=== PATIENT | male | born 1955 | race Caucasian/White ===

== ENCOUNTER → 2020-07-08 15:53 | Outpatient (BNVA) | payer MEDICARE, SELFPAY | PROVIDERS: Family Provider Nurse Practitioner Family; Visit Provider Nurse Practitioner Family | DX: M54.2 Cervicalgia (principal); M54.6 Pain in thoracic spine | CPT/HCPCS: 72040; 72072 ==

== ENCOUNTER → 2020-07-09 11:42 | Outpatient (BNVA) | payer MEDICARE, SELFPAY | PROVIDERS: Family Provider Nurse Practitioner Family; Visit Provider Nurse Practitioner Family | DX: M19.90 Unspecified osteoarthritis, unspecified site (principal); R53.83 Other fatigue; N40.0 Benign prostatic hyperplasia without lower urinary tract symptoms; G25.81 Restless legs syndrome; E55.9 Vitamin D deficiency, unspecified; Z79.899 Other long term (current) drug therapy; M50.30 Other cervical disc degeneration, unspecified cervical region; Z13.6 Encounter for screening for cardiovascular disorders; M51.34 Other intervertebral disc degeneration, thoracic region; Z23 Encounter for immunization | CPT/HCPCS: 80053; 80061; 82306; 83036; 83735; 84100; 84443; 85025; G0103 ==

== ENCOUNTER → 2020-07-10 11:47 | Outpatient (BNVA) | payer MEDICARE, SELFPAY | PROVIDERS: Family Provider Nurse Practitioner Family; Visit Provider Nurse Practitioner Family | DX: N40.0 Benign prostatic hyperplasia without lower urinary tract symptoms (principal) | CPT/HCPCS: 81003 ==

== ENCOUNTER 2020-07-15 10:01 | Outpatient (CLI) | payer MEDICARE, SELFPAY ==
--- NOTE | 2020-07-15 11:00 | MR_ITS ---
WS: [id number] MRI CERVICAL SPINE NONCONTRAST TECHNIQUE: Sagittal T1, T2 and STIR imaging. Axial T2, gradient, and fiesta imaging. CLINICAL INFORMATION: M50.30 Other cervical disc degeneration, unspecified cerv... COMPARISON: None. FINDINGS: Straightening of the normal cervical lordosis. Prior interbody bony fusion C3-4 and C5-6. Anterior hy pertrophic changes worse at C6-7. No high-grade central canal stenosis. Cord signal is normal. C2-C3: Osteophytic ridging. Mild bilateral bony foraminal narrowing. Mild facet arthropathy. C3-C4: Prior interbody bony fusion. Mild bilateral bony foraminal narrowing. Mild to moderate facet a rthropathy. Spinal canal is patent. C4-C5: Disc osteophyte complex with endplate ridging. Moderate central canal stenosis. Narrowing of t he right subarticular recess. Severe right and mild left bony foraminal narrowing. Advanced right fac et arthropathy. C5-C6: Interbody bony fusion. Mild right and no significant left foraminal narrowing. Spinal canal is patent. Moderate facet arthropathy. C6-C7: Disc osteophyte complex with endplate ridging. Moderate central canal stenosis. Severe left an d moderate right bony foraminal narrowing. C7-T1: Slight anterolisthesis C7 on T1. Moderate central canal stenosis. Severe bilateral bony forami nal narrowing with osteophytic ridging. Moderate facet arthropathy. Visualized brain stem structures: Normal. Prevertebral soft tissues: Normal. MR/MR cervical spin wo con* [id number] IMPRESSION: 1. Straightening of the normal cervical lordosis with prior interbody bony fus ion C3-C4 and C5-C6. 2. Moderate central canal stenosis C4-C5 and C6-C7 with slight contact of the cervical cord worse at C6-7. 3. Multilevel moderate to severe bony foraminal narrowing worse at right C4-5, left C6-7, and bilateral C7-T1. 4. Slight anterolisthesis C7 on T1.
--- NOTE | 2020-07-15 11:45 | MR_ITS ---
WS: [id number] MRI THORACIC SPINE WITHOUT CONTRAST TECHNIQUE: Sagittal T1, T2 and STIR imaging. Axial T2 imaging. Noncontrast imaging obtained. CLINICAL INFORMATION: M51.34 Other intervertebral disc degeneration, FINDINGS: Mild thoracic curve. Mild thoracic kyphosis. No acute compression fractures. No high-grade central ca nal stenosis. Hemangioma T11 vertebral body. Cord signal is normal. Moderate facet arthropathy lower thoracic spine. Mild central canal stenosis T2-3, T9-10, and T10-T11. Partially visualized left tomy l cyst measuring 6 cm. T1-T2: Mild left greater than right bony foraminal narrowing. Mild facet arthropathy. T2-T3: Mild disc osteophyte complex with endplate ridging. Mild central canal stenosis. Moderate face t arthropathy. Mild to moderate bilateral bony foraminal narrowing. T3-T4: Small central disc protrusion with slight contact of the thoracic cord. Moderate right and no significant left foraminal narrowing. Moderate facet arthropathy. T4-T5: Tiny right pericentral protrusion. Mild right foraminal narrowing. Mild facet arthropathy. T5-T6: Tiny central disc protrusion. Mild left greater than right foraminal narrowing. Mild facet art hropathy. T6-T7: Mild disc osteophytic ridging. Mild left foraminal narrowing. Mild facet arthropathy. T7-T8: Normal T8-T9: No significant spinal canal or foraminal narrowing. Mild facet arthropathy. T9-T10: Disc osteophyte complex with mild central canal stenosis. Moderate bilateral bony foraminal n arrowing. Moderate facet arthropathy. T10-T11: Disc osteophyte complex with endplate ridging. Moderate facet arthropathy. Moderate right an d mild left foraminal narrowing. T11-T12: Spinal canal and foramen are patent. Moderate facet arthropathy. T12-L1: Mild right and no significant left foraminal narrowing. Moderate facet arthropathy. MR/MR thoracic spin wo con* [id number] IMPRESSION: 1. Mild thoracic curve. Mild thoracic kyphosis. No high-grade central canal na rrowing. 2. Mild central canal stenosis T2-3, T9-T10 and T10-11. 3. Moderate facet arthropathy lower thoracic spine worse at T10-11. 4. Moderate bilateral T9-T10 and right T10-11 bony foraminal narrowing.
== END 2020-07-15 10:02 | disposition home or self-care (01) ==
LOC: RADSHAW 10:05
PROVIDERS: PCP Nurse Practitioner Family; Visit Provider Nurse Practitioner Family
DX: M50.30 Other cervical disc degeneration, unspecified cervical region (principal); M51.34 Other intervertebral disc degeneration, thoracic region; M40.204 Unspecified kyphosis, thoracic region; M48.04 Spinal stenosis, thoracic region; M47.814 Spondylosis without myelopathy or radiculopathy, thoracic region; M48.02 Spinal stenosis, cervical region; M40.50 Lordosis, unspecified, site unspecified
CPT/HCPCS: 72141; 72146

== ENCOUNTER → 2020-07-24 12:22 | Outpatient (BNVA) | payer MEDICARE, SELFPAY | PROVIDERS: PCP Nurse Practitioner Family; Visit Provider Licensed Practical Nurse | DX: M50.020 Cervical disc disorder with myelopathy, mid-cervical region, unspecified level (principal); M43.22 Fusion of spine, cervical region; M51.34 Other intervertebral disc degeneration, thoracic region; Z98.1 Arthrodesis status; M54.5 Low back pain; M47.894 Other spondylosis, thoracic region; M48.02 Spinal stenosis, cervical region; G99.2 Myelopathy in diseases classified elsewhere | CPT/HCPCS: 99204 ==

== ENCOUNTER 2020-08-06 08:24 | Outpatient (CLI) | payer MEDICARE, SELFPAY ==
--- NOTE | 2020-08-06 09:00 | IR_ITS ---
WS: [id number] Lumbar myelogram, 08/06/2020 Clinical Data: thoracic, LUMBAR back pain, NECK PAIN Comparison: None. Fluoroscopy time: 1.7 minutes. Findings: With the usual technique, a 22 gauge spinal needle was inserted into the lumbar subarachnoid space at L2-L3. The contrast material was hand injected. Approximately 20 mL of 300 mg/mL Omnipaque entered the lumba r subarachnoid space. There are no intramedullary or intradural defects. There was bilateral extradur al narrowing at the L4-L5 level. The transverse processes and SI joints show no significant abnormali ties. No compression fractures are seen. Intradural stimulator wires are present at the L4 level. Flexion, extension and neutral lateral views demonstrated no limitation of motion or subluxation. De generative change with anterior spurring was present at all the lumbar vertebral bodies. There is pos terior spurring at L2-L3 with an extradural defect. Degenerative disc narrowing at all levels from T1 2-L1 through L4-L5 was seen. FINDINGS: The contrast material fills the subarachnoid space of the thoracic spine. No intramedullary , intradural or extradural defects are seen. There is no obstruction to the flow of contrast from the lumbar subarachnoid space into the cervical subarachnoid space. There is osteoarthritic change of th e thoracic vertebral bodies with multiple disc space narrowing. FINDINGS: The contrast material flowed normally into the cervical subarachnoid space. There is an int erbody fusion at C3-C4. There is an anterior bony fusion at C5-C6. There is large anterior osteoarth ritic spurring at C6-C7. There is disc obliteration at C3-4, narrowing at C4-C5, C5-C6 and C6-C7. No compression fractures are seen. No prevertebral swelling is present. No intramedullary, intradural or extradural defects are seen. Neutral, flexion and extension views were obtained. On the neutral views there was an anterior sublux ation of 0.3 cm of C2 on C3 and 0.2 cm of C4 on C5. On flexion there is a slight increase of the C2-C 3 subluxation to 0.35 cm and an increase at the C4-C5 subluxation is 0.45 cm. On extension the sublux ations were reduced at C2-C3 and unchanged at C4-C5. There is limitation of motion of the cervical sp ine on flexion and extension. IR/IR myelogram spine total [id number] Impression: 1. Extradural defects bilaterally at L4-L5 and anteriorly at L2-L3. 2. Negative for intramedullary or intradural defects. 3. Osteoarthritis and multiple levels of degenerative disc disease. Thoracic myelogram: COMPARISON STUDY: Thoracic spine, 07/08/2020. IMPRESSION: 1. Negative thoracic myelogram. 2. Osteoarthritis and degenerative disc narrowing at multiple levels of the tho racic spine. Cervical myelogram: COMPARISON STUDY: MR cervical spine, 07/15/2020, cervical spine, 07/08/2020. IMPRESSION: 1. Osteoarthritic change from C3 through C6 with interbody fusion at C3-C4 and anterior fusion at C5-C6. 2. Negative for intramedullary, intradural or extradural defects. 3. Subluxation of C2-C3 which is slightly increased on flexion. 4. Minimal subluxation at C4-C5 which increases slightly on flexion. 5. Multilevel disc narrowing. 6. Limitation of motion on flexion and extension.
[2020-08-06] MEDS: iohexol 300 mg/mL 50 mL Btl INTRATHECA (10:06)
--- NOTE | 2020-08-06 11:00 | CT_ITS ---
WS: [id number] CT of the lumbar spine post myelogram, additional two-dimensional coronal and sagittal imaging was ob tained. 08/06/2020 . Clinical Data: Low back pain Comparison: CT lumbar spine, 08/08/2016. DLP: 1879.[address] scans at [facility] use at least one of these dose optimization techniques: automat ed exposure control; mA and/or kV adjustment per patient size (includes targeted exams where dose is matched to clinical indication); or iterative reconstruction. Findings: Degenerative arthritic change of the lumbar vertebral bodies from L1 through L5 is noted wi th severe anterior spurring. There is disc space narrowing from T12-L1 through L4-L5. There is a 0.4 cm retrolisthesis of L2 on L3. The L3-L4 disc space is obliterated. No compression fractures seen. Fa cet joint arthritis is noted at multiple levels from L3-L4 to L5-S1. There are residual wires from an intradural stimulator device at the L3-L4 level posteriorly. The transverse processes and SI joints are not remarkable. T12-L1: There is a broad-based disc bulge causing mild central canal stenosis along with facet joint arthritis causing mild foraminal narrowing. L1-L2: There is a broad-based disc bulge causing mild central canal stenosis and mild facet joint art hritis causing mild canal stenosis. L2-L3: There is posterior disc bulging and osteophyte formation causing mild canal stenosis along wit h foraminal narrowing from facet joint arthritis. L3-L4: There is facet joint arthritis causing foraminal stenosis but no disc bulge L4-L5: There is a broad-based disc bulge causing canal stenosis along with facet joint arthritis caus ing foraminal stenosis. L5-S1: There is posterior osteophyte formation and posterior arthritis of the facet joints causing ca nal and foraminal stenosis. CT/CT lumbar spine w con [id number] Impression: 1. Multilevel degenerative disc narrowing and osteoarthritis. 2. Multilevel central canal narrowing and bilateral foraminal narrowing. 3. Retrolisthesis of L2 on L3 of 0.4 cm.
--- NOTE | 2020-08-06 11:00 | CT_ITS ---
WS: [id number] CT scan of the thoracic spine post myelogram. Additional two-dimensional coronal and sagittal reconst ruction was performed. 08/06/2020 Clinical Data: Thoracic back pain Comparison: MRI thoracic spine, 07/15/2020. DLP: 879.[address] scans at [facility] use at least one of these dose optimization techniques: automat ed exposure control; mA and/or kV adjustment per patient size (includes targeted exams where dose is matched to clinical indication); or iterative reconstruction. Findings: No compression fractures are seen. Contrast material fills the thoracic subarachnoid space. There is anterior osteoarthritic spurring at multiple levels. There is disc space narrowing at almost all thor acic levels. No intramedullary or intradural defects could be seen. The thoracic spinal cord was norm al in size. T1-T2: Bilateral facet joint arthritis and mild superior osteophyte formation causes minimal canal an d spinal stenosis. T2-T3: Minimal posterior osteophyte formation causes mild canal stenosis. T3-T4: Mild posterior osteophyte formation is present. T4-T5: Mild posterior osteophyte formation. T5-T6: Minimal left osteophyte formation. T6-T7: Mild posterior osteophyte formation. T7-T8: Minimal posterior osteophyte. Coronal and T8-T9 negative T9-T10: Minimal posterior osteophyte formation with facet joint arthritis. T10-T11: Minimal posterior disc with severe said joint arthritis. T11-T12, mild posterior disc and osteophyte formation with moderate facet joint arthritis. CT/CT thoracic spine w con [id number] Impression: 1. Multilevel posterior disc and facet joint arthritis. 2. Anterior osteoarthritis with disc space narrowing at multiple levels. 3. Negative for intramedullary or intradural defects.
--- NOTE | 2020-08-06 11:00 | CT_ITS ---
WS: [id number] CT cervical spine post myelogram. Additional two-dimensional coronal and sagittal reconstruction was performed. 08/06/2020 Clinical Data: Neck pain Comparison: MR cervical spine, 07/15/2020, cervical spine, 07/08/2020. DLP: 1297.[address] scans at [facility] use at least one of these dose optimization techniques: automat ed exposure control; mA and/or kV adjustment per patient size (includes targeted exams where dose is matched to clinical indication); or iterative reconstruction. Findings: No compression fractures are seen. The myelographic contrast surrounds the spinal cord. No intramedul edilma or intradural defects are seen. There is an anterior extradural defect at C4-C5 with a small bon y fragment at this level. There is fusion of the C3-C4 and C5-C6 interspaces. There is a large anteri or osteophyte at C6-C7. There are posterior osteophytes at C4-C5, C5-C6 and C6-C7. There is an anteri or subluxation of C7-T1 of 0.3 cm. There is no prevertebral soft tissue swelling. C2-C3: There is posterior osteophyte formation with bilateral facet joint arthritis more in the left and right. C3-C4: No disc bulge, canal stenosis or foraminal stenosis is seen. C4-C5: There is posterior osteophyte formation with bilateral facet joint arthritis causing canal and foraminal stenosis bilaterally. C5-C6: There is minimal posterior osteophyte formation and facet joint arthritis. C6-C7: There is posterior osteophyte formation with bilateral facet joint arthritis causing canal and foraminal stenosis. C7-T1: There is posterior osteophyte formation with facet joint arthritis. CT/CT cervical spine w con [id number] Impression: 1. Negative for intramedullary or intradural defects. 2. Degenerative disc narrowing at multiple levels from C3-C4 to C6-C7. 3. Posterior osteophytes causing extradural defect at C4-C5. 4. Multilevel posterior osteophyte formation and facet joint arthritis. 5. 0.3 cm subluxation of C7 on T1.
== END 2020-08-06 08:25 | disposition home or self-care (01) ==
LOC: RADWPI 08:26
PROVIDERS: PCP Nurse Practitioner Family; Visit Provider Licensed Practical Nurse
DX: M54.2 Cervicalgia (principal); M54.5 Low back pain; M54.6 Pain in thoracic spine; M47.894 Other spondylosis, thoracic region
CPT/HCPCS: 62305; 72040; 72120; 72126; 72129; 72132; Q9967

== ENCOUNTER → 2020-08-13 10:23 | Outpatient (BNVA) | payer MEDICARE, SELFPAY | PROVIDERS: PCP Nurse Practitioner Family; Referring Provider Licensed Practical Nurse; Visit Provider Orthopaedic Surgery | DX: M48.02 Spinal stenosis, cervical region (principal); G99.2 Myelopathy in diseases classified elsewhere; Z98.1 Arthrodesis status | CPT/HCPCS: 72050; 72114 ==

== ENCOUNTER → 2020-08-14 09:50 | Outpatient (BNVA) | payer MEDICARE, SELFPAY | PROVIDERS: PCP Nurse Practitioner Family; Visit Provider Licensed Practical Nurse | DX: M48.02 Spinal stenosis, cervical region (principal); M43.22 Fusion of spine, cervical region; M50.020 Cervical disc disorder with myelopathy, mid-cervical region, unspecified level; M51.34 Other intervertebral disc degeneration, thoracic region; M47.894 Other spondylosis, thoracic region; Z98.1 Arthrodesis status | CPT/HCPCS: 99213 ==

== ENCOUNTER → 2020-12-02 10:38 | Outpatient (BNVA) | payer OTHER, SELFPAY | PROVIDERS: PCP Nurse Practitioner Family; Visit Provider Urology | DX: N40.1 Benign prostatic hyperplasia with lower urinary tract symptoms (principal) | CPT/HCPCS: 81003 ==

== ENCOUNTER → 2021-01-14 10:52 | Outpatient (BNVA) | payer OTHER, SELFPAY | PROVIDERS: PCP Nurse Practitioner Family; Visit Provider Urology | DX: N40.1 Benign prostatic hyperplasia with lower urinary tract symptoms (principal) | CPT/HCPCS: 81003 ==

== ENCOUNTER 2021-04-23 16:17 | Outpatient (CLI) | payer MEDICARE, SELFPAY ==
--- NOTE | 2021-04-23 16:50 | ECG_ITS ---
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 Measurements Intervals [place] Rate: 108 P: NM: QRS: -43 QRSD: 93 T: 61 QT: 326 QTc: 437 Interpretive Statements Atrial fibrillation / flutter WITH RAPID VENTRICULAR RESPONSE MARKED LEFT AXIS DEVIATION [QRS AXIS < -30] INCOMPLETE RIGHT BUNDLE BRANCH BLOCK [90+ ms QRS DURATION, TERMINAL R IN V1/V2, 40+ ms S IN I/aVL/V4/V5/V6] Compared to ECG 07/31/2016 10:20:02 Incomplete right bundle-branch block now present Sinus bradycardia no longer present Electronically Signed On 04-24-2021 14:39:48 CDT by Tamica Booth M.D. [id number]
== END 2021-04-23 16:18 | disposition home or self-care (01) ==
LOC: RT 16:24
PROVIDERS: PCP Nurse Practitioner Family; Visit Provider Nurse Practitioner Family
DX: R00.0 Tachycardia, unspecified (principal); I45.10 Unspecified right bundle-branch block
CPT/HCPCS: 93005

== ENCOUNTER 2021-04-24 13:07 | Observation (INO) | payer MEDICARE, SELFPAY ==
--- NOTE | 2021-04-24 13:21 | ECG_ITS ---
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 Measurements Intervals [place] Rate: 113 P: [place]: QRS: -45 QRSD: 106 T: 59 QT: 332 QTc: 457 Interpretive Statements ATRIAL FLUTTER/TACHYCARDIA WITH RAPID VENTRICULAR RESPONSE PATTERN CONSISTENT WITH PULMONARY DISEASE INCOMPLETE RIGHT BUNDLE BRANCH BLOCK [90+ ms QRS DURATION, TERMINAL R IN V1/V2, 40+ ms S IN I/aVL/V4/V5/V6] LEFT ANTERIOR FASCICULAR BLOCK [QRS AXIS <= -45, QR IN I, RS IN II] NONSPECIFIC T-WAVE ABNORMALITY WARNING: DATA QUALITY MAY AFFECT INTERPRETATION Compared to ECG 04/23/2021 16:41:21 Left anterior fascicular block now present T-wave abnormality now present Atrial fibrillation no longer present Left-axis deviation no longer present Electronically Signed On 04-24-2021 14:43:18 CDT by Tamica Booth M.D. [id number]
--- NOTE | 2021-04-24 13:21 | XR_ITS ---
WS: [id number] XR chest 1V portable [id number] REASON FOR EXAM: arrhythmia FINDINGS: Moderate tortuosity the thoracic aorta without aneurysmal dilatation. The heart size is normal. There is calcified granulomatous disease in both hemithoraces. No acute pulmonary parenchymal or pleu ral abnormality is identified. Eventration of the right hemidiaphragm. Mild to moderate degenerative change in the mid and lower thoracic spine and right shoulder joint. XR/XR chest 1V portable [id number] IMPRESSION: No acute abnormality.
[2021-04-24 13:24] VITALS: BP 150/74; PULSE 69; RESP 16; TEMP 36.9; O2SAT 93; BMI 35.2
[2021-04-24 14:27] LABS: Basophils % 0.3 %; Eosinophils # 0.1 10^3/uL (0.0-0.8); Eosinophils % 1.7 %; Hematocrit 44.7 % (42.0-52.0); Hemoglobin 14.8 g/dL (11.7-16.6); Lymphocytes # 1.1 10^3/uL (0.8-4.8); Lymphocytes % 17.5 %; Mean Corpuscular HGB Conc 33.1 g/dL (30.0-36.0); Mean Corpuscular Hemoglobin 29.9 pg (28.0-34.0); Mean Corpuscular Volume 90.3 fL (80-94); Mean Platelet Volume 11.6 fL (7.4-10.4); Monocytes # 0.5 10^3/uL (0.2-0.9); Monocytes % 6.9 %; Neutrophils # 4.76 10^3/uL (1.8-7.7); Neutrophils % 73.1 %; Nucleated Red Blood Cells % 0 %; Platelet Count 173 10^3/cmm (130-400); Red Blood Count 4.95 10^6/uL (4.1-5.3); Red Cell Distribution Width 13.3 % (12.1-15.1); White Blood Count 6.5 10^3/uL (4.0-10.0)
[2021-04-24 14:39] LABS: D Dimer 0.32 ug/mIFEU (0-0.59)
[2021-04-24 14:47] LABS: Troponin(5th) Baseline 22 ng/L (0-15)
[2021-04-24 14:57] LABS: Alanine Aminotransferase 32 U/L (0-41); Albumin Level 4.3 g/dL (3.5-5.2); Alkaline Phosphatase 71 IU/L (40-130); Anion Gap 12.7 (5-19); Aspartate Amino Transferase 21 U/L (0-40); Blood Urea Nitrogen 16 mg/dL (8-23); Calcium 8.2 mg/dL (8.5-10.5); Carbon Dioxide 30 mmol/L (22-29); Chloride 104 mmol/L (98-107); Creatinine Clr Calc Pharmacy 118.7943; Globulin 1.9 g/dL (1.3-4.6); Glomerular Filtration Rate 96.4 mL/min (90-130); Glucose 97 mg/dL (65-115); NT Pro B Type Natriuretic Pept 246 pg/mL (0-125); Osmolality Calculated 297 mOsm/kg (285-295); Potassium 3.7 mmol/L (3.5-5.1); Sodium 143 mmol/L (136-145); Total Bilirubin 0.3 mg/dL (0.15-1.2); Total Protein 6.2 g/dL (6.6-8.7)
[2021-04-24 15:00] LABS: SARS Covid-2 Antigen Negative (Negative)
[2021-04-24] MEDS: sodium chloride 0.9% 1,000 ML 999 ML IV (15:33)
[2021-04-24 16:39] LABS: Troponin 5 2HR 22.46 ng/L (0-15); Troponin 5 2HR Delta 0.46 ABS# (0-10)
[2021-04-24] MEDS: metoprolol tartrate 1 mg/1 mL SDV 5 mL 5 MG IV (17:11)
[2021-04-24 17:16] VITALS: BP 134/99; PULSE 101; RESP 16; O2SAT 94
[2021-04-24 17:18] LABS: Add Urine Microscopic? NO; Charge for UA Resulting for Rev
--- NOTE | 2021-04-24 17:23 | P.HP_ITS ---
Providers/Chief Complaint Primary Care Provider: PAYAL Adamson Chief Complaint: ATRIAL FLUTTER, TACHY,BOWEL PROBLEMS History of Present Illness Felipe Bello is a 65 year old male with history as below presented to ER after been referred to ER by PCP for irregular heart beat on physical exam. He went to his PCP for tooth ache. He also c/o SOB, cough, fatigue since last wednesday which was preceeded by runny nose and sore throat. He s also c/o diarrhea since today morning. Denies any sick contacts, fever, headache, myalgia, CP, dizziness. 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 Denies any recent medication changes. Drinks well water. Was vaccinated for COVID 19 with both doses and last in Oct 2020. In ER he was found to have aflutter with HR in 110bpm. Review of Systems General: Reports: 10 or more systems reviewed and unremarkable except in HPI and below Const: Denies: fever(s), chills, body aches, change in appetite, change in weight, malaise, night sweats, diaphoresis, change in sleep pattern, daytime sleepiness or snoring Eyes: Denies: change in vision, blurry vision, photophobia, eye discomfort or eye discharge ENMT: Denies: throat pain, enlarged tonsils, hoarseness, mouth pain, oral sores, dry mouth, tinnitus, nasal congestion or post nasal drip Card: Denies: chest pain, palpitations, irregular heart rhythm, edema, swelling of feet/ankles, lightheadedness, syncope, pre-syncope, dyspnea on exertion, orthopnea, leg pain with exertion or acrocyanosis Resp: Denies: dyspnea, productive cough, non-productive cough, wheezing, stridor, pain on inspiration, change in phlegm color, hemoptysis or chest congestion GI: Denies: abdominal pain, nausea, vomiting, hematemesis, coffee ground emesis, dysphagia, heartburn, diarrhea, constipation, bloating, GI cramping, change in bowel habits, pain on defecation, hematochezia or melena : Denies: flank pain, difficulty urinating, dysuria, urinary frequency, urinary urgency, urinary hesitancy, urinary dribbling, difficulty starting urination, change in urine stream, nocturia or hematuria Musc: Denies: neck pain, back pain, extremity pain, joint pain, joint swelling, joint redness, joint stiffness or limited range of motion Neuro: Denies: headache(s), numbness in extremities, weakness in extremities, sensory changes, lack of coordination, difficulty walking, frequent falls, dizz iness, vertigo, confusion, Slurred speech present, difficulty communicating thoughts or seizure-like activity Psych: Denies: anxiety, depression, mood swings, panic attacks, hopelessness or irritability Endo: Denies: polyuria, polydipsia, tired all the time, cold intolerance, excessive sweating, flushing or heat intolerance Jb/Lymph: Denies: easy bruising or easy bleeding All/Imm: Denies: tongue swelling, facial swelling or acute wheezing Medications/Allergies Home Medications Medication Instructions Recorded Confirmed Last Taken Type cirwbyr-kkfrnoyafmffv-rjhuczro 250 1 tab PO Q6H PRN 07/09/20 04/24/21 04/24/21 History mg-250 mg-65 mg tablet ascorbic acid (vitamin C) 500 mg 500 mg PO DAILY cap 12/02/20 04/24/21 04/22/21 History capsule cholecalciferol (vitamin D3) 125 125 mcg PO DAILY 12/02/20 04/24/21 04/22/21 History mcg (5,000 unit) capsule diphenhydramine HCl 25 mg capsule 12.5 mg PO BID PRN cap 12/02/20 04/24/21 04/20/21 History niacin 100 mg tablet 100 mg PO DAILY 12/02/20 04/24/21 04/22/21 History omega-3 fatty acids 1,000 mg 1,000 mg PO DAILY 12/02/20 04/24/21 04/22/21 History capsule tamsulosin 0.4 mg capsule 0.8 mg PO DAILY #60 cap 12/02/20 04/24/21 04/24/21 Rx zinc 50 mg tablet 50 mg PO DAILY 12/02/20 04/24/21 04/22/21 History calcium carbonate 600 mg calcium 600 mg PO DAILY 01/14/21 04/24/21 04/22/21 History (1,500 mg) tablet potassium chloride 10 mEq 10 meq PO DAILY 01/14/21 04/24/21 04/22/21 History capsule,extended release amoxicillin 875 mg tablet 875 mg PO BID 10 Days #20 tab 04/24/21 04/24/21 Unknown Rx Allergies Allergy/AdvReac Type Severity Reaction Status Date / Time cefazolin [From Kefzol] Allergy itching, Verified 04/23/21 13:27 redness morphine Allergy itching Verified 04/23/21 13:27 PFSH Acute PFSH: Medical History (Updated 04/24/21 @ 22:29 by Teodoro Argueta MD) 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 Leads intact. 1989 [place], [place] L3-L4, L4-L5 posterior fusion/fixation. L3 right-sided hemilaminectomy. History of umbilical hernia repair S/P appendectomy S/P hip replacement 08/04/2016 right hip S/P knee surgery Status post laminectomy with spinal fusion Family History Father , at age 83 CAD (coronary artery disease) Mother , at age 76 CAD (coronary artery disease) Social History Smoking and tobacco status: never smoked Alcohol intake: never Household members: none Marital status: Current occupational status: retired and disabled History of recent travel: No Vitals/I&O/Wt Last Vital Signs Temp 98.4 F 04/24/21 13:24 Pulse 101 H 04/24/21 17:16 Resp 16 04/24/21 17:16 BP 134/99 04/24/21 17:16 Pulse Ox 94 04/24/21 17:16 04/24/21 04/24/21 04/24/21 06:59 14:59 22:59 Intake Total 1000 / 1000 Balance 1000 / 1000 Weight last 48 hrs Weight 117.934 kg Physical Exam Narrative: EXAM NARRATIVE: General: No acute distress, AO x3 HEENT: PERRLA, pupils bilaterally equal and reactive Chest: Normal vesicular breath sounds, no added sounds, equal good air entry bilaterally CVS: S1-S2 irregularly irregular, no murmurs, no tachycardia, no gallops, no rubs Abdomen: Soft, nontender, no organomegaly, bowel sounds present Neuro: No focal deficits, no facial deformity, AO x3, power 5/5 in all limbs Data : 04/25/21 02:47 04/25/21 02:47 A&P Assessment and plan (1) Atrial flutter: Status: Acute (2) Diarrhea: Status: Acute (3) Generalized weakness: Status: Acute (4) COVID-19 vaccine series completed: Status: Acute Additional A&P Information Aflutter: Rate controlled. TSH, electrolytes normal. Check ECHO. Start on Metoprolol 50 mg PO BID. MAYRA-Vasc score- 1. Patient is aggreable for AC for stroke prevention. Start on Eliquis 5 mg PO BID. Diarrhea/Generalised fatigue: IVF @ 75 cc/hr Check stool studies. If Cdiff negative will give loperamide. Hold off on Abx for now. Check COVID 19- PCR. Isolation precautions. Continue other chronic meds. FC Eliquis will help with DVT Px Protonix for PUD Attestations Medical Necessity Statement*: Less than 2 MN for Aflutter, diarrhea, Covid 19 rule out Time Spent in Patient Care: Greater than 35 minutes (>than 50% of time spent in counselling and/or direct pt care on unit) . Coding Level of Care Code Acute Mail Censor for Chg Fwd Diagnoses Atrial flutter I48.92 Diarrhea R19.7 Generalized weakness R53.1 COVID-19 vaccine series completed Z92.29
[2021-04-24 17:27] LABS: Bilirubin Urine Neg (Negative); Blood Urine Neg (Negative); Glucose Urine UA Norm (Normal); Ketones Urine Negative (Negative); Leukocyte Esterase Urine Negative (Negative); Nitrate Urine Negative (Negative); Protein Urine Neg (Negative); Sulfosalicylic Acid Urine Negative (Negative); Urine Appearance Clear (CLEAR); Urine Color Yellow (Yellow); Urobilinogen Urine Norm (Negative); pH Urine 8.5 (5-7)
--- NOTE | 2021-04-24 17:41 | ED_ITS ---
HPI - Arrhythmia/Palpitations General: Chief Complaint: Recheck/Abnormal Lab/Rx Stated Complaint: abnormal EKG, dental pain Time Seen by Provider: 04/24/21 13:21 History of Present Illness: HPI narrative: The patient is a 65-year-old male recently being treated for a sinus infection with amoxicillin who comes to the ER complaining of palpitations. He was sent by nurse practitioner for evaluation of an irregular EKG done as an outpatient. She saw him yesterday as well and sent him to the ER and somehow he did not check into the ER but got an EKG somewhere else and was sent home. EKG on arrival today shows a flutter and he complains he does feel occasional palpitations. 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 He also complains of increasing diarrhea over the past day and has had 4 episodes of liquidy diarrhea today. complaint: skipped beats Associated symptoms: Deny anxiety, nausea or vomiting Review of Systems 2 General: Reports: 10 or more systems reviewed and unremarkable except in HPI and below Const: Denies: fatigue Eyes: Denies: change in vision, blurry vision or eye redness ENMT: Denies: throat pain, swelling of lips/tongue, ear or mastoid pain or nasal congestion Card: Reports: palpitations; Denies: chest pain, irregular heart rhythm, edema, dyspnea on exertion or orthopnea Resp: Denies: dyspnea, productive cough or non-productive cough GI: Reports: diarrhea; Denies: abdominal pain, nausea, vomiting or GI cramping : Denies: flank pain, urinary frequency or urinary urgency Musc: Denies: neck pain, back pain, extremity pain, joint pain, joint redness, limited range of motion or muscle weakness Skin/Breast: Denies: rash, pruritus, erythema, skin pain or skin tenderness Neuro: Denies: headache(s), numbness in extremities, weakness in extremities, sensory changes, difficulty walking, dizziness, confusion or Slurred speech present Psych: Denies: anxiety or depression Endo: Denies: polyuria All/Imm: Denies: urticaria, throat swelling or tongue swelling PFS ED PFSH: Medical History (Updated 04/24/21 @ 18:05 by Raymond Landry MD) 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 Leads intact. 1989 [place], [place] L3-L4, L4-L5 posterior fusion/fixation. L3 right-sided hemilaminectomy. History of umbilical hernia repair S/P appendectomy S/P hip replacement 08/04/2016 right hip S/P knee surgery Status post laminectomy with spinal fusion Family History Father , at age 83 CAD (coronary artery disease) Mother , at age 76 CAD (coronary artery disease) Social History Smoking and tobacco status: never smoked Alcohol intake: never Household members: none Marital status: Current occupational status: retired and disabled History of recent travel: No Physical Exam Const: COMMON NORMALS: no acute distress, average body habitus, patient oriented x3, no limitations, healthy appearing, alert and well nourished GENERAL APPEARANCE: cooperative, comfortable, well kempt and well developed ORIENTATION/CONSCIOUSNESS: Yes awake, Yes oriented to person, Yes oriented to place and Yes oriented to time HENMT: COMMON NORMALS: normocephalic, external ears normal and Normal external nose present HEAD & SCALP: normal to inspection and normocephalic NOSE: Normal external nose present EXTERNAL EAR: Yes external ears normal MOUTH: Normal oral and palatal mucosa present THROAT: posterior oropharynx normal Eye: COMMON NORMALS: Equal, round and reactive pupils present and EOMs intact bilaterally GENERAL EYE: appearance normal, both eyes and all related structures PUPIL: Yes Equal, round and reactive pupils present Neck/C-Spine: COMMON NORMALS: full ROM, no lymphadenopathy, no meningeal signs and no JVD GENERAL: Yes normal visual inspection Lymph: LYMPHATIC: no lymphadenopathy noted Chest: COMMONS NORMALS: normal inspection of the chest and normal palpation of entire chest wall Resp: COMMON NORMALS: normal respiratory effort, No retractions, No use of accessory muscles, clear to auscultation bilaterally and percussion normal EFFORT & INSPECTION: Yes able to speak in complete sentences AUSCULTATION: clear to auscultation bilaterally PERCUSSION: percussion normal Cardio: COMMON NORMALS: no JVD, S1 normal heart sound present, S2 normal heart sound present and Peripheral pulses 2+ throughout RATE: tachycardic RHYTHM: abnormal rhythm (Atrial flutter rate 110) HEART SOUNDS: S1 normal heart sound present and S2 normal heart sound present PERIPHERAL PULSES: Flory pheral pulses 2+ throughout GI: COMMON NORMALS: Normal to inspection, nondistended, normoactive bowel sounds present, Soft to palpation, non-tender and no masses INSPECTION: Yes normal to inspection PALPATION: Yes Soft to palpation : COMMON NORMALS: Yes no CVA tenderness BLADDER/KIDNEY EXAM: Yes no CVA tenderness Back/Pelvis: COMMON NORMALS: no CVA tenderness, thoracic and lumbar spine normal to inspection, no thoracic nor lumbar tenderness and thoraco-lumbar ROM normal Extremity: COMMON NORMALS: normal to inspection, full ROM, capillary refill normal, no joint enlargement and no pedal edema GENERAL: Yes normal exam except as noted Neuro: COMMON NORMALS: patient oriented x3, CN's II-XII intact bilaterally, moves all extremities, no focal motor deficits, no sensory deficits noted and gait normal SENSORIUM/ORIENTATION: Yes alert, Yes oriented to person, Yes oriented to place and Yes oriented to time MENINGEAL SIGNS: Yes no meningeal signs Psych: COMMON NORMALS: mental status grossly normal, Normal thought process present, cooperative, normal affect and speech normal APPEARANCE: Yes well kempt ATTITUDE: Yes calm SPEECH: Yes normal speech THOUGHT PROCESS: Normal thought process present Skin: COMMON NORMALS: no rashes or lesions noted GENERAL SKIN EXAM: no rashes or lesions noted Course Vital Signs: Vital signs: Vital Signs Temperature 98.4 F 04/24/21 13:24 Pulse Rate 101 H 04/24/21 17:16 Respiratory Rate 16 04/24/21 17:16 Blood Pressure 134/99 04/24/21 17:16 Pulse Oximetry 94 04/24/21 17:16 MDM - Arrhythmia/Palpitations MDM Narrative: Medical decision making narrative: The patient came to the ER for evaluation of palpitations after he was found 2 days in a row to be in atrial flutter. He was again here with rate 1 10-1 15. He was given IV fluids and metoprolol bolus with minimal improvement to rate 100-105 still in atrial flutter. Discussed with Dr. Dutta who recommends observation. Lab Data: Labs: Lab Results 04/24/21 04/24/21 04/24/21 Range/Units 14:00 14:00 14:00 WBC 6.5 (4.0-10.0) 10^3/ uL RBC 4.95 (4.1-5.3) 10^6/u L Hgb 14.8 (11.7-16.6) g/dL Hct 44.7 (42.0-52.0) % MCV 90.3 (80-94) fL MCH 29.9 (28.0-34.0) pg MCHC 33.1 (30.0-36.0) g/dL RDW 13.3 (12.1-15.1) % Plt Count 173 (130-400) 10^3/c mm MPV 11.6 H (7.4-10.4) fL Neut % (Auto) 73.1 % Lymph % (Auto) 17.5 % [place] % (Auto) 6.9 % Eos % (Auto) 1.7 % Baso % (Auto) 0.3 % Neut # (Auto) 4.76 (1.8-7.7) 10^3/u L Lymph # (Auto) 1.1 (0.8-4.8) 10^3/u L [place] # (Auto) 0.5 (0.2-0.9) 10^3/u L Eos # (Auto) 0.1 (0.0-0.8) 10^3/u L Baso # (Auto) 0.0 (0.0-0.1) 10^3/u L Nucleated RBC % (a uto) 0 % Nucleated RBCs # 0.0 /100WBC D-Dimer 0.32 (0-0.59) ug/mIFE U Sodium 143 (136-145) mmol/L Potassium 3.7 (3.5-5.1) mmol/L Chloride 104 (98-107) mmol/L Carbon Dioxide 30 H (22-29) mmol/L Anion Gap 12.7 (5-19) BUN 16 (8-23) mg/dL Creatinine 0.8 (0.7-1.2) mg/dL GFR Calculation 96.4 (90-130) mL/min Glucose 97 (65-115) mg/dL Calculated Osmolal ity 297 H (285-295) mOsm/k g Calcium 8.2 L (8.5-10.5) mg/dL Total Bilirubin 0.3 (0.15-1.2) mg/dL AST 21 (0-40) U/L ALT 32 (0-41) U/L Alkaline Phosphata se 71 (40-130) IU/L Troponin T Baselin e (0-15) ng/L Troponin T 120 Min wrangell (0-15) ng/L Delta Troponin T (0-10) ABS# NT-Pro-B Natriuret Pep 246 H (0-125) pg/mL Total Protein 6.2 L (6.6-8.7) g/dL Albumin 4.3 (3.5-5.2) g/dL Globulin 1.9 (1.3-4.6) g/dL TSH (0.27-4.20) uIU/ mL Urine Color (Yellow) Urine Appearance (CLEAR) Urine pH (5-7) Ur Specific Gravit y (1.005-1.030) Urine Protein (Negative) Urine Glucose (UA) (Normal) Urine Ketones (Negative) Urine Blood (Negative) Urine Nitrate (Negative) Urine Bilirubin (Negative) Prot Sulfosalicyli c Acd (Negative) Urine Urobilinogen (Negative) mg/dL Ur Leukocyte Shalini ase (Negative) SARS-CoV-2 Ag (Rap id) (Negative) 04/24/21 04/24/21 04/24/21 Range/Units 14:00 14:00 14:20 WBC (4.0-10.0) 10^3/ uL RBC (4.1-5.3) 10^6/u L Hgb (11.7-16.6) g/dL Hct (42.0-52.0) % MCV (80-94) fL MCH (28.0-34.0) pg MCHC (30.0-36.0) g/dL RDW (12.1-15.1) % Plt Count (130-400) 10^3/c mm MPV (7.4-10.4) fL Neut % (Auto) % Lymph % (Auto) % [place] % (Auto) % Eos % (Auto) % Baso % (Auto) % Neut # (Auto) (1.8-7.7) 10^3/u L Lymph # (Auto) (0.8-4.8) 10^3/u L [place] # (Auto) (0.2-0.9) 10^3/u L Eos # (Auto) (0.0-0.8) 10^3/u L Baso # (Auto) (0.0-0.1) 10^3/u L Nucleated RBC % (a uto) % Nucleated RBCs # /100WBC D-Dimer (0-0.59) ug/mIFE U Sodium (136-145) mmol/L Potassium (3.5-5.1) mmol/L Chloride (98-107) mmol/L Carbon Dioxide (22-29) mmol/L Anion Gap (5-19) BUN (8-23) mg/dL Creatinine (0.7-1.2) mg/dL GFR Calculation (90-130) mL/min Glucose (65-115) mg/dL Calculated Osmolal ity (285-295) mOsm/k g Calcium (8.5-10.5) mg/dL Total Bilirubin (0.15-1.2) mg/dL AST (0-40) U/L ALT (0-41) U/L Alkaline Phosphata se (40-130) IU/L Troponin T Baselin e 22 H (0-15) ng/L Troponin T 120 Min wrangell (0-15) ng/L Delta Troponin T (0-10) ABS# NT-Pro-B Natriuret Pep (0-125) pg/mL Total Protein (6.6-8.7) g/dL Albumin (3.5-5.2) g/dL Globulin (1.3-4.6) g/dL TSH 1.00 (0.27-4.20) uIU/ mL Urine Color (Yellow) Urine Appearance (CLEAR) Urine pH (5-7) Ur Specific Gravit y (1.005-1.030) Urine Protein (Negative) Urine Glucose (UA) (Normal) Urine Ketones (Negative) Urine Blood (Negative) Urine Nitrate (Negative) Urine Bilirubin (Negative) Prot Sulfosalicyli c Acd (Negative) Urine Urobilinogen (Negative) mg/dL Ur Leukocyte Shalini ase (Negative) SARS-CoV-2 Ag (Rap id) Negative (Negative) 04/24/21 04/24/21 Range/Units 16:13 16:50 WBC (4.0-10.0) 10^3/ uL RBC (4.1-5.3) 10^6/u L Hgb (11.7-16.6) g/dL Hct (42.0-52.0) % MCV (80-94) fL MCH (28.0-34.0) pg MCHC (30.0-36.0) g/dL RDW (12.1-15.1) % Plt Count (130-400) 10^3/c mm MPV (7.4-10.4) fL Neut % (Auto) % Lymph % (Auto) % [place] % (Auto) % Eos % (Auto) % Baso % (Auto) % Neut # (Auto) (1.8-7.7) 10^3/u L Lymph # (Auto) (0.8-4.8) 10^3/u L [place] # (Auto) (0.2-0.9) 10^3/u L Eos # (Auto) (0.0-0.8) 10^3/u L Baso # (Auto) (0.0-0.1) 10^3/u L Nucleated RBC % (a uto) % Nucleated RBCs # /100WBC D-Dimer (0-0.59) ug/mIFE U Sodium (136-145) mmol/L Potassium (3.5-5.1) mmol/L Chloride (98-107) mmol/L Carbon Dioxide (22-29) mmol/L Anion Gap (5-19) BUN (8-23) mg/dL Creatinine (0.7-1.2) mg/dL GFR Calculation (90-130) mL/min Glucose (65-115) mg/dL Calculated Osmolal ity (285-295) mOsm/k g Calcium (8.5-10.5) mg/dL Total Bilirubin (0.15-1.2) mg/dL AST (0-40) U/L ALT (0-41) U/L Alkaline Phosphata se (40-130) IU/L Troponin T Baselin e (0-15) ng/L Troponin T 120 Min wrangell 22.46 H (0-15) ng/L Delta Troponin T 0.46 (0-10) ABS# NT-Pro-B Natriuret Pep (0-125) pg/mL Total Protein (6.6-8.7) g/dL Albumin (3.5-5.2) g/dL Globulin (1.3-4.6) g/dL TSH (0.27-4.20) uIU/ mL Urine Color Yellow (Yellow) Urine Appearance Clear (CLEAR) Urine pH 8.5 H (5-7) Ur Specific Gravit y 1.010 (1.005-1.030) Urine Protein Neg (Negative) Urine Glucose (UA) Norm (Normal) Urine Ketones Negative (Negative) Urine Blood Neg (Negative) Urine Nitrate Negative (Negative) Urine Bilirubin Neg (Negative) Prot Sulfosalicyli c Acd Negative (Negative) Urine Urobilinogen Norm (Negative) mg/dL Ur Leukocyte Shalini ase Negative (Negative) SARS-CoV-2 Ag (Rap id) (Negative) Discharge Plan Discharge Patient Disposition: Placed in Observation Clinical Impression: Atrial flutter, Diarrhea, Pain, dental Coding Level of Care Code ED Director Of Financial Aid for Sammie Delatorre
[2021-04-24] MEDS: famotidine 20 mg/2 mL INJ IVP (17:52)
[2021-04-24 18:14] LABS: INR 1.08 (0.8-1.2)
[2021-04-24 18:28] LABS: Iron 45 ug/dL (59-158)
[2021-04-24 18:58] LABS: Total Iron Binding Capacity 280 mcg/dl; Unsaturated Iron Binding 235 ug/dL (112-347)
--- NOTE | 2021-04-24 19:21 | ECG_ITS ---
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1955 Requested By: Raymond Landry Order Number: [id number] Reading MD: AMARIS MATTHEWS Measurements Intervals [place] Rate: 82 P: OK: QRS: -32 QRSD: 110 T: 7 QT: 391 QTc: 458 Interpretive Statements ATRIAL FLUTTER/TACHYCARDIA MARKED LEFT AXIS DEVIATION [QRS AXIS < -30] SEPTAL MYOCARDIAL INFARCTION [40+ ms Q WAVE IN V1/V2], OF INDETERMINATE AGE WARNING: DATA QUALITY MAY AFFECT INTERPRETATION Compared to ECG 04/24/2021 14:37:25 Left-axis deviation now present Myocardial infarct finding now present Incomplete right bundle-branch block no longer present Left anterior fascicular block no longer present T-wave abnormality no longer present Electronically Signed On 04-26-2021 20:32:59 CDT by AMARIS MATTHEWS [email or web address]
[2021-04-24 20:39] LABS: Troponin 5 6HR 25.77 ng/L (0-15); Troponin 5 6HR Delta 3.77 ng/L (0-12)
[2021-04-24 21:16] VITALS: BP 145/95; PULSE 101; RESP 18; TEMP 36.9; O2SAT 96
[2021-04-24 22:00] VITALS: PULSE 100
[2021-04-24 22:03] LABS: Magnesium 1.7 mg/dL (1.7-2.3)
[2021-04-24] MEDS: sodium chloride 0.45% 1,000 ML 75 ML IV (22:09)
[2021-04-24] MEDS: metoprolol tartrate 50 mg Tablet PO (22:09)
[2021-04-25] VITALS (7 sets, daily range): BP systolic 117–145; BP diastolic 79–97; PULSE 72–104; RESP 14–18; TEMP 36.6–37.4; O2SAT 91–98; BMI 35.2
[2021-04-25 03:31] LABS: Basophils % 0.3 %; Eosinophils # 0.1 10^3/uL (0.0-0.8); Eosinophils % 1.3 %; Hematocrit 40.1 % (42.0-52.0); Hemoglobin 13.1 g/dL (11.7-16.6); Lymphocytes # 1.5 10^3/uL (0.8-4.8); Lymphocytes % 13.6 %; Mean Corpuscular HGB Conc 32.7 g/dL (30.0-36.0); Mean Platelet Volume 11.9 fL (7.4-10.4); Monocytes # 0.7 10^3/uL (0.2-0.9); Monocytes % 6.5 %; Neutrophils # 8.59 10^3/uL (1.8-7.7); Neutrophils % 77.9 %; Nucleated Red Blood Cells % 0 %; Platelet Count 154 10^3/cmm (130-400); Red Blood Count 4.36 10^6/uL (4.1-5.3); Red Cell Distribution Width 13.4 % (12.1-15.1)
[2021-04-25 03:54] LABS: Magnesium 1.7 mg/dL (1.7-2.3)
[2021-04-25 03:59] LABS: Alanine Aminotransferase 31 U/L (0-41); Albumin Level 3.7 g/dL (3.5-5.2); Alkaline Phosphatase 63 IU/L (40-130); Anion Gap 11.5 (5-19); Aspartate Amino Transferase 20 U/L (0-40); Blood Urea Nitrogen 14 mg/dL (8-23); Calcium 7.8 mg/dL (8.5-10.5); Carbon Dioxide 27 mmol/L (22-29); Chloride 104 mmol/L (98-107); Creatinine Clr Calc Pharmacy 118.7943; Globulin 1.9 g/dL (1.3-4.6); Glomerular Filtration Rate 112.5 mL/min (90-130); Glucose 83 mg/dL (65-115); Osmolality Calculated 288 mOsm/kg (285-295); Potassium 3.5 mmol/L (3.5-5.1); Sodium 139 mmol/L (136-145); Total Bilirubin 0.6 mg/dL (0.15-1.2); Total Protein 5.6 g/dL (6.6-8.7)
--- NOTE | 2021-04-25 05:00 | USCV_ITS ---
Felipe Bello Age: 65 Gender: M : 1955 Exam Date: 04/25/2021 06:13 Ordering Phys: Teodoro Argueta MD Technologist: Mindy Hoover Exam Location: [facility] [place]_ Indication: A FLUTTER BP: 142 / 82 HR: 91 Rhythm: Atrial flutter Technical Quality: Adequate MEASUREMENTS (Male / Female) Normal Values 2D ECHO LV Diastolic Diameter PLAX 4.6 cm 4.2 - 5.9 / 3.9 - 5.3 cm LV Systolic Diameter PLAX 2.9 cm IVS Diastolic Thickness 1.5 cm 0.6 - 1.0 / 0.6 - 0.9 cm IVS Systolic Thickness 1.9 cm LVPW Diastolic Thickness 1.4 cm 0.6 - 1.0 / 0.6 - 0.9 cm LVPW Systolic Thickness 2.1 cm LVOT Diameter 2.0 cm LV Ejection Fraction 2D Teich 66.9 % LV Ejection Fraction MOD 2C 63.1 % LV Ejection Fraction 2C AL 62.0 % LA Diameter 3.5 cm LA Width 3.6 cm LA Height 5.9 cm RA Width 4.3 cm RA Height 5.3 cm Aorta at Sinotubular Diameter 3.6 cm DOPPLER AV Peak Velocity 116.0 cm/s LVOT Peak Velocity 91.0 cm/s AV Area Cont Eq vti 2.6 cm squared AV Area Cont Eq pk 2.4 cm squared MV Peak Velocity 116.0 cm/s MV Area PHT 5.8 cm squared MV E' Velocity 52.0 cm/s Mitral E to MV E' Ratio 5.5 Mitral E to LV E' Lateral Ratio 5.1 Mitral E to LV E' Septal Ratio 6.0 TR Peak Velocity 268.8 cm/s TR Peak Gradient 28.9 mmHg TR Mean Velocity 204.7 cm/s TR Mean Gradient 18.1 mmHg TR Velocity Time Integral 73.4 cm TV Peak E Velocity 90.0 cm/s Right Atrial Pressure 3.0 mmHg Pulmonary Artery Systolic Pressu 31.9 mmHg PV Peak Velocity 100.0 cm/s RV Acceleration Time 0.1 s RV Ejection Time 0.3 s RV AcT/ET 0.3 FINDINGS Left Ventricle Normal left ventricular cavity size. Normal left ventricular systolic function. No regional wall motion abnormalities. Left ventricular ejection fraction is estimated at 60 %. Due to underlying atrial flutter diastolic function cannot be assessed appropriately. Right Ventricle The right ventricle is normal in size and function. Right Atrium The right atrium is normal in size. Left Atrium The left atrium is normal in size. Mitral Valve Moderately thickened mitral valve. No mitral valve stenosis. Moderate mitral valve regurgitation. Aortic Valve Moderate aortic valve calcification. No aortic valve stenosis. Trace aortic valve regurgitation. Tricuspid Valve Mild to moderate tricuspid valve regurgitation. There appeared to be thickening of the tricuspid valve cannot rule out vegetation could be an artifact. Clinical correlation advised. Pulmonic Valve Trace pulmonary valve regurgitation. Pericardium Normal pericardium without effusion. Aorta Normal ascending aorta dimension. CONCLUSIONS 1-Normal left ventricular cavity size. Normal left ventricular systolic function. No regional wall motion abnormalities. Left ventricular ejection fraction is estimated at 60 %. Due to underlying atrial flutter diastolic function cannot be assessed appropriately. 2-Mild to moderate tricuspid valve regurgitation. There appeared to be thickening of the tricuspid valve cannot rule out vegetation could be an artifact. Clinical correlation advised. 3-Moderate aortic valve calcification. No aortic valve stenosis. Trace aortic valve regurgitation. 4-There is no pericardial effusion. 5-There are no prior echocardiogram studies to compare. Romy Perla MD (Electronically Signed) Final Date: 26 April 2021 16:46 S
[2021-04-25] MEDS: famotidine 20 mg/2 mL INJ IVP (05:18)
[2021-04-25] MEDS: tamsulosin 0.4 mg Capsule 0.8 MG PO (08:41)
[2021-04-25] MEDS: omega-3 fatty acids 1,000 mg Capsule 1000 MG PO (08:41)
[2021-04-25] MEDS: metoprolol tartrate 50 mg Tablet PO (08:41)
[2021-04-25] MEDS: zinc gluconate 50 mg Tablet PO (08:41)
[2021-04-25] MEDS: ascorbic acid 500 mg Tablet PO (08:41)
--- NOTE | 2021-04-25 10:15 | PM.DCS ---
Discharge Providers Date of Admission: 04/24/21 17:17 Date of Discharge: April 25, 2021 Attending Provider at Admission: Teodoro Argueta MD Attending Provider at Discharge: Teodoro Argueta MD Primary Care Provider: PAYAL Adamson Diagnoses at Discharge Discharge Diagnosis (1) Atrial flutter: Status: Acute (2) Diarrhea: Status: Acute (3) Generalized weakness: Status: Acute (4) COVID-19 vaccine series completed: Status: Acute Reason for Visit Reason for Visit: ATRIAL FLUTTER, TACHY,BOWEL PROBLEMS Hospital Course Hospital Course Felipe Bello is a 65 year old male with history as below presented to ER after been referred to ER by PCP for irregular heart beat on physical exam. He went to his PCP for tooth ache. He also c/o SOB, cough, fatigue since last wednesday which was preceeded by runny nose and sore throat. He s also c/o diarrhea since today morning. Denies any sick contacts, fever, headache, myalgia, CP, dizziness. 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 Denies any recent medication changes. Drinks well water. Was vaccinated for COVID 19 with both doses and last in Oct 2020. Patient admitted to hospital for for being under observation for atrial flutter. He was started on beta-yanna and anticoagulation with Eliquis. He underwent echocardiogram. His hospitalization remained unremarkable. He did not have any further diarrhea while being in hospitalization. He required IV hydration from being dehydrated on admission which she tolerated well without having difficulty in breathing and remained on room air during the whole hospitalization. Given his symptoms COVID-19 PCR was sent out and still pending. Patient has been advised to maintain isolation till the time results are back and once the results are back positive or negative patient will be informed about the same. He is been advised to follow-up with his primary care provider within next 1 week for echocardiogram results. Patient is also advised to follow-up with cardiology and pulmonology as an outpatient. Physical Exam Narrative: EXAM NARRATIVE: General: No acute distress, AO x3 HEENT: PERRLA, pupils bilaterally equal and reactive Chest: Normal vesicular breath sounds, no added sounds, equal good air entry bilaterally CVS: S1-S2 irregularly irregular, no murmurs, no tachycardia, no gallops, no rubs Abdomen: Soft, nontender, no organomegaly, bowel sounds present Neuro: No focal deficits, no facial deformity, AO x3, power 5/5 in all limbs Discharge Data Data Completed and Pending: Completed Studies During Hospitalization Category Date Time Status XR chest 1V ana ble [id number] Stat Exams 04/24/21 13:21 Completed Pending at discharge Category Date Time Status Blood Culture Sta t Lab 04/24/21 18:46 Results Clostridioides Di fficile PCR Routin e Lab 04/24/21 17:26 Ordered Coronavirus Test [facility] Routi ne Lab 04/24/21 19:41 Received Enteric Bacterial Panel by PCR Rout ine Lab 04/24/21 17:26 Ordered Enteric Parasite Panel by PCR Routi ne Lab 04/24/21 17:26 Ordered Immunochemical Fe preet OCB Routine Lab 04/24/21 17:26 Ordered Lactoferrin Routi ne Lab 04/24/21 17:26 Ordered CV. echo complete * [id number] Routine Ultrasound 04/25/21 05:00 Taken Labs from last 24 hours 04/25/21 04/25/21 04/25/21 04:30 02:47 02:47 WBC 11.0 H RBC 4.36 Hgb 13.1 Hct 40.1 L MCV 92.0 MCH 30.0 MCHC 32.7 RDW 13.4 Plt Count 154 MPV 11.9 H Neut % (Auto) 77.9 Lymph % (Auto) 13.6 [place] % (Auto) 6.5 Eos % (Auto) 1.3 Baso % (Auto) 0.3 Neut # (Auto) 8.59 H Lymph # (Auto) 1.5 [place] # (Auto) 0.7 Eos # (Auto) 0.1 Baso # (Auto) 0.0 Nucleated RBC % (a uto) 0 Nucleated RBCs # 0.0 PT INR D-Dimer Sodium 139 Potassium 3.5 Chloride 104 Carbon Dioxide 27 Anion Gap 11.5 BUN 14 Creatinine 0.7 GFR Calculation 112.5 Glucose 83 Calculated Osmolal ity 288 Calcium 7.8 L Magnesium Iron TIBC % Saturation Unsat Iron Binding Total Bilirubin 0.6 AST 20 ALT 31 Alkaline Phosphata se 63 Troponin T Baselin e Troponin T 120 Min three affiliated Delta Troponin T Troponin T Hi Sens 6Hr Troponin T Hi Sens 6Hr Delta NT-Pro-B Natriuret Pep Total Protein 5.6 L Albumin 3.7 Globulin 1.9 Procalcitonin TSH Urine Color Urine Appearance Urine pH Ur Specific Gravit y Urine Protein Urine Glucose (UA) Urine Ketones Urine Blood Urine Nitrate Urine Bilirubin Prot Sulfosalicyli c Acd Urine Urobilinogen Ur Leukocyte Shalini ase Nasal/Oral COVID-1 9 PCR Pending SARS-CoV-2 Ag (Rap id) 04/25/21 04/24/21 04/24/21 02:47 20:10 17:55 WBC RBC Hgb Hct MCV MCH MCHC RDW Plt Count MPV Neut % (Auto) Lymph % (Auto) [place] % (Auto) Eos % (Auto) Baso % (Auto) Neut # (Auto) Lymph # (Auto) [place] # (Auto) Eos # (Auto) Baso # (Auto) Nucleated RBC % (a uto) Nucleated RBCs # PT INR D-Dimer Sodium Potassium Chloride Carbon Dioxide Anion Gap BUN Creatinine GFR Calculation Glucose Calculated Osmolal ity Calcium Magnesium 1.7 Iron 45 L TIBC 280 % Saturation 16.0 L Unsat Iron Binding 235 Total Bilirubin AST ALT Alkaline Phosphata se Troponin T Baselin e Troponin T 120 Min three affiliated Delta Troponin T Troponin T Hi Sens 6Hr 25.77 H Troponin T Hi Sens 6Hr Delta 3.77 NT-Pro-B Natriuret Pep Total Protein Albumin Globulin Procalcitonin 0.20 TSH Urine Color Urine Appearance Urine pH Ur Specific Gravit y Urine Protein Urine Glucose (UA) Urine Ketones Urine Blood Urine Nitrate Urine Bilirubin Prot Sulfosalicyli c Acd Urine Urobilinogen Ur Leukocyte Shalini ase Nasal/Oral COVID-1 9 PCR SARS-CoV-2 Ag (Rap id) 04/24/21 04/24/21 04/24/21 17:55 16:50 16:13 WBC RBC Hgb Hct MCV MCH MCHC RDW Plt Count MPV Neut % (Auto) Lymph % (Auto) [place] % (Auto) Eos % (Auto) Baso % (Auto) Neut # (Auto) Lymph # (Auto) [place] # (Auto) Eos # (Auto) Baso # (Auto) Nucleated RBC % (a uto) Nucleated RBCs # PT 14.30 INR 1.08 D-Dimer Sodium Potassium Chloride Carbon Dioxide Anion Gap BUN Creatinine GFR Calculation Glucose Calculated Osmolal ity Calcium Magnesium Iron TIBC % Saturation Unsat Iron Binding Total Bilirubin AST ALT Alkaline Phosphata se Troponin T Baselin e Troponin T 120 Min three affiliated 22.46 H Delta Troponin T 0.46 Troponin T Hi Sens 6Hr Troponin T Hi Sens 6Hr Delta NT-Pro-B Natriuret Pep Total Protein Albumin Globulin Procalcitonin TSH Urine Color Yellow Urine Appearance Clear Urine pH 8.5 H Ur Specific Gravit y 1.010 Urine Protein Neg Urine Glucose (UA) Norm Urine Ketones Negative Urine Blood Neg Urine Nitrate Negative Urine Bilirubin Neg Prot Sulfosalicyli c Acd Negative Urine Urobilinogen Norm Ur Leukocyte Shalini ase Negative Nasal/Oral COVID-1 9 PCR SARS-CoV-2 Ag (Rap id) 04/24/21 04/24/21 04/24/21 14:20 14:00 14:00 WBC RBC Hgb Hct MCV MCH MCHC RDW Plt Count MPV Neut % (Auto) Lymph % (Auto) [place] % (Auto) Eos % (Auto) Baso % (Auto) Neut # (Auto) Lymph # (Auto) [place] # (Auto) Eos # (Auto) Baso # (Auto) Nucleated RBC % (a uto) Nucleated RBCs # PT INR D-Dimer Sodium Potassium Chloride Carbon Dioxide Anion Gap BUN Creatinine GFR Calculation Glucose Calculated Osmolal ity Calcium Magnesium 1.7 Iron TIBC % Saturation Unsat Iron Binding Total Bilirubin AST ALT Alkaline Phosphata se Troponin T Baselin e Troponin T 120 Min three affiliated Delta Troponin T Troponin T Hi Sens 6Hr Troponin T Hi Sens 6Hr Delta NT-Pro-B Natriuret Pep Total Protein Albumin Globulin Procalcitonin TSH 1.00 Urine Color Urine Appearance Urine pH Ur Specific Gravit y Urine Protein Urine Glucose (UA) Urine Ketones Urine Blood Urine Nitrate Urine Bilirubin Prot Sulfosalicyli c Acd Urine Urobilinogen Ur Leukocyte Shalini ase Nasal/Oral COVID-1 9 PCR SARS-CoV-2 Ag (Rap id) Negative 04/24/21 04/24/21 04/24/21 14:00 14:00 14:00 WBC RBC Hgb Hct MCV MCH MCHC RDW Plt Count MPV Neut % (Auto) Lymph % (Auto) [place] % (Auto) Eos % (Auto) Baso % (Auto) Neut # (Auto) Lymph # (Auto) [place] # (Auto) Eos # (Auto) Baso # (Auto) Nucleated RBC % (a uto) Nucleated RBCs # PT INR D-Dimer 0.32 Sodium 143 Potassium 3.7 Chloride 104 Carbon Dioxide 30 H Anion Gap 12.7 BUN 16 Creatinine 0.8 GFR Calculation 96.4 Glucose 97 Calculated Osmolal ity 297 H Calcium 8.2 L Magnesium Iron TIBC % Saturation Unsat Iron Binding Total Bilirubin 0.3 AST 21 ALT 32 Alkaline Phosphata se 71 Troponin T Baselin e 22 H Troponin T 120 Min three affiliated Delta Troponin T Troponin T Hi Sens 6Hr Troponin T Hi Sens 6Hr Delta NT-Pro-B Natriuret Pep 246 H Total Protein 6.2 L Albumin 4.3 Globulin 1.9 Procalcitonin TSH Urine Color Urine Appearance Urine pH Ur Specific Gravit y Urine Protein Urine Glucose (UA) Urine Ketones Urine Blood Urine Nitrate Urine Bilirubin Prot Sulfosalicyli c Acd Urine Urobilinogen Ur Leukocyte Shalini ase Nasal/Oral COVID-1 9 PCR SARS-CoV-2 Ag (Rap id) 04/24/21 14:00 WBC 6.5 RBC 4.95 Hgb 14.8 Hct 44.7 MCV 90.3 MCH 29.9 MCHC 33.1 RDW 13.3 Plt Count 173 MPV 11.6 H Neut % (Auto) 73.1 Lymph % (Auto) 17.5 [place] % (Auto) 6.9 Eos % (Auto) 1.7 Baso % (Auto) 0.3 Neut # (Auto) 4.76 Lymph # (Auto) 1.1 [place] # (Auto) 0.5 Eos # (Auto) 0.1 Baso # (Auto) 0.0 Nucleated RBC % (a uto) 0 Nucleated RBCs # 0.0 PT INR D-Dimer Sodium Potassium Chloride Carbon Dioxide Anion Gap BUN Creatinine GFR Calculation Glucose Calculated Osmolal ity Calcium Magnesium Iron TIBC % Saturation Unsat Iron Binding Total Bilirubin AST ALT Alkaline Phosphata se Troponin T Baselin e Troponin T 120 Min three affiliated Delta Troponin T Troponin T Hi Sens 6Hr Troponin T Hi Sens 6Hr Delta NT-Pro-B Natriuret Pep Total Protein Albumin Globulin Procalcitonin TSH Urine Color Urine Appearance Urine pH Ur Specific Gravit y Urine Protein Urine Glucose (UA) Urine Ketones Urine Blood Urine Nitrate Urine Bilirubin Prot Sulfosalicyli c Acd Urine Urobilinogen Ur Leukocyte Shalini ase Nasal/Oral COVID-1 9 PCR SARS-CoV-2 Ag (Rap id) Addt'l Data from Hospital Stay: Laboratory Results WBC 11.0 10^3/uL (4.0 -10.0) H 04/25/21 02:47 RBC 4.36 10^6/uL (4.1 -5.3) 04/25/21 02:47 Hgb 13.1 g/dL (11.7-1 6.6) 04/25/21 02:47 Hct 40.1 % (42.0-52.0 ) L 04/25/21 02:47 MCV 92.0 fL (80-94) 04/25/21 02:47 MCH 30.0 pg (28.0-34. 0) 04/25/21 02:47 MCHC 32.7 g/dL (30.0-3 6.0) 04/25/21 02:47 RDW 13.4 % (12.1-15.1 ) 04/25/21 02:47 Plt Count 154 10^3/cmm (130 -400) 04/25/21 02:47 MPV 11.9 fL (7.4-10.4 ) H 04/25/21 02:47 Neut % (Auto) 77.9 % 04/25/21 02:47 Lymph % (Auto) 13.6 % 04/25/21 02:47 [place] % (Auto) 6.5 % 04/25/21 02:47 Eos % (Auto) 1.3 % 04/25/21 02:47 Baso % (Auto) 0.3 % 04/25/21 02:47 Neut # (Auto) 8.59 10^3/uL (1.8 -7.7) H 04/25/21 02:47 Lymph # (Auto) 1.5 10^3/uL (0.8- 4.8) 04/25/21 02:47 [place] # (Auto) 0.7 10^3/uL (0.2- 0.9) 04/25/21 02:47 Eos # (Auto) 0.1 10^3/uL (0.0- 0.8) 04/25/21 02:47 Baso # (Auto) 0.0 10^3/uL (0.0- 0.1) 04/25/21 02:47 Nucleated RBC % (a uto) 0 % 04/25/21 02:47 Nucleated RBCs # 0.0 /100WBC 04/25/21 02:47 PT 14.30 SECONDS (12 .1-14.9) 04/24/21 17:55 INR 1.08 (0.8-1.2) 04/24/21 17:55 D-Dimer 0.32 ug/mIFEU (0- 0.59) 04/24/21 14:00 Sodium 139 mmol/L (136-1 45) 04/25/21 02:47 Potassium 3.5 mmol/L (3.5-5 .1) 04/25/21 02:47 Chloride 104 mmol/L (98-10 7) 04/25/21 02:47 Carbon Dioxide 27 mmol/L (22-29) 04/25/21 02:47 Anion Gap 11.5 (5-19) 04/25/21 02:47 BUN 14 mg/dL (8-23) 04/25/21 02:47 Creatinine 0.7 mg/dL (0.7-1. 2) 04/25/21 02:47 GFR Calculation 112.5 mL/min (90- 130) 04/25/21 02:47 Glucose 83 mg/dL (65-115) 04/25/21 02:47 Calculated Osmolal ity 288 mOsm/kg (285- 295) 04/25/21 02:47 Calcium 7.8 mg/dL (8.5-10 .5) L 04/25/21 02:47 Magnesium 1.7 mg/dL (1.7-2. 3) 04/25/21 02:47 Iron 45 ug/dL (59-158) L 04/24/21 17:55 TIBC 280 mcg/dl 04/24/21 17:55 % Saturation 16.0 % (20-50) L 04/24/21 17:55 Unsat Iron Binding 235 ug/dL (112-34 7) 04/24/21 17:55 Total Bilirubin 0.6 mg/dL (0.15-1 .2) 04/25/21 02:47 AST 20 U/L (0-40) 04/25/21 02:47 ALT 31 U/L (0-41) 04/25/21 02:47 Alkaline Phosphata se 63 IU/L (40-130) 04/25/21 02:47 Troponin T Baselin e 22 ng/L (0-15) H 04/24/21 14:00 Troponin T 120 Min three affiliated 22.46 ng/L (0-15) H 04/24/21 16:13 Delta Troponin T 0.46 ABS# (0-10) 04/24/21 16:13 Troponin T Hi Sens 6Hr 25.77 ng/L (0-15) H 04/24/21 20:10 Troponin T Hi Sens 6Hr Delta 3.77 ng/L (0-12) 04/24/21 20:10 NT-Pro-B Natriuret Pep 246 pg/mL (0-125) H 04/24/21 14:00 Total Protein 5.6 g/dL (6.6-8.7 ) L 04/25/21 02:47 Albumin 3.7 g/dL (3.5-5.2 ) 04/25/21 02:47 Globulin 1.9 g/dL (1.3-4.6 ) 04/25/21 02:47 Procalcitonin 0.20 ng/mL (0-0.5 ) 04/24/21 17:55 TSH 1.00 uIU/mL (0.27 -4.20) 04/24/21 14:00 Urine Color Yellow (Yellow) 04/24/21 16:50 Urine Appearance Clear (CLEAR) 04/24/21 16:50 Urine pH 8.5 (5-7) H 04/24/21 16:50 Ur Specific Gravit y 1.010 (1.005-1.0 30) 04/24/21 16:50 Urine Protein Neg (Negative) 04/24/21 16:50 Urine Glucose (UA) Norm (Normal) 04/24/21 16:50 Urine Ketones Negative (Negati ve) 04/24/21 16:50 Urine Blood Neg (Negative) 04/24/21 16:50 Urine Nitrate Negative (Negati ve) 04/24/21 16:50 Urine Bilirubin Neg (Negative) 04/24/21 16:50 Prot Sulfosalicyli c Acd Negative (Negati ve) 04/24/21 16:50 Urine Urobilinogen Norm mg/dL (Negat anthony) 04/24/21 16:50 Ur Leukocyte Shalini ase Negative (Negati ve) 04/24/21 16:50 SARS-CoV-2 Ag (Rap id) Negative (Negati ve) 04/24/21 14:20 Impressions Chest X-Ray 04/24/21 13:21 IMPRESSION: No acute abnormality. Vitals: Last Vital Signs Temp 98.2 F 04/25/21 08:00 Pulse 87 04/25/21 08:00 Resp 14 04/25/21 08:00 BP 124/87 04/25/21 08:00 Pulse Ox 95 04/25/21 08:00 Discharge Plan Discharge Patient Disposition: Home Condition: Stable Prescriptions: New Eliquis 5 mg Tablet 5 mg PO BID@0900,2099 30 Days Qty: 60 RF: 0 metoprolol tartrate 50 mg Tablet 50 mg PO BID@0900,2099 30 Days Qty: 60 RF: 0 Continued omega-3 fatty acids [Fish Oil Concentrate] 1,000 mg capsule 1,000 mg PO DAILY RF: 0 niacin 100 mg tablet 100 mg PO DAILY RF: 0 cholecalciferol (vitamin D3) 125 mcg (5,000 unit) capsule 125 mcg PO DAILY RF: 0 tamsulosin 0.4 mg capsule 0.8 mg PO DAILY Qty: 60 RF: 12 potassium chloride 10 mEq capsule, extended release 10 meq PO DAILY RF: 0 calcium carbonate [Calcium 600] 600 mg calcium (1,500 mg) tablet 600 mg PO DAILY RF: 0 Excedrin Extra Strength 250-250-65 mg tablet 1 tab PO Q6H PRN (Reason: HEADACHE/PAIN) RF: 0 diphenhydramine HCl [Benadryl] 25 mg capsule 12.5 mg PO BID PRN (Reason: UNKNOWN) RF: 0 Discontinued zinc 50 mg tablet 50 mg PO DAILY RF: 0 ascorbic acid (vitamin C) 500 mg capsule 500 mg PO DAILY RF: 0 amoxicillin 875 mg tablet 875 mg PO BID 10 Days Qty: 20 RF: 0 Discharge Orders: Discharge Order (Routine); Ordered 04/25/21 Ordered By: Teodoro Argueta Referrals: EVA Vickers FNP [Primary Care Provider] - 4-7 days Discharge Diet: Cardiac Discharge Activity: Resume usual activity Patient Instructions: Anticoagulation Therapy, Opioid Safety Activity Restrictions/Additional Instructions: Please follow-up with your primary care provider within next 1 week. Please maintain social isolation till COVID-19 PCR results are back. Please maintain your hydration. At least 2 to 3 L of fluids every day. You are on a medication called Eliquis which is an anticoagulation. Anticoagulation is needed for you as discussed in detail for stroke prevention given your current diagnosis of atrial flutter. Discharge Attestations Time Spent in Discharge Care*: greater than 30 min Specific Discharge Activities: educating patient, discussing with pcp/other providers, discussing with case management social worker/social workers/dc planners, documenting/other paperwork and evaluating patient/reviewing data Status at Discharge: Cognitive status at discharge: cognitively intact, Behavioral status at discharge: cooperative, Functional status at discharge: independent ambulation Overall status at discharge: patient is back to baseline Quality Metrics Clinical Quality Measures During this hospital stay, did patient experience: None Coding Level of Care Code Acute Chg FW DC note Diagnoses Atrial flutter I48.92 Diarrhea R19.7 Generalized weakness R53.1 COVID-19 vaccine series completed Z92.29
[2021-04-25] MEDS: apixaban 5 mg Tablet PO (10:40)
--- NOTE | 2021-04-25 12:03 | PC.CHAP ---
Pastoral Care Encounter/Spiritual Assessment Type of Contact [] Declined operations administrator visit [] Patient/Family/Request visit [] Outpatient visit [] Follow-up visit [] Physician referral [] Code/Alert [] Routine visit [] Staff referral [] Actively dying [] Patient sleeping [] Family support [] [] Out of room [] Palliative care [] [] Receiving care in room [] Pre-surgical visit [] Trauma [] Long length of stay [] ICU visit [xx] Other: Patient in isolation Relational/Emotional Strength [] Patient feels connected with others/family/visitors/staff [] Distress [] Loneliness/isolation [] Abandonment Spirituality of Patient [] Person of Niesha [] Attends Oriental Orthodox of their Niesha [] Believes in Prayer [] Reads Bible or Worship materials [] There are Spiritual issues to be addressed Bingo Checker Interventions [] Prayer [] Active listening [] Non-anxious presence [] Spiritual/emotional support [] Crisis/trauma care [] Spiritual counseling [] Bereavement support [] Provided bereavement packet [] Provided Bible/devotional materials [] Provided toy/stuffed animal, coloring book to patient or family member [] Provided Communion [] Anointing/[place] [] Salvation [] Completed spiritual assessment [] Other: Impact on Illness or Injury [] Angry [] Fearful [] Anxious [] Often cries [] Exhaustion [] Unable to work [] Unable to attend jain [] Unable to walk/stand [] Unable to read [] Unable to drive [] Unable to eat/drink [] Unable to sleep [] Unable to be with family [] Patient intubated [] Other: Summary Time spent with patient
[2021-04-27 12:16] LABS: Coronavirus Test Green County Not Detected
== END 2021-04-25 14:00 | disposition home or self-care (01) ==
LOC: ER 18:05 → MEDSURG 19:51
PROVIDERS: Admitting Provider Student in an Organized Health Care Education/Training Program; Emergency Provider Family Medicine; PCP Nurse Practitioner Family; Visit Provider Student in an Organized Health Care Education/Training Program
DX: I48.92 Unspecified atrial flutter (principal); R19.7 Diarrhea, unspecified; R53.1 Weakness; Z92.29 Personal history of other drug therapy; Z79.82 Long term (current) use of aspirin; N40.1 Benign prostatic hyperplasia with lower urinary tract symptoms; N13.8 Other obstructive and reflux uropathy; I10 Essential (primary) hypertension; M19.90 Unspecified osteoarthritis, unspecified site; E55.9 Vitamin D deficiency, unspecified; Z98.1 Arthrodesis status; Z82.49 Family history of ischemic heart disease and other diseases of the circulatory system
CPT/HCPCS: 36415; 71045; 80053; 81003; 83540; 83550; 83735; 83880; 84145; 84443; 84484; 85025; 85378; 85610; 87040; 87426; 87635; 93005; 93306; 94664; 96361; 96374; 96375; 99285; G0378; J3490; J7030

== ENCOUNTER → 2021-05-07 00:01 | Outpatient (BNVA) | payer MEDICARE, SELFPAY | PROVIDERS: PCP Nurse Practitioner Family; Visit Provider Nurse Practitioner Family | DX: Z13.6 Encounter for screening for cardiovascular disorders (principal); Z12.5 Encounter for screening for malignant neoplasm of prostate; I48.92 Unspecified atrial flutter; E55.9 Vitamin D deficiency, unspecified; R53.83 Other fatigue; Z79.899 Other long term (current) drug therapy | CPT/HCPCS: 80061; 82306; 83036; 83540; 84443; G0103 ==

== ENCOUNTER → 2021-05-13 09:57 | Outpatient (BNVA) | payer MEDICARE, SELFPAY | PROVIDERS: PCP Nurse Practitioner Family; Visit Provider Nurse Practitioner Family | DX: R97.20 Elevated prostate specific antigen [PSA] (principal) | CPT/HCPCS: 81003; 87086 ==

== ENCOUNTER → 2021-08-04 00:01 | Outpatient (BNVA) | payer MEDICARE, SELFPAY | PROVIDERS: PCP Nurse Practitioner Family; Visit Provider Family Medicine | DX: I48.92 Unspecified atrial flutter (principal); Z79.01 Long term (current) use of anticoagulants | CPT/HCPCS: 80053; 85025 ==

== ENCOUNTER → 2021-09-03 08:54 | Outpatient (BNVA) | payer MEDICARE, SELFPAY | PROVIDERS: PCP Nurse Practitioner Family; Visit Provider Family Medicine | DX: M25.511 Pain in right shoulder (principal); M77.8 Other enthesopathies, not elsewhere classified; M25.711 Osteophyte, right shoulder | CPT/HCPCS: 73030 ==

== ENCOUNTER → 2021-11-26 14:38 | Outpatient (BNVA) | payer MEDICARE, SELFPAY | PROVIDERS: PCP Nurse Practitioner Family; Visit Provider Nurse Practitioner Family | DX: M25.571 Pain in right ankle and joints of right foot (principal); M25.471 Effusion, right ankle | CPT/HCPCS: 73610 ==

== ENCOUNTER 2021-11-27 14:06 | Outpatient (CLI) | payer MEDICARE, SELFPAY | END 2021-11-27 14:07 | disposition home or self-care (01) | LOC: SPT 14:09 | PROVIDERS: PCP Nurse Practitioner Family; Visit Provider Podiatrist Foot & Ankle Surgery | DX: Z46.89 Encounter for fitting and adjustment of other specified devices (principal); S93.431D Sprain of tibiofibular ligament of right ankle, subsequent encounter; X58.XXXD Exposure to other specified factors, subsequent encounter | CPT/HCPCS: 97760; L4361 ==

== ENCOUNTER 2021-12-12 14:37 | Outpatient (CLI) | payer MEDICARE, SELFPAY | END 2021-12-12 14:38 | disposition home or self-care (01) | PROVIDERS: PCP Nurse Practitioner Family; Visit Provider Podiatrist Foot & Ankle Surgery | DX: Z46.89 Encounter for fitting and adjustment of other specified devices (principal); S99.919D Unspecified injury of unspecified ankle, subsequent encounter; X58.XXXD Exposure to other specified factors, subsequent encounter | CPT/HCPCS: 97760; L1902 ==

== ENCOUNTER → 2022-05-04 11:24 | Outpatient (BNVA) | payer MEDICARE, SELFPAY | PROVIDERS: PCP Nurse Practitioner Family; Visit Provider Nurse Practitioner Family | DX: E87.70 Fluid overload, unspecified (principal) | CPT/HCPCS: 71045; 80053; 83880; 85025 ==

== ENCOUNTER → 2022-05-05 10:52 | Outpatient (BNVA) | payer MEDICARE, SELFPAY | PROVIDERS: PCP Nurse Practitioner Family; Referring Provider Nurse Practitioner Family; Visit Provider Surgery | DX: K92.1 Melena (principal) | CPT/HCPCS: 99203 ==

== ENCOUNTER 2022-05-07 18:04 | Observation (INO) | payer MEDICARE, SELFPAY ==
--- NOTE | 2022-05-07 18:36 | W.ED.SOB ---
HPI - SOB/Dyspnea General: Chief Complaint: Nausea/Vomiting/Diarrhea Stated Complaint: WEAKNESS, SOB Time Seen by Provider: 05/07/22 18:36 History of Present Illness: HPI Narrative: Mr. Bello is a 66-year-old gentleman with history of atrial flutter on chronic anticoagulation with apixaban who presents to the emergency department due to shortness of breath and generalized weakness. He reports being at his baseline health up until this morning when he began bowel prep for colonoscopy and EGD scheduled for tomorrow. Around noon or 1:00 he began feeling increasingly ill with generalized malaise, weakness, and lightheadedness with near syncope. Overall course of symptoms has worsened. Intensity is moderate to severe. No other specific changes in health, exacerbating, or alleviating factors identified. Onset (ago): hour(s) Context: other Timing: progressively worsening Severity: severe Exacerbating factors: exertion Associated symptoms: Reports other Review of Systems General: Reports: 10 or more systems reviewed and unremarkable except in HPI and below PFSH ED PFSH: Medical History Acquired cervical spine ankylosis Atrial flutter with rapid ventricular response BPH loc w urin obs/LUTS Cervical disc disorder with myelopathy of mid-cervical region COVID-19 vaccine series completed DDD (degenerative disc disease), cervical Dental abscess Deviated nasal septum Drug-induced diarrhea Elevated PSA Environmental allergies Fatigue GI bleed Hematochezia Hypertension screen Lower respiratory infection Maxillary sinus cyst NSTEMI (non-ST elevated myocardial infarction) Osteoarthritis Osteoarthritis thoracic spine Pain and swelling of right ankle Pain, dental Prostate cancer screening Restless leg syndrome Rhus dermatitis Shortness of breath Stenosis of cervical spine with myelopathy Tachycardia Thoracic degenerative disc disease Urinary retention Vitamin D deficiency Surgical History History of lumbar fusion 1997 bone growth simulator removed. Leads intact. 1989 [place], [place] L3-L4, L4-L5 posterior fusion/fixation. L3 right-sided hemilaminectomy. History of umbilical hernia repair S/P appendectomy S/P hip replacement 08/04/2016 right hip S/P knee surgery Status post laminectomy with spinal fusion Family History Father , at age 83 CAD (coronary artery disease) Mother , at age 76 CAD (coronary artery disease) Social History Smoking and tobacco status: never smoked Alcohol intake: never Household members: none Marital status: Current occupational status: retired and disabled History of recent travel: No Physical Exam Const: COMMON NORMALS: patient oriented x3 and alert GENERAL APPEARANCE: cooperative, well developed and ill appearing (mildly) HENMT: COMMON NORMALS: normocephalic and atraumatic HEAD & SCALP: normocephalic and atraumatic Eye: COMMON NORMALS: conjunctivae normal CONJUNCTIVA: Yes conjunctivae normal SCLERA: sclerae normal Neck/C-Spine: COMMON NORMALS: supple GENERAL: Yes trachea midline Resp: EFFORT & INSPECTION: Yes able to speak in complete sentences and Yes tachypneic AUSCULTATION: diminished lung sounds Cardio: RATE: tachycardic RHYTHM: abnormal rhythm irregularly irregular GI: COMMON NORMALS: Soft to palpation PALPATION: Yes Soft to palpation and No Tenderness to palpation present (GI) Extremity: GENERAL: Yes normal exam except as noted and No edema Neuro: COMMON NORMALS: patient oriented x3, CN's II-XII intact bilaterally, moves all extremities, no focal motor deficits and no sensory deficits noted SENSORIUM/ORIENTATION: Yes alert and No Orientation impaired Psych: COMMON NORMALS: mental status grossly normal and Normal thought process present THOUGHT PROCESS: Normal thought process present Course ED course: - Patient was seen and evaluated by me at bedside - Patient placed on cardiac monitors, IV access obtained - Initial evaluation notable for exam as above. A. fib with RVR noted on EKG - Labs and xrays personally interpreted by me -Fluid bolus given - Labs notable for leukocytosis, hemoconcentration compared to prior. Metabolic panel with mild evidence of metabolic stress. 2-hour delta troponin negative. Urinalysis pending - Imaging notable for no lobar consolidation or pneumothorax on chest x-ray. CT head negative for acute intracranial pathology. -After completion of fluid bolus patient remains in A. fib with RVR though rate is somewhat improved. Given history of bowel prep I was concerned about hypovolemia as a trigger. Subsequently attempted push doses of diltiazem and oral dose without sustained improvement in heart rate. Subsequently diltiazem drip ordered. - Upon serial reexamination after treatment the patient was improved - Based on patient history, evaluation, and testing as interpreted the most likely cause of the patient's condition is A. fib with RVR possibly aggravated by bowel prep for colonoscopy. - The results of ED evaluation were discussed with the patient including plan for admission due to requirement for level of care not available if discharged to prevent significant worsening/deterioration. - Admitting service was contacted and Dr Cherry with the hospitalist service agreed to admit the patient - Patient was admitted without further deterioration or significant events. Note: Click bubbles or prepopulated deluna in note writing are used for assistance with data collection and billing and are inherently more limited than narrative and other text portions of this note. Please use narrative for additional clinical history and defer to narrative/free test for any case of contradictory information. If information appears in only free text or click bubble it should be considered present or absent as reported. Please contact note comic writer for clarifications of clinical information or contradictory information. MDM is a brief summary, contradictory or erroneous seeming information should be clarified and full note should be reviewed. Vital Signs: Vital signs: Vital Signs Temperature 98.2 F 05/09/22 07:35 Pulse Rate 100 05/09/22 13:53 Respiratory Rate 18 05/09/22 13:53 Blood Pressure 131/80 05/09/22 13:53 Pulse Oximetry 94 05/09/22 13:53 Oxygen Delivery Me thod 05/09/22 11:01 Oxygen Flow Rate 4 05/08/22 10:59 Fraction of Inspir ed Oxygen 0 05/09/22 08:00 MDM - SOB/Dyspnea Medical Decision Making 66-year-old gentleman with complex past medical history presenting with symptomatic A. fib with RVR in the context of bowel prep for colonoscopy preparation. Admitted for further management. Medical Records I reviewed the patient's medical records. Lab Data I reviewed the patient's lab results. : 05/09/22 05:00 05/09/22 05:00 Labs/Radiology: Radiology Impressions Chest X-Ray 05/07/22 18:40 IMPRESSION: No obvious acute consolidation. Suboptimal lung base assessment. Followup including lateral view may be obtained if clinically indicated. Head CT 05/07/22 19:25 IMPRESSION: No acute intracranial findings. Abdomen/Pelvis CT 05/08/22 00:15 IMPRESSION: No acute findings. COMMENTS: Consistent with the [employer]'s Incidental Findings Committee white paper (J Am Thomas Radiol 2018): Any incidental renal lesion less than 1 cm or classified as too small to characterize, or any incidental cystic renal lesion characterized as simple-appearing, is likely benign. No follow-up imaging is recommended for these lesions per consensus recommendations based on imaging criteria. Laboratory Results WBC 13.2 10^3/uL (4.0-10.0) H 05/07/22 18:57 RBC 4.13 10^6/uL (4.1-5.3) 05/07/22 18:57 Hgb 12.1 g/dL (11.7-16.6) 05/07/22 18:57 Hct 37.2 % (42.0-52.0) L 05/07/22 18:57 MCV 90.1 fl (80-94) 05/07/22 18:57 MCH 29.3 pg (28.0-34.0) 05/07/22 18:57 MCHC 32.5 g/dL (30.0-36.0) 05/07/22 18:57 RDW 13.7 % (12.1-15.1) 05/07/22 18:57 Plt Count 302 10^3/cmm (130-400) 05/07/22 18:57 MPV 11.2 fL (7.4-10.4) H 05/07/22 18:57 Neut % (Auto) 79.8 % 05/07/22 18:57 Lymph % (Auto) 14.2 % 05/07/22 18:57 [place] % (Auto) 4.6 % 05/07/22 18:57 Eos % (Auto) 0.6 % 05/07/22 18:57 Baso % (Auto) 0.2 % 05/07/22 18:57 Neut # (Auto) 10.50 10^3/uL (1.8-7.7) H 05/07/22 18:57 Lymph # (Auto) 1.9 10^3/uL (0.8-4.8) 05/07/22 18:57 [place] # (Auto) 0.6 10^3/uL (0.2-0.9) 05/07/22 18:57 Eos # (Auto) 0.1 10^3/uL (0.0-0.8) 05/07/22 18:57 Baso # (Auto) 0.0 10^3/uL (0.0-0.1) 05/07/22 18:57 Nucleated RBC % (auto) 0 % 05/07/22 18:57 Nucleated RBCs # 0.0 /100WBC 05/07/22 18:57 Sodium 142 mmol/L (136-145) 05/07/22 18:57 Potassium 3.8 mmol/L (3.5-5.1) 05/07/22 18:57 Chloride 104 mmol/L (98-107) 05/07/22 18:57 Carbon Dioxide 20 mmol/L (22-29) L 05/07/22 18:57 Anion Gap 21.8 (5-19) H 05/07/22 18:57 BUN 19 mg/dL (8-23) 05/07/22 18:57 Creatinine 0.8 mg/dL (0.7-1.2) 05/07/22 18:57 GFR Calculation 96.1 mL/min (90-130) 05/07/22 18:57 Glucose 109 mg/dL (65-115) 05/07/22 18:57 Calculated Osmolality 297 mOsm/kg (285-295) H 05/07/22 18:57 Calcium 9.9 mg/dL (8.5-10.5) 05/07/22 18:57 Magnesium 1.9 mg/dL (1.7-2.3) 05/07/22 18:57 Total Bilirubin 0.6 mg/dL (0.15-1.2) 05/07/22 18:57 AST 12 U/L (0-40) 05/07/22 18:57 ALT 15 U/L (0-41) 05/07/22 18:57 Alkaline Phosphatase 59 IU/L (40-130) 05/07/22 18:57 Troponin T Baseline 22 ng/L (0-15) H 05/07/22 18:57 Troponin T 120 Minute 20.49 ng/L (0-15) H 05/07/22 20:45 Delta Troponin T -1.51 ABS# (0-10) L 05/07/22 20:45 NT-Pro-B Natriuret Pep 776 pg/mL (0-125) H 05/07/22 18:57 Total Protein 7.0 g/dL (6.6-8.7) 05/07/22 18:57 Albumin 4.6 g/dL (3.5-5.2) 05/07/22 18:57 Globulin 2.4 g/dL (1.3-4.6) 05/07/22 18:57 TSH 1.89 uIU/mL (0.27-4.20) 05/07/22 18:57 Urine Color Yellow (Yellow) 05/07/22 23:41 Urine Appearance Sl hazy (CLEAR) 05/07/22 23:41 Urine pH 5 (5-7) 05/07/22 23:41 Ur Specific [place] 1.020 (1.005-1.030) 05/07/22 23:41 Urine Protein Neg (Negative) 05/07/22 23:41 Urine Glucose (UA) Norm (Normal) 05/07/22 23:41 Urine Ketones 2+ (Negative) H 05/07/22 23:41 Urine Blood 2+ (Negative) H 05/07/22 23:41 Urine Nitrate Positive (Negative) H 05/07/22 23:41 Urine Bilirubin Neg (Negative) 05/07/22 23:41 Urine Urobilinogen Norm mg/dL (Negative) 05/07/22 23:41 Ur Leukocyte Esterase 2+ (Negative) H 05/07/22 23:41 Urine RBC 0-4 /hpf (0-2) H 05/07/22 23:41 Urine WBC >100 /hpf (0-5) H 05/07/22 23:41 Ur Squamous Epith Cells 0-4 /hpf (0-5) H 05/07/22 23:41 Amorphous Sediment 2+ /hpf 05/07/22 23:41 Urine Bacteria 1+ /hpf (NONE) H 05/07/22 23:41 Critical Care Time Critical Care Time: Critical Care Time: Yes Total Critical Care Time: 35 Attestation: Due to a high probability of clinically significant, possibly life threatening deterioration, the patient required my highest level of attention and preparedness to intervene emergently and I personally spent this critical care time directly and personally managing the patient. This critical care time included obtaining a history; examining the patient; pulse oximetry; ordering and review of laboratory and imaging studies; arranging urgent treatment with development of a management plan; evaluation of patient's response to treatment; frequent reassessment; and, discussions with other providers as applicable. It was exclusive of separately billable procedures. Primary system involved is cardiac Discharge Plan Discharge Patient Disposition: Placed in Observation Admit Provider: Curtis Cherry Clinical Impression: Atrial flutter with rapid ventricular response, Dehydration, Drug-induced diarrhea, Syncope and collapse Discharge Diet: Advance as tolerated Discharge Activity: Increase activity as tolerated Coding Level of Care Code ED Fitness/Wellness Director for Samuelg Fwd Exam Comprehensive
[2022-05-07 18:37] VITALS: BP 144/90; PULSE 149; RESP 18; TEMP 37; O2SAT 95
--- NOTE | 2022-05-07 18:40 | XRR_ITS ---
PROCEDURE INFORMATION: Exam: XR Chest Exam date and time: 05/07/2022 7:03 PM Age: 66 years old Clinical indication: Shortness of breath; Additional info: Afib rvr, SOB TECHNIQUE: Imaging protocol: Radiologic exam of the chest. Views: 1 view. COMPARISON: CR XR chest 1V [id number] 05/04/2022 11:30 AM FINDINGS: Lungs: The lung bases are suboptimally assessed due to technique however the upper lungs are clear of focal consolidation. Pleural spaces: Unremarkable. No pleural effusion. No pneumothorax. Heart/Mediastinum: Cardiac silhouette appears normal in size. No obvious vascular congestion. Bones/joints: No acute osseous findings. Other findings: Single view was submitted. XR/XR chest 1V portable [id number] IMPRESSION: No obvious acute consolidation. Suboptimal lung base assessment. Followup including lateral view may be obtained if clinically indicated.
[2022-05-07 19:02] LABS: Basophils % 0.2 %; Eosinophils # 0.1 10^3/uL (0.0-0.8); Eosinophils % 0.6 %; Hematocrit 37.2 % (42.0-52.0); Hemoglobin 12.1 g/dL (11.7-16.6); Lymphocytes # 1.9 10^3/uL (0.8-4.8); Lymphocytes % 14.2 %; Mean Corpuscular HGB Conc 32.5 g/dL (30.0-36.0); Mean Corpuscular Hemoglobin 29.3 pg (28.0-34.0); Mean Corpuscular Volume 90.1 fl (80-94); Mean Platelet Volume 11.2 fL (7.4-10.4); Monocytes # 0.6 10^3/uL (0.2-0.9); Monocytes % 4.6 %; Neutrophils % 79.8 %; Nucleated Red Blood Cells % 0 %; Platelet Count 302 10^3/cmm (130-400); Red Blood Count 4.13 10^6/uL (4.1-5.3); Red Cell Distribution Width 13.7 % (12.1-15.1); White Blood Count 13.2 10^3/uL (4.0-10.0)
--- NOTE | 2022-05-07 19:21 | ECG_ITS ---
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 Measurements Intervals [place] Rate: 110 P: NE: QRS: -34 QRSD: 100 T: 85 QT: 326 QTc: 443 Interpretive Statements ATRIAL FLUTTER WITH RAPID VENTRICULAR RESPONSE LEFT AXIS DEVIATION [QRS AXIS < -30] INCOMPLETE RIGHT BUNDLE BRANCH BLOCK [90+ ms QRS DURATION, TERMINAL R IN V1/V2, 40+ ms S IN I/aVL/V4/V5/V6] NONSPECIFIC ST & T-WAVE ABNORMALITY Compared to ECG 04/25/2021 05:35:45 Incomplete right bundle-branch block now present T-wave abnormality now present Myocardial infarct finding no longer present Electronically Signed On 05-08-2022 7:03:46 CDT by Sinai Dutta M.D. [id number]
[2022-05-07] MEDS: lactated ringers 1,000 ML 999 ML IV (19:22)
--- NOTE | 2022-05-07 19:25 | CTR_ITS ---
PROCEDURE INFORMATION: Exam: CT Head Without Contrast Exam date and time: 05/07/2022 7:46 PM Age: 66 years old Clinical indication: Syncope and collapse; Patient HX: Patient had syncopal episode while prepping for colonoscopy. TECHNIQUE: Imaging protocol: Computed tomography of the head without contrast. Radiation optimization: All CT scans at this facility use at least one of these dose optimization techniques: automated exposure control; mA and/or kV adjustment per patient size (includes targeted exams where dose is matched to clinical indication); or iterative reconstruction. COMPARISON: CT cervical spine w con [id number] 08/06/2020 10:22 AM RADIATION DOSE METRICS: Total DLP (mGy-cm): 1253.98 FINDINGS: Brain: Minimal hypodense changes are noted in the bilateral periventricular regions, likely related to chronic microvascular ischemic disease. There is mild brain parenchymal atrophy. No acute intracranial hemorrhage, mass effect or midline shift. Cerebral ventricles: No pathologic ventricular dilatation. Paranasal sinuses: Visualized sinuses are unremarkable. No fluid levels. Mastoid air cells: Visualized mastoid air cells are well aerated. Bones/joints: Unremarkable. No acute fracture. Soft tissues: Unremarkable. CT/CT head wo con* [id number] IMPRESSION: No acute intracranial findings.
[2022-05-07 19:42] LABS: Troponin(5th) Baseline 22 ng/L (0-15)
[2022-05-07 19:44] VITALS: BP 133/95; PULSE 123; RESP 20; O2SAT 95
[2022-05-07 19:49] LABS: Alanine Aminotransferase 15 U/L (0-41); Albumin Level 4.6 g/dL (3.5-5.2); Alkaline Phosphatase 59 IU/L (40-130); Anion Gap 21.8 (5-19); Aspartate Amino Transferase 12 U/L (0-40); Blood Urea Nitrogen 19 mg/dL (8-23); Calcium 9.9 mg/dL (8.5-10.5); Carbon Dioxide 20 mmol/L (22-29); Chloride 104 mmol/L (98-107); Globulin 2.4 g/dL (1.3-4.6); Glomerular Filtration Rate 96.1 mL/min (90-130); Glucose 109 mg/dL (65-115); Magnesium 1.9 mg/dL (1.7-2.3); NT Pro B Type Natriuretic Pept 776 pg/mL (0-125); Osmolality Calculated 297 mOsm/kg (285-295); Potassium 3.8 mmol/L (3.5-5.1); Sodium 142 mmol/L (136-145); Thyroid Stimulating Hormone 1.89 uIU/mL (0.27-4.20); Total Bilirubin 0.6 mg/dL (0.15-1.2)
[2022-05-07] MEDS: dilTIAZem 5 mg/mL SDV 5 mL 20 MG IVP (20:31)
[2022-05-07] MEDS: potassium chloride premix 100 ML 50 MEQ IV (20:32)
[2022-05-07 20:46] VITALS: BP 142/82; PULSE 80; RESP 18; O2SAT 96
--- NOTE | 2022-05-07 20:52 | ECG_ITS ---
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 Measurements Intervals [place] Rate: 121 P: NV: QRS: -19 QRSD: 95 T: 50 QT: 298 QTc: 424 Interpretive Statements ATRIAL FIBRILLATION WITH RAPID VENTRICULAR RESPONSE MODERATE ST DEPRESSION [0.05+ mV ST DEPRESSION] Compared to ECG 05/07/2022 19:21:25 ST (T wave) deviation now present Atrial flutter no longer present Left-axis deviation no longer present Incomplete right bundle-branch block no longer present T-wave abnormality no longer present Electronically Signed On 05-08-2022 7:07:00 CDT by Sinai Dutta M.D. [id number]
[2022-05-07] MEDS: sodium chloride 0.9% 1,000 ML 150 ML IV (21:09)
[2022-05-07 21:13] LABS: Troponin 5 2HR 20.49 ng/L (0-15); Troponin 5 2HR Delta -1.51 ABS# (0-10)
[2022-05-07] MEDS: dilTIAZem 60 mg Tablet PO (21:41)
[2022-05-07 22:14] VITALS: BP 136/99; BP 156/106; BP 172/97; PULSE 123; PULSE 142
[2022-05-07 22:30] VITALS: BP 125/87; PULSE 90; RESP 18; O2SAT 96
[2022-05-08] VITALS (18 sets, daily range): BP systolic 103–154; BP diastolic 73–105; PULSE 78–120; RESP 14–20; TEMP 36.5–37.3; O2SAT 93–98
[2022-05-08 00:03] LABS: Add Urine Microscopic? YES; Bilirubin Urine Neg (Negative); Blood Urine 2+ (Negative); Glucose Urine UA Norm (Normal); Ketones Urine 2+ (Negative); Leukocyte Esterase Urine 2+ (Negative); Nitrate Urine Positive (Negative); Protein Urine Neg (Negative); RBC Urine 0-4 /hpf (0-2); Urine Appearance SL Hazy (CLEAR); Urine Color Yellow (Yellow); Urobilinogen Urine Norm (Negative); pH Urine 5 (5-7)
[2022-05-08 00:04] LABS: Add Urine Culture? Yes; Amorphous Sediment Urine 2+ /hpf; Bacteria Urine 1+ /hpf; Squamous Epithelial Cell Urine 0-4 /hpf (0-5); WBC Urine >100 /hpf (0-5)
--- NOTE | 2022-05-08 00:15 | CTR_ITS ---
PROCEDURE INFORMATION: Exam: CT Abdomen And Pelvis Without Contrast Exam date and time: 05/08/2022 12:55 AM Age: 66 years old Clinical indication: Abdominal pain; Generalized; Prior surgery; Surgery type: Appy. Thr. Lumbar laminectomy. Patient HX: Abd pain with diarrhea; Additional info: Abdominal distention, diarrhea TECHNIQUE: Imaging protocol: Computed tomography of the abdomen and pelvis without contrast. Radiation optimization: All CT scans at this facility use at least one of these dose optimization techniques: automated exposure control; mA and/or kV adjustment per patient size (includes targeted exams where dose is matched to clinical indication); or iterative reconstruction. COMPARISON: 1. CT pelvis wo con [id number] 2016-08-08 14:19 2. CR Pelvis AP 1 or 2 views* [id number] 2016-08-04 16:14 RADIATION DOSE METRICS: Total DLP (mGy-cm): 1123.63 FINDINGS: Liver: Normal. No mass. Gallbladder and bile ducts: Normal. No calcified stones. No ductal dilation. Pancreas: Normal. No ductal dilation. Spleen: Normal. No splenomegaly. Adrenal glands: Normal. No mass. Kidneys and ureters: Nonobstructing 4 mm left renal calculus. Benign left inferior renal pole 7.7 cm simple benign cyst. 4 mm nonobstructing right renal calculus. Stomach and bowel: Unremarkable. No obstruction. No mucosal thickening. Appendix: No evidence of appendicitis. Intraperitoneal space: Unremarkable. No free air. No significant fluid collection. Vasculature: Unremarkable. No abdominal aortic aneurysm. Lymph nodes: Unremarkable. No enlarged lymph nodes. Urinary bladder: Unremarkable as visualized. Reproductive: Prostatic calcifications and borderline enlargement. Bones/joints: A right hip arthroplasty is intact. Mild moderate left hip degenerative joint disease. Moderate lumbar spondylosis. Soft tissues: Unremarkable. CT/CT abdomen pelvis wo con [id number] IMPRESSION: No acute findings. COMMENTS: Consistent with the [place] [employer]'s Incidental Findings Committee white paper (J Am Thomas Radiol 2018): Any incidental renal lesion less than 1 cm or classified as too small to characterize, or any incidental cystic renal lesion characterized as simple-appearing, is likely benign. No follow-up imaging is recommended for these lesions per consensus recommendations based on imaging criteria.
--- NOTE | 2022-05-08 00:21 | PM.HP ---
Providers/Chief Complaint Admitting Physician: Curtis Cherry MD Primary Care Provider: PAYAL Adamson Chief Complaint: WEAKNESS, SOB History of Present Illness Felipe Bello is a 66 year old male with a past medical history of atrial flutter on , history of diastolic CHF, history of BPH, recent history of hematochezia and black tarry stools seen by primary care referred to general surgery, started on a bowel prep on Wednesday for plans on EGD on Wednesday. Also seen for increased shortness of breath by primary care increase shortness of, bilateral extremity edema, concerning for fluid overload, started on Lasix. Patient tells me that once he started taking the bowel prep on Wednesday, she started to have significant episodes of diarrhea, abdominal pain and abdominal distention. He had significant episodes of diarrhea, with the diarrhea he felt lightheaded, dizzy. He feels that at times he passed out for few seconds with the diarrhea. No nausea, vomiting, no recurrent bloody or black stools. He denies any chest pain, no palpitations. He was complaining of shortness of breath, which has resolved, his lower leg extremity edema has resolved. No fevers, no chills. He continues to have diarrhea here in the emergency room. Was orthostatic positive. The emergency room, he was found to have A. fib with RVR, given multiple doses of Cardizem. Plans on a Cardizem drip. However during my examination his blood pressures are 90s over 50s, is alert oriented x3 sitting on the commode, heart rates in the low 100s, Cardizem drip has not been started is received fluids, magnesium, potassium Review of Systems Const: Denies: fever(s), fatigue or malaise Eyes: Denies: change in vision Resp: Denies: dyspnea, productive cough, non-productive cough or wheezing GI: Denies: nausea, vomiting, hematemesis, hematochezia or melena : Denies: dysuria Musc: Denies: back pain Neuro: Denies: headache(s), dizziness or vertigo Endo: Denies: polyuria or polydipsia Medications/Allergies Home Medications Medication Instructions Recorded Confirmed Last Taken Type pxjcimc-slyikmpyzlbdi-gedyuvpw 250 1 tab PO Q6H PRN HEADACHE/PAIN 07/09/20 05/06/22 05/05/22 History mg-250 mg-65 mg tablet (Excedrin Extra Strength) cholecalciferol (vitamin D3) 125 125 mcg PO DAILY 12/02/20 05/06/22 05/05/22 History mcg (5,000 unit) capsule diphenhydramine HCl 25 mg capsule 12.5 mg PO BID PRN UNKNOWN 12/02/20 05/06/22 05/05/22 History (Benadryl) niacin 100 mg tablet 100 mg PO DAILY 12/02/20 05/06/22 05/05/22 History omega-3 fatty acids 1,000 mg 1,000 mg PO DAILY 12/02/20 05/06/22 05/05/22 History capsule (Fish Oil Concentrate) calcium carbonate 600 mg calcium 600 mg PO DAILY 01/14/21 05/06/22 05/05/22 History (1,500 mg) tablet (Calcium) Cam boot to right #1 ea 11/27/21 05/05/22 Unknown Rx ASO #1 ea 12/12/21 05/05/22 Unknown Rx albuterol sulfate 90 mcg/actuation 1 inh inhalation Q6H PRN shortness 03/19/22 05/06/22 05/05/22 Rx aerosol inhaler (ProAir HFA) of breath or wheezing 30 days #8.5 grams apixaban 5 mg tablet (Eliquis) 5 mg PO BID@0900,2100 90 days #180 03/19/22 05/06/22 05/05/22 Rx tabs diltiazem HCl 60 mg tablet 60 mg PO Q12H 90 days #180 tabs 03/19/22 05/06/22 Unknown Rx (Cardizem) fluticasone propionate 115 2 inh inhalation BID 30 days #8 03/19/22 05/06/22 05/05/22 Rx mcg-salmeterol 21 mcg/actuation grams HFA inhaler (Advair HFA) gabapentin 600 mg tablet 600 mg PO BID 90 days #180 tabs 03/19/22 05/06/22 05/05/22 Rx metoprolol tartrate 50 mg tablet 50 mg PO BID@0900,2100 90 days 03/19/22 05/06/22 Unknown Rx #180 tabs tamsulosin 0.4 mg capsule 0.8 mg PO DAILY #60 caps 03/19/22 05/06/22 05/05/22 Rx furosemide 40 mg tablet (Lasix) 40 mg PO DAILY 90 days #90 tabs 04/09/22 05/06/22 05/05/22 Rx potassium chloride 20 mEq 20 meq PO DAILY 90 days #90 tabs 04/09/22 05/06/22 05/05/22 Rx tablet,extended release(part/cryst) (Klor-Con M) Allergies Allergy/AdvReac Type Severity Reaction Status Date / Time cefazolin [From Kefzol] Allergy itching, Verified 05/05/22 13:47 redness morphine Allergy itching Verified 05/05/22 13:47 PFSH Acute PFSH: Medical History Acquired cervical spine ankylosis BPH loc w urin obs/LUTS Cervical disc disorder with myelopathy of mid-cervical region COVID-19 vaccine series completed DDD (degenerative disc disease), cervical Dental abscess Deviated nasal septum Elevated PSA Environmental allergies Fatigue Hypertension screen Lower respiratory infection Maxillary sinus cyst Osteoarthritis Osteoarthritis thoracic spine Pain and swelling of right ankle Pain, dental Prostate cancer screening Restless leg syndrome Rhus dermatitis Shortness of breath Stenosis of cervical spine with myelopathy Tachycardia Thoracic degenerative disc disease Urinary retention Vitamin D deficiency Surgical History History of lumbar fusion 1997 bone growth simulator removed. Leads intact. 1989 [place], [place] L3-L4, L4-L5 posterior fusion/fixation. L3 right-sided hemilaminectomy. History of umbilical hernia repair S/P appendectomy S/P hip replacement 08/04/2016 right hip S/P knee surgery Status post laminectomy with spinal fusion Family History Father , at age 83 CAD (coronary artery disease) Mother , at age 76 CAD (coronary artery disease) Social History Smoking and tobacco status: never smoked Alcohol intake: never Household members: none Marital status: Current occupational status: retired and disabled History of recent travel: No Vitals/I&O/Wt Last Vital Signs Temp 98.6 F 05/07/22 18:37 Pulse 90 05/07/22 22:30 Resp 18 05/07/22 22:30 BP 125/87 05/07/22 22:30 Pulse Ox 96 05/07/22 22:30 O2 Del Method 05/07/22 22:30 05/07/22 05/07/22 05/08/22 14:59 22:59 06:59 Intake Total 1052 / 1052 Balance 1052 / 1052 Physical Exam Const: COMMON NORMALS: no acute distress and patient oriented x3 HENMT: COMMON NORMALS: normocephalic HEAD & SCALP: normocephalic Eye: COMMON NORMALS: Equal, round and reactive pupils present and EOMs intact bilaterally Neck/C-Spine: COMMON NORMALS: no JVD Resp: COMMON NORMALS: normal respiratory effort, No retractions, No use of accessory muscles and clear to auscultation bilaterally AUSCULTATION: clear to auscultation bilaterally Cardio: COMMON NORMALS: no JVD, regular rate, regular rhythm, S1 normal heart sound present and S2 normal heart sound present RATE: regular rate RHYTHM: abnormal rhythm HEART SOUNDS: S1 normal heart sound present and S2 normal heart sound present GI: COMMON NORMALS: Normal to inspection, nondistended, normoactive bowel sounds present, Soft to palpation, non-tender, No hepatosplenomegaly present, no masses and no bruits PALPATION: Yes Soft to palpation and Yes No hepatosplenomegaly present Extremity: COMMON NORMALS: capillary refill normal, no clubbing, cyanosis or edema, no calf tenderness and no pedal edema Neuro: COMMON NORMALS: patient oriented x3, CN's II-XII intact bilaterally, moves all extremities and no focal motor deficits Psych: COMMON NORMALS: mental status grossly normal Data : 05/07/22 18:57 05/07/22 18:57 A&P Assessment and plan (1) Atrial flutter with rapid ventricular response: Status: Acute (2) Dehydration: Status: Acute (3) Syncope and collapse: Status: Acute (4) Drug-induced diarrhea: Status: Acute (5) NSTEMI (non-ST elevated myocardial infarction): Status: Acute (6) GI bleed: Status: Acute Plan Syncope and collapse -Likely secondary to dehydration from bowel prep -Orthostats are positive currently on the commode -blood pressures 90s over 50s, likely vasovagal -Alert oriented x3, following all commands, no lightheadedness, dizziness -CT head within normal limits -We will do carotid artery ultrasound, cardiac echo Atrial flutter with RVR -Likely secondary to dehydration -Currently blood pressures are soft, heart rates are better controlled -Stop Cardizem drip -Hold metoprolol -Start Cardizem 30 every 6 hours -Magnesium replaced, potassium replaced -Hold off on anticoagulation Hematochezia, concern for GI bleed -Hold off on anticoagulation -Hemoglobin stable at 12.1 -Protonix, Carafate -IV fluids -N.p.o. -We will discuss with surgery service in the morning about doing an EGD while he is here, he is already scheduled for tomorrow -Does have some degree of abdominal pain, abdominal distention with a CT scan of the pelvis with contrast, lactic acid, Pro-Jermaine, CRP NSTEMI -Likely secondary to syncope, dehydration, A. fib -Serial EKGs, serial troponins, telemetry monitoring -No active chest pain -Cardiac echo Diarrhea, likely related to bowel prep, but will do stool studies UTI, Cipro 250 twice daily urine cultures Attestations Medical Necessity Statement*: Patient requires hospitalization, outpatient with observation, for concerns, atrial fibrillation, GI bleed, dehydration, syncope Coding Level of Care Code Acute Principal Systems Architect for g Fwd Diagnoses Atrial flutter with rapid ventricular response I48.92 Dehydration E86.0 Syncope and collapse R55 Drug-induced diarrhea K52.1 NSTEMI (non-ST elevated myocardial infarction) I21.4 GI bleed K92.2
--- NOTE | 2022-05-08 00:41 | ECG_ITS ---
[facility] Test Date: 2022-05-08 Pat Name: Felipe Bello Department: Room: 275 Gender: Male Material Controller: : 1955 Requested By: Tim Villanueva Order Number: [id number] Jesse MD: Tamica Booth M.D. Measurements Intervals Slater Rate: 89 P: HI: QRS: -30 QRSD: 120 T: 29 QT: 391 QTc: 478 Interpretive Statements Atrial fibrillation with controlled nuclear response rate BORDERLINE LEFT AXIS DEVIATION [QRS AXIS < -20] MODERATE INTRAVENTRICULAR CONDUCTION DELAY [110+ ms QRS DURATION] NONSPECIFIC T-WAVE ABNORMALITY ABNORMAL RHYTHM ECG Compared to ECG 05/07/2022 20:52:01 Intraventricular conduction delay now present T-wave abnormality now present Atrial fibrillation no longer present ST (T wave) deviation no longer present Electronically Signed On 05-08-2022 18:32:34 CDT by Tamica Booth M.D. [id number]
--- NOTE | 2022-05-08 01:10 | USCV_ITS ---
Felipe Bello Age: 66 Gender: M : 1955 Exam Date: 05/08/2022 07:56 Ordering Phys: Curtis Cherry MD Technologist: Mindy Hoover [place] [facility] [place]: syncope BP: 157 / 102 HR: 95 Rhythm: Sinus Technical Quality: Adequate MEASUREMENTS (Male / Female) Normal Values 2D ECHO LV Diastolic Diameter PLAX 5.2 cm 4.2 - 5.9 / 3.9 - 5.3 cm LV Systolic Diameter PLAX 3.2 cm IVS Diastolic Thickness 1.4 cm 0.6 - 1.0 / 0.6 - 0.9 cm IVS Systolic Thickness 1.8 cm LVPW Diastolic Thickness 1.6 cm 0.6 - 1.0 / 0.6 - 0.9 cm LVPW Systolic Thickness 2.2 cm LVOT Diameter 2.0 cm LV Ejection Fraction 2D Teich 68.0 % LV Ejection Fraction MOD 2C 71.1 % LV Ejection Fraction 2C AL 71.5 % LA Diameter 3.1 cm LA Width 3.9 cm LA Height 5.4 cm RA Width 3.9 cm RA Height 6.1 cm Aorta at Sinotubular Diameter 3.3 cm M-MODE Aortic Annulus Diameter 3.3 cm LA Ao Ratio MM 0.5 MV E Point Septal Separation 0.9 cm DOPPLER AV Peak Velocity 173.0 cm/s LVOT Peak Velocity 100.0 cm/s AV Area Cont Eq vti 1.8 cm squared AV Area Cont Eq pk 1.8 cm squared MV Peak Velocity 119.0 cm/s MV Area PHT 5.0 cm squared MV E' Velocity 67.0 cm/s Mitral E to MV E' Ratio 5.9 Mitral E to LV E' Lateral Ratio 4.9 Mitral E to LV E' Septal Ratio 7.4 TR Peak Velocity 207.0 cm/s TR Peak Gradient 17.1 mmHg TV Peak E Velocity 93.0 cm/s Right Atrial Pressure 8.0 mmHg Pulmonary Artery Systolic Pressu 25.1 mmHg PV Peak Velocity 114.0 cm/s RV Acceleration Time 0.1 s RV Ejection Time 0.3 s RV AcT/ET 0.3 FINDINGS Left Ventricle Left ventricle is normal in size. LV systolic function is normal with EF of 55 to 60%. No regional wall motion abnormalities are seen. Diastolic function is indeterminate because of atrial fibrillation Right Ventricle Normal in size and function Right Atrium Normal in size Left Atrium Left atrium is dilated. Mitral Valve Structurally normal mitral valve. Trace mitral regurgitation is seen. No significant stenosis Aortic Valve Aortic valve is structurally normal. No significant aortic regurgitation or stenosis. Tricuspid Valve Trace tricuspid regurgitation. Normal pulmonary artery systolic pressure. Pulmonic Valve Not well-visualized Pericardium Normal Aorta Borderline dilated ascending aorta IVC CONCLUSIONS LV systolic unction is normal with EF 55 to 60%. Diastolic function is indeterminate because of atrial fibrillation. Left atrial enlargement. Trace mitral regurgitation is seen. Trace tricuspid regurgitation. Borderline dilated ascending aorta. Compared to prior echocardiogram from 2020, no significant changes are seen. Adan Sutton MD (Electronically Signed) Final Date: 08 May 2022 13:40 S
--- NOTE | 2022-05-08 01:10 | USCV_ITS ---
Felipe Bello Age: 66 Gender: M : 1955 Exam Date: 05/08/2022 07:40 Ordering Phys: Curtis Cherry MD Technologist: Mindy Hoover Exam Location: [facility] [place] Indication: syncope Risk Factors: Unknown Previous Vascular Surgery: None Right Brachial BP: / Left Brachial BP: / Right Left Velocity (cm/s) Spectral Plaque Velocity (cm/s) Spectral Plaque Syst/Diast Broadening Syst/Diast Broadening 109.20/26.50 Prox CCA 78.90 / 17.90 79.40/ 32.00 Mid CCA 101.70/ 19.80 74.30/ 25.60 Distal CCA 72.80 / 21.80 68.40/ 24.80 Prox ICA 64.50 / 18.30 62.40/ 25.60 Mid ICA 64.50 / 32.90 78.60/ 39.30 Distal ICA 66.30 / 26.90 63.20 ECA 55.70 0.72 ICA/CCA 0.65 Antegrade Vertebral Antegrade 94.80/ 32.60 cm/s 65.10/ 23.20 cm/s Tri Subclavian Tri 105.8 131.2 0 0 FINDINGS Comparison: none available. No significant elevation of systolic or diastolic velocities. Waveforms are normal. No significant amount of calcified plaque or intimal thickening identified. Antegrade vertebral arteries. CONCLUSIONS Normal carotid doppler ultrasound. Dr. Sandra Staley DO (Electronically Signed) Final Date: 08 May 2022 09:28 S
[2022-05-08] MEDS: sodium chloride 0.9% 1,000 ML 75 ML IV (01:54)
[2022-05-08] MEDS: pantoprazole 40 mg SDV IVP (01:54)
[2022-05-08] MEDS: ciprofloxacin 500 mg Tablet 250 MG PO ×2 (01:55→12:44)
[2022-05-08 02:01] LABS: Lactic Sepsis W/Reflex 1.3 mmol/L (0.5-2.2)
[2022-05-08 02:02] LABS: Troponin 5 6HR 35.39 ng/L (0-15)
[2022-05-08 02:08] LABS: Troponin 5 6HR Delta 13.39 ng/L (0-12)
[2022-05-08 02:09] LABS: Procalcitonin 0.08 ng/mL (0-0.5)
[2022-05-08 02:12] LABS: C Reactive Protein 5.8 mg/L (0.0-4.9); NT Pro B Type Natriuretic Pept 638 pg/mL (0-125)
[2022-05-08] MEDS: sucralfate 1 gm Tablet PO ×3 (06:17→19:48)
[2022-05-08] MEDS: dilTIAZem 60 mg Tablet PO ×2 (09:55→15:13)
[2022-05-08] MEDS: tamsulosin 0.4 mg Capsule 0.8 MG PO (09:55)
[2022-05-08] MEDS: gabapentin 300 mg Capsule 600 MG PO ×2 (09:55→17:55)
[2022-05-08] MEDS: sodium chloride 0.9% 1,000 ML 30 ML IV (10:19)
--- NOTE | 2022-05-08 10:23 | P.PN_ITS ---
Subjective Subjective: Patient presented to the ER yesterday with atrial fibrillation and RVR likely dehydration induced ,patient is already scheduled for EGD and colonoscopy today because of drop in his hemoglobin and evidence of hematochezia. He was medically managed by hospitalist service. And he was taken off the schedule per my recommendation yet I was approached by the hospitalist service today Dr. Valderrama that the patient had already had the colon prep and medically is appropriate to proceed with EGD and colonoscopy Medications: Reviewed: Yes Vitals/I&O/Wt Last Vital Signs Temp 97.7 F 05/08/22 10:15 Pulse 112 H 05/08/22 10:15 Resp 18 05/08/22 10:15 BP 136/105 05/08/22 10:15 Pulse Ox 97 05/08/22 10:15 O2 Del Method 05/08/22 10:15 FiO2 21 05/08/22 02:45 05/07/22 05/08/22 05/08/22 22:59 06:59 14:59 Intake Total 1052 / 1052 1100 / 2152 Output Total 200 / 200 Balance 1052 / 1052 900 / 1954 Weight last 48 hrs Weight 271 lb 8 oz Physical Exam Narrative: Patient is conscious alert oriented X3 No apparent distress BMI 37 Head and neck examination PERRLA no masses no cervical lymphadenopathy no jaundice Cardiac examination audible S1-S2 no murmurs no gallops no arrhythmias Chest is clear bilateral,abscence of Rhonchi or wheezes,no surgical emphysema Abdomen nontender nondistended soft no organomegaly guarding or rigidity/no signs of peritonitis Extremities no cyanosis no clubbing no edema Data : 05/07/22 18:57 05/07/22 18:57 Micro: Microbiology 05/08/22 01:23 Blood Culture - Preliminary Blood SPECIMEN COLLECTED 05/08/22 01:20 Blood Culture - Preliminary Blood SPECIMEN COLLECTED A&P Assessment and plan (1) Hematochezia: Plan of care; After thorough history and physical examination and reviewing the chart, plan to perform a diagnostic esophagogastroduodenoscopy and diagnostic colonoscopy with possible biopsy and possible polypectomy. I discussed with the patient in detail the risks,benefits,alternatives and indications.The risk of aspiration, bleeding, soft tissue injury, perforation of the stomach/esophagus/colon and other potential concomitant complications were explained to the patient in details also the potential need for Thoracotomy and or Laproscoy/Laparotomy to repair any related complications including but not limited to colectomy and or Closotomy. The patient understood this well and did agree to proceed. Rationale was carefully and clearly discussed with the patient.Appropriate informed consent have been reviewed and signed Verbal and written Instructions were given to the patient for colonoscopy prep Anesthesia cleared the patient to proceed Status: Acute Attestations Medical Necessity Statement*: Per admitting service Coding Level of Care Code Acute Manager Quantitative for Sammie Delatorre Diagnoses Hematochezia K92.1
--- NOTE | 2022-05-08 10:23 | P.ANESASSM_ITS ---
Pre-Anesthetic Assessment Height/Weight: Height 1.83 m Weight 123.15 kg Temp Pulse Resp BP Pulse Ox O2 Del Method FiO2 97.7 F 112 H 18 136/105 97 21 05/08/22 10:15 05/08/22 10:15 05/08/22 10:15 05/08/22 10:15 05/08/22 10:15 05/08/22 10:15 05/08/22 02:45 Preop Diagnosis: Hematochezia Operation Date: 05/08/22 11:00 Proposed Procedures p EGD(Not Applicable) - Faisal Peoples MD s Colonoscopy(Not Applicable) - Faisal Peoples MD Familial anesthetic complications: None Was Beta Ryne taken within 24 hours: Yes Was Clonidine taken within 24 hours: N/A Last intake: > 8hrs Social Tobacco and No alcohol Exam alert, oriented x 3 and clear to auscultation bilaterally A fib Airway Cervical ROM: within normal limits Mallampati: Class III Dentition: full CV/HEM A fib w/ RVR in setting of dehydration from Lasix and Colon prep- admitted last night, given cardizem. BP currently stable. HR < 120 bpm. Echo performed, but not read. Contacted Dr. Sutton for unofficial read - per Dr. sutton normal LV function, mild MR, and no major dysfunction. GI gi bleed Anesthetic Plan ASA status: 4 Anesthesia: MAC Risk of > 500 ml blood loss (7ml/kg in children): No Medications/Allergies Home Medications Medication Instructions Recorded Confirmed Last Taken Type dhrcmfl-fmvkuxlkcqzbo-iczjqeot 250 1 tab PO Q6H PRN HEADACHE/PAIN 07/09/20 05/08/22 05/05/22 History mg-250 mg-65 mg tablet (Excedrin Extra Strength) cholecalciferol (vitamin D3) 125 125 mcg PO DAILY 12/02/20 05/08/22 05/05/22 History mcg (5,000 unit) capsule diphenhydramine HCl 25 mg capsule 12.5 mg PO BID PRN Allergic 12/02/20 05/08/22 05/05/22 History (Benadryl) Symptoms niacin 100 mg tablet 100 mg PO DAILY 12/02/20 05/08/22 05/05/22 History omega-3 fatty acids 1,000 mg 1,000 mg PO DAILY 03/05/1705/08/22 05/05/22 History capsule (Fish Oil Concentrate) calcium carbonate 600 mg calcium 600 mg PO DAILY 01/14/21 05/08/22 05/05/22 History (1,500 mg) tablet (Calcium) albuterol sulfate 90 mcg/actuation 1 inh inhalation Q6H PRN shortness 03/19/22 05/08/22 05/05/22 Rx aerosol inhaler (ProAir HFA) of breath or wheezing 30 days #8.5 grams apixaban 5 mg tablet (Eliquis) 5 mg PO BID@0900,2100 90 days #180 03/19/22 05/08/22 05/05/22 Rx tabs diltiazem HCl 60 mg tablet 60 mg PO Q12H 90 days #180 tabs 03/19/22 05/08/22 Unknown Rx (Cardizem) fluticasone propionate 115 2 inh inhalation BID 30 days #8 03/19/22 05/08/22 05/05/22 Rx mcg-salmeterol 21 mcg/actuation grams HFA inhaler (Advair HFA) gabapentin 600 mg tablet 600 mg PO BID 90 days #180 tabs 03/19/22 05/08/2205/05 Rx metoprolol tartrate 50 mg tablet 50 mg PO BID@0900,2100 90 days 03/19/22 05/08/22 Unknown Rx #180 tabs tamsulosin 0.4 mg capsule 0.8 mg PO DAILY #60 caps 03/19/22 05/08/22 05/05/22 Rx furosemide 40 mg tablet (Lasix) 40 mg PO DAILY 90 days #90 tabs 04/09/22 05/08/22 05/05/22 Rx potassium chloride 20 mEq 20 meq PO DAILY 90 days #90 tabs 04/09/22 05/08/22 05/05/22 Rx tablet,extended release(part/cryst) (Klor-Con M) Allergies Allergy/AdvReac Type Severity Reaction Status Date / Time cefazolin [From Kefzol] Allergy itching, Verified 05/05/22 13:47 redness codeine Allergy ADR-Itching Verified 05/08/22 01:12 morphine Allergy itching Verified 05/05/22 13:47 Current Medications Generic Name Dose Route Start Last Admin Trade Name Freq PRN Reason Stop Dose Admin Ciprofloxacin HCl 250 mg 08/12/22 01:30 05/08/22 01:55 Ciprofloxacin 500 Mg Tablet PO 250 mg Q12H PÉREZ Administration Protocol Diltiazem HCl 60 mg 05/08/22 08:00 05/08/22 09:55 Diltiazem 60 Mg Tablet PO 60 mg Q6H PÉREZ Administration Gabapentin 600 mg 05/08/22 09:00 05/08/22 09:55 Gabapentin 300 Mg Capsule PO 600 mg BID PÉREZ Administration Sodium Chloride 1,000 mls @ 75 mls/hr 05/08/22 01:10 05/08/22 01:54 Sodium Chloride 0.9% IV 75 mls/hr .[id number] PÉREZ Administration Sodium Chloride 1,000 mls @ 30 mls/hr 05/08/22 10:15 05/08/22 10:19 Sodium Chloride 0.9% IV 05/09/22 10:14 30 mls/hr .Q24H PÉREZ Administration Pantoprazole Sodium 40 mg 05/08/22 01:10 05/08/22 01:54 Pantoprazole 40 Mg Sdv IVP 40 mg Q12H PÉREZ Administration Sucralfate 1 gm 05/08/22 07:00 05/08/22 06:17 Sucralfate 1 Gm Tablet PO 1 gm AC&BEDTIME PÉREZ Administration Tamsulosin HCl 0.8 mg 05/08/22 09:00 05/08/22 09:55 Tamsulosin 0.4 Mg Capsule PO 0.8 mg DAILY PÉREZ Administration PFSH Anesthesia Medical History Acquired cervical spine ankylosis BPH loc w urin obs/LUTS Cervical disc disorder with myelopathy of mid-cervical region COVID-19 vaccine series completed DDD (degenerative disc disease), cervical Dental abscess Deviated nasal septum Elevated PSA Environmental allergies Fatigue Hypertension screen Lower respiratory infection Maxillary sinus cyst Osteoarthritis Osteoarthritis thoracic spine Pain and swelling of right ankle Pain, dental Prostate cancer screening Restless leg syndrome Rhus dermatitis Shortness of breath Stenosis of cervical spine with myelopathy Tachycardia Thoracic degenerative disc disease Urinary retention Vitamin D deficiency Surgical History History of lumbar fusion 1997 bone growth simulator removed. Leads intact. 1989 [employer], [place] L3-L4, L4-L5 posterior fusion/fixation. L3 right-sided hemilaminectomy. History of umbilical hernia repair S/P appendectomy S/P hip replacement 08/04/2016 right hip S/P knee surgery Status post laminectomy with spinal fusion Family History Father , at age 83 CAD (coronary artery disease) Mother , at age 76 CAD (coronary artery disease) Social History Smoking and tobacco status: never smoked Alcohol intake: never Household members: none Marital status: Current occupational status: retired and disabled History of recent travel: No Data Anesthesia : 05/07/22 18:57 05/07/22 18:57 Short CBC 05/07/22 Range/Units 18:57 WBC 13.2 H (4.0-10.0) 10^3/uL Hgb 12.1 (11.7-16.6) g/dL Hct 37.2 L (42.0-52.0) % MCV 90.1 (80-94) fl Plt Count 302 (130-400) 10^3/cmm Neut % (Auto) 79.8 % Neut # (Auto) 10.50 H (1.8-7.7) 10^3/uL BMP 05/07/22 18:57 Sodium 142 Potassium 3.8 Chloride 104 Carbon Dioxide 20 L BUN 19 Creatinine 0.8 Glucose 109 Calcium 9.9 Cardiac Enzymes 05/07/22 05/07/22 05/07/22 Range/Units 18:57 18:57 20:45 Troponin T Baseline 22 H (0-15) ng/L Troponin T 120 Minute 20.49 H (0-15) ng/L Delta Troponin T -1.51 L (0-10) ABS# Troponin T Hi Sens 6Hr (0-15) ng/L Troponin T Hi Sens 6Hr Delta (0-12) ng/L NT-Pro-B Natriuret Pep 776 H (0-125) pg/mL 05/08/22 05/08/22 05/08/22 Range/Units 01:20 01:20 01:23 Troponin T Baseline (0-15) ng/L Troponin T 120 Minute (0-15) ng/L Delta Troponin T (0-10) ABS# Troponin T Hi Sens 6Hr 35.39 H (0-15) ng/L Troponin T Hi Sens 6Hr Delta 13.39 H* (0-12) ng/L NT-Pro-B Natriuret Pep 638 H Cancelled (0-125) pg/mL Liver Function 05/07/22 Range/Units 18:57 Total Bilirubin 0.6 (0.15-1.2) mg/dL AST 12 (0-40) U/L ALT 15 (0-41) U/L Alkaline Phosphatase 59 (40-130) IU/L Albumin 4.6 (3.5-5.2) g/dL Urine 05/07/22 Range/Units 23:41 Urine Color Yellow (Yellow) Urine Appearance Sl hazy (CLEAR) Urine pH 5 (5-7) Ur Specific [place] 1.020 (1.005-1.030) Urine Protein Neg (Negative) Urine Glucose (UA) Norm (Normal) Urine Ketones 2+ H (Negative) Urine Nitrate Positive H (Negative) Urine Bilirubin Neg (Negative) Ur Leukocyte Esterase 2+ H (Negative) Urine RBC 0-4 H (0-2) /hpf Urine WBC >100 H (0-5) /hpf Coags 05/08/22 01:20 C-Reactive Protein 5.8 H Microbiology 05/08/22 01:23 Blood Culture - Preliminary Blood SPECIMEN COLLECTED 05/08/22 01:20 Blood Culture - Preliminary Blood SPECIMEN COLLECTED Cardiac Studies: Echocardiogram 04/25/21
--- NOTE | 2022-05-08 11:04 | PC.NURSE ---
to egd/colonoscopy via w/c at 1000.
--- NOTE | 2022-05-08 12:08 | PM.MISC ---
Miscellaneous Note Note: Patient was n.p.o. Blood pressure stable Low 70 edema positive Agreeable. Did coordinate endoscopy with Dr. Peoples Status post EGD and colonoscopy EGD showed gastritis No active bleeding ulcer Reflux esophagitis GERD Patient is awake and alert Euvolemic However has edema of lower extremities Fluid sitting at the bedside Blood pressure is stable Awake and alert Nonfocal neuro exam Saturating well on room air Plan to discharge him tomorrow He suffered from orthostatic/vasovagal syncope Currently blood pressure stable Stop fluids Start GI soft diet Start Eliquis 2 to 3 days after endoscopy Full code No signs of ACS No signs of stroke Carotid Doppler unremarkable
--- NOTE | 2022-05-08 14:15 | ANE.PACU2 ---
Inpatient post-anesthesia follow up: Airway intact: Yes Vital signs: Temperature 97.9 F Pulse Rate [Orthos tatic 117 Standing] Pulse Rate [Orthos tatic 120 Sitting] Pulse Rate [Orthos tatic Lying] 108 Pulse Rate 100 Respiratory Rate 17 Blood Pressure [Or thostatic 141/80 Standing] Blood Pressure [Or thostatic 143/94 Sitting] Blood Pressure [Or thostatic 150/92 Lying] Blood Pressure 141/80 Pulse Oximetry 97 Oxygen Delivery Me thod [ Room Air Current Rate & Del wong] Oxygen Delivery Me thod Room Air Oxygen Flow Rate 4 Fraction of Inspir ed Oxygen 0 Hydration adequate: Yes Nausea and vomiting: No Pain level: 1 Mental status: Baseline
--- NOTE | 2022-05-08 16:21 | PC.NURSE ---
pt tolerated colonoscopy and egd well,done earlier today.heart rate increases as high as 140 when pt gets up to bsc.heart rate comes back down to normal range after short rest period
[2022-05-08] MEDS: pantoprazole DR 40 mg Tablet PO (17:55)
[2022-05-08] MEDS: dilTIAZem 60 mg Tablet 90 MG PO (19:48)
[2022-05-09] MEDS: ciprofloxacin 500 mg Tablet 250 MG PO ×2 (00:18→13:14)
[2022-05-09] MEDS: dilTIAZem 60 mg Tablet 90 MG PO ×3 (00:18→13:15)
[2022-05-09 03:18] VITALS: BP 125/69; PULSE 76; RESP 14; TEMP 36.9; O2SAT 93
[2022-05-09 05:13] VITALS: PULSE 56
[2022-05-09 05:47] LABS: Basophils % 0.3 %; Eosinophils # 0.3 10^3/uL (0.0-0.8); Eosinophils % 2.7 %; Hematocrit 30.9 % (42.0-52.0); Hemoglobin 9.8 g/dL (11.7-16.6); Lymphocytes # 1.7 10^3/uL (0.8-4.8); Mean Corpuscular HGB Conc 31.7 g/dL (30.0-36.0); Mean Corpuscular Hemoglobin 29.2 pg (28.0-34.0); Mean Platelet Volume 11.4 fL (7.4-10.4); Monocytes # 0.7 10^3/uL (0.2-0.9); Monocytes % 6.6 %; Neutrophils # 7.26 10^3/uL (1.8-7.7); Neutrophils % 72.9 %; Nucleated Red Blood Cells % 0 %; Platelet Count 255 10^3/cmm (130-400); Red Blood Count 3.36 10^6/uL (4.1-5.3); Red Cell Distribution Width 14.2 % (12.1-15.1)
[2022-05-09 05:56] LABS: INR 0.95 (0.8-1.2)
[2022-05-09 06:28] LABS: Alanine Aminotransferase 13 U/L (0-41); Albumin Level 3.6 g/dL (3.5-5.2); Alkaline Phosphatase 50 IU/L (40-130); Anion Gap 14.4 (5-19); Aspartate Amino Transferase 12 U/L (0-40); Blood Urea Nitrogen 11 mg/dL (8-23); Calcium 8.8 mg/dL (8.5-10.5); Carbon Dioxide 24 mmol/L (22-29); Chloride 105 mmol/L (98-107); Glomerular Filtration Rate 96.1 mL/min (90-130); Glucose 90 mg/dL (65-115); Osmolality Calculated 289 mOsm/kg (285-295); Phosphorus 2.7 mg/dL (2.5-4.5); Potassium 3.4 mmol/L (3.5-5.1); Sodium 140 mmol/L (136-145); Thyroid Stimulating Hormone 1.26 uIU/mL (0.27-4.20); Total Bilirubin 0.6 mg/dL (0.15-1.2); Total Protein 5.6 g/dL (6.6-8.7)
[2022-05-09] MEDS: sucralfate 1 gm Tablet PO ×2 (06:40→11:14)
[2022-05-09 07:35] VITALS: BP 120/70; PULSE 70; RESP 16; TEMP 36.8; O2SAT 95
[2022-05-09] MEDS: gabapentin 300 mg Capsule 600 MG PO (09:18)
[2022-05-09] MEDS: pantoprazole DR 40 mg Tablet PO (09:18)
--- NOTE | 2022-05-09 09:27 | P.DS_ITS ---
Discharge Providers Date of Admission: 05/08/22 01:10 Date of Discharge: May 09, 2022 Attending Provider at Admission: Curtis Cherry MD Attending Provider at Discharge: Romy Valderrama MD Primary Care Provider: PAYAL Adamson Diagnoses at Discharge Discharge Diagnosis (1) Hematochezia: Status: Acute Reason for Visit Reason for Visit: WEAKNESS, SOB Hospital Course Hospital Course 66-year male who presented after 1 syncopal event while he was using restroom. Patient was taking bowel prep, he was experiencing liquidy diarrhea along his Lasix and other antihypertensive regimen for his A. fib. He passed out on the toilet seat. He was diagnosed with orthostatic hypotension, he did very well with IV fluid hydration in the hospital. EGD and colonoscopy was done by Dr. Peoples, EGD showed gastritis, GERD. Protonix, sucralfate added. He was asked not to take Eliquis for at least until Wednesday when he will repeat his CBC and BMP. His potassium was repleted before discharge. He tolerated his diet very well. He remained hemodynamically stable. For his UTI he will get ciprofloxacin. He was asked not to take his diuretics until Wednesday. Excedrin discontinued. Carotid Doppler did not show significant stenosis. Stool studies were unremarkable. Abdomen pelvis CT scan did not show diverticulitis. Echo showed EF 50 to 60% diastolic dysfunction is indeterminant left atrial argument, no significant changes. Physical Exam Narrative: Awake and alert Nonfocal neuro exam Mild edema of legs Abdomen soft Awake and alert Nonfocal neuro exam Pleasant and cooperative Saturating well on room air A. fib without RVR Blood pressure is stable Discharge Data Studies Completed and Pending Completed Studies During Hospitalization Category Date Time Status CT abdomen pelvis wo con [id number] Stat Cat Scan 05/08/22 00:[address] head wo con* [id number] Stat Cat Scan 05/07/22 19:25 Completed XR chest 1V portable [id number] Stat Exams 05/07/22 18:40 Completed CV carotid duplex BI* [id number] Routine Ultrasound 05/08/22 01:10 Completed CV. echo complete* [id number] Routine Ultrasound 05/08/22 01:10 Completed Pending at discharge Category Date Time Status Blood Culture Routine Lab 05/08/22 01:23 Results Clostridioides Difficile PCR Routine Lab 05/08/22 10:30 Results Complete Blood Count w/Auto AM LABS Lab 05/10/22 04:00 Ordered Complete Blood Count w/Auto AM LABS Lab 05/11/22 04:00 Ordered Comprehensive Metabolic Panel AM LABS Lab 05/10/22 04:00 Ordered Comprehensive Metabolic Panel AM LABS Lab 05/11/22 04:00 Ordered Enteric Bacterial Panel by PCR Routine Lab 05/08/22 10:30 Results Enteric Parasite Panel by PCR Routine Lab 05/08/22 10:30 Results Immunochemical Fecal OCB Routine Lab 05/08/22 10:30 Results Lactoferrin Routine Lab 05/08/22 10:30 Results Magnesium AM LABS Lab 05/10/22 04:00 Ordered Magnesium AM LABS Lab 05/11/22 04:00 Ordered Phosphorus AM LABS Lab 05/10/22 04:00 Ordered Phosphorus AM LABS Lab 05/11/22 04:00 Ordered Prothrombin Time INR AM LABS Lab 05/10/22 04:00 Ordered Prothrombin Time INR AM LABS Lab 05/11/22 04:00 Ordered Urine Culture Stat Lab 05/07/22 23:41 Results Pathology: Surgical [PTH] Routine Pth 05/08/22 10:57 Received Radiology Impressions Chest X-Ray 05/07/22 18:40 IMPRESSION: No obvious acute consolidation. Suboptimal lung base assessment. Followup including lateral view may be obtained if clinically indicated. Head CT 05/07/22 19:25 IMPRESSION: No acute intracranial findings. Abdomen/Pelvis CT 05/08/22 00:15 IMPRESSION: No acute findings. COMMENTS: Consistent with the [employer]'s Incidental Findings Committee white paper (J Am Thomas Radiol 2018): Any incidental renal lesion less than 1 cm or classified as too small to characterize, or any incidental cystic renal lesion characterized as simple-appearing, is likely benign. No follow-up imaging is recommended for these lesions per consensus recommendations based on imaging criteria. Laboratory Results WBC 10.0 10^3/uL (4.0-10.0) 05/09/22 05:00 RBC 3.36 10^6/uL (4.1-5.3) L 05/09/22 05:00 Hgb 9.8 g/dL (11.7-16.6) L 05/09/22 05:00 Hct 30.9 % (42.0-52.0) L 05/09/22 05:00 MCV 92.0 fl (80-94) 05/09/22 05:00 MCH 29.2 pg (28.0-34.0) 05/09/22 05:00 MCHC 31.7 g/dL (30.0-36.0) 05/09/22 05:00 RDW 14.2 % (12.1-15.1) 05/09/22 05:00 Plt Count 255 10^3/cmm (130-400) 05/09/22 05:00 MPV 11.4 fL (7.4-10.4) H 05/09/22 05:00 Neut % (Auto) 72.9 % 05/09/22 05:00 Lymph % (Auto) 17.0 % 05/09/22 05:00 [place] % (Auto) 6.6 % 05/09/22 05:00 Eos % (Auto) 2.7 % 05/09/22 05:00 Baso % (Auto) 0.3 % 05/09/22 05:00 Neut # (Auto) 7.26 10^3/uL (1.8-7.7) 05/09/22 05:00 Lymph # (Auto) 1.7 10^3/uL (0.8-4.8) 05/09/22 05:00 [place] # (Auto) 0.7 10^3/uL (0.2-0.9) 05/09/22 05:00 Eos # (Auto) 0.3 10^3/uL (0.0-0.8) 05/09/22 05:00 Baso # (Auto) 0.0 10^3/uL (0.0-0.1) 05/09/22 05:00 Nucleated RBC % (auto) 0 % 05/09/22 05:00 Nucleated RBCs # 0.0 /100WBC 05/09/22 05:00 PT 12.90 SECONDS (12.1-14.9) 05/09/22 05:00 INR 0.95 (0.8-1.2) 05/09/22 05:00 Sodium 140 mmol/L (136-145) 05/09/22 05:00 Potassium 3.4 mmol/L (3.5-5.1) L 05/09/22 05:00 Chloride 105 mmol/L (98-107) 05/09/22 05:00 Carbon Dioxide 24 mmol/L (22-29) 05/09/22 05:00 Anion Gap 14.4 (5-19) 05/09/22 05:00 BUN 11 mg/dL (8-23) 05/09/22 05:00 Creatinine 0.8 mg/dL (0.7-1.2) 05/09/22 05:00 GFR Calculation 96.1 mL/min (90-130) 05/09/22 05:00 Glucose 90 mg/dL (65-115) 05/09/22 05:00 Calculated Osmolality 289 mOsm/kg (285-295) 05/09/22 05:00 Lactic Acid 1.3 mmol/L (0.5-2.2) 05/08/22 01:20 Lactate 1.0 mmol/L (0.5-2.2) 05/08/22 04:53 Calcium 8.8 mg/dL (8.5-10.5) 05/09/22 05:00 Phosphorus 2.7 mg/dL (2.5-4.5) 05/09/22 05:00 Magnesium 2.0 mg/dL (1.7-2.3) 05/09/22 05:00 Total Bilirubin 0.6 mg/dL (0.15-1.2) 05/09/22 05:00 AST 12 U/L (0-40) 05/09/22 05:00 ALT 13 U/L (0-41) 05/09/22 05:00 Alkaline Phosphatase 50 IU/L (40-130) 05/09/22 05:00 Troponin T Baseline 22 ng/L (0-15) H 05/07/22 18:57 Troponin T 120 Minute 20.49 ng/L (0-15) H 05/07/22 20:45 Delta Troponin T -1.51 ABS# (0-10) L 05/07/22 20:45 Troponin T Hi Sens 6Hr 35.39 ng/L (0-15) H 05/08/22 01:20 Troponin T Hi Sens 6Hr Delta 13.39 ng/L (0-12) H* 05/08/22 01:20 C-Reactive Protein 5.8 mg/L (0.0-4.9) H 05/08/22 01:20 NT-Pro-B Natriuret Pep Cancelled 05/08/22 01:23 Total Protein 5.6 g/dL (6.6-8.7) L 05/09/22 05:00 Albumin 3.6 g/dL (3.5-5.2) 05/09/22 05:00 Globulin 2.0 g/dL (1.3-4.6) 05/09/22 05:00 Procalcitonin 0.08 ng/mL (0-0.5) 05/08/22 01:20 TSH 1.26 uIU/mL (0.27-4.20) 05/09/22 05:00 Urine Color Yellow (Yellow) 05/07/22 23:41 Urine Appearance Sl hazy (CLEAR) 05/07/22 23:41 Urine pH 5 (5-7) 05/07/22 23:41 Ur Specific [place] 1.020 (1.005-1.030) 05/07/22 23:41 Urine Protein Neg (Negative) 05/07/22 23:41 Urine Glucose (UA) Norm (Normal) 05/07/22 23:41 Urine Ketones 2+ (Negative) H 05/07/22 23:41 Urine Blood 2+ (Negative) H 05/07/22 23:41 Urine Nitrate Positive (Negative) H 05/07/22 23:41 Urine Bilirubin Neg (Negative) 05/07/22 23:41 Urine Urobilinogen Norm mg/dL (Negative) 05/07/22 23:41 Ur Leukocyte Esterase 2+ (Negative) H 05/07/22 23:41 Urine RBC 0-4 /hpf (0-2) H 05/07/22 23:41 Urine WBC >100 /hpf (0-5) H 05/07/22 23:41 Ur Squamous Epith Cells 0-4 /hpf (0-5) H 05/07/22 23:41 Amorphous Sediment 2+ /hpf 05/07/22 23:41 Urine Bacteria 1+ /hpf (NONE) H 05/07/22 23:41 Vitals Last Vital Signs Temp 98.2 F 05/09/22 07:35 Pulse 70 05/09/22 07:35 Resp 16 05/09/22 07:35 BP 120/70 05/09/22 07:35 Pulse Ox 95 05/09/22 07:35 O2 Del Method 05/09/22 07:35 O2 Flow Rate 4 05/08/22 10:59 FiO2 0 05/08/22 12:00 Discharge Plan Discharge Patient Disposition: Home Condition: Stable Prescriptions: New ciprofloxacin HCl 500 mg Tablet 250 mg PO Q12H Qty: 10 0RF Protonix 20 mg tablet,delayed release (DR/EC) 20 mg PO BID 42 Days Qty: 84 0RF sucralfate 1 gram tablet 1 g PO BID 56 Days Qty: 112 0RF Continued omega-3 fatty acids [Fish Oil Concentrate] 1,000 mg capsule 1,000 mg PO DAILY niacin 100 mg tablet 100 mg PO DAILY cholecalciferol (vitamin D3) 125 mcg (5,000 unit) capsule 125 mcg PO DAILY diphenhydramine HCl [Benadryl] 25 mg capsule 12.5 mg PO BID PRN (Reason: Allergic Symptoms) gabapentin 600 mg tablet 600 mg PO BID 90 Days Qty: 180 1RF metoprolol tartrate 50 mg tablet 50 mg PO BID@0900,2100 90 Days Qty: 180 1RF diltiazem HCl [Cardizem] 60 mg tablet 60 mg PO Q12H 90 Days Qty: 180 1RF albuterol sulfate [ProAir HFA] 90 mcg/actuation HFA aerosol inhaler 1 inh inhalation Q6H PRN (Reason: shortness of breath or wheezing) 30 Days Qty: 8.5 2RF Advair HFA 115-21 mcg/actuation HFA aerosol inhaler 2 inh inhalation BID 30 Days Qty: 8 2RF tamsulosin 0.4 mg capsule 0.8 mg PO DAILY Qty: 60 12RF Held Eliquis 5 mg tablet 5 mg PO BID@0900,2100 90 Days Qty: 180 2RF Hold Instructions: Resume on 05/11/22. furosemide [Lasix] 40 mg tablet 40 mg PO DAILY 90 Days Qty: 90 1RF Hold Instructions: Resume on 05/11/22. potassium chloride [Klor-Con M20] 20 mEq tablet,ER particles/crystals 20 meq PO DAILY 90 Days Qty: 90 1RF Hold Instructions: Resume on 05/11/22. Discontinued calcium carbonate [Calcium 600] 600 mg calcium (1,500 mg) tablet 600 mg PO DAILY Excedrin Extra Strength 250-250-65 mg tablet 1 tab PO Q6H PRN (Reason: HEADACHE/PAIN) Discharge Orders: Discharge Order (Routine); Ordered 05/09/22 Ordered By: Romy Valderrama Other Ambulatory Orders: Basic Metabolic Panel (Routine) Timeframe: 3 Days Facility: [facility] - Location: Lab - Main Lab Ordered By: Romy Valderrama Complete Blood Count w/Auto (Routine) Timeframe: 3 Days Location: Determined by Patient Ordered By: Romy Valderrama Referrals: Faisal Peoples MD [Physician] - 2 weeks (Return to surgery office in 2-weeks. Please call Dr. Peoples's Office at [phone] on Wednesday to schedule a follow up appointment. Thank you. ) EVA Vickers, PAYAL [Primary Care Provider] - 4-7 days (Please call EVA Vickers's Office at [phone] on Wednesday to schedule a follow up appointment. Thank you. ) Discharge Diet: Advance as tolerated Discharge Activity: Increase activity as tolerated Patient Instructions: Ciprofloxacin (By mouth) (Cipro), Sucralfate (By mouth) (Carafate), Pantoprazole (By mouth) (Protonix), Syncope, Heart Attack (DC), GI Discharge Instructions, Opioid Safety Activity Restrictions/Additional Instructions: Raise the head of the bed 4-6 inches Frequent small meals through the day Avoid smoking or Chewing Tobacco Avoid excess coffee, tea, and other caffeinated beverages Avoid garments that fit tightly through the abdomen Avoid eating before going to sleep Avoid nonsteroidal anti-inflammatory drugs (NSAIDs) when possible Anti-reflux diet Anti-reflux medications as prescribed Emphasis on weight management Discharge Attestations Time Spent in Discharge Care*: less than 30 min Status at Discharge: Cognitive status at discharge: cognitively intact , Behavioral status at discharge: cooperative , Quality Metrics Clinical Quality Measures [ No reported AMI, CVA or VTE this stay] Coding Level of Care Code Acute Chg FW DC note Diagnoses Hematochezia K92.1
[2022-05-09] MEDS: potassium chloride ER 20 mEq Tablet 40 MEQ PO (10:00)
[2022-05-09 11:01] VITALS: BP 131/80; PULSE 100; RESP 18; O2SAT 94
[2022-05-09 11:02] VITALS: BP 114/69; BP 121/73; BP 137/80; PULSE 100; PULSE 111; PULSE 99
[2022-05-09 13:53] VITALS: BP 131/80; PULSE 100; RESP 18; O2SAT 94
--- NOTE | 2022-05-09 14:23 | PC.NURSE ---
discharge instructions given and explained.pt verb understanding of instructions.discharged to exit via w/c.a friend will drive him home.
== END 2022-05-09 14:25 | disposition home or self-care (01) ==
LOC: ER 23:31 → MEDSURG 05-08 00:46
PROVIDERS: Surgery; Admitting Provider Family Medicine; Emergency Provider Emergency Medicine; PCP Nurse Practitioner Family; Visit Provider Internal Medicine
PROC: 0DJ08ZZ Inspection of Upper Intestinal Tract, Via Natural or Artificial Opening Endoscopic (ICD-10-PCS; CPT 43235; principal; 2022-05-08 11:00)
PROC: 0DJD8ZZ Inspection of Lower Intestinal Tract, Via Natural or Artificial Opening Endoscopic (ICD-10-PCS; CPT 45378; 2022-05-08 11:00)
DX: K92.1 Melena (principal); I48.91 Unspecified atrial fibrillation; K29.50 Unspecified chronic gastritis without bleeding; K21.00 Gastro-esophageal reflux disease with esophagitis, without bleeding; Z79.82 Long term (current) use of aspirin; N40.1 Benign prostatic hyperplasia with lower urinary tract symptoms; N13.8 Other obstructive and reflux uropathy; Z86.16 Personal history of COVID-19; M19.90 Unspecified osteoarthritis, unspecified site; Z79.01 Long term (current) use of anticoagulants; I50.30 Unspecified diastolic (congestive) heart failure; I45.10 Unspecified right bundle-branch block
CPT/HCPCS: 36415; 43239; 45378; 70450; 71045; 74176; 80053; 81001; 81003; 82274; 83605; 83630; 83735; 83880; 84100; 84145; 84443; 84484; 85025; 85610; 86140; 87040; 87086; 87493; 87506; 88305; 93005; 93306; 93880; 94664; 96361; 96365; 96366; 96367; 96375; 99285; C9113; G0378; J3475; J3480; J3490; J7030

== ENCOUNTER → 2022-05-13 10:57 | Outpatient (BNVA) | payer MEDICARE, SELFPAY | PROVIDERS: PCP Nurse Practitioner Family; Visit Provider Nurse Practitioner Family | DX: K92.1 Melena (principal); K92.2 Gastrointestinal hemorrhage, unspecified; Z09 Encounter for follow-up examination after completed treatment for conditions other than malignant neoplasm | CPT/HCPCS: 80048; 85025 ==

== ENCOUNTER → 2022-05-21 13:53 | Outpatient (BNVA) | payer MEDICARE, SELFPAY | PROVIDERS: PCP Nurse Practitioner Family; Visit Provider Surgery | DX: D17.5 Benign lipomatous neoplasm of intra-abdominal organs (principal); K29.70 Gastritis, unspecified, without bleeding | CPT/HCPCS: 99213 ==

== ENCOUNTER → 2022-08-04 10:08 | Outpatient (BNVA) | payer MEDICARE, SELFPAY | PROVIDERS: PCP Family Medicine; Visit Provider Family Medicine | DX: N40.1 Benign prostatic hyperplasia with lower urinary tract symptoms (principal); J01.90 Acute sinusitis, unspecified | CPT/HCPCS: 80053 ==

== ENCOUNTER → 2022-10-12 14:39 | Outpatient (BNVA) | payer MEDICARE, SELFPAY | PROVIDERS: PCP Family Medicine; Visit Provider Nurse Practitioner | DX: J01.90 Acute sinusitis, unspecified (principal) | CPT/HCPCS: 87400 ==

== ENCOUNTER → 2022-10-28 09:24 | Outpatient (BNVA) | payer MEDICARE, SELFPAY | PROVIDERS: PCP Family Medicine; Visit Provider Nurse Practitioner | DX: M79.632 Pain in left forearm (principal) | CPT/HCPCS: 73090 ==

== ENCOUNTER → 2022-11-10 11:13 | Outpatient (BNVA) | payer MEDICARE, SELFPAY | PROVIDERS: PCP Family Medicine; Visit Provider Family Medicine | DX: M79.642 Pain in left hand (principal); J32.9 Chronic sinusitis, unspecified | CPT/HCPCS: 73130 ==

== ENCOUNTER → 2023-02-17 13:13 | Outpatient (BNVA) | payer MEDICARE, SELFPAY | PROVIDERS: PCP Family Medicine; Visit Provider Specialist | DX: M16.12 Unilateral primary osteoarthritis, left hip (principal) | CPT/HCPCS: 73502; 99204 ==

== ENCOUNTER → 2023-02-23 15:34 | Outpatient (BNVA) | payer MEDICARE, SELFPAY | PROVIDERS: PCP Family Medicine; Visit Provider Family Medicine | DX: Z01.818 Encounter for other preprocedural examination (principal); R00.0 Tachycardia, unspecified; Z79.899 Other long term (current) drug therapy; K04.7 Periapical abscess without sinus | CPT/HCPCS: 71046; 80053; 83036; 84443; 85025 ==

== ENCOUNTER 2023-05-17 16:56 | Emergency (ER) | payer MEDICARE, SELFPAY ==
[2023-05-17] VITALS (7 sets, daily range): BP systolic 121–139; BP diastolic 79–99; PULSE 81–100; RESP 15–26; TEMP 36.7; O2SAT 93–97; BMI 36.8
--- NOTE | 2023-05-17 17:11 | ECG_ITS ---
[facility] Test Date: 2023-05-17 Pat Name: Felipe Bello Department: Room: Gender: Male Poll Clerk: : 1955 Requested By: Mauri Cooper Order Number: [id number] Moilna MD: Sinai Dutta M.D. Measurements Intervals [place] Rate: 77 P: 0 MS: 0 QRS: -53 QRSD: 113 T: 79 QT: 376 QTc: 427 Interpretive Statements ATRIAL FIBRILLATION INCOMPLETE RIGHT BUNDLE BRANCH BLOCK LEFT ANTERIOR FASCICULAR BLOCK [QRS AXIS <= -45, QR IN I, RS IN II] NONSPECIFIC T-WAVE ABNORMALITY Compared to ECG 05/08/2022 02:50:32 Incomplete right bundle-branch block now present Left anterior fascicular block now present Intraventricular conduction delay no longer present T-wave abnormality still present Electronically Signed On 05-17-2023 17:59:00 CDT by Sinai Dutta M.D. [id number]
--- NOTE | 2023-05-17 17:17 | XRR_ITS ---
PROCEDURE INFORMATION: Exam: XR Chest Exam date and time: 05/17/2023 5:38 PM Age: 67 years old Clinical indication: Other: A-fib; Additional info: SOB TECHNIQUE: Imaging protocol: Radiologic exam of the chest. Views: 1 view. COMPARISON: CR XR chest 2V* [id number] 02/23/2023 4:55 PM FINDINGS: Lungs: Mild discoid atelectasis at the left lung base. The lungs are otherwise unremarkable. Pleural spaces: No pleural effusion. No pneumothorax. Heart/Mediastinum: No cardiomegaly. Bones/joints: Mild degenerative thoracic spine changes are noted. XR/XR chest 1V portable [id number] IMPRESSION: 1. Mild discoid atelectasis at the left lung base. This appears new when compared to 02/23/2023. 2. The lungs are otherwise unremarkable.
--- NOTE | 2023-05-17 17:38 | W.ED.ARRPALP ---
HPI - Arrhythmia/Palpitations General: Chief Complaint: Arrhythmia/Palpitations Stated Complaint: [facility] sent for possible AFIB Time Seen by Provider: 05/17/23 17:20 Source: patient Mode of arrival: ambulatory Limitations: no limitations History of Present Illness: This patient was referred to the emergency department by primary care clinic. He apparently had had some lightheadedness episodes and shortness of breath and was seen at other emergency department and noted to have fluid retention and responded well to Lasix and was discharged. He then had a follow-up and they noted that he appeared to be in atrial fibrillation at that time and they sent him here for further evaluation. He denies any ongoing chest pain but states that he has had increased leg swelling over the last day or 2 similar to that he experienced last week. He currently takes his metoprolol as well as his Currently takes apixaban and Lasix as prescribed. He has history of degenerative joint disease in both hips had a prior right hip replacement. He denies any other constitutional complaints at this time. Prior record review reveals that he has had a history of atrial fibrillation with rapid ventricular response in the past. MD complaint: atrial fibrillation Arrhythmia history: atrial fibrillation Associated symptoms: Deny nausea, pre-syncope, syncope or vomiting Review of Systems Const: Denies: fever(s) or chills Eyes: Denies: change in vision or blurry vision ENMT: Denies: throat pain, odynophagia or nasal congestion Card: Reports: palpitations, irregular heart rhythm and lightheadedness; Denies: chest pain, syncope, pre-syncope or orthopnea Resp: Denies: productive cough, non-productive cough or wheezing GI: Denies: abdominal pain, nausea, vomiting or diarrhea : Denies: flank pain, difficulty urinating or dysuria Musc: Reports: joint pain Skin/Breast: Denies: rash Neuro: Denies: numbness in extremities or weakness in extremities [facility] ED PFSH: Medical History Acquired cervical spine ankylosis Acute right hip pain Atrial flutter with rapid ventricular response BPH loc w urin obs/LUTS Cervical disc disorder with myelopathy of mid-cervical region COVID-19 vaccine series completed DDD (degenerative disc disease), cervical Dental abscess Deviated nasal septum Drug-induced diarrhea Elevated PSA Environmental allergies Fatigue GI bleed Hematochezia Hypertension screen Hypotension Lower respiratory infection Maxillary sinus cyst NSTEMI (non-ST elevated myocardial infarction) Osteoarthritis Osteoarthritis thoracic spine Pain and swelling of right ankle Pain, dental Prostate cancer screening Restless leg syndrome Rhus dermatitis Shortness of breath Stenosis of cervical spine with myelopathy Tachycardia Thoracic degenerative disc disease Urinary retention Vitamin D deficiency Surgical History History of lumbar fusion 1997 bone growth simulator removed. Leads intact. 1989 [place], [place] L3-L4, L4-L5 posterior fusion/fixation. L3 right-sided hemilaminectomy. History of umbilical hernia repair S/P appendectomy S/P hip replacement 08/04/2016 right hip S/P knee surgery Status post laminectomy with spinal fusion Family History Father , at age 83 CAD (coronary artery disease) Mother , at age 76 CAD (coronary artery disease) Social History Smoking and tobacco status: never smoked Alcohol intake: never Substance/Drug Use: never Household members: none Marital status: Current occupational status: retired and disabled Physical Exam Narrative: EXAM NARRATIVE: He is in no acute distress answers questions appropriately and appears to be comfortable. He speaks in complete sentences. Const: COMMON NORMALS: no acute distress and patient oriented x3 GENERAL APPEARANCE: cooperative and comfortable NUTRITIONAL APPEARANCE: overweight HENMT: COMMON NORMALS: normocephalic, Normal nasal mucous membranes and turbinates present, moist oral mucous membranes and oropharynx normal HEAD & SCALP: normocephalic FACE & SINUS: face symmetric NOSE: Normal nasal mucous membranes and turbinates present Eye: COMMON NORMALS: Equal, round and reactive pupils present, EOMs intact bilaterally and conjunctivae normal CONJUNCTIVA: Yes conjunctivae normal PUPIL: Yes Equal, round and reactive pupils present Neck/C-Spine: COMMON NORMALS: full ROM, no lymphadenopathy, supple and no JVD Chest: COMMONS NORMALS: normal inspection of the chest Resp: COMMON NORMALS: normal respiratory effort and No retractions AUSCULTATION: crackles (At bases bilaterally) Cardio: COMMON NORMALS: no JVD, No murmurs present (Cardio) and Peripheral pulses 2+ throughout RHYTHM: abnormal rhythm irregularly irregular PERIPHERAL PULSES: Peripheral pulses 2+ throughout GI: COMMON NORMALS: Normal to inspection, nondistended, normoactive bowel sounds present, Soft to palpation and non-tender PALPATION: Yes Soft to palpation : COMMON NORMALS: Yes no CVA tenderness BLADDER/KIDNEY EXAM: Yes no CVA tenderness Back/Pelvis: COMMON NORMALS: no CVA tenderness, thoracic and lumbar spine normal to inspection and no thoracic nor lumbar tenderness Extremity: COMMON NORMALS: normal to inspection, capillary refill normal and no calf tenderness NARRATIVE EXTREMITY EXAM: Trace pretibial edema bilaterally. Neuro: COMMON NORMALS: patient oriented x3, moves all extremities, no focal motor deficits and no sensory deficits noted Psych: COMMON NORMALS: mental status grossly normal Skin: COMMON NORMALS: no rashes or lesions noted, no wounds and turgor normal GENERAL SKIN EXAM: no rashes or lesions noted and turgor normal Course Reevaluation(s): Reevaluation #1: Patient's potassium was repleted. He was given a dose of metoprolol here in the emergency department to help control his rapid ventricular response and monitored. He remained stable and alert. We discussed current findings their implications. We will plan on increasing his Lasix for the next 5 days and then back to his normal dose to help control his fluid issues. We will also add oral magnesium to his regimen. No evidence of any ongoing ischemia or other concerning emergency medical conditions at this time. Patient stable acknowledged our discussion and was accompanied with his family at the time of our discussion. Time: 20:19 Vital Signs: Vital signs: Vital Signs Temperature 98.1 F 05/17/23 17:11 Pulse Rate 100 05/17/23 19:30 Respiratory Rate 15 05/17/23 19:30 Blood Pressure 121/82 05/17/23 19:30 Pulse Oximetry 95 05/17/23 19:30 Oxygen Delivery Me thod Room Air 05/17/23 19:30 MDM - Arrhythmia/Palpitations Medical Decision Making Patient was referred here from a primary care clinic because of concerns about atrial fibrillation. He does have a history of atrial fibrillation which appears to be intermittent in nature and chronic. He takes both a beta-yanna as well as a calcium channel yanna and also uses Lasix on an intermittent basis. Has had some recent increase in fluid retention has responded to Lasix but has but has worsened over the past several days. Also had some associated sensation of palpitations and rapid heart rate at times. Evaluation here included evaluating his electrolytes chest x-ray monitor and EKG while in the emergency department. He had no acute ischemic changes on his EKG his BNP was slightly elevated. His chest x-ray did not show any evidence of pulmonary edema etc. Did have some atelectasis noted but the patient is somewhat sedentary due to his chronic hip degenerative changes so this might explain that issue. Certainly no evidence of infection etc. at this time. He responded well to symptomatic treatment in the emergency department with a controlled ventricular response, potassium was repleted. Remained clinically stable. We are changing his regimen to include increasing his Lasix to a daily dose for 5 days and back to his normal dosing. He has primary care follow-up to be done in the next 2 weeks and consideration for possible audiovisual aids technician referral. Medical Records I reviewed the patient's medical records. Notable for atrial fibrillation in the past. Lab Data I reviewed the patient's lab results. 05/17/23 17:38 05/17/23 17:38 Radiology Impressions Chest X-Ray 05/17/23 17:17 IMPRESSION: 1. Mild discoid atelectasis at the left lung base. This appears new when compared to 02/23/2023. 2. The lungs are otherwise unremarkable. Laboratory Results WBC 12.7 10^3/uL (4.0-10.0) H 05/17/23 17: RBC 3.91 10^6/uL (4.1-5.3) L 05/17/23 17:38 Hgb 11.8 g/dL (11.7-16.6) 05/17/23 17: Hct 35.2 % (42.0-52.0) L 05/17/23 17:38 MCV 90.0 fl (80-94) 05/17/23 17: MCH 30.2 pg (28.0-34.0) 05/17/23 17: MCHC 33.5 g/dL (30.0-36.0) 05/17/23 17: RDW 15.0 % (12.1-15.1) 05/17/23 17:38 Plt Count 224 10^3/cmm (130-400) 05/17/23 17:38 MPV 12.0 fL (7.4-10.4) H 05/17/23 17:38 Neut % (Auto) 72.0 % 05/17/23 17:38 Lymph % (Auto) 19.1 % 05/17/23 17:38 Ashe % (Auto) 6.7 % 05/17/23 17:38 Eos % (Auto) 0.9 % 05/17/23 17:38 Baso % (Auto) 0.3 % 05/17/23 17:38 Neut # (Auto) 9.13 10^3/uL (1.8-7.7) H 05/17/23 17:38 Lymph # (Auto) 2.4 10^3/uL (0.8-4.8) 05/17/23 17:38 Ashe # (Auto) 0.9 10^3/uL (0.2-0.9) 05/17/23 17:38 Eos # (Auto) 0.1 10^3/uL (0.0-0.8) 05/17/23 17:38 Baso # (Auto) 0.0 10^3/uL (0.0-0.1) 05/17/23 17:38 Nucleated RBC % (auto) 0.2 % 05/17/23 17:38 Nucleated RBCs # 0.0 /100WBC 05/17/23 17:38 Sodium 138 mmol/L (136-145) 05/17/23 17:38 Potassium 3.1 mmol/L (3.5-5.1) L 05/17/23 17:38 Chloride 95 mmol/L (98-107) L 05/17/23 17:38 Carbon Dioxide 28 mmol/L (22-29) 05/17/23 17:38 Anion Gap 18.1 (5-19) 05/17/23 17:38 BUN 39 mg/dL (8-23) H 05/17/23 17:38 Creatinine 1.6 mg/dL (0.7-1.2) H 05/17/23 17:38 GFR Calculation 43.1 mL/min (90-130) L 05/17/23 17:38 Glucose 108 mg/dL (65-115) 05/17/23 17:38 Calculated Osmolality 296 mOsm/kg (285-295) H 05/17/23 17:38 Calcium 9.9 mg/dL (8.5-10.5) 05/17/23 17:38 Magnesium 1.9 mg/dL (1.7-2.3) 05/17/23 17:38 NT-Pro-B Natriuret Pep 711 pg/mL (0-125) H 05/17/23 17:38 EKG Data EKG 1: I personally reviewed and interpreted this EKG as follows: Interpretation: Resting EKG reveals a ventricular rate of 77 bpm. The rhythm is irregularly irregular consistent with atrial fibrillation with a controlled ventricular response. Corrected QT intervals normal. QRS duration is normal. He has some baseline irregularity but no concerning ST-T wave changes at this time. Other EKG comments: Chest X-Ray 05/17/23 17:17 IMPRESSION: 1. Mild discoid atelectasis at the left lung base. This appears new when compared to 02/23/2023. 2. The lungs are otherwise unremarkable. Discharge Plan Discharge Patient Disposition: Home Clinical Impression: Fluid retention, Atrial fibrillation, chronic, Hypokalemia Condition: Stable Prescriptions: No Action omega-3 fatty acids [Fish Oil Concentrate] 1,000 mg capsule 1,000 mg PO DAILY niacin 100 mg tablet 100 mg PO DAILY cholecalciferol (vitamin D3) 125 mcg (5,000 unit) capsule 125 mcg PO DAILY diphenhydramine HCl [Benadryl] 25 mg capsule 12.5 mg PO BID PRN (Reason: Allergic Symptoms) potassium chloride [Klor-Con M20] 20 mEq tablet,ER particles/crystals 20 meq PO .COMPLEX 90 Days Qty: 180 1RF Hold Instructions: Resume on 05/11/22. Rx Instructions: 40 mEq orally every other day with metolazone; furosemide [Lasix] 40 mg tablet 40 mg PO DAILY 7 Days Qty: 7 0RF penicillin V potassium 500 mg tablet 500 mg PO TID Qty: 21 0RF albuterol sulfate [ProAir HFA] 90 mcg/actuation HFA aerosol inhaler 1 inh inhalation Q6H PRN (Reason: shortness of breath or wheezing) 30 Days Qty: 8.5 2RF Advair HFA 115-21 mcg/actuation HFA aerosol inhaler 2 inh inhalation BID 30 Days Qty: 8 2RF clindamycin HCl 150 mg capsule 450 mg PO TID 5 Days Qty: 45 0RF diltiazem HCl 60 mg tablet See Rx Instructions .ROUTE .COMPLEX Qty: 180 0RF Dose Instruction: TAKE 1 TABLET BY MOUTH EVERY 12 HOURS FOR 90 DAYS Rx Instructions: TAKE 1 TABLET BY MOUTH EVERY 12 HOURS FOR 90 DAYS gabapentin 600 mg tablet See Rx Instructions .ROUTE .COMPLEX Qty: 180 0RF Dose Instruction: TAKE 1 TABLET BY MOUTH TWICE DAILY Rx Instructions: TAKE 1 TABLET BY MOUTH TWICE DAILY metoprolol tartrate 50 mg tablet See Rx Instructions .ROUTE .COMPLEX Qty: 180 0RF Dose Instruction: TAKE 1 TABLET BY MOUTH TWICE DAILY AT 9 IN THE MORNING AND 9 IN THE EVENING Rx Instructions: TAKE 1 TABLET BY MOUTH TWICE DAILY AT 9 IN THE MORNING AND 9 IN THE EVENING tamsulosin 0.4 mg capsule See Rx Instructions .ROUTE .COMPLEX Qty: 60 12RF Dose Instruction: TAKE 2 CAPSULES BY MOUTH EVERY DAY Rx Instructions: TAKE 2 CAPSULES BY MOUTH EVERY DAY Eliquis 5 mg tablet See Rx Instructions .ROUTE .COMPLEX Qty: 180 12RF Hold Instructions: Resume on 05/11/22. Dose Instruction: TAKE 1 TABLET BY MOUTH TWICE DAILY AT 9 IN THE MORNING AND 9 IN THE EVENING Rx Instructions: TAKE 1 TABLET BY MOUTH TWICE DAILY AT 9 IN THE MORNING AND 9 IN THE EVENING metolazone 5 mg tablet 5 mg PO .everyother day 30 Days Qty: 30 0RF Rx Instructions: every other day Discharge Orders: Discharge ED (Routine); Ordered 05/17/23 Ordered By: Mauri Cooper Referrals: Curtis Cherry MD [Primary Care Provider] - 7-10 days Discharge Diet: Low Salt Discharge Activity: Increase activity as tolerated Patient Instructions: Opioid Safety, Pain Management Activity Restrictions/Additional Instructions: As we discussed you have a condition called atrial fibrillation for you which is likely chronic and intermittent in which your heart will beat on an irregular fashion from time to time. It also causes your heart did not function as a pump as efficiently as normal and therefore at times you may feel fatigued and/or have fluid retention. For the next 5 days we want you to take your Lasix every day and then go back to your 1 Lasix every other day as prescribed. Continue all your other usual medications. Follow-up with your regular doctor in approximately 1 to 2 weeks for reevaluation. Also discussed possible referral to an audiovisual aids technician for evaluation of your atrial fibrillation for any other procedures to control your rate. If you develop any new or worsening symptoms at any time return to this or the nearest emergency department. Also we recommend taking [id number] magnesium 400 mg daily. Coding Level of Care Code ED Multi Disciplined Language Analyst for Sammie Delatorre
[2023-05-17 17:45] LABS: Basophils % 0.3 %; Eosinophils # 0.1 10^3/uL (0.0-0.8); Eosinophils % 0.9 %; Hematocrit 35.2 % (42.0-52.0); Hemoglobin 11.8 g/dL (11.7-16.6); Lymphocytes # 2.4 10^3/uL (0.8-4.8); Lymphocytes % 19.1 %; Mean Corpuscular HGB Conc 33.5 g/dL (30.0-36.0); Mean Corpuscular Hemoglobin 30.2 pg (28.0-34.0); Monocytes # 0.9 10^3/uL (0.2-0.9); Monocytes % 6.7 %; Neutrophils # 9.13 10^3/uL (1.8-7.7); Nucleated Red Blood Cells % 0.2 %; Platelet Count 224 10^3/cmm (130-400); Red Blood Count 3.91 10^6/uL (4.1-5.3); White Blood Count 12.7 10^3/uL (4.0-10.0)
[2023-05-17 18:17] LABS: Blood Urea Nitrogen 39 mg/dL (8-23); Calcium 9.9 mg/dL (8.5-10.5); Carbon Dioxide 28 mmol/L (22-29); Chloride 95 mmol/L (98-107); Glomerular Filtration Rate 43.1 mL/min (90-130); Glucose 108 mg/dL (65-115); Magnesium 1.9 mg/dL (1.7-2.3); NT Pro B Type Natriuretic Pept 711 pg/mL (0-125); Osmolality Calculated 296 mOsm/kg (285-295); Sodium 138 mmol/L (136-145)
[2023-05-17 18:19] LABS: Anion Gap 18.1 (5-19); Potassium 3.1 mmol/L (3.5-5.1)
[2023-05-17] MEDS: potassium bicarb 25 mEq Tablet 50 MEQ PO (19:35)
[2023-05-17] MEDS: metoprolol tartrate 1 mg/1 mL SDV 5 mL 5 MG IVP (19:35)
[2023-05-17] MEDS: apixaban 5 mg Tablet PO (20:18)
== END 2023-05-17 20:26 | disposition home or self-care (01) ==
PROVIDERS: Emergency Provider Emergency Medicine; PCP Family Medicine
DX: I48.20 Chronic atrial fibrillation, unspecified (principal); E87.6 Hypokalemia; R60.9 Edema, unspecified; Z79.01 Long term (current) use of anticoagulants; I25.2 Old myocardial infarction
CPT/HCPCS: 71045; 80048; 83735; 83880; 85025; 93005; 96374; 99285; J3490

== ENCOUNTER → 2023-05-19 13:02 | Outpatient (BNVA) | payer MEDICARE, SELFPAY | PROVIDERS: PCP Family Medicine; Visit Provider Specialist | DX: M16.12 Unilateral primary osteoarthritis, left hip (principal) | CPT/HCPCS: 99213 ==

== ENCOUNTER → 2023-05-27 09:37 | Outpatient (BNVA) | payer MEDICARE, SELFPAY | PROVIDERS: PCP Family Medicine; Visit Provider Internal Medicine Cardiovascular Disease | DX: Z01.818 Encounter for other preprocedural examination (principal); I11.0 Hypertensive heart disease with heart failure; I50.30 Unspecified diastolic (congestive) heart failure; I48.92 Unspecified atrial flutter; N40.1 Benign prostatic hyperplasia with lower urinary tract symptoms; M16.12 Unilateral primary osteoarthritis, left hip | CPT/HCPCS: 99204 ==

== ENCOUNTER → 2023-06-07 11:07 | Outpatient (BNVA) | payer MEDICARE, SELFPAY | PROVIDERS: PCP Family Medicine; Visit Provider Nurse Practitioner | DX: I50.30 Unspecified diastolic (congestive) heart failure (principal) | CPT/HCPCS: 80053; 83880; 85025 ==

== ENCOUNTER 2023-06-15 09:09 | Outpatient (CLI) | payer MEDICARE, SELFPAY ==
[2023-06-15 09:29] VITALS: BMI 38.2
--- NOTE | 2023-06-15 09:29 | ECG_ITS ---
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 Interpretive Statements NAME OF STUDY: LEXISCAN SESTAMIBI STRESS TEST INDICATION: Surgical clearance PROCEDURE: At the baseline, the blood pressure was 113 over 90 mmHg, oxygen saturation 96% with a heart rate of 71 bpm. The electrocardiogram showed atrial fibrillation, left anterior fascicular block. Incomplete right bundle branch block. Nonspecific T wave abnormality. The Lexiscan was infused over a period of 20 seconds. A total of 0.4 milligrams of Lexiscan was infused. The stress phase was continued for a total of 5 minutes. Heart rate at the end of the stress phase was 90 bpm, oxygen saturation 98% with a blood pressure 112/46 mmHg. The EKG at the peak infusion revealed no significant ST-T wave changes. Sestamibi was injected 20 seconds after the Lexiscan infusion. Blood pressure at the end of the recovery phase was 149/52 mmHg, oxygen saturation 98% with a heart rate of 77 beats per minute. CONCLUSION: 1. No significant EKG changes with the LexiScan infusion. 2. No LexiScan induced chest pain or cardiac arrhythmia. 3. Normal blood pressure and heart rate response. 4. Sestamibi/sestamibi perfusion scan pending; see separate report. Electronically Signed On 06-24-2023 11:49:53 CDT by Sinai Dutta M.D. [id number]
--- NOTE | 2023-06-15 09:30 | NMCV_ITS ---
NM cathleen perf SPECT r/s* [id number] Felipe Bello Age: 67 Gender: M : 1955 Exam Date: 06/15/2023 10:25 Ordering Phys: Sinai Dutta MD ([email or web address]) Technologist: MARIBEL Patino Exam Location: [facility] Indications: CHEST PAIN, SHORTNESS OF BREATH ON EXERTION STRESS TEST Please see separate stress test report in [facility] for full findings IMAGE PROTOCOL Rest/Stress 1 Lexiscan Day Radiopharmaceutical Dose (mCi) Administration Site Administered by Rest: Tc-99m 11.0 IV MARIBEL Mcneill Sestamibi Stress:Tc-99m 32.8 IV MARIBEL Mcneill Sestamibi Rest: 15-Jun-2023 60 Discovery 630 Stress: 15-Jun-2023 30 Discovery 630 0.4mg Lexiscan. Supine position only as patient was unable to lay prone. SPECT RESULTS Technical Quality: Excellent Raw Data Analysis: Normal Image Corrections: No attenuation or motion correction applied Summed Stress Score: 2 Summed Rest Score: 6 Summed Difference Score: 0 PERFUSION FINDINGS Small sized perfusion abnormality of mild severity of mid to apical inferior paris on rest images with improved tracer uptake in stress images. FUNCTIONAL RESULTS (calculated via Gated SPECT) Stress Image LV EF (%): 70 Stress EDV (mL):104 TID: 1.12 Stress ESV (mL):31 FUNCTIONAL FINDINGS: The left ventricle is normal in size. Transient Ischemia Dilatation of 1.1. The left ventricular ejection fraction is normal with a value of 70%. There is normal left ventricular wall thickening. Normal end-diastolic and end-systolic volumes. IMPRESSIONS 1. Myocardial perfusion imaging is normal. Attenuation artifact noted in mid to apical inferior wall. 2. Overall left ventricular systolic function is normal without regional wall motion abnormalities, LVEF=70%. 3. No EKG changes with Lexiscan infusion. Refer to separate report for details. 4. Scan indicates low risk for cardiac events. Sinai Dutta MD (Electronically Signed) Final Date: 24 June 2023 11:53 S
[2023-06-15] MEDS: regadenoson 0.4 Mg/5 ml Syringe IVP (11:00)
[2023-06-15 11:24] VITALS: BP 108/66; PULSE 81
== END 2023-06-15 09:10 | disposition home or self-care (01) ==
LOC: CDL 09:10
PROVIDERS: PCP Family Medicine; Visit Provider Internal Medicine Cardiovascular Disease
DX: R07.9 Chest pain, unspecified (principal)
CPT/HCPCS: 36415; 78452; 93017; 96374; 99204; A9500; J2785

== ENCOUNTER → 2023-06-24 12:14 | Outpatient (BNVA) | payer MEDICARE, SELFPAY | PROVIDERS: PCP Family Medicine; Visit Provider Nurse Practitioner Family | DX: I11.0 Hypertensive heart disease with heart failure (principal); I50.30 Unspecified diastolic (congestive) heart failure; I48.92 Unspecified atrial flutter; M16.12 Unilateral primary osteoarthritis, left hip; Z79.01 Long term (current) use of anticoagulants | CPT/HCPCS: 99214 ==

== ENCOUNTER → 2023-06-29 14:52 | Outpatient (BNVA) | payer MEDICARE, SELFPAY | PROVIDERS: PCP Family Medicine; Visit Provider Nurse Practitioner Family | DX: I50.30 Unspecified diastolic (congestive) heart failure (principal); R60.9 Edema, unspecified | CPT/HCPCS: 80048; 83880 ==

== ENCOUNTER → 2023-07-05 10:53 | Outpatient (BNVA) | payer MEDICARE, SELFPAY | PROVIDERS: PCP Family Medicine; Visit Provider Nurse Practitioner | DX: R60.9 Edema, unspecified (principal) | CPT/HCPCS: 83880 ==

== ENCOUNTER 2023-07-21 12:07 | Outpatient (CLI) | payer MEDICARE, SELFPAY ==
--- NOTE | 2023-07-21 12:45 | USCV_ITS ---
Felipe Bello Age: 67 Gender: M : 1955 Exam Date: 07/21/2023 12:25 Ordering Phys: Guillermina Bennett RAYON CONER RAYON CONER Technologist: [place] [facility] [place]: edema BP: 110 / 75 HR: 121 Rhythm: Atrial fibrillation Technical Quality: Adequate MEASUREMENTS (Male / Female) Normal Values 2D ECHO LV Chamber Size 5.3 cm RV Chamber Size 4.0 cm LVOT Diameter 2.2 cm LV Ejection Fraction MOD 2C 42.8 % LV Ejection Fraction 2C AL 45.3 % LA Diameter 6.0 cm LA Width 4.3 cm LA Height 6.5 cm RA Width 3.4 cm RA Height 5.1 cm Aorta at Sinotubular Diameter 3.1 cm M-MODE Aortic Annulus Diameter 4.6 cm LA Ao Ratio MM 1.4 MV E Point Septal Separation 0.7 cm DOPPLER AV Peak Velocity 133.0 cm/s LVOT Peak Velocity 79.0 cm/s AV Area Cont Eq vti 3.2 cm squared AV Area Cont Eq pk 2.3 cm squared MV E' Velocity 18.0 cm/s TR Peak Velocity 233.3 cm/s TR Peak Gradient 21.8 mmHg TV Peak E Velocity 97.0 cm/s Right Atrial Pressure 3.0 mmHg Pulmonary Artery Systolic Pressu 24.8 mmHg PV Peak Velocity 105.0 cm/s FINDINGS Left Ventricle Normal left ventricular size, systolic function and wall thickness, with no regional wall motion abnormalities. Left ventricular ejection fraction is estimated at 60 %. Rhythm precludes evaluation of diastolic function. Right Ventricle Normal right ventricular size and systolic function. Right ventricular systolic pressure 24.8 mmHg. Right Atrium Normal right atrial size. Left Atrium Mildly increased left atrial size. Mitral Valve Structurally normal mitral valve. No mitral valve stenosis. Mild mitral valve regurgitation. Aortic Valve Structurally normal trileaflet aortic valve. No aortic valve stenosis. No aortic valve regurgitation. Tricuspid Valve Structurally normal tricuspid valve. No tricuspid valve stenosis. Trace to mild tricuspid valve regurgitation. Pulmonic Valve Structurally normal pulmonic valve. No pulmonary valve stenosis. Trace pulmonary valve regurgitation. Pericardium No pericardial effusion. Aorta Normal size aortic root and proximal ascending aorta. IVC Normal IVC dimension with >50% respiratory change of the inferior vena cava. CONCLUSIONS 1. Normal left ventricular size, systolic function and wall thickness, with no regional wall motion abnormalities. Left ventricular ejection fraction is estimated at 60 %. 2. Mild mitral valve regurgitation. 3. Mildly increased left atrial size. 4. No change when compared to study dated 05/08/2022. Sinai Dutta MD (Electronically Signed) Final Date: 21 July 2023 15:29 S
== END 2023-07-21 12:08 | disposition home or self-care (01) ==
LOC: RAD 12:08
PROVIDERS: PCP Family Medicine; Visit Provider Nurse Practitioner
DX: R60.9 Edema, unspecified (principal); I34.0 Nonrheumatic mitral (valve) insufficiency
CPT/HCPCS: 93306

== ENCOUNTER → 2023-07-22 10:49 | Outpatient (BNVA) | payer MEDICARE, SELFPAY | PROVIDERS: PCP Family Medicine; Visit Provider Nurse Practitioner Family | DX: R06.02 Shortness of breath (principal); Z87.898 Personal history of other specified conditions; I50.30 Unspecified diastolic (congestive) heart failure; E55.9 Vitamin D deficiency, unspecified; Z79.899 Other long term (current) drug therapy | CPT/HCPCS: 71046; 80053; 80061; 81003; 82306; 83036; 83880; 84443; 85025; 87077; 87086; 87184; G0103 ==

== ENCOUNTER → 2023-08-02 10:15 | Outpatient (BNVA) | payer MEDICARE, SELFPAY | PROVIDERS: PCP Family Medicine; Visit Provider Otolaryngology | DX: J32.9 Chronic sinusitis, unspecified; M26.603 Bilateral temporomandibular joint disorder, unspecified | CPT/HCPCS: 99214 ==

== ENCOUNTER 2023-08-07 15:26 | Observation (INO) | payer MEDICARE, SELFPAY ==
[2023-08-07] VITALS (8 sets, daily range): BP systolic 81–168; BP diastolic 52–105; PULSE 72–99; RESP 15–17; TEMP 36.6; O2SAT 92–98; BMI 38.0
--- NOTE | 2023-08-07 15:58 | ECG_ITS ---
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 Measurements Intervals [place] Rate: 76 P: 0 ID: 0 QRS: -67 QRSD: 130 T: 74 QT: 465 QTc: 524 Interpretive Statements ATRIAL FIBRILLATION RIGHT BUNDLE BRANCH BLOCK [120+ ms QRS DURATION, UPRIGHT V1, 40+ ms S IN I/aVL/V4/V5/V6] LEFT ANTERIOR FASCICULAR BLOCK [QRS AXIS <= -45, QR IN I, RS IN II] Compared to ECG 05/17/2023 17:22:03 Right bundle-branch block now present Incomplete right bundle-branch block no longer present T-wave abnormality no longer present Electronically Signed On 08-09-2023 18:43:23 POT ROOM TAPPER by Sinai Dutta M.D. [id number]
--- NOTE | 2023-08-07 16:16 | XRR_ITS ---
PROCEDURE INFORMATION: Exam: XR Chest Exam date and time: 08/07/2023 4:50 PM Age: 67 years old Clinical indication: Shortness of breath; Patient HX: SOB; Dizziness; HX asthma & HTN TECHNIQUE: Imaging protocol: Radiologic exam of the chest. Views: 1 view. COMPARISON: CR XR chest 2V* [id number] 07/22/2023 11:48 AM FINDINGS: Lungs: Lungs are clear bilaterally. Pleural spaces: No pleural effusion. No pneumothorax. Heart/Mediastinum: Stable mild enlargement of the cardiac silhouette. Mediastinal contours are unremarkable. Bones/joints: Unremarkable for age. XR/XR chest 1V portable [id number] IMPRESSION: 1. No acute cardiopulmonary process. 2. Incidental/nonacute findings are listed in the report.
[2023-08-07 16:52] LABS: Basophils # 0.1 10^3/uL (0.0-0.1); Basophils % 0.4 %; Eosinophils # 0.2 10^3/uL (0.0-0.8); Eosinophils % 1.3 %; Hematocrit 41.9 % (37-53); Lymphocytes # 1.7 10^3/uL (0.8-4.8); Lymphocytes % 14.7 %; Mean Corpuscular HGB Conc 30.8 g/dL (30-55); Mean Corpuscular Hemoglobin 23.4 pg (27-33); Mean Corpuscular Volume 75.9 fl (82-101); Monocytes # 0.9 10^3/uL (0.2-0.9); Monocytes % 7.3 %; Neutrophils # 8.97 10^3/uL (1.8-7.7); Neutrophils % 75.6 %; Nucleated Red Blood Cells % 0 %; Platelet Count 329 10^3/cmm (157-399); Red Blood Count 5.52 10^6/uL (3.85-5.65); Red Cell Distribution Width 18.6 % (12.1-15.1); White Blood Count 11.86 10^3/uL (3.29-11.43)
[2023-08-07 17:08] LABS: Troponin(5th) Baseline 40 ng/L (0-15)
[2023-08-07 17:23] LABS: Alanine Aminotransferase 12 U/L (0-41); Albumin Level 5.1 g/dL (3.5-5.2); Alkaline Phosphatase 70 U/L (40-130); Anion Gap 20.6 (5-19); Aspartate Amino Transferase 13 U/L (0-40); Blood Urea Nitrogen 60 mg/dL (8-23); Calcium 10.5 mg/dL (8.5-10.5); Carbon Dioxide 33 mmol/L (22-29); Chloride 81 mmol/L (98-107); Globulin 2.4 g/dL (1.3-4.6); Glomerular Filtration Rate 31.5 mL/min (90-130); Glucose 126 mg/dL (65-115); NT Pro B Type Natriuretic Pept 547 pg/mL (0-125); Osmolality Calculated 292 mOsm/kg (285-295); Sodium 132 mmol/L (136-145); Total Bilirubin 0.4 mg/dL (0.15-1.2); Total Protein 7.5 g/dL (6.6-8.7)
[2023-08-07 17:27] LABS: Potassium 2.6 mmol/L (3.5-5.1)
--- NOTE | 2023-08-07 18:07 | ED.PEDSOB ---
HPI - Pediatric SOB/Dyspnea General: Chief Complaint: Shortness of Breath/Dyspnea Stated Complaint: sob,dizzy Time Seen by Provider: 08/07/23 16:17 PFSH ED PFSH: Medical History Acquired cervical spine ankylosis Acute right hip pain Acute UTI Atrial flutter with rapid ventricular response BPH loc w urin obs/LUTS Cervical disc disorder with myelopathy of mid-cervical region Chronic sinusitis CKD (chronic kidney disease) COVID-19 vaccine series completed DDD (degenerative disc disease), cervical Dental abscess Deviated nasal septum Drug-induced diarrhea Elevated PSA Encounter for screening for cardiovascular disorders Environmental allergies Fatigue Fluid overload GI bleed Hematochezia History of abnormal breathing pattern Hypertension screen Hypotension Lower respiratory infection Maxillary sinus cyst Medication management NSTEMI (non-ST elevated myocardial infarction) Osteoarthritis Osteoarthritis thoracic spine Pain and swelling of right ankle Pain, dental Prostate cancer screening Restless leg syndrome Rhus dermatitis Shortness of breath Stenosis of cervical spine with myelopathy Tachycardia Thoracic degenerative disc disease TMJ dysfunction Urinary retention Vitamin D deficiency Vitamin D deficiency Surgical History History of lumbar fusion 1997 bone growth simulator removed. Leads intact. 1989 [place], [place] L3-L4, L4-L5 posterior fusion/fixation. L3 right-sided hemilaminectomy. History of umbilical hernia repair S/P appendectomy S/P hip replacement 08/04/2016 right hip S/P knee surgery Status post laminectomy with spinal fusion Family History Father , at age 83 CAD (coronary artery disease) Mother , at age 76 CAD (coronary artery disease) Social History Smoking and tobacco/nicotine status: never used tobacco/nicotine Alcohol intake: never Substance/Drug Use: never Household members: none Marital status: Current occupational status: retired and disabled Course Vital Signs: Vital signs: Vital Signs Temperature 97.9 F 08/07/23 15:49 Pulse Rate 73 08/07/23 17:32 Respiratory Rate 17 08/07/23 15:49 Blood Pressure 118/89 08/07/23 17:32 Pulse Oximetry 97 08/07/23 15:49 Oxygen Delivery Me thod Room Air 08/07/23 15:49 Medical Decision Making Lab Data 08/07/23 16:30 08/07/23 16:30 Radiology Impressions Chest X-Ray 08/07/23 16:16 IMPRESSION: 1. No acute cardiopulmonary process. 2. Incidental/nonacute findings are listed in the report. Laboratory Results WBC 11.86 10^3/uL (3.29-11.43) H 08/07/23 16:30 RBC 5.52 10^6/uL (3.85-5.65) 08/07/23 16:30 Hgb 12.90 g/dL (11.27-16.99) 08/07/23 16:30 Hct 41.9 % (37-53) 08/07/23 16:30 MCV 75.9 fl (82-101) L 08/07/23 16:30 MCH 23.4 pg (27-33) L 08/07/23 16:30 MCHC 30.8 g/dL (30-55) 08/07/23 16:30 RDW 18.6 % (12.1-15.1) H 08/07/23 16:30 Plt Count 329 10^3/cmm (157-399) 08/07/23 16:30 MPV 11.0 fL (7.4-10.4) H 08/07/23 16:30 Neut % (Auto) 75.6 % 08/07/23 16:30 Lymph % (Auto) 14.7 % 08/07/23 16:30 [place] % (Auto) 7.3 % 08/07/23 16:30 Eos % (Auto) 1.3 % 08/07/23 16:30 Baso % (Auto) 0.4 % 08/07/23 16:30 Neut # (Auto) 8.97 10^3/uL (1.8-7.7) H 08/07/23 16:30 Lymph # (Auto) 1.7 10^3/uL (0.8-4.8) 08/07/23 16:30 [place] # (Auto) 0.9 10^3/uL (0.2-0.9) 08/07/23 16:30 Eos # (Auto) 0.2 10^3/uL (0.0-0.8) 08/07/23 16:30 Baso # (Auto) 0.1 10^3/uL (0.0-0.1) 08/07/23 16:30 Nucleated RBC % (auto) 0 % 08/07/23 16:30 Nucleated RBCs # 0.0 /100WBC 08/07/23 16:30 Sodium 132 mmol/L (136-145) L 08/07/23 16:30 Potassium 2.6 mmol/L (3.5-5.1) L* 08/07/23 16:30 Chloride 81 mmol/L (98-107) L 08/07/23 16:30 Carbon Dioxide 33 mmol/L (22-29) H 08/07/23 16:30 Anion Gap 20.6 (5-19) H 08/07/23 16:30 BUN 60 mg/dL (8-23) H 08/07/23 16:30 Creatinine 2.1 mg/dL (0.7-1.2) H 08/07/23 16:30 GFR Calculation 31.5 mL/min (90-130) L 08/07/23 16:30 Glucose 126 mg/dL (65-115) H 08/07/23 16:30 Calculated Osmolality 292 mOsm/kg (285-295) 08/07/23 16:30 Calcium 10.5 mg/dL (8.5-10.5) 08/07/23 16:30 Total Bilirubin 0.4 mg/dL (0.15-1.2) 08/07/23 16:30 AST 13 U/L (0-40) 08/07/23 16:30 ALT 12 U/L (0-41) 08/07/23 16:30 Alkaline Phosphatase 70 U/L (40-130) 08/07/23 16:30 Troponin T Baseline 40 ng/L (0-15) H 08/07/23 16:30 NT-Pro-B Natriuret Pep 547 pg/mL (0-125) H 08/07/23 16:30 Total Protein 7.5 g/dL (6.6-8.7) 08/07/23 16:30 Albumin 5.1 g/dL (3.5-5.2) 08/07/23 16:30 Globulin 2.4 g/dL (1.3-4.6) 08/07/23 16:30 Discharge Plan Discharge Condition: Stable Prescriptions: No Action omega-3 fatty acids [Fish Oil Concentrate] 1,000 mg capsule 1,000 mg PO DAILY niacin 100 mg tablet 100 mg PO DAILY cholecalciferol (vitamin D3) 125 mcg (5,000 unit) capsule 125 mcg PO DAILY diphenhydramine HCl [Benadryl] 25 mg capsule 12.5 mg PO BID PRN (Reason: Allergic Symptoms) chlorthalidone 50 mg tablet 50 mg PO DAILY Qty: 30 3RF tamsulosin 0.4 mg capsule 0.8 mg PO DAILY Eliquis 5 mg tablet 5 mg PO BID Hold Instructions: Resume on 05/11/22. carvedilol 12.5 mg tablet 12.5 mg PO BID Rx Instructions: must administer with a meal/food potassium chloride 20 mEq tablet,ER particles/crystals 40 meq PO .every other day Hold Instructions: Resume on 05/11/22. Rx Instructions: With Metolazone magnesium oxide 500 mg tablet 500 mg PO DAILY diltiazem HCl 60 mg tablet 60 mg PO BID Qty: 180 3RF amoxicillin 875 mg tablet 875 mg PO BID 10 Days Qty: 20 0RF gabapentin 600 mg tablet 600 mg PO BID Qty: 60 2RF bumetanide 1 mg tablet See Rx Instructions PO BID Qty: 90 3RF Rx Instructions: 2mg in the AM, 1mg in the PM orally twice a day; nitrofurantoin monohyd/m-cryst [Macrobid] 100 mg capsule 100 mg PO BID 10 Days Qty: 20 0RF Rx Instructions: must administer with a meal/food Referrals: Jim Obrien MD [Primary Care Provider] - Coding Level of Care Code ED Crowd Controller for Sammie Delatorre
--- NOTE | 2023-08-07 18:08 | ED_ITS ---
HPI - SOB/Dyspnea General: Chief Complaint: Shortness of Breath/Dyspnea Stated Complaint: sob,dizzy Time Seen by Provider: 08/07/23 16:17 History of Present Illness: HPI Narrative: Felipe Bello is a 67-year-old man that presents to the emergency department w ith 2-week history of growing shortness of breath and dizziness. Patient reports when he stands up he feels as though he is going to pass out. Patient has a medical history that includes atrial fibrillation, right bundle branch block, chronic kidney disease, CHF, previous NSTEMI, episodes of tachy cardia and chronic shortness of breath. Associated symptoms: Reports lightheadedness and orthopnea; Deny abdominal pain, chest congestion, chest pain, dizziness, extremity pain, fever(s), nausea, palpitations, polydipsia, polyuria or vomiting Review of Systems General: Reports: 10 or more systems reviewed and unremarkable except in HPI and below Const: Reports: fatigue; Denies: fever(s), chills, change in appetite, change in weight or malaise Eyes: Denies: change in vision, eye discomfort, eye discharge or eye redness ENMT: Denies: throat pain, enlarged tonsils, odynophagia, hoarseness, ear or mastoid pain, ear discharge, change in hearing, tinnitus, nasal discharge, nasal congestion, post nasal drip or sinus pain Card: Reports: irregular heart rhythm, swelling of feet/ankles, lightheadedness, pre-syncope, dyspnea on exertion and orthopnea; Denies: chest pain, palpitations, edema or leg pain with exertion Resp: Reports: dyspnea; Denies: productive cough, non-productive cough, wheezing, stridor or chest congestion GI: Denies: abdominal pain, nausea, vomiting, dysphagia, diarrhea, constip ation, bloating, GI cramping or hematochezia : Denies: flank pain, dysuria, urinary frequency, urinary urgency, urinary hesitancy, oliguria or hematuria Musc: Denies: neck pain, back pain, extremity pain, joint pain, joint swelling, joint redness, joint warmth or muscle weakness Skin/Breast: Denies: rash, pruritus, erythema, photosensitivity or new lesions Neuro: Denies: headache(s), numbness in extremities, weakness in extremities, sensory changes, lack of coordination, difficulty walking, frequent falls, dizziness, confusion, Slurred speech present, difficulty communicating thoughts, seizure-like activity or involuntary movements Endo: Denies: polyuria, polydipsia or tired all the time Jb/Lymph: Denies: easy bruising or easy bleeding PFS ED PFSH: Medical History Acquired cervical spine ankylosis Acute right hip pain Acute UTI Atrial flutter with rapid ventricular response BPH loc w urin obs/LUTS Cervical disc disorder with myelopathy of mid-cervical region Chronic sinusitis CKD (chronic kidney disease) COVID-19 vaccine series completed DDD (degenerative disc disease), cervical Dental abscess Deviated nasal septum Drug-induced diarrhea Elevated PSA Encounter for screening for cardiovascular disorders Environmental allergies Fatigue Fluid overload GI bleed Hematochezia History of abnormal breathing pattern Hypertension screen Hypotension Lower respiratory infection Maxillary sinus cyst Medication management NSTEMI (non-ST elevated myocardial infarction) Osteoarthritis Osteoarthritis thoracic spine Pain and swelling of right ankle Pain, dental Prostate cancer screening Restless leg syndrome Rhus dermatitis Shortness of breath Stenosis of cervical spine with myelopathy Tachycardia Thoracic degenerative disc disease TMJ dysfunction Urinary retention Vitamin D deficiency Vitamin D deficiency Surgical History History of lumbar fusion 1997 bone growth simulator removed. Leads intact. 1989 [place], [place] L3-L4, L4-L5 posterior fusion/fixation. L3 right-sided hemilaminectomy. History of umbilical hernia repair S/P appendectomy S/P hip replacement 08/04/2016 right hip S/P knee surgery Status post laminectomy with spinal fusion Family History Father , at age 83 CAD (coronary artery disease) Mother , at age 76 CAD (coronary artery disease) Social History Smoking and tobacco/nicotine status: never used tobacco/nicotine Alcohol intake: never Substance/Drug Use: never Household members: none Marital status: Current occupational status: retired and disabled Physical Exam Const: COMMON NORMALS: no acute distress, patient oriented x3 and alert GENERAL APPEARANCE: cooperative ORIENTATION/CONSCIOUSNESS: Yes awake, Yes oriented to person, Yes oriented to place and Yes oriented to time HENMT: COMMON NORMALS: normocephalic and atraumatic HEAD & SCALP: normocephalic and atraumatic FACE & SINUS: normal facial exam MOUTH: No rmal oral and palatal mucosa present THROAT: posterior oropharynx normal Eye: COMMON NORMALS: Equal, round and reactive pupils present, EOMs intact bilaterally, conjunctivae normal and no scleral icterus GENERAL EYE: appearance normal, both eyes and all related structures ALIGNMENT: Yes alignment normal PERIORBITAL: periorbital findings normal CONJUNCTIVA: Yes conjunctivae normal PUPIL: Yes Equal, round and reactive pupils present Neck/C-Spine: COMMON NORMALS: full ROM GENERAL: Yes normal visual in spection Lymph: LYMPHATIC: no lymphadenopathy noted Chest: COMMONS NORMALS: normal inspection of the chest Breast/axilla inspection: Yes no chest deformity, asymmetry, normal contours, no nodules, masses, tenderness Resp: COMMON NORMALS: normal respiratory effort, No retractions, No use of accessory muscles and clear to auscultation bilaterally EFFORT & INSPECTION: Yes able to speak in complete sentences and Yes symmetric chest movement AUSCULTATION: clear to auscultation bilaterally Cardio: COMMON NORMALS: regular rate, regular rhythm and Peripheral pulses 2+ throughout RATE: regular rate RHYTHM: regular rhythm PERIPHERAL PULSES: Peripheral pulses 2+ throughout GI: COMMON NORMALS: Normal to inspection, nondistended, normoactive bowel sounds present, Soft to palpation, non-tender and No hepatosplenomegaly present INSPECTION: Yes normal to inspection AUSCULTATION: Yes normoactive bowel sounds PALPATION: Yes Soft to palpation and Yes No hepatosplenomegaly present RECTAL EXAM: Yes deferred Extremity: COMMON NORMALS: normal to inspection GENERAL: Yes normal exam except as noted Neuro: COMMON NORMALS: patient oriented x3 SENSORIUM/ORIENTATION: Yes alert, Yes oriented to person, Yes oriented to place and Yes oriented to time CRANIAL NERVES: Yes CN normal except as noted Psych: COMMON NORMALS: mental status grossly normal, Normal thought process present, cooperative, activity/motor behavior normal, denies homicidal ideation and denies suicidal ideation THOUGHT PROCESS: Normal thought process present Skin: COMMON NORMALS: no rashes or lesions noted, no wounds and turgor normal GENERAL SKIN EXAM: no rashes or lesions noted and turgor normal Course Vital Signs: Vital signs: Vital Signs Temperature 97.9 F 08/07/23 15:49 Pulse Rate 72 08/07/23 22:15 Respiratory Rate 15 08/07/23 22:15 Blood Pressure 118/71 08/07/23 22:15 Pulse Oximetry 96 08/07/23 22:15 Oxygen Delivery Me thod Room Air 08/07/23 22:47 MDM - SOB/Dyspnea Medical Decision Making Patient was evaluated in the emergency department today for complaints of s hortness of breath and dizziness. Patient felt as though he was near syncope. Patient has history of atrial fibrillation, heart failure, chronic kidney disease, hypertension but has had episodes of hypotension. Patient has a differential diagnosis of CHF, pneumonia, COVID, influenza. Syncope, heart failure, AMI or all possible differentials. Patient underwent chest x-ray which revealed no acute findings. He underwent EKG which revealed atrial fibrillation with a right bundle branch block which is unchanged from his baseline. He is rate has varied between 60s to 100. His laboratory evaluation revealed a mild elevation in his white count at 11,000. His chemistry panel revealed mildly low sodium and potassium at 2.6. His potassium was replaced. His anion gap is 20 and his BUN/creatinine was 60 and 2.1. He has a history of chronic kidney disease but this is above his usual baseline. With a BUN of 60. I spoke with the hospitalist who is agreed for observation admission for fluids. Lab Data 08/07/23 16:30 08/07/23 16:30 Labs/Radiology: Radiology Impressions Chest X-Ray 08/07/23 16:16 IMPRESSION: 1. No acute cardiopulmonary process. 2. Incidental/nonacute findings are listed in the report. Laboratory Results WBC 11.86 10^3/uL (3.29-11.43) H 08/07/23 16:30 RBC 5.52 10^6/uL (3.85-5.65) 08/07/23 16:30 Hgb 12.90 g/dL (11.27-16.99) 08/07/23 16:30 Hct 41.9 % (37-53) 08/07/23 16:30 MCV 75.9 fl (82-101) L 08/07/23 16:30 MCH 23.4 pg (27-33) L 08/07/23 16:30 MCHC 30.8 g/dL (30-55) 08/07/23 16:30 RDW 18.6 % (12.1-15.1) H 08/07/23 16:30 Plt Count 329 10^3/cmm (157-399) 08/07/23 16:30 MPV 11.0 fL (7.4-10.4) H 08/07/23 16:30 Neut % (Auto) 75.6 % 08/07/23 16:30 Lymph % (Auto) 14.7 % 08/07/23 16:30 [place] % (Auto) 7.3 % 08/07/23 16:30 Eos % (Auto) 1.3 % 08/07/23 16:30 Baso % (Auto) 0.4 % 08/07/23 16:30 Neut # (Auto) 8.97 10^3/uL (1.8-7.7) H 08/07/23 16:30 Lymph # (Auto) 1.7 10^3/uL (0.8-4.8) 08/07/23 16:30 [place] # (Auto) 0.9 10^3/uL (0.2-0.9) 08/07/23 16:30 Eos # (Auto) 0.2 10^3/uL (0.0-0.8) 08/07/23 16:30 Baso # (Auto) 0.1 10^3/uL (0.0-0.1) 08/07/23 16:30 Nucleated RBC % (auto) 0 % 08/07/23 16:30 Nucleated RBCs # 0.0 /100WBC 08/07/23 16:30 Sodium 132 mmol/L (136-145) L 08/07/23 16:30 Potassium 2.6 mmol/L (3.5-5.1) L* 08/07/23 16:30 Chloride 81 mmol/L (98-107) L 08/07/23 16:30 Carbon Dioxide 33 mmol/L (22-29) H 08/07/23 16:30 Anion Gap 20.6 (5-19) H 08/07/23 16:30 BUN 60 mg/dL (8-23) H 08/07/23 16:30 Creatinine 2.1 mg/dL (0.7-1.2) H 08/07/23 16:30 GFR Calculation 31.5 mL/min (90-130) L 08/07/23 16:30 Glucose 126 mg/dL (65-115) H 08/07/23 16:30 Calculated Osmolality 292 mOsm/kg (285-295) 08/07/23 16:30 Calcium 10.5 mg/dL (8.5-10.5) 08/07/23 16:30 Total Bilirubin 0.4 mg/dL (0.15-1.2) 08/07/23 16:30 AST 13 U/L (0-40) 08/07/23 16:30 ALT 12 U/L (0-41) 08/07/23 16:30 Alkaline Phosphatase 70 U/L (40-130) 08/07/23 16:30 Troponin T Baseline 40 ng/L (0-15) H 08/07/23 16:30 Troponin T 120 Minute 37.10 ng/L (0-15) H 08/07/23 18:25 Delta Troponin T -2.90 ABS# (0-10) L 08/07/23 18:25 NT-Pro-B Natriuret Pep 547 pg/mL (0-125) H 08/07/23 16:30 Total Protein 7.5 g/dL (6.6-8.7) 08/07/23 16:30 Albumin 5.1 g/dL (3.5-5.2) 08/07/23 16:30 Globulin 2.4 g/dL (1.3-4.6) 08/07/23 16:30 All radiology interpretation(s) finalized by discharge Discharge Plan Discharge Patient Disposition: Admitted As Inpatient Admit Provider: Roger Llamas Clinical Impression: Acute dehydration, Hypokalemia Condition: Stable Coding Level of Care Code ED State Assessed Properties Director for Sammie Delatorre
--- NOTE | 2023-08-07 18:14 | ECG_ITS ---
[facility] Test Date: 2023-08-07 Pat Name: Felipe Bello Department: Room: Gender: Male Casino Controller: : 1955 Requested By: Jeanine Bower Order Number: [id number] Jesse MD: Siani Dutta M.D. Measurements Intervals [place] Rate: 73 P: 0 RI: 0 QRS: -78 QRSD: 140 T: 85 QT: 398 QTc: 441 Interpretive Statements ATRIAL FIBRILLATION RIGHT BUNDLE BRANCH BLOCK [120+ ms QRS DURATION, UPRIGHT V1, 40+ ms S IN I/aVL/V4/V5/V6] LEFT ANTERIOR FASCICULAR BLOCK [QRS AXIS <= -45, QR IN I, RS IN II] SEPTAL MYOCARDIAL INFARCTION , OF INDETERMINATE AGE [40+ ms Q WAVE IN V1/V2] Compared to ECG 08/07/2023 15:58:22 Myocardial infarct finding now present Electronically Signed On 08-09-2023 8:15:08 ASSOCIATE VETERINARIAN by Sinai Dutta M.D. [email or web address]
[2023-08-07] MEDS: potassium chloride ER 20 mEq Tablet 40 MEQ PO (18:42)
[2023-08-07] MEDS: sodium chloride 0.9% 250 ML IV (18:52)
[2023-08-07] MEDS: sodium chloride 0.9% 500 ML 999 ML IV (20:00)
--- NOTE | 2023-08-07 22:16 | ECG_ITS ---
[facility] Test Date: 2023-08-08 Pat Name: Felipe Bello Department: Room: 264 Gender: Male Customer Technical Services Manager: : 1955 Requested By: Jeanine Bower Order Number: [id number] Jesse MD: Sinai Dutta M.D. Measurements Intervals [place] Rate: 58 P: 0 MD: 0 QRS: -68 QRSD: 130 T: 54 QT: 415 QTc: 410 Interpretive Statements ATRIAL FIBRILLATION WITH SLOW VENTRICULAR RESPONSE LEFT AXIS DEVIATION [QRS AXIS < -30] RIGHT BUNDLE BRANCH BLOCK [120+ ms QRS DURATION, UPRIGHT V1, 40+ ms S IN I/aVL/V4/V5/V6] ANTEROSEPTAL MYOCARDIAL INFARCTION , OF INDETERMINATE AGE [40+ ms Q WAVE IN V1-V4] Compared to ECG 08/07/2023 18:14:29 Left-axis deviation now present Left anterior fascicular block no longer present Myocardial infarct finding still present Electronically Signed On 08-10-2023 1:54:02 FINANCIAL OPERATIONS CLERK by Sinai Dutta M.D. [email or web address]
[2023-08-07 23:34] LABS: Troponin 5 6HR 35.29 ng/L (0-15); Troponin 5 6HR Delta -4.71 ng/L (0-12)
[2023-08-08] VITALS (9 sets, daily range): BP systolic 108–124; BP diastolic 73–81; PULSE 63–78; RESP 17–19; TEMP 36.2–36.9; O2SAT 92–96
--- NOTE | 2023-08-08 00:52 | P.HP_ITS ---
Providers/Chief Complaint Admitting Physician: Roger Llamas Primary Care Provider: Jim Obrien MD Chief Complaint: sob,dizzy History of Present Illness Felipe Bello is a 67 year old gentleman came into the ER due to presyncopal episodes, feeling like he is about to blackout when he is standing/walking. With history of atrial fibrillation, RBBB, without arrhythmia noted in ER. He is noted mildly orthostatic, blood pressure down from 118/89-1 from laying to standing, but is found to be dehydrated also with AI, BUN 60, creatinine 2.1. With history of CHF, CAD, has been on diuretic although it seems has had a secondary prescribed, continue taking both. In ER received IV fluid boluses. He also states has followed up with ENT and is being additionally assessed for left-sided pain around his religious, TMJ, left ear, left palatine tonsil. States he has chronic sinus problems since childhood with chronic postnasal drip. Reports recently having an ear infection for which she completed a course of antibiotic. Reports tenderness along the left side of the jaw, neck. He is being referred for additional assessment with imaging with follow-up with ENT. Review of Systems Const: Denies: fever(s), chills, body aches or malaise ENMT: Reports: nasal discharge and post nasal drip; Denies: throat pain Card: Reports: pre-syncope; Denies: chest pain, edema or dyspnea on exertion Resp: Denies: dyspnea, productive cough, change in phlegm color or hemoptysis GI: Denies: abdominal pain, nausea, vomiting, diarrhea, constipation, hematochezia or melena : Denies: flank pain, difficulty urinating, urinary frequency or hematuria Musc: Denies: back pain, joint swelling or joint redness Skin/Breast: Denies: rash or new lesions Neuro: Denies: headache(s), numbness in extremities, weakness in extremities, dizziness, confusion or seizure-like activity Endo: Denies: polyuria or polydipsia Medications/Allergies Home Medications Medication Instructions Recorded Confirmed Last Taken Type cholecalciferol (vitamin D3) 125 125 mcg PO DAILY 12/02/20 08/02/23 05/05/22 History mcg (5,000 unit) capsule diphenhydramine HCl 25 mg capsule 12.5 mg PO BID PRN Allergic 12/02/20 08/02/23 05/05/22 History (Benadryl) Symptoms niacin 100 mg tablet 100 mg PO DAILY 12/02/20 08/02/23 05/05/22 History omega-3 fatty acids 1,000 mg 1,000 mg PO DAILY 12/02/20 08/02/23 05/05/22 History capsule (Fish Oil Concentrate) apixaban 5 mg tablet (Eliquis) 5 mg PO BID 05/27/23 08/02/23 Unknown History carvedilol 12.5 mg tablet 12.5 mg PO BID 05/27/23 08/02/23 Unknown History magnesium oxide 500 mg tablet 500 mg PO DAILY 05/27/23 08/02/23 Unknown History potassium chloride 20 mEq 40 meq PO .every other day 05/27/23 08/02/23 Unknown History tablet,extended release(part/cryst) tamsulosin 0.4 mg capsule 0.8 mg PO DAILY 05/27/23 08/02/23 Unknown History gabapentin 600 mg tablet 600 mg PO BID #60 tabs 06/18/23 08/02/23 Unknown Rx diltiazem HCl 60 mg tablet 60 mg PO BID #180 tabs 06/24/23 08/02/23 Unknown Rx chlorthalidone 50 mg tablet 50 mg PO DAILY #30 tabs 06/29/23 08/02/23 Unknown Rx amoxicillin 875 mg tablet 875 mg PO BID 10 days #20 tabs 07/22/23 08/02/23 Unknown Rx bumetanide 1 mg tablet See Rx Instructions PO BID #90 tabs 07/22/23 08/02/23 Unknown Rx nitrofurantoin 100 mg PO BID 10 days #20 caps 07/26/23 08/02/23 Unknown Rx monohydrate/macrocrystals 100 mg capsule (Macrobid) Allergies Allergy/AdvReac Type Severity Reaction Status Date / Time tramadol Allergy Unknown Unknown Verified 08/02/23 10:51 cefazolin [From Kefzol] Allergy itching, Verified 08/02/23 10:51 redness codeine Allergy ADR-Itching Verified 08/02/23 10:51 morphine Allergy itching Verified 08/02/23 10:51 PFSH Acute PFSH: Medical History Acquired cervical spine ankylosis Acute right hip pain Acute UTI Atrial flutter with rapid ventricular response BPH loc w urin obs/LUTS Cervical disc disorder with myelopathy of mid-cervical region Chronic sinusitis CKD (chronic kidney disease) COVID-19 vaccine series completed DDD (degenerative disc disease), cervical Dental abscess Deviated nasal septum Drug-induced diarrhea Elevated PSA Encounter for screening for cardiovascular disorders Environmental allergies Fatigue Fluid overload GI bleed Hematochezia History of abnormal breathing pattern Hypertension screen Hypotension Lower respiratory infection Maxillary sinus cyst Medication management NSTEMI (non-ST elevated myocardial infarction) Osteoarthritis Osteoarthritis thoracic spine Pain and swelling of right ankle Pain, dental Prostate cancer screening Restless leg syndrome Rhus dermatitis Shortness of breath Stenosis of cervical spine with myelopathy Tachycardia Thoracic degenerative disc disease TMJ dysfunction Urinary retention Vitamin D deficiency Vitamin D deficiency Surgical History History of lumbar fusion 1997 bone growth simulator removed. Leads intact. 1989 [place], [place] L3-L4, L4-L5 posterior fusion/fixation. L3 right-sided hemilaminectomy. History of umbilical hernia repair S/P appendectomy S/P hip replacement 08/04/2016 right hip S/P knee surgery Status post laminectomy with spinal fusion Family History Father , at age 83 CAD (coronary artery disease) Mother , at age 76 CAD (coronary artery disease) Social History Smoking and tobacco/nicotine status: never used tobacco/nicotine Alcohol intake: never Substance/Drug Use: never Household members: none Marital status: Current occupational status: retired and disabled Vitals/I&O/Wt Last Vital Signs Temp 97.9 F 08/08/23 00:12 Pulse 69 08/08/23 00:12 Resp 19 H 08/08/23 00:12 BP 115/76 08/08/23 00:12 Pulse Ox 94 08/08/23 00:12 O2 Del Method Room Air 08/08/23 00:06 08/07/23 08/07/23 08/08/23 14:59 22:59 06:59 Intake Total 750 / 750 Balance 750 / 750 Weight last 48 hrs Weight 127.006 kg Physical Exam Const: COMMON NORMALS: patient oriented x3 and alert GENERAL APPEARANCE: cooperative ORIENTATION/CONSCIOUSNESS: Yes awake HENMT: COMMON NORMALS: oropharynx normal OTHER: Mild enlargement of left palatine tonsil. Neck/C-Spine: COMMON NORMALS: no JVD Resp: COMMON NORMALS: normal respiratory effort and clear to auscultation bilaterally AUSCULTATION: clear to auscultation bilaterally Cardio: COMMON NORMALS: no JVD, regular rhythm, S1 normal heart sound present, S2 normal heart sound present and No murmurs present (Cardio) RHYTHM: regular rhythm HEART SOUNDS: S1 normal heart sound present and S2 normal heart sound present GI: COMMON NORMALS: Normal to inspection, nondistended, normoactive bowel sounds present, Soft to palpation and non-tender PALPATION: Yes Soft to palpation Extremity: COMMON NORMALS: no joint enlargement and no pedal edema Neuro: COMMON NORMALS: patient oriented x3 and moves all extremities SENSORIUM/ORIENTATION: Yes alert Skin: COMMON NORMALS: no rashes or lesions noted GENERAL SKIN EXAM: no rashes or lesions noted Data 08/07/23 16:30 08/07/23 16:30 A&P Assessment and plan (1) Pre-syncope: Presyncopal episodes prior to coming in the hospital. In the hospital noted dehydrated. Blood pressure somewhat orthostatic from laying to standing although does not quite fit orthostatic criteria. Also noted AI. Given fluid boluses in ER. Reviewed TTE from 2 weeks ago, noted normal ejection fraction, no diastolic dysfunction. He also recently had a stress test which was unremarkable. Reviewed vitals, CBC, CMP, NT proBNP, troponin, EKG, chest x-ray, ER documentation, discussed with ER provider. It appears that he may be overdiuresis, lower extremity edema may be secondary to venous insufficiency or other causes. Although given prior concern for CHF we will hold off continue fluid hydration we will hold diuretics for now. Reassess orthostatics in the morning. Ambulate. Follow-up with primary provider for reassessment. Patient lives at home by himself. Additionally recently with multiple courses of antibiotics for possible dental infection, left-sided facial and left-sided neck pain, left-sided palatine tonsil with mild enlargement. With leukocytosis, syncope, will assess with CT for possible partially treated dental abscess, possible peritonsillar abscess. Patient tells me he has discussed these issues with ENT in office and decided to be following up next week. He is additionally on several medications that may contribute as well. Requested medications to be confirmed. (2) AI (acute kidney injury): Received fluid challenge in ER. We will recheck kidney function. Obtain kidney ultrasound. Diuretics held for tonight. Please reassess, consider when he may be able to resume lower dose diuretics if needed. (3) Acute dehydration: Received fluid challenge. Reassess volume status in the morning. Diuretics on hold. (4) Hypokalemia: Severely hypokalemic on review of labs. Has been on dual diuretic. Does take potassium at home. Received potassium. Check magnesium. Recheck potassium level. (5) Chronic sinusitis: Reviewed ENT documentation. Continue follow-up with ENT. (6) Lower extremity edema: This may be secondary to venous insufficiency rather than CHF as he is currently dehydrated with AI. Diuretics held. Discussed with him. We will assess venous duplex for any DVT. Plan BPH: Flomax decreased for now to 0.4 mg due to presyncopal episodes. Orthostatics. RLS Atrial fibrillation Osteoarthritis Other medical problems Requested home medications to be confirmed. Please review once available. Attestations Medical Necessity Statement*: Place in observation for additional assessment and management of presyncopal episodes, dehydration, AI, severe hypokalemia, additional assessment for possible dental or peritonsillar abscess Gentleman with comorbidities as above. Diagnoses Pre-syncope R55 AI (acute kidney injury) N17.9 Acute dehydration E86.0 Hypokalemia E87.6 Chronic sinusitis J32.9 Lower extremity edema R60.0
--- NOTE | 2023-08-08 01:22 | USR_ITS ---
PROCEDURE INFORMATION: Exam: US Duplex Lower Extremity Veins, Bilateral Exam date and time: 08/08/2023 11:14 AM Age: 67 years old Clinical indication: Edema, localized; Lower extremity, bilateral; Additional info: Nicci, assess for dvt TECHNIQUE: Imaging protocol: Real-time duplex ultrasound of the bilateral extremities with 2-D rivera scale, color Doppler flow and spectral waveform analysis including responses to compression and other maneuvers (when performed) with image documentation. Complete exam focused on the lower extremity veins. COMPARISON: US renal BI* [id number] 08/08/2023 10:52 AM FINDINGS: Right deep veins: Unremarkable. The common femoral, femoral, proximal profunda femoral and popliteal veins are patent without thrombus. Normal Doppler waveforms. Normal compressibility and/or augmentation response. Left deep veins: Unremarkable. The common femoral, femoral, proximal profunda femoral and popliteal veins are patent without thrombus. Normal Doppler waveforms. Normal compressibility and/or augmentation response. Superficial veins: Bilateral saphenofemoral junctions are patent without thrombus. Soft tissues: Unremarkable. US/[place] [id number] IMPRESSION: No evidence of deep vein thrombosis.
--- NOTE | 2023-08-08 01:26 | CTR_ITS ---
PROCEDURE INFORMATION: Exam: CT Neck With Contrast Exam date and time: 08/08/2023 6:37 AM Age: 67 years old Clinical indication: Other: Syncope, L side face/neck pain, HX dental infection, asses for dental abscess. Prior surgery; Surgery date: 6+ months TECHNIQUE: Imaging protocol: Computed tomography of the neck with contrast. Radiation optimization: All CT scans at this facility use at least one of these dose optimization techniques: automated exposure control; mA and/or kV adjustment per patient size (includes targeted exams where dose is matched to clinical indication); or iterative reconstruction. Contrast material: OMNI 350; Contrast volume: 100 ml; Contrast route: INTRAVENOUS (IV); REPORTING DATA: Count of CT and Cardiac NM exams in prior 12 months: This patient has received [address] and 0 known cardiac nuclear medicine studies in the 12 months prior to the current study. COMPARISON: CT cervical spine w con [id number] 08/06/2020 10:22 AM RADIATION DOSE METRICS: Total DLP (mGy-cm): 282.41 FINDINGS: Brain: The visible portion of the brain is normal. Mastoid air cells: The mastoid air cells are clear. Paranasal sinuses: The paranasal sinuses are clear. Dental: There are dental caries without periapical lesions in the bilateral mandibular molars and premolars. There are dental caries in the bilateral maxillary premolars and left maxillary cuspid without periapical lesions. No gingival abscess. Pharynx: The nasopharynx is unremarkable. There is no significant pharyngeal tonsillar enlargement. The oropharynx is unremarkable. There is no significant palatine tonsillar enlargement. The hypopharynx is unremarkable. There is no significant lingual tonsillar enlargement. Larynx: The larynx and epiglottis are normal. Prevertebral and retropharyngeal spaces: There is no fluid or edema in the retropharyngeal space. Salivary glands: The submandibular glands are normal. The parotid glands are normal. Thyroid: The thyroid gland is unremarkable. Lymph nodes: There is no cervical or supraclavicular lymphadenopathy. Trachea: The visible portion of the trachea is normal. Lungs: Lung apices are clear. Bones/joints: There is moderate degenerative disease in the cervical spine. Vasculature: The carotid and vertebral arteries and internal jugular veins are unremarkable as visualized. Soft tissues: No perioral or submandibular soft tissue edema or fluid collection. CT/CT neck w con* [id number] IMPRESSION: 1. No abscess or other evidence of soft tissue infection. 2. Dental disease as above.
--- NOTE | 2023-08-08 01:31 | USR_ITS ---
PROCEDURE INFORMATION: Exam: US Retroperitoneal; Complete; Kidneys and Bladder Exam date and time: 08/08/2023 10:52 AM Age: 67 years old Clinical indication: Condition or disease; Kidney or ureter condition; Other: [place] TECHNIQUE: Imaging protocol: Real-time ultrasound of the retroperitoneum with image documentation. Complete exam focused on the kidneys and bladder. COMPARISON: CT abdomen pelvis wo con [id number] 05/08/2022 12:55 AM FINDINGS: Right kidney: The right kidney is unremarkable. Cortical thickness and echotexture is normal. No hydronephrosis. No visible stones. The right kidney measures 12.5 x 6.0 x 5.7 cm. Left kidney: There are simple cysts in the lower pole of the left kidney. There is a 2.7 cm simple parapelvic cyst in the lower pole collecting system and a large exophytic simple cyst at the lower pole measuring 9.8 x 9.3 x 8.2 cm. The left kidney is otherwise normal. Cortical thickness and echotexture is normal. No hydronephrosis. No visible stones. Left kidney measures 12.2 x 8.6 x 7.0 cm. Aorta: The aorta is obscured by overlying bowel gas. Urinary bladder: The bladder wall is mildly diffusely thickened suggesting muscular hypertrophy. US/US renal BI* [id number] IMPRESSION: 1. No acute findings. No hydronephrosis. 2. Simple left renal cysts similar to the findings on 05/08/2022. 3. Diffusely thickened bladder wall likely represents muscular hypertrophy.
[2023-08-08 01:32] LABS: Magnesium 2.6 mg/dL (1.7-2.3)
[2023-08-08 04:06] LABS: Basophils # 0.1 10^3/uL (0.0-0.1); Basophils % 0.6 %; Eosinophils # 0.2 10^3/uL (0.0-0.8); Eosinophils % 1.8 %; Hematocrit 40.8 % (37-53); Lymphocytes # 1.9 10^3/uL (0.8-4.8); Lymphocytes % 18.5 %; Mean Corpuscular HGB Conc 30.6 g/dL (30-55); Mean Corpuscular Hemoglobin 23.3 pg (27-33); Mean Platelet Volume 10.6 fL (7.4-10.4); Monocytes # 0.8 10^3/uL (0.2-0.9); Neutrophils # 7.32 10^3/uL (1.8-7.7); Neutrophils % 70.8 %; Nucleated Red Blood Cells % 0 %; Platelet Count 313 10^3/cmm (157-399); Red Blood Count 5.37 10^6/uL (3.85-5.65); Red Cell Distribution Width 18.8 % (12.1-15.1); White Blood Count 10.34 10^3/uL (3.29-11.43)
[2023-08-08 04:28] LABS: Anion Gap 14.3 (5-19); Blood Urea Nitrogen 57 mg/dL (8-23); Carbon Dioxide 37 mmol/L (22-29); Chloride 86 mmol/L (98-107); Glomerular Filtration Rate 37.6 mL/min (90-130); Glucose 117 mg/dL (65-115); Osmolality Calculated 297 mOsm/kg (285-295); Sodium 135 mmol/L (136-145)
[2023-08-08 04:33] LABS: Potassium 2.3 mmol/L (3.5-5.1)
[2023-08-08] MEDS: potassium chloride ER 20 mEq Tablet 80 MEQ PO (05:02)
[2023-08-08] MEDS: iohexol 350 mg/mL 500 mL Btl (per mL) IV (06:37)
[2023-08-08] MEDS: acetaminophen 325 mg Tablet 650 MG PO ×2 (07:49→19:48)
[2023-08-08 09:38] LABS: Erythrocyte Sedimentation Rate 8 mm/hr (0-10)
[2023-08-08 10:07] LABS: Anion Gap 13.7 (5-19); Blood Urea Nitrogen 51 mg/dL (8-23); Calcium 9.5 mg/dL (8.5-10.5); Carbon Dioxide 36 mmol/L (22-29); Chloride 85 mmol/L (98-107); Glomerular Filtration Rate 43.1 mL/min (90-130); Glucose 139 mg/dL (65-115); Osmolality Calculated 290 mOsm/kg (285-295); Phosphorus 3.3 mg/dL (2.5-4.5); Sodium 132 mmol/L (136-145)
[2023-08-08 10:12] LABS: Procalcitonin 0.32 ng/mL (0-0.5)
[2023-08-08] MEDS: gabapentin 300 mg Capsule 600 MG PO ×2 (10:18→17:07)
[2023-08-08] MEDS: apixaban 5 mg Tablet PO ×2 (10:19→17:07)
[2023-08-08] MEDS: tamsulosin 0.4 mg Capsule PO (10:19)
[2023-08-08] MEDS: carvedilol 12.5 mg Tablet PO ×2 (10:19→17:07)
[2023-08-08] MEDS: dilTIAZem 30 mg Tablet PO ×2 (10:19→17:07)
[2023-08-08 10:22] LABS: Potassium 2.7 mmol/L (3.5-5.1)
--- NOTE | 2023-08-08 14:56 | P.PN_ITS ---
Subjective Subjective: Patient was seen this morning, he reports feeling weak fatigued and tired, his edema has improved, no back pain, no neck pain, no neck stiffness no headache, blurry vision, no fevers, no chills, we discussed his low potassium levels, and his diuretics, will recheck his potassium later on in the afternoon, he is agreeable Vitals/I&O/Wt Last Vital Signs Temp 97.6 F 08/08/23 12:00 Pulse 78 08/08/23 12:00 Resp 18 08/08/23 12:00 BP 124/81 08/08/23 12:00 Pulse Ox 92 08/08/23 12:00 O2 Del Method Room Air 08/08/23 00:06 08/07/23 08/08/23 08/08/23 22:59 06:59 14:59 Intake Total 750 / 750 480 / 1230 240 / 240 Output Total 500 / 500 Balance 750 / 750 -20 / 730 240 / 240 Weight last 48 hrs Weight 125.815 kg Weight 127.006 kg Physical Exam Const: COMMON NORMALS: no acute distress and patient oriented x3 Resp: COMMON NORMALS: normal respiratory effort, No retractions, No use of accessory muscles and clear to auscultation bilaterally AUSCULTATION: clear to auscultation bilaterally Cardio: COMMON NORMALS: regular rate, regular rhythm, S1 normal heart sound present and S2 normal heart sound present RATE: regular rate RHYTHM: regular rhythm HEART SOUNDS: S1 normal heart sound present and S2 normal heart sound present GI: COMMON NORMALS: Normal to inspection, nondistended, normoactive bowel sounds present and non-tender Extremity: COMMON NORMALS: no pedal edema Neuro: COMMON NORMALS: patient oriented x3 Psych: COMMON NORMALS: mental status grossly normal Data 08/08/23 03:50 08/08/23 09:28 A&P Assessment and plan (1) Pre-syncope: ? Likely secondary to dehydration, hypokalemia, ? Will avoid IV hydration given his CHF, ? Encourage p.o. intake, ? Monitor orthostatics, ? Replace electrolytes, ? Has complaints of dental infection, has completed multiple rounds of antibiotics, will hold off until next CT (2) AI (acute kidney injury): Received fluid challenge in ER. We will recheck kidney function. Obtain kidney ultrasound. Diuretics held for tonight. Please reassess, consider when he may be able to resume lower dose diuretics if needed. (3) Acute dehydration: Received fluid challenge. Reassess volume status in the morning. Diuretics on hold. (4) Hypokalemia: Potassium is persistently low at 2.8, will replace IV, requires patient monitoring for hypokalemia (5) Chronic sinusitis: Reviewed ENT documentation. Continue follow-up with ENT. (6) Lower extremity edema: This may be secondary to venous insufficiency rather than CHF as he is currently dehydrated with AI. Diuretics held. Discussed with him. We will assess venous duplex for any DVT. Plan BPH: Flomax decreased for now to 0.4 mg due to presyncopal episodes. Orthostatics. RLS Atrial fibrillation Osteoarthritis Other medical problems Requested home medications to be confirmed. Please review once available. Attestations Medical Necessity Statement*: Patient requires hospitalization for AI, hypokalemia requiring IV replacement and monitoring serum potassium, presyncope Coding Level of Care Code 99755 Moderate MDM includes number and complexity of problems actively addressed during encounter, amount and/or complexity of data reviewed/ordered and described risk of complication, morbidity or mortality of management as docum ented Diagnoses Pre-syncope R55 AI (acute kidney injury) N17.9 Acute dehydration E86.0 Hypokalemia E87.6 Chronic sinusitis J32.9 Lower extremity edema R60.0
[2023-08-08 16:00] LABS: Anion Gap 14.5 (5-19); Blood Urea Nitrogen 53 mg/dL (8-23); Carbon Dioxide 35 mmol/L (22-29); Chloride 86 mmol/L (98-107); Glomerular Filtration Rate 54.7 mL/min (90-130); Glucose 124 mg/dL (65-115); Osmolality Calculated 292 mOsm/kg (285-295); Sodium 133 mmol/L (136-145)
[2023-08-08 16:08] LABS: Potassium 2.5 mmol/L (3.5-5.1)
[2023-08-08] MEDS: lidocaine 1% 5 ML in potassium chloride premix 100 ML 26.25 ML IV (17:00)
--- NOTE | 2023-08-08 18:55 | PC.NURSE ---
Pt complains of K-Ervin burning. IV is intact, no redness, infiltration noted. Slowed down administration of KCL to 15ml/hr. Denies medication burning. Notified Dr. Cherry. No new orders.
--- NOTE | 2023-08-08 19:59 | PC.NURSE ---
Patient states that he takes Benadryl TID for sinuses. Patient is asking for Benadryl. Dr. Llamas notified.
[2023-08-08] MEDS: lidocaine 1% 5 ML in potassium chloride premix 100 ML 15 ML IV (21:03)
[2023-08-09] MEDS: diphenhydrAMINE 25 mg Capsule PO (02:31)
[2023-08-09] MEDS: acetaminophen 325 mg Tablet 650 MG PO ×3 (03:03→16:21)
[2023-08-09 04:00] VITALS: BP 111/75; BP 113/74; BP 137/83; PULSE 68; PULSE 74; PULSE 76; RESP 17; TEMP 36.4; O2SAT 94
[2023-08-09 04:20] VITALS: PULSE 64
[2023-08-09 04:37] LABS: Basophils # 0.1 10^3/uL (0.0-0.1); Basophils % 0.7 %; Eosinophils # 0.2 10^3/uL (0.0-0.8); Hematocrit 36.1 % (37-53); Mean Corpuscular HGB Conc 30.2 g/dL (30-55); Mean Corpuscular Hemoglobin 23.1 pg (27-33); Mean Corpuscular Volume 76.6 fl (82-101); Mean Platelet Volume 11.4 fL (7.4-10.4); Monocytes # 0.9 10^3/uL (0.2-0.9); Monocytes % 9.2 %; Neutrophils # 7.05 10^3/uL (1.8-7.7); Neutrophils % 68.6 %; Nucleated Red Blood Cells % 0 %; Platelet Count 252 10^3/cmm (157-399); Red Blood Count 4.71 10^6/uL (3.85-5.65); Red Cell Distribution Width 18.5 % (12.1-15.1); White Blood Count 10.27 10^3/uL (3.29-11.43)
[2023-08-09 04:54] LABS: Anion Gap 11.9 (5-19); Blood Urea Nitrogen 44 mg/dL (8-23); Calcium 9.6 mg/dL (8.5-10.5); Carbon Dioxide 35 mmol/L (22-29); Chloride 91 mmol/L (98-107); Glomerular Filtration Rate 50.2 mL/min (90-130); Glucose 107 mg/dL (65-115); Osmolality Calculated 292 mOsm/kg (285-295); Sodium 135 mmol/L (136-145)
[2023-08-09 04:57] LABS: Creatinine Clr Calc Pharmacy 68.6297
[2023-08-09 04:58] LABS: Potassium 2.9 mmol/L (3.5-5.1)
--- NOTE | 2023-08-09 05:00 | PC.NURSE ---
Addendum entered by Sangeeta Sheriff RN 08/09/23 05:14: Lab notified. Addendum entered by Sangeeta Sheriff RN 08/09/23 05:08: Labs drawn at 3:19 am. Potassium level re-draw ordered. Original Note: Patient's potassium 2.9. Due to having discomfort from IV potassium, it was ran at a slower rate. Second bag of potassium did not finish until [address] Llamas notified.
[2023-08-09 07:04] LABS: Potassium 2.9 mmol/L (3.5-5.1)
[2023-08-09 07:59] VITALS: BP 113/71; PULSE 69; RESP 17; TEMP 36.4; O2SAT 94
[2023-08-09] MEDS: dilTIAZem 30 mg Tablet PO (09:23)
[2023-08-09] MEDS: gabapentin 300 mg Capsule 600 MG PO (09:23)
[2023-08-09] MEDS: tamsulosin 0.4 mg Capsule PO (09:31)
[2023-08-09] MEDS: carvedilol 12.5 mg Tablet PO (09:31)
[2023-08-09] MEDS: apixaban 5 mg Tablet PO (09:31)
[2023-08-09] MEDS: potassium chloride ER 20 mEq Tablet PO (09:31)
[2023-08-09] MEDS: lidocaine 1% 5 ML in potassium chloride premix 100 ML 26.25 ML IV (10:41)
[2023-08-09 11:24] VITALS: BP 119/80; PULSE 68; RESP 17; TEMP 36.6; O2SAT 95
--- NOTE | 2023-08-09 12:35 | P.DS_ITS ---
Discharge Providers Date of Admission: 08/08/23 19:11 Date of Discharge: August 09, 2023 Attending Provider at Admission: Roger Llamas Attending Provider at Discharge: Curtis Cherry MD Primary Care Provider: Jim Obrien MD Diagnoses at Discharge Discharge Diagnosis (1) Pre-syncope: Status: Acute (2) AI (acute kidney injury): Status: Acute (3) Acute dehydration: Status: Acute (4) Hypokalemia: Status: Acute (5) Chronic sinusitis: Status: Acute (6) Lower extremity edema: Status: Acute Reason for Visit Reason for Visit: sob,dizzy Hospital Course Hospital Course Felipe Bello is a 67 year old gentleman came into the ER due to presyncopal episodes, feeling like he is about to blackout when he is standing/walking.? With history of atrial fibrillation, RBBB, without arrhythmia noted in ER.? He is noted mildly orthostatic, blood pressure down from 118/89-1 02/ from laying to standing, but is found to be dehydrated also with AI, BUN 60, creatinine 2.1.? With history of CHF, CAD, has been on diuretic although it seems has had a secondary prescribed, continue taking both.? In ER received IV fluid boluses. He also states has followed up with ENT and is being additionally assessed for left-sided pain around his cheondoism, TMJ, left ear, left palatine tonsil.? States he has chronic sinus problems since childhood with chronic postnasal drip.? Reports recently having an ear infection for which she completed a course of antibiotic.? Reports tenderness along the left side of the jaw, neck.? He is being referred for additional assessment with imaging with follow-up with ENT., Patient was admitted to [facility] for presyncope likely second dehydration, hypokalemia, potassium as low as 2.5 requiring IV replacement, patient overall clinically improved, likely component related to Bumex therapy as outpatient. Will be discharged on instructions to start Bumex therapy tomorrow with potassium replacement, to always take Bumex with potassium replacement, follow-up with primary care tomorrow for recheck potassium level. For patient's premolar abscess, on examination, lower left premolar, has evidence of abscess, will discharge on 7 days of clindamycin. Lower extreme edema resolved on discharge,. Follow-up with primary care provider tomorrow Physical Exam Const: COMMON NORMALS: no acute distress and patient oriented x3 Resp: COMMON NORMALS: normal respiratory effort, No retractions, No use of accessory muscles and clear to auscultation bilaterally AUSCULTATION: clear to auscultation bilaterally Cardio: COMMON NORMALS: regular rate, regular rhythm, S1 normal heart sound present and S2 normal heart sound present RATE: regular rate RHYTHM: regular rhythm HEART SOUNDS: S1 normal heart sound present and S2 normal heart sound present GI: COMMON NORMALS: Normal to inspection, nondistended, normoactive bowel sounds present and non-tender Extremity: COMMON NORMALS: no pedal edema Neuro: COMMON NORMALS: patient oriented x3 Psych: COMMON NORMALS: mental status grossly normal Discharge Data Studies Completed and Pending Completed Studies During Hospitalization Category Date Time Status CT neck w con* [id number] Routine Cat Scan 08/08/23 01:26 Completed XR chest 1V portable [id number] Stat Exams 08/07/23 16:16 [place] [id number] Routine Ultrasound 08/08/23 01:22 Completed US renal BI* [id number] Routine Ultrasound 08/08/23 01:31 Completed Pending at discharge Category Date Time Status BMP [Basic Metabolic Panel] Stat Lab 08/09/23 14:00 Ordered Basic Metabolic Panel AM LABS Lab 08/10/23 04:00 Ordered Basic Metabolic Panel AM LABS Lab 08/11/23 04:00 Ordered Complete Blood Count w/Auto AM LABS Lab 08/10/23 04:00 Ordered Complete Blood Count w/Auto AM LABS Lab 08/11/23 04:00 Ordered Radiology Impressions Chest X-Ray 08/07/23 16:16 IMPRESSION: 1. No acute cardiopulmonary process. 2. Incidental/nonacute findings are listed in the report. Venous Duplex 08/08/23 01:22 IMPRESSION: No evidence of deep vein thrombosis. Neck CT 08/08/23 01:26 IMPRESSION: 1. No abscess or other evidence of soft tissue infection. 2. Dental disease as above. Renal Ultrasound 08/08/23 01:31 IMPRESSION: 1. No acute findings. No hydronephrosis. 2. Simple left renal cysts similar to the findings on 05/08/2022. 3. Diffusely thickened bladder wall likely represents muscular hypertrophy. Laboratory Results WBC 10.27 10^3/uL (3.29-11.43) 08/09/23 03:19 RBC 4.71 10^6/uL (3.85-5.65) 08/09/23 03:19 Hgb 10.90 g/dL (11.27-16.99) L 08/09/23 03:19 Hct 36.1 % (37-53) L 08/09/23 03:19 MCV 76.6 fl (82-101) L 08/09/23 03:19 MCH 23.1 pg (27-33) L 08/09/23 03:19 MCHC 30.2 g/dL (30-55) 08/09/23 03:19 RDW 18.5 % (12.1-15.1) H 08/09/23 03:19 Plt Count 252 10^3/cmm (157-399) 08/09/23 03:19 MPV 11.4 fL (7.4-10.4) H 08/09/23 03:19 Neut % (Auto) 68.6 % 08/09/23 03:19 Lymph % (Auto) 19.0 % 08/09/23 03:19 Gentry % (Auto) 9.2 % 08/09/23 03:19 Eos % (Auto) 2.0 % 08/09/23 03:19 Baso % (Auto) 0.7 % 08/09/23 03:19 Neut # (Auto) 7.05 10^3/uL (1.8-7.7) 08/09/23 03:19 Lymph # (Auto) 2.0 10^3/uL (0.8-4.8) 08/09/23 03:19 Gentry # (Auto) 0.9 10^3/uL (0.2-0.9) 08/09/23 03:19 Eos # (Auto) 0.2 10^3/uL (0.0-0.8) 08/09/23 03:19 Baso # (Auto) 0.1 10^3/uL (0.0-0.1) 08/09/23 03:19 Nucleated RBC % (auto) 0 % 08/09/23 03:19 Nucleated RBCs # 0.0 /100WBC 08/09/23 03:19 ESR 8 mm/hr (0-10) 08/08/23 03:50 Sodium 135 mmol/L (136-145) L 08/09/23 03:19 Potassium 2.9 mmol/L (3.5-5.1) L 08/09/23 05:47 Chloride 91 mmol/L (98-107) L 08/09/23 03:19 Carbon Dioxide 35 mmol/L (22-29) H 08/09/23 03:19 Anion Gap 11.9 (5-19) 08/09/23 03:19 BUN 44 mg/dL (8-23) H 08/09/23 03:19 Creatinine 1.4 mg/dL (0.7-1.2) H 08/09/23 03:19 GFR Calculation 50.2 mL/min (90-130) L 08/09/23 03:19 Glucose 107 mg/dL (65-115) 08/09/23 03:19 Calculated Osmolality 292 mOsm/kg (285-295) 08/09/23 03:19 Calcium 9.6 mg/dL (8.5-10.5) 08/09/23 03:19 Phosphorus 3.3 mg/dL (2.5-4.5) 08/08/23 09:28 Magnesium 2.6 mg/dL (1.7-2.3) H 08/08/23 00:00 Total Bilirubin 0.4 mg/dL (0.15-1.2) 08/07/23 16:30 AST 13 U/L (0-40) 08/07/23 16:30 ALT 12 U/L (0-41) 08/07/23 16:30 Alkaline Phosphatase 70 U/L (40-130) 08/07/23 16:30 Troponin T Baseline 40 ng/L (0-15) H 08/07/23 16:30 Troponin T 120 Minute 37.10 ng/L (0-15) H 08/07/23 18:25 Delta Troponin T -2.90 ABS# (0-10) L 08/07/23 18:25 Troponin T Hi Sens 6Hr 35.29 ng/L (0-15) H 08/07/23 23:05 Troponin T Hi Sens 6Hr Delta -4.71 ng/L (0-12) L 08/07/23 23:05 C-React Prot High Sens 0.750 mg/dL (0.0-0.3) H 08/08/23 09:28 NT-Pro-B Natriuret Pep 547 pg/mL (0-125) H 08/07/23 16:30 Total Protein 7.5 g/dL (6.6-8.7) 08/07/23 16:30 Albumin 5.1 g/dL (3.5-5.2) 08/07/23 16:30 Globulin 2.4 g/dL (1.3-4.6) 08/07/23 16:30 Procalcitonin 0.32 ng/mL (0-0.5) 08/08/23 09:28 Vitals Last Vital Signs Temp 97.8 F 08/09/23 11:24 Pulse 68 08/09/23 11:24 Resp 17 08/09/23 11:24 BP 119/80 08/09/23 11:24 Pulse Ox 95 08/09/23 11:24 O2 Del Method Room Air 08/09/23 11:24 Discharge Plan Discharge Patient Disposition: Home Condition: Stable Prescriptions: New clindamycin HCl 150 mg capsule 450 mg PO TID 7 Days Qty: 63 0RF Continued chlorthalidone 50 mg tablet 50 mg PO DAILY Qty: 30 3RF tamsulosin 0.4 mg capsule 0.8 mg PO DAILY Eliquis 5 mg tablet 5 mg PO BID Hold Instructions: Resume on 05/11/22. carvedilol 12.5 mg tablet 12.5 mg PO BID Rx Instructions: must administer with a meal/food magnesium oxide 500 mg tablet 500 mg PO DAILY gabapentin 600 mg tablet 600 mg PO BID Qty: 60 2RF diltiazem HCl 30 mg Tablet 30 mg PO BID Benadryl Allergy 25 mg Tablet 25 mg PO TID PRN (Reason: sinuses) Changed potassium chloride 20 mEq tablet,ER particles/crystals 20 meq PO BID 30 Days Qty: 60 0RF Rx Instructions: with bumex therapy bumetanide 1 mg tablet 1 mg PO BID 30 Days Qty: 60 0RF Discharge Orders: Discharge Order (Routine); Ordered 08/09/23 Ordered By: Curtis Cherry Referrals: Jim Obrien MD [Primary Care Provider] - 7-10 days (We have notified your physician's clinic of the need for a follow-up appointment to be scheduled. If you have not heard from them within the next 2 business days, please call them directly. You may also reach out to our manager beauty at [phone] and she can assist you.) EVA Oscar, CONTINUOUS CRUSHER OPERATOR [Nurse Practitioner] - 1-3 days (We have notified your physician's clinic of the need for a follow-up appointment to be scheduled. If you have not heard from them within the next 2 business days, please call them directly. You may also reach out to our manager beauty at [phone] and she can assist you.) Discharge Diet: Cardiac Discharge Activity: Resume usual activity Patient Instructions: Dehydration - Adult, Acute Kidney Injury (DC), Near Syn cope (DC), Opioid Safety Activity Restrictions/Additional Instructions: - Please drink electrolyte balanced fluids, ? Follow-up with EVA oscar tomorrow for recheck potassium level tomorrow, ? Whenever you take Bumex please take potassium replacement therapy as it is associate with severe hypokalemia Discharge Attestations Time Spent in Discharge Care*: greater than 30 min Status at Discharge: Cognitive status at discharge: cognitively intact , Behavioral status at discharge: cooperative , Quality Metrics Clinical Quality Measures [ No reported AMI, CVA or VTE this stay] Coding Level of Care Code 18741 Total time (in minutes) for Discharge: 45 Diagnoses Pre-syncope R55 AI (acute kidney injury) N17.9 Acute dehydration E86.0 Hypokalemia E87.6 Chronic sinusitis J32.9 Lower extremity edema R60.0
[2023-08-09 15:31] LABS: Anion Gap 12.1 (5-19); Blood Urea Nitrogen 40 mg/dL (8-23); Calcium 9.6 mg/dL (8.5-10.5); Carbon Dioxide 33 mmol/L (22-29); Chloride 94 mmol/L (98-107); Glucose 114 mg/dL (65-115); Osmolality Calculated 293 mOsm/kg (285-295); Potassium 3.1 mmol/L (3.5-5.1); Sodium 136 mmol/L (136-145)
[2023-08-09 15:40] VITALS: BP 113/75; PULSE 64; RESP 16; TEMP 36.3; O2SAT 95
[2023-08-09 18:45] VITALS: BP 113/75; PULSE 64; RESP 16; TEMP 36.3; O2SAT 95
== END 2023-08-09 17:00 | disposition home or self-care (01) | DRG 641 ==
LOC: ER 21:33 → MEDSURG 22:04
PROVIDERS: Admitting Provider Internal Medicine; Emergency Provider Nurse Practitioner; PCP Family Medicine; Visit Provider Family Medicine
DX: E87.6 Hypokalemia (principal); N17.9 Acute kidney failure, unspecified; E86.0 Dehydration; J32.9 Chronic sinusitis, unspecified; I45.10 Unspecified right bundle-branch block; N18.9 Chronic kidney disease, unspecified; I25.10 Atherosclerotic heart disease of native coronary artery without angina pectoris; R60.0 Localized edema; I48.91 Unspecified atrial fibrillation; K04.7 Periapical abscess without sinus; I25.2 Old myocardial infarction; N40.1 Benign prostatic hyperplasia with lower urinary tract symptoms; R33.8 Other retention of urine; G25.81 Restless legs syndrome; M19.90 Unspecified osteoarthritis, unspecified site; Z79.01 Long term (current) use of anticoagulants
CPT/HCPCS: 36415; 70491; 71045; 76770; 80048; 80053; 83735; 83880; 84100; 84132; 84145; 84484; 85025; 85651; 86141; 93005; 93970; 96360; 99285; G0378; J3480; J7040; J7050; Q9967

== ENCOUNTER → 2023-08-11 10:44 | Outpatient (BNVA) | payer MEDICARE, SELFPAY | PROVIDERS: PCP Family Medicine; Visit Provider Nurse Practitioner Family | DX: N18.9 Chronic kidney disease, unspecified (principal) | CPT/HCPCS: 80053; 81003; 83735; 85025; 87077; 87086; 87184 ==

== ENCOUNTER → 2023-08-17 11:05 | Outpatient (BNVA) | payer MEDICARE, SELFPAY | PROVIDERS: PCP Family Medicine; Visit Provider Nurse Practitioner Family | DX: N17.9 Acute kidney failure, unspecified (principal); Z79.899 Other long term (current) drug therapy | CPT/HCPCS: 80053; 85025 ==

== ENCOUNTER → 2023-08-26 14:45 | Outpatient (BNVA) | payer MEDICARE, SELFPAY | PROVIDERS: PCP Family Medicine; Visit Provider Nurse Practitioner Family | DX: I50.33 Acute on chronic diastolic (congestive) heart failure (principal) | CPT/HCPCS: 36415; 80048; 83880; 99214 ==

== ENCOUNTER → 2023-08-31 14:54 | Outpatient (BNVA) | payer MEDICARE, SELFPAY | PROVIDERS: PCP Family Medicine; Visit Provider Nurse Practitioner Family | DX: N18.9 Chronic kidney disease, unspecified (principal); I50.30 Unspecified diastolic (congestive) heart failure | CPT/HCPCS: 80053 ==

== ENCOUNTER → 2023-11-01 13:02 | Outpatient (BNVA) | payer MEDICARE, SELFPAY | PROVIDERS: PCP Family Medicine; Visit Provider Nurse Practitioner | DX: M16.12 Unilateral primary osteoarthritis, left hip (principal) | CPT/HCPCS: 73502; 99214 ==

== ENCOUNTER → 2023-12-20 13:54 | Outpatient (BNVA) | payer MEDICARE, SELFPAY | PROVIDERS: PCP Family Medicine; Visit Provider Nurse Practitioner | DX: Z01.818 Encounter for other preprocedural examination (principal); M25.552 Pain in left hip; M16.12 Unilateral primary osteoarthritis, left hip; Z79.01 Long term (current) use of anticoagulants | CPT/HCPCS: 36415; 80053; 81001; 85025; 87086; 99213 ==

== ENCOUNTER 2024-01-04 15:35 | Inpatient (IN) | payer MEDICARE, SELFPAY ==
[2024-01-04] VITALS (18 sets, daily range): BP systolic 106–140; BP diastolic 63–102; PULSE 63–111; RESP 12–34; TEMP 36.3–38.1; O2SAT 91–99; BMI 39.3
--- NOTE | 2024-01-04 11:07 | W.PM.OPSUD ---
Surgery/Procedure H&P Update DATE OF PROCEDURE: January 04, 2024 DATE H&P PERFORMED: 12/27/23 H&P UPDATE INFORMATION: I have reviewed H&P completed within last 30 days, I have examined patient prior to procedure, No changes to prior documentation and H&P is in [facility] EMR on date indicated PLANNED PROCEDURE: Operation Date: 01/04/24 12:25 Proposed Procedures p Total Hip Arthroplasty SERGIO(Left) - Tamara Dawkins MD Related Problem List Diagnoses (1) Primary osteoarthritis of left hip:
[2024-01-04] MEDS: acetaminophen 1,000 MG/100 ML PIGGYBACK 400 MG IV ×2 (11:15→20:24)
[2024-01-04] MEDS: sodium chloride 0.9% 1,000 ML 30 ML IV (11:17)
--- NOTE | 2024-01-04 11:29 | P.ANESASSM_ITS ---
Pre-Anesthetic Assessment Height/Weight: Height 1.78 m Weight 124.284 kg Temp Pulse Resp BP Pulse Ox O2 Del Method 97.9 F 84 18 139/99 96 Room Air 01/04/24 10:55 01/04/24 10:55 01/04/24 10:55 01/04/24 10:55 01/04/24 10:55 01/04/24 10:55 Operation Date: 01/04/24 12:25 Proposed Procedures p Total Hip Arthroplasty SERGIO(Left) - Tamara Dawkins MD Familial anesthetic complications: none Was Beta Ryne taken within 24 hours: Yes Was Clonidine taken within 24 hours: N/A Last intake: Intake Last Liquid Date 01/04/24 Last Liquid Time 08:00 Last Solid Date 01/03/24 Last Solid Time 19:30 Social No alcohol and No tobacco Exam alert, oriented x 3 and clear to auscultation bilaterally Airway Submandibular: within normal limits Cervical ROM: Other (limited by pain) Mallampati: Class II Dentition: chipped CV/HEM Atrial Fibrillation and Hypertension Chronic Renal Insufficiency GI Gastroesophageal Reflux Disease Metabolic Morbid Obesity Musc/skel Lower Back Pain and Osteoarthritis/DJD spine surgery Anesthetic Plan ASA status: 3 Anesthesia: Regional (specify below) (SAB) Medications/Allergies Home Medications Medication Instructions Recorded Confirmed Last Taken Type apixaban 5 mg tablet (Eliquis) 5 mg PO BID 05/27/23 01/04/24 12/29/23 History tamsulosin 0.4 mg capsule 0.8 mg PO DAILY 05/27/23 01/04/24 01/04/24 04:30 History bumetanide 1 mg tablet 1 mg PO BID 30 days #60 tabs 09/08/23 01/04/24 01/04/24 04:30 Rx carvedilol 12.5 mg tablet 12.5 mg PO BID #60 tabs 09/08/23 01/04/24 01/04/24 04:30 Rx diltiazem HCl 30 mg tablet 30 mg PO BID #60 tabs 12/14/23 01/04/24 01/04/24 04:30 Rx potassium chloride 20 mEq 20 meq PO BID 30 days #60 tabs 12/24/23 01/04/24 01/04/24 04:30 Rx tablet,extended release(part/cryst) gabapentin 600 mg tablet 600 mg PO BID 01/03/24 01/04/24 01/04/24 04:30 History Allergies Allergy/AdvReac Type Severity Reaction Status Date / Time cefazolin [From Kefzol] Allergy itching, Verified 01/04/24 07:00 redness codeine Allergy ADR-Itching Verified 01/04/24 10:45 morphine Allergy itching Verified 01/04/24 07:00 Current Medications Generic Name Dose Route Start Last Admin Trade Name Freq PRN Reason Stop Dose Admin Sodium Chloride 1,000 mls @ 30 mls/hr 01/04/24 10:30 01/04/24 11:17 Sodium Chloride 0.9% IV 01/05/24 10:29 30 mls/hr .Q24H PÉREZ Administration PFSH Anesthesia Medical History Acute bacterial sinusitis Need for pneumococcal vaccine Acute UTI CKD (chronic kidney disease) TMJ dysfunction Chronic sinusitis Vitamin D deficiency History of abnormal breathing pattern Medication management Encounter for screening for cardiovascular disorders Acute right hip pain GI bleed NSTEMI (non-ST elevated myocardial infarction) Drug-induced diarrhea Atrial flutter with rapid ventricular response Hypotension Hematochezia Fluid overload Pain and swelling of right ankle Deviated nasal septum Rhus dermatitis Maxillary sinus cyst Elevated PSA Lower respiratory infection Shortness of breath COVID-19 vaccine series completed Pain, dental Dental abscess Tachycardia BPH loc w urin obs/LUTS Urinary retention Osteoarthritis thoracic spine Thoracic degenerative disc disease 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 Leads intact. 1989 [place], [place] L3-L4, L4-L5 posterior fusion/fixation. L3 right-sided hemilaminectomy. History of umbilical hernia repair S/P hip replacement 08/04/2016 right hip S/P knee surgery S/P appendectomy Family History Father , at age 83 CAD (coronary artery disease) Mother , at age 76 CAD (coronary artery disease) Social History Smoking and tobacco/nicotine status: never used tobacco/nicotine Alcohol intake: never Substance/Drug Use: never Household members: none Marital status: Current occupational status: retired and disabled Data Anesthesia Cardiac Studies: Echocardiogram 07/21/23 Sestamibi Stress Test (Cardiology) 06/15
--- NOTE | 2024-01-04 11:33 | SUR.PREOP ---
1110 PT edematous ble and unable to place WAYNE hose on rle,will notify or staff and dr Dawkins
[2024-01-04] MEDS: clindamycin 900 MG/50 ML PREMIX 100 MG IV ×2 (12:07→20:24)
--- NOTE | 2024-01-04 12:25 | SUR.PREOP ---
1202 spoke with OR nurse Mary Carmen and informed of reasoning behind not putting on WAYNE hose to right lower leg and verbalized understanding and would tell Dr. Dawkins this also
[2024-01-04] MEDS: tranexamic acid 1,000 mg/10mL SDV 1000 MG IV (12:50)
[2024-01-04] MEDS: vancomycin 1,000 MG SDV 1000 MG IRRIGATION (13:15)
[2024-01-04] MEDS: vancomycin 1,000 MG SDV 1000 MG XX (13:15)
--- NOTE | 2024-01-04 15:24 | XRR_ITS ---
PROCEDURE INFORMATION: Exam: XR Pelvis Exam date and time: 01/04/2024 2:27 PM Age: 68 years old Clinical indication: Device placement; Other: Maverick; Prior surgery; Surgery date: Post-operative (0-2 days); Additional info: S/P maverick, low ap pelvis TECHNIQUE: Imaging protocol: Radiologic exam of the pelvis. Views: 1 or 2 view. COMPARISON: CR XR hip LT 2-3V wo/w pel* [id number] 11/01/2023 1:05 PM FINDINGS: Bones/joints: Satisfactory radiographic appearance of new left total hip arthroplasty immediately postoperative. An old right hip arthroplasty is unremarkable. Soft tissues: Postoperative gas. XR/XR pelvis 1-2V* [id number] IMPRESSION: Satisfactory postoperative appearance.
--- NOTE | 2024-01-04 15:49 | ANE.PACU2 ---
Inpatient post-anesthesia follow up: Airway intact: Yes Vital signs: Temperature 97.9 F Pulse Rate 84 Respiratory Rate 18 Blood Pressure 139/99 Pulse Oximetry 96 Oxygen Delivery Me thod Room Air Oxygen Flow Rate 6 Fraction of Inspir ed Oxygen Hydration adequate: Yes Nausea and vomiting: No Pain level: 2 Mental status: Baseline
--- NOTE | 2024-01-04 16:00 | P.OP_ITS ---
Operative Report Date of procedure: January 04, 2024 Pre-op diagnosis: Severe degenerative osteoarthritis left hip Post-op diagnosis: Severe degenerative osteoarthritis left hip Post-op findings: Severe degenerative osteoarthritis of the left hip with large osteophytes Procedure done: Left total hip arthroplasty Implants: The Irma total hip system with a size 56 mm by F alpha code Trident II Tritanium acetabular shell with an MDM liner size 46 mm inner diameter by F alpha code.? A size 10 Accolade II 127? neck angle hip stem with a size 28 mm x +0 mm femoral head and a baptism MDM X3 insert size 28 mm x 46F Specimens removed/disposition: Femoral head, disposed of Pathology: None Surgeon: Tamara Dawkins MD [employer] Set Up Operator[facility] Anesthesia: Spinal (With MAC, ASA 3) Estimated blood loss (mL): 200 IV fluids (mL): 1,000 Urine output (mL): 500 Complications: None Findings: Severe degenerative osteoarthritis with large osteophytes. Additionally, the patient was stable at 90 degrees of flexion with 80 degrees of internal rotation and 20 degrees of adduction. He was stable to toe hang and external rotation. Brief History: This 68-year-old gentleman presents today with complaints of significant left hip pain secondary to degenerative osteoarthritis. He is here for left total hip arthroplasty. He has significant limitations in his activities of daily living and very limited range of motion of this hip. The patient noted he felt like his hip shifted when he stood or sat down. His pain was rated as high as 8 out of 10. When the patient was seen in the office, consents were signed and questions were answered. He wished to proceed with total hip arthroplasty. Procedure: Patient was brought to the operating theater.? He was transferred to the operating room table and subsequently administered a spinal anesthesia with MAC, ASA 3.? Following administration of adequate anesthesia, the patient was placed in full lateral position and held in position with a pegboard.? The patient's left lower extremity was then prepped and draped in usual fashion utilizing DuraPrep.? It was draped free. Following prepping and draping, a surgical pause was performed.? At the time of surgical pause, we identified the site and side of surgery.? We also identified the patient and preoperative surgical markings.?The patient's operative leg was compared to the opposite leg as a length comparison.? Confirmation was made of equipment availability.? Additionally, the patient's preoperative IV antibiotic, clindamycin 900 mg, and TXA administration was confirmed as well.? X-rays were also reviewed. Following the surgical pause, an incision was made centering over the patient's greater trochanter continuing proximally and distally as necessary to allow access to the hip joint.? Dissection continued through skin and soft tissues using a scalpel, and hemostasis was obtained using electrocautery. The tensor fascia madiha was identified and incised longitudinally.? Sciatic nerve was identified and protected throughout the surgical procedure.? A Charnley U retractor was placed after the tensor fascia madiha had been incised longitudinally, and the sciatic nerve had been identified.? The hip was internally rotated, and the piriformis muscle was identified and tagged. Piriformis muscle along with the remaining short external rotators were then incised from the posterior aspect of the hip joint.? These were retracted posteriorly.? The capsule was entered in a T-type fashion with the edges being tagged, and subsequently the hip was dislocated.? The labrum was excised with further excision accomplished once the femoral head was removed.? Following hip dislocation, a femoral neck osteotomy was accomplished in the appropriate position.? The head was measured, but it was quite deformed.? We then evaluated the acetabulum. The femur was retracted anteriorly.? Soft tissues were retracted, and the labrum was removed.? Labrum was noted to be quite large and deformed. We then began reaming.? Once the femoral head was removed, there was noted to be significant loss of cartilage over the head with the previously noted deformity and cartil age loss within the acetabulum.? We reamed the acetabulum to a size 55 to allow for a size 56 acetabular shell. The acetabulum was impacted into position.? The MDM liner was then impacted into position with care being taken to assure it seated appropriately. It was noted that the acetabulum matched the bony anatomy after removal of anterior and posterior osteophytes.? The cup was noted to seat nicely and had good fixation upon impact. Attention was directed to the proximal femur.? The proximal femur was lifted out of the wound.? A canal finder was passed after the box chisel.? The reamer was used to lateralize.? We then began broaching. We broached sequentially and had excellent fit and fill with the size 10 broach. With a size11 broach in position, a trial reduction was accomplished with a +0 mm femoral head. The +0 mm offset femoral head gave us the stability noted above, and it was noted that lengths appeared restored and appropriate. With the final construct as noted, we had the above-noted stabilities and appropriate leg length. Therefore, trial components were removed after the hip was dislocated.? The size 10 Accolade II 127? neck angle stem was impacted into position without difficulty and onto this was placed a +0 mm x 28 mm femoral head which had been assembled into the MDM insert size 46F.? With a +0 mm femoral head, we had the above-noted stability.? The stem was noted to seat nicely prior to placement of the femoral head.? The wound was copiously irrigated with 20 mL of Betadine and 500 mL of normal saline mixed together.? Subsequently, we suctioned this out and irrigated the wound copiously with lactated Ringer's.? At this time, with all components in appropriate position, the hip was reduced.? Following reduction of the prosthesis once again, we confirmed the stability of the hip.? Leg lengths were also felt to be satisfactory. Being satisfied with the prosthesis, attention was directed to closure.? Closure was accomplished with 0 Vicryl in the capsular tissues.? Piriformis was reattached with 0 Vicryl as well.? Tensor fascia madiha was closed with 0 Vicryl in an interrupted fashion.? The subcutaneous tissues were closed with combination of 0 Vicryl and 2-0 Monocryl.? Vancomycin powder and a Gelfoam thrombin mixture was placed into the wound as well.? The skin was closed with a running 3-0 strata fix followed by Dermabond Prineo and Opsite. The patient was placed in an abduction pillow.? Patient was transferred off the operative bed and was brought to the recovery room in a satisfactory condition. He will be discharged to the floor for postoperative rehabilitation and pain management. There were no complications and no specimens. Related Problem List Diagnoses (1) Primary osteoarthritis of left hip:
[2024-01-04] MEDS: sennosides-docusate Tablet 2 TAB PO (17:08)
[2024-01-04] MEDS: potassium chloride ER 20 mEq Tablet PO (17:08)
[2024-01-04] MEDS: chlorhexidine gluconate 0.12% Btl 473 mL 30 ML MUCOUS MEM ×2 (17:08→21:16)
[2024-01-04] MEDS: gabapentin 300 mg Capsule 600 MG PO (17:08)
[2024-01-04] MEDS: carvedilol 12.5 mg Tablet PO (17:09)
[2024-01-04] MEDS: apixaban 5 mg Tablet PO (17:09)
[2024-01-04] MEDS: dilTIAZem 30 mg Tablet PO (17:09)
[2024-01-04] MEDS: bumetanide 1 mg Tablet PO (17:09)
[2024-01-04] MEDS: iron polysaccharide complex 150 mg Capsule PO (17:09)
[2024-01-04] MEDS: calcium carbonate 500 mg Chew Tablet 1000 MG PO (17:09)
[2024-01-04] MEDS: oxyCODONE 5 mg IR Tab/Cap PO (18:07)
--- NOTE | 2024-01-04 19:32 | P.CONIM_ITS ---
Providers/Reason For Consult Consulting Physician/Specialty*: Internal Medicine Reason for Consult*: A-fib w/ RVR Requesting Physician: Dr Philip Attending Physician: Tamara Dawkins MD Primary Care Provider: Jim Obrien MD History of Present Illness History of Present Illness Felipe Bello is a 68 year old male hypertension, heart failure with preserved ejection fraction, GERD, atrial flutter/fibrillation, benign prostatic hypertrophy, left hip osteoarthritis and prior back surgeries who underwent left total hip arthroplasty for severe degenerative osteoarthritis of left hip on 01/04/[address] Dawkins. Postop course was concerning for abnormal telemetry showing rapid ventricular rate with heart rate reportedly around 200. An EKG obtained showing actual ventricular rate in the 110s. Heart rate on telemetry deemed to be secondary to patient's tremulous activity. He currently rates his pain severe and uncontrolled. Rates 10 out of 10. He received oxycodone previously but without desired effect. He endorses the pains in his low back and hip. Reports movement makes the pain worse. Denies other alleviating factors. Patient has a history of atrial fibrillation. EKGs in the system show at least persistent, suspected permanent atrial fibrillation. He is on Coreg and Cardizem twice daily for rate control. He does have a history of bradycardia. Takes apixaban for stroke prophylaxis. Both medications have been ordered. Review of Systems Narrative: A complete review of systems was obtained and is negative except as stated in HPI. Medications/Allergies Home Medications Medication Instructions Recorded Confirmed Last Taken Type apixaban 5 mg tablet (Eliquis) 5 mg PO BID 05/27/23 01/04/24 12/29/23 History tamsulosin 0.4 mg capsule 0.8 mg PO DAILY 05/27/23 01/04/24 01/04/24 04:30 History bumetanide 1 mg tablet 1 mg PO BID 30 days #60 tabs 09/08/23 01/04/24 01/04/24 04:30 Rx carvedilol 12.5 mg tablet 12.5 mg PO BID #60 tabs 09/08/23 01/04/24 01/04/24 04:30 Rx diltiazem HCl 30 mg tablet 30 mg PO BID #60 tabs 12/14/23 01/04/24 01/04/24 04:30 Rx potassium chloride 20 mEq 20 meq PO BID 30 days #60 tabs 12/24/23 01/04/24 01/04/24 04:30 Rx tablet,extended release(part/cryst) gabapentin 600 mg tablet 600 mg PO BID 01/03/24 01/04/24 01/04/24 04:30 History Allergies Allergy/AdvReac Type Severity Reaction Status Date / Time cefazolin [From Kefzol] Allergy itching, Verified 01/04/24 07:00 redness codeine Allergy ADR-Itching Verified 01/04/24 10:45 morphine Allergy itching Verified 01/04/24 07:00 Current Medications Generic Name Dose Route Start Last Admin Trade Name Freq PRN Reason Stop Dose Admin Apixaban 5 mg 01/04/24 18:00 01/04/24 17:09 Apixaban 5 Mg Tablet PO 5 mg BID PÉREZ Administration Bumetanide 1 mg 01/04/24 18:00 01/04/24 17:09 Bumetanide 1 Mg Tablet PO 1 mg BID PÉREZ Administration Calcium Carbonate 1,000 mg 01/04/24 18:00 01/04/24 17:09 Calcium Carbonate 500 Mg Chew Tablet PO 1,000 mg BID PÉREZ Administration Carvedilol 12.5 mg 01/04/24 18:00 01/04/24 17:09 Carvedilol 12.5 Mg Tablet PO 12.5 mg BID PÉREZ Administration Chlorhexidine Gluconate 30 ml 01/04/24 17:00 01/04/24 17:08 Chlorhexidine Gluconate 0.12% Btl 473 Ml MUCOUS MEM 30 ml QID PÉREZ Administration Diltiazem HCl 30 mg 01/04/24 18:00 01/04/24 17:09 Diltiazem 30 Mg Tablet PO 30 mg BID PÉREZ Administration Gabapentin 600 mg 01/04/24 18:00 01/04/24 17:08 Gabapentin 300 Mg Capsule PO 600 mg BID PÉREZ Administration Mupirocin 1 applic 01/04/24 18:00 01/04/24 17:09 Mupirocin Oint 22 Gm NASAL 01/09/24 17:59 Not Given BID PÉREZ Oxycodone HCl 5 - 10 mg 01/04/24 16:15 01/04/24 18:07 Oxycodone 5 Mg Ir Tab/Cap PO 10 mg Q4H PRN Administration MODERATE PAIN Polysaccharide Iron Complex 150 mg 01/04/24 18:00 01/04/24 17:09 Iron Polysaccharide Complex 150 Mg Capsule PO 150 mg BIDWM PÉREZ Administration Potassium Chloride 20 meq 01/04/24 18:00 01/04/24 17:08 Potassium Chloride Er 20 Meq Tablet PO 20 meq BID PÉREZ Administration Senna/Docusate Sodium 2 tab 01/04/24 18:00 01/04/24 17:08 Sennosides-Docusate Tablet PO 2 tab BID PÉREZ Administration PFSH Acute PFSH: Medical History Acute bacterial sinusitis Need for pneumococcal vaccine Acute UTI CKD (chronic kidney disease) TMJ dysfunction Chronic sinusitis Vitamin D deficiency History of abnormal breathing pattern Medication management Encounter for screening for cardiovascular disorders Acute right hip pain GI bleed NSTEMI (non-ST elevated myocardial infarction) Drug-induced diarrhea Atrial flutter with rapid ventricular response Hypotension Hematochezia Fluid overload Pain and swelling of right ankle Deviated nasal septum Rhus dermatitis Maxillary sinus cyst Elevated PSA Lower respiratory infection Shortness of breath COVID-19 vaccine series completed Pain, dental Dental abscess Tachycardia BPH loc w urin obs/LUTS Urinary retention Osteoarthritis thoracic spine Thoracic degenerative disc disease 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 Leads intact. 1989 [place], [place] L3-L4, L4-L5 posterior fusion/fixation. L3 right-sided hemilaminectomy. History of umbilical hernia repair S/P hip replacement 08/04/2016 right hip S/P knee surgery S/P appendectomy Family History Father , at age 83 CAD (coronary artery disease) Mother , at age 76 CAD (coronary artery disease) Social History Smoking and tobacco/nicotine status: never used tobacco/nicotine Alcohol intake: never Substance/Drug Use: never Household members: none Marital status: Current occupational status: retired and disabled Vitals/I&O/Wt Last Vital Signs Temp 97.3 F L 01/04/24 15:56 Pulse 88 01/04/24 18:28 Resp 20 H 01/04/24 18:28 BP 140/102 01/04/24 18:28 Pulse Ox 94 01/04/24 18:28 O2 Del Method Room Air 01/04/24 18:28 O2 Flow Rate 6 01/04/24 15:21 01/04/24 01/04/24 01/04/24 06:59 14:59 22:59 Intake Total 1150 / 1150 460 / 1610 Output Total 700 / 700 Balance 1150 / 1150 -240 / 910 Weight last 48 hrs Weight 124.284 kg Weight 124.284 kg Physical Exam Narrative: General: Patient is awake. In moderate distress from pain. Head: Normocephalic. Atraumatic. EOM intact. Neck: No JVD. Cardiovascular: Irregularly irregular rhythm. Tachycardic. No gallops. No murmurs. Lungs: Adequate air movement, no use of accessory muscles, no crackles or wheezes. Skin: No jaundice. No rashes. Abdomen: Normal bowel sounds, abdomen soft and nontender. Genito Urinary: Genital exam not performed since complaints not related. Rectal: Rectal exam not performed since no symptoms indicated blood loss. Extremities: No cyanosis or clubbing. Musculoskeletal: Surgical site not examined. Hip pillow present. Neurological: Moves all 4 extremities. No myoclonus. Urinary Catheter Management: Fischer: Cath Placed During This Visit: yes Reason for Continuing Indwelling Catheter: Perioperative Use in Selected Surgeries Urinary Catheter Date of Insertion: 01/04/24 Urinary Catheter Time of Insertion: 12:28 A&P Assessment and plan (1) Atrial fibrillation with RVR: Suspected permanent atrial fibrillation with RVR, mild with heart rate in the 110s Suspect RVR is more related to uncontrolled pain which is currently rated 10 out of 10 Continue current Coreg and diltiazem for rate control Continue current apixaban for stroke prophylaxis Check electrolytes including magnesium Continue with telemetry monitoring Ensure adequate pain control prior to escalating AV node blocking agents (2) Primary osteoarthritis of left hip: Management per primary Will start hydromorphone IV for severe pain Continue other pain meds Supportive care Plan Patient will be continue on telemetry with pain optimized. If RVR continues, will consider additional rate control agents. Thank you for this consultation. Consult Attestations Medical Necessity Statement: Per primary. Coding Level of Care Code Acute Code for [facility] Fwd Diagnoses Atrial fibrillation with RVR I48.91 Primary osteoarthritis of left hip M16.12
[2024-01-04] MEDS: HYDROmorphone 1 mg/mL INJ 1 mL 0.5 MG IVP (19:37)
[2024-01-04 19:52] LABS: Basophils % 0.2 %; Eosinophils # 0.1 10^3/uL (0.0-0.8); Eosinophils % 0.8 %; Hematocrit 39.6 % (37-53); Lymphocytes # 1.1 10^3/uL (0.8-4.8); Lymphocytes % 6.3 %; Mean Corpuscular HGB Conc 30.8 g/dL (30-55); Mean Corpuscular Hemoglobin 24.4 pg (27-33); Mean Corpuscular Volume 79.2 fl (82-101); Mean Platelet Volume 10.9 fL (7.4-10.4); Neutrophils # 14.39 10^3/uL (1.8-7.7); Neutrophils % 86.2 %; Nucleated Red Blood Cells % 0 %; Platelet Count 258 10^3/cmm (157-399); Red Cell Distribution Width 19.1 % (12.1-15.1); White Blood Count 16.71 10^3/uL (3.29-11.43)
[2024-01-04 20:17] LABS: Anion Gap 14.9 (5-19); Blood Urea Nitrogen 14 mg/dL (8-23); Calcium 9.1 mg/dL (8.5-10.5); Carbon Dioxide 27 mmol/L (22-29); Chloride 103 mmol/L (98-107); Creatinine Clr Calc Pharmacy 82.6509; Glomerular Filtration Rate 66.2 mL/min (90-130); Glucose 124 mg/dL (65-115); Phosphorus 2.4 mg/dL (2.5-4.5); Potassium 3.9 mmol/L (3.5-5.1); Sodium 141 mmol/L (136-145)
[2024-01-05] VITALS (7 sets, daily range): BP systolic 105–117; BP diastolic 68–82; PULSE 89–96; RESP 16–20; TEMP 36.6–37.2; O2SAT 91–97
[2024-01-05 00:24] LABS: Protein Urine 1+ (Negative); Specific Gravity, Urine 1.015 (1.005-1.030); Urine Appearance Cloudy (CLEAR); Urine Color Yellow (Yellow); pH Urine 5 (5-7)
[2024-01-05 00:25] LABS: Add Urine Culture? Yes; Bacteria Urine 3+ /hpf; Bilirubin Urine Neg (Negative); Blood Urine 3+ (Negative); Glucose Urine UA Norm (Normal); Ketones Urine Negative (Negative); Leukocyte Esterase Urine 1+ (Negative); Mucus Urine 3+ /hpf; Nitrate Urine Negative (Negative); RBC Urine 50-80 /hpf (0-2); Urobilinogen Urine Neg (Negative); WBC Urine 15-25 /hpf (0-5)
[2024-01-05] MEDS: oxyCODONE 5 mg IR Tab/Cap PO ×2 (00:52→06:38)
[2024-01-05] MEDS: acetaminophen 1,000 MG/100 ML PIGGYBACK 400 MG IV ×2 (03:48→14:11)
[2024-01-05] MEDS: clindamycin 900 MG/50 ML PREMIX 100 MG IV ×2 (03:49→13:43)
[2024-01-05 04:44] LABS: Basophils % 0.2 %; Eosinophils % 0.4 %; Hematocrit 37.4 % (37-53); Lymphocytes # 0.9 10^3/uL (0.8-4.8); Lymphocytes % 8.2 %; Mean Corpuscular HGB Conc 30.7 g/dL (30-55); Mean Corpuscular Hemoglobin 24.2 pg (27-33); Mean Corpuscular Volume 78.6 fl (82-101); Monocytes % 8.5 %; Neutrophils # 9.17 10^3/uL (1.8-7.7); Neutrophils % 82.3 %; Nucleated Red Blood Cells % 0 %; Platelet Count 224 10^3/cmm (157-399); Red Blood Count 4.76 10^6/uL (3.85-5.65); Red Cell Distribution Width 18.8 % (12.1-15.1); White Blood Count 11.14 10^3/uL (3.29-11.43)
[2024-01-05] MEDS: dilTIAZem 30 mg Tablet PO ×2 (04:49→17:29)
[2024-01-05] MEDS: carvedilol 12.5 mg Tablet PO ×2 (04:49→17:29)
[2024-01-05 05:11] LABS: Anion Gap 13.2 (5-19); Blood Urea Nitrogen 13 mg/dL (8-23); Calcium 8.8 mg/dL (8.5-10.5); Carbon Dioxide 25 mmol/L (22-29); Chloride 101 mmol/L (98-107); Creatinine Clr Calc Pharmacy 77.3989; Glomerular Filtration Rate 59.9 mL/min (90-130); Glucose 129 mg/dL (65-115); Osmolality Calculated 282 mOsm/kg (285-295); Potassium 4.2 mmol/L (3.5-5.1); Sodium 135 mmol/L (136-145)
[2024-01-05] MEDS: cholecalciferol (vitamin D3) 1,000 unit Tablet 1000 UNIT PO (09:12)
[2024-01-05] MEDS: calcium carbonate 500 mg Chew Tablet 1000 MG PO ×2 (09:12→17:29)
[2024-01-05] MEDS: tamsulosin 0.4 mg Capsule 0.800000000000000044 MG PO (09:12)
[2024-01-05] MEDS: sennosides-docusate Tablet 2 TAB PO ×2 (09:13→17:29)
[2024-01-05] MEDS: apixaban 5 mg Tablet PO ×2 (09:13→17:29)
[2024-01-05] MEDS: iron polysaccharide complex 150 mg Capsule PO ×2 (09:13→17:29)
[2024-01-05] MEDS: multivitamin therapeutic Tablet 1 TAB PO (09:13)
[2024-01-05] MEDS: gabapentin 300 mg Capsule 600 MG PO ×2 (09:13→17:29)
[2024-01-05] MEDS: bumetanide 1 mg Tablet PO ×2 (09:13→17:29)
[2024-01-05] MEDS: potassium chloride ER 20 mEq Tablet PO ×2 (09:13→17:29)
[2024-01-05] MEDS: ciprofloxacin 400 MG/200 ML PREMIX 200 MG IV ×2 (09:49→21:01)
--- NOTE | 2024-01-05 13:21 | P.PN_ITS ---
Subjective 2 Subjective: Patient was seen this morning, he is currently sitting up in a chair, nursing staff at bedside he is complaining of severe left hip pain, pain with ambulation, nursing staff report episodes of confusion during the night there was concerns that it might be induced by narcotics, and his anesthesia currently is alert to person to place not to time he can follow commands, Vitals/I&O/Wt Last Vital Signs Temp 97.8 F 01/05/24 11:51 Pulse 94 01/05/24 11:51 Resp 16 01/05/24 11:51 BP 117/68 01/05/24 11:51 Pulse Ox 96 01/05/24 11:51 O2 Del Method Nasal Cannula 01/05/24 11:51 O2 Flow Rate 6 01/04/24 15:21 01/04/24 01/05/24 01/05/24 22:59 06:59 14:59 Intake Total 970 / 2120 150 / 2270 780 / 780 Output Total 2100 / 2100 250 / 2350 1050 / 1050 Balance -1130 / 20 -100 / -80 -270 / -270 Weight last 48 hrs Weight 285 lb 2 oz Weight 274 lb Weight 274 lb Physical Exam 2 Const: COMMON NORMALS: no acute distress, average body habitus and alert G ENERAL APPEARANCE: cooperative and comfortable ORIENTATION/CONSCIOUSNESS: Yes awake HENMT: COMMON NORMALS: normocephalic and atraumatic HEAD & SCALP: n ormocephalic and atraumatic Eye: GENERAL EYE: appearance normal, both eyes and all related structures Chest: COMMONS NORMALS: normal inspection of the chest Resp: COMMON NORMALS: normal respiratory effort EFFORT & INSPECTION: Yes able to speak in complete sentences and Yes symmetric chest movement Extremity: LEFT LOWER EXTREMITY: Yes hip joint (There is minimal to no swelling.) Left hip: Yes palpation (Pain with palpation.), Yes ROM (Not evaluated.) and Yes neurovascular exam (Intact distally with no evidence of DVT.) Neuro: SENSORIUM/ORIENTATION: Yes alert Psych: COMMON NORMALS: mental status grossly normal APPEARANCE: Yes grossly normal ATTITUDE: Yes calm and Yes engaged ATTENTION/CONCENTRATION: Yes attention grossly intact Skin: COMMON NORMALS: no rashes or lesions noted GENERAL SKIN EXAM: no rashes or lesions noted Urinary Catheter Management: Fischer: Cath Placed During This Visit: yes, but has since been removed by the nurse Reason for Continuing Indwelling Catheter: Decision to DC Catheter Urinary Catheter Date of Insertion: 01/04/24 Urinary Catheter Time of Insertion: 12:28 Date Urinary Catheter Removed: 01/05/24 Time Urinary Catheter Discontinued: 06:09 Data 01/07/24 04:33 01/07/24 04:33 A&P Assessment and plan (1) Primary osteoarthritis of left hip: Patient underwent same-day surgery for left total hip arthroplasty. He was somewhat confused overnight and early this morning. He is doing better in the afternoon, but he still has significant pain and has not really ambulated with physical therapy. For this reason, he will be converted to inpatient status. At the time of his last surgery, he required [facility] to fully rehabil[facility] from his hip, and it is likely that he will require at this time as well. He is neurologically intact with no evidence of DVT. (2) Status post total hip replacement, left: Attestations 2 Medical Necessity Statement*: Patient requires ongoing inpatient status following total hip arthroplasty and postoperative confusion and pain. Coding Level of Care Code Acute Code for [facility] Fwd Diagnoses Primary osteoarthritis of left hip M16.12 Status post total hip replacement, left Z96.642
[2024-01-05] MEDS: HYDROcodone-acetaminophen 10-325 mg Tablet 1 TAB PO ×2 (13:43→18:04)
[2024-01-05] MEDS: chlorhexidine gluconate 0.12% Btl 473 mL 30 ML MUCOUS MEM ×3 (13:47→21:01)
--- NOTE | 2024-01-05 14:58 | P.PN_ITS ---
Subjective 2 Subjective: Patient was seen this morning, he is currently sitting up in a chair, nursing staff at bedside he is complaining of severe left hip pain, pain with ambulation, nursing staff report episodes of confusion during the night there was concerns that it might be induced by narcotics, and his anesthesia currently is alert to person to place not to time he can follow commands, Vitals/I&O/Wt Last Vital Signs Temp 97.8 F 01/05/24 11:51 Pulse 94 01/05/24 11:51 Resp 16 01/05/24 11:51 BP 117/68 01/05/24 11:51 Pulse Ox 96 01/05/24 11:51 O2 Del Method Nasal Cannula 01/05/24 11:51 O2 Flow Rate 6 01/04/24 15:21 01/04/24 01/05/24 01/05/24 22:59 06:59 14:59 Intake Total 970 / 2120 150 / 2270 780 / 780 Output Total 2100 / 2100 250 / 2350 1050 / 1050 Balance -1130 / 20 -100 / -80 -270 / -270 Weight last 48 hrs Weight 129.331 kg Weight 124.284 kg Weight 124.284 kg Physical Exam 2 Const: COMMON NORMALS: no acute distress ORIENTATION/CONSCIOUSNESS: Yes awake, Yes oriented to person and Yes oriented to place; not oriented to time Resp: COMMON NORMALS: normal respiratory effort, No retractions, No use of accessory muscles and clear to auscultation bilaterally AUSCULTATION: clear to auscultation bilaterally Cardio: COMMON NORMALS: regular rate, regular rhythm, S1 normal heart sound present and S2 normal heart sound present RATE: regular rate RHYTHM: r egular rhythm HEART SOUNDS: S1 normal heart sound present and S2 normal heart sound present GI: COMMON NORMALS: Normal to inspection, nondistended, normoactive bowel sounds present and non-tender Extremity: COMMON NORMALS: no pedal edema Neuro: SENSORIUM/ORIENTATION: Yes oriented to person, Yes oriented to place and No oriented to time Psych: COMMON NORMALS: mental status grossly normal Urinary Catheter Management: Fischer: Cath Placed During This Visit: yes, but has since been removed by the nurse Reason for Continuing Indwelling Catheter: Decision to DC Catheter Urinary Catheter Date of Insertion: 01/04/24 Urinary Catheter Time of Insertion: 12:28 Date Urinary Catheter Removed: 01/05/24 Time Urinary Catheter Discontinued: 06:09 Data 01/05/24 04:23 01/05/24 04:23 A&P Assessment and plan (1) Atrial fibrillation with RVR: Resolving, Continue current Coreg and diltiazem for rate control Continue current apixaban for stroke prophylaxis Check electrolytes including magnesium Continue with telemetry monitoring Ensure adequate pain control prior to escalating AV node blocking agents (2) Primary osteoarthritis of left hip: -Status post left hip arthroplasty Management per primary Will start hydromorphone IV for severe pain Continue other pain meds Supportive care Plan Plan for today PT OT, patient might require nursing to place him monitor heart rates, start ciprofloxacin for UTI Attestations 2 Medical Necessity Statement*: Patient requires hospitalization for A-fib with RVR, left hip arthroplasty, UTI, Diagnoses Atrial fibrillation with RVR I48.91 Primary osteoarthritis of left hip M16.12
[2024-01-05] MEDS: acetaminophen 500 mg Tablet 1000 MG PO (21:59)
[2024-01-06] VITALS (8 sets, daily range): BP systolic 94–114; BP diastolic 61–74; PULSE 79–96; RESP 14–20; TEMP 36.6–37; O2SAT 92–96; BMI 41.5
[2024-01-06 04:57] LABS: Basophils % 0.3 %; Eosinophils # 0.1 10^3/uL (0.0-0.8); Eosinophils % 0.6 %; Hematocrit 34.7 % (37-53); Lymphocytes # 1.2 10^3/uL (0.8-4.8); Lymphocytes % 10.2 %; Mean Corpuscular HGB Conc 30.5 g/dL (30-55); Mean Corpuscular Hemoglobin 24.3 pg (27-33); Mean Corpuscular Volume 79.6 fl (82-101); Mean Platelet Volume 11.3 fL (7.4-10.4); Monocytes # 1.2 10^3/uL (0.2-0.9); Monocytes % 10.6 %; Neutrophils # 8.92 10^3/uL (1.8-7.7); Neutrophils % 77.8 %; Nucleated Red Blood Cells % 0 %; Platelet Count 198 10^3/cmm (157-399); Red Blood Count 4.36 10^6/uL (3.85-5.65); White Blood Count 11.47 10^3/uL (3.29-11.43)
[2024-01-06 05:17] LABS: Anion Gap 15.1 (5-19); Blood Urea Nitrogen 17 mg/dL (8-23); Calcium 8.8 mg/dL (8.5-10.5); Carbon Dioxide 26 mmol/L (22-29); Chloride 95 mmol/L (98-107); Creatinine Clr Calc Pharmacy 66.8694; Glomerular Filtration Rate 50.1 mL/min (90-130); Glucose 125 mg/dL (65-115); Osmolality Calculated 277 mOsm/kg (285-295); Potassium 4.1 mmol/L (3.5-5.1); Sodium 132 mmol/L (136-145)
[2024-01-06] MEDS: acetaminophen 500 mg Tablet 1000 MG PO ×3 (05:38→22:24)
[2024-01-06] MEDS: HYDROcodone-acetaminophen 10-325 mg Tablet 1 TAB PO ×3 (05:47→19:39)
[2024-01-06] MEDS: iron polysaccharide complex 150 mg Capsule PO ×2 (09:22→18:27)
[2024-01-06] MEDS: gabapentin 300 mg Capsule 600 MG PO ×2 (09:22→18:26)
[2024-01-06] MEDS: multivitamin therapeutic Tablet 1 TAB PO (09:22)
[2024-01-06] MEDS: potassium chloride ER 20 mEq Tablet PO ×2 (09:22→18:27)
[2024-01-06] MEDS: cholecalciferol (vitamin D3) 1,000 unit Tablet 1000 UNIT PO (09:23)
[2024-01-06] MEDS: bumetanide 1 mg Tablet PO ×2 (09:23→18:27)
[2024-01-06] MEDS: tamsulosin 0.4 mg Capsule 0.800000000000000044 MG PO (09:23)
[2024-01-06] MEDS: sennosides-docusate Tablet 2 TAB PO ×2 (09:23→18:27)
[2024-01-06] MEDS: apixaban 5 mg Tablet PO ×2 (09:24→18:26)
[2024-01-06] MEDS: calcium carbonate 500 mg Chew Tablet 1000 MG PO ×2 (09:24→18:26)
[2024-01-06] MEDS: dilTIAZem 30 mg Tablet PO ×2 (09:25→18:27)
[2024-01-06] MEDS: carvedilol 12.5 mg Tablet PO ×2 (09:25→18:27)
[2024-01-06] MEDS: chlorhexidine gluconate 0.12% Btl 473 mL 30 ML MUCOUS MEM ×4 (09:25→22:24)
[2024-01-06] MEDS: ciprofloxacin 400 MG/200 ML PREMIX 200 MG IV ×2 (09:26→22:24)
[2024-01-06] MEDS: mupirocin oint 22 gm 1 APPLIC NASAL ×2 (09:37→18:29)
--- NOTE | 2024-01-06 12:30 | PC.NURSE ---
Notified Dr. Cherry bladder scan of 1630. Dr. Cherry gave orders to straight cath and rescan in 4 hours.
--- NOTE | 2024-01-06 13:24 | P.PN_ITS ---
Subjective 2 Subjective: Patient was seen this morning, he is alert oriented x 4, following all commands, sitting up in a chair, his pain is more well-controlled, he feels he is a bit more ambulatory, pain is more manageable compared to yesterday Vitals/I&O/Wt Last Vital Signs Temp 98.0 F 01/06/24 07:29 Pulse 95 01/06/24 08:44 Resp 14 01/06/24 07:29 BP 105/68 01/06/24 09:15 Pulse Ox 94 01/06/24 08:44 O2 Del Method Room Air 01/06/24 08:44 O2 Flow Rate 6 01/04/24 15:21 01/05/24 01/06/24 01/06/24 22:59 06:59 14:59 Intake Total 680 / 1610 240 / 1850 240 / 240 Output Total 500 / 1550 300 / 300 Balance 180 / 60 240 / 300 -60 / -60 Weight last 48 hrs Weight 131.23 kg Weight 129.331 kg Weight 124.284 kg Physical Exam 2 Const: COMMON NORMALS: no acute distress and patient oriented x3 Resp: COMMON NORMALS: normal respiratory effort, No retractions, No use of accessory muscles and clear to auscultation bilaterally AUSCULTATION: clear to auscultation bilaterally Cardio: COMMON NORMALS: regular rate, regular rhythm, S1 normal heart sound present and S2 normal heart sound present RATE: regular rate RHYTHM: r egular rhythm HEART SOUNDS: S1 normal heart sound present and S2 normal heart sound present GI: COMMON NORMALS: Normal to inspection, nondistended, normoactive bowel sounds present and non-tender Extremity: COMMON NORMALS: no pedal edema Neuro: COMMON NORMALS: patient oriented x3 Psych: COMMON NORMALS: mental status grossly normal Urinary Catheter Management: Fischer: Cath Placed During This Visit: yes, but has since been removed by the nurse Reason for Continuing Indwelling Catheter: Decision to DC Catheter Urinary Catheter Date of Insertion: 01/04/24 Urinary Catheter Time of Insertion: 12:28 Date Urinary Catheter Removed: 01/05/24 Time Urinary Catheter Discontinued: 06:09 Data 01/06/24 04:19 01/06/24 04:19 Micro: Microbiology 01/05/24 00:06 Urine Culture - Preliminary Urine,Clean Catch A&P Assessment and plan (1) Atrial fibrillation with RVR: Resolving, Continue current Coreg and diltiazem for rate control Continue current apixaban for stroke prophylaxis Check electrolytes including magnesium Continue with telemetry monitoring Ensure adequate pain control prior to escalating AV node blocking agents (2) Primary osteoarthritis of left hip: -Status post left hip arthroplasty Management per primary pain control Continue other pain meds Supportive care Plan Plan for today PT OT, patient might require nursing to place him monitor heart rates, start ciprofloxacin for UTI Attestations 2 Medical Necessity Statement*: Patient requires hospitalization for A-fib, UTI, hip surgery Diagnoses Atrial fibrillation with RVR I48.91 Primary osteoarthritis of left hip M16.12
--- NOTE | 2024-01-06 17:52 | PM.PN ---
Subjective Subjective: Patient is seen today, and he is doing better. His pain is better controlled and he is a bit more ambulatory, but he still requires significant help with transfers and any attempted ambulation. It is likely he will require an additional hospital day prior to discharge to care home. Vitals/I&O/Wt Last Vital Signs Temp 97.5 F L 01/07/24 13:16 Pulse 68 01/07/24 13:16 Resp 14 01/07/24 13:16 BP 118/75 01/07/24 13:16 Pulse Ox 96 01/07/24 13:16 O2 Del Method Room Air 01/07/24 11:32 O2 Flow Rate 6 01/04/24 15:21 01/07/24 01/07/24 01/07/24 06:59 14:59 22:59 Intake Total 680 / 2080 560 / 560 Output Total 1450 / 2300 Balance -770 / -220 560 / 560 Weight last 48 hrs Weight 293 lb 11.2 oz Weight 289 lb 5 oz Physical Exam Const: COMMON NORMALS: no acute distress, average body habitus and alert GENERAL APPEARANCE: cooperative and comfortable ORIENTATION/CONSCIOUSNESS: Yes awake HENMT: COMMON NORMALS: normocephalic and atraumatic HEAD & SCALP: normocephalic and atraumatic Eye: GENERAL EYE: appearance normal, both eyes and all related structures Chest: COMMONS NORMALS: normal inspection of the chest Resp: COMMON NORMALS: normal respiratory effort EFFORT & INSPECTION: Yes able to speak in complete sentences and Yes symmetric chest movement Extremity: LEFT LOWER EXTREMITY: Yes hip joint (Less pain to palpation.) Left hip: Yes inspection (Minimal to no swelling.), Yes ROM (Not evaluated.) and Yes neurovascular exam (Intact distally with no evidence of DVT.) Neuro: SENSORIUM/ORIENTATION: Yes alert Psych: COMMON NORMALS: mental status grossly normal APPEARANCE: Yes grossly normal ATTITUDE: Yes calm and Yes engaged ATTENTION/CONCENTRATION: Yes attention grossly intact Skin: COMMON NORMALS: no rashes or lesions noted GENERAL SKIN EXAM: no rashes or lesions noted Urinary Catheter Management: Fischer: Cath Placed During This Visit: yes, but has since been removed by the nurse Reason for Continuing Indwelling Catheter: Acute Urinary Retention or Obstruction Urinary Catheter Date of Insertion: 01/06/24 Urinary Catheter Time of Insertion: 17:25 Date Urinary Catheter Removed: 01/05/24 Time Urinary Catheter Discontinued: 06:09 Data 01/07/24 04:33 01/07/24 04:33 Micro: Microbiology 01/05/24 00:06 Urine Culture - Final Urine,Clean Catch A&P Assessment and plan (1) Primary osteoarthritis of left hip: Patient underwent same-day surgery for left total hip arthroplasty. On the first postoperative day, he had difficulty with ambulation and was somewhat confused. Today, the second postoperative day, he is doing much better, but he still requires significant intervention for ambulation and transfers. It is not felt that he would be safe for discharge at this time. Therefore, he will be maintained an additional day in the hospital with hopes that he will continue to improve and ambulation and independence. Plans are being made for discharge to care home. (2) Status post total hip replacement, left: Attestations Medical Necessity Statement*: Ongoing care following total hip arthroplasty. Coding Level of Care Code Acute Code for [facility] Fwd Diagnoses Primary osteoarthritis of left hip M16.12 Status post total hip replacement, left Z96.642
[2024-01-06] MEDS: oxyCODONE 5 mg IR Tab/Cap PO (22:23)
[2024-01-07] VITALS (7 sets, daily range): BP systolic 104–118; BP diastolic 64–75; PULSE 68–81; RESP 14–18; TEMP 36.4–36.9; O2SAT 90–96
[2024-01-07] MEDS: oxyCODONE 5 mg IR Tab/Cap PO (04:39)
[2024-01-07 05:03] LABS: Basophils % 0.3 %; Eosinophils # 0.2 10^3/uL (0.0-0.8); Eosinophils % 1.8 %; Hematocrit 30.8 % (37-53); Lymphocytes # 1.3 10^3/uL (0.8-4.8); Mean Corpuscular HGB Conc 30.8 g/dL (30-55); Mean Corpuscular Hemoglobin 24.4 pg (27-33); Mean Platelet Volume 12.2 fL (7.4-10.4); Monocytes # 0.8 10^3/uL (0.2-0.9); Monocytes % 7.3 %; Neutrophils # 8.44 10^3/uL (1.8-7.7); Nucleated Red Blood Cells % 0 %; Platelet Count 203 10^3/cmm (157-399); White Blood Count 10.81 10^3/uL (3.29-11.43)
[2024-01-07 05:17] LABS: Blood Urea Nitrogen 21 mg/dL (8-23); Calcium 8.9 mg/dL (8.5-10.5); Carbon Dioxide 26 mmol/L (22-29); Chloride 94 mmol/L (98-107); Creatinine Clr Calc Pharmacy 78.6593; Glomerular Filtration Rate 59.9 mL/min (90-130); Glucose 100 mg/dL (65-115); Osmolality Calculated 277 mOsm/kg (285-295); Sodium 132 mmol/L (136-145)
[2024-01-07 05:34] LABS: Anion Gap 16.3 (5-19); Potassium 4.3 mmol/L (3.5-5.1)
[2024-01-07] MEDS: acetaminophen 500 mg Tablet 1000 MG PO (06:32)
[2024-01-07] MEDS: potassium chloride ER 20 mEq Tablet PO (09:06)
[2024-01-07] MEDS: carvedilol 12.5 mg Tablet PO (09:06)
[2024-01-07] MEDS: HYDROcodone-acetaminophen 10-325 mg Tablet 1 TAB PO (09:06)
[2024-01-07] MEDS: bumetanide 1 mg Tablet PO (09:06)
[2024-01-07] MEDS: sennosides-docusate Tablet 2 TAB PO (09:06)
[2024-01-07] MEDS: tamsulosin 0.4 mg Capsule 0.800000000000000044 MG PO (09:07)
[2024-01-07] MEDS: dilTIAZem 30 mg Tablet PO (09:07)
[2024-01-07] MEDS: chlorhexidine gluconate 0.12% Btl 473 mL 30 ML MUCOUS MEM (09:07)
[2024-01-07] MEDS: calcium carbonate 500 mg Chew Tablet 1000 MG PO (09:07)
[2024-01-07] MEDS: apixaban 5 mg Tablet PO (09:07)
[2024-01-07] MEDS: gabapentin 300 mg Capsule 600 MG PO (09:07)
[2024-01-07] MEDS: cholecalciferol (vitamin D3) 1,000 unit Tablet 1000 UNIT PO (09:07)
[2024-01-07] MEDS: multivitamin therapeutic Tablet 1 TAB PO (09:07)
[2024-01-07] MEDS: iron polysaccharide complex 150 mg Capsule PO (09:07)
[2024-01-07] MEDS: mupirocin oint 22 gm 1 APPLIC NASAL (09:08)
[2024-01-07] MEDS: ciprofloxacin 400 MG/200 ML PREMIX 200 MG IV (09:09)
--- NOTE | 2024-01-07 10:52 | P.DS_ITS ---
Discharge Providers Date of Admission: 01/04/24 15:35 Date of Discharge: January 07, 2024 Attending Provider at Admission: Tamara Dawkins MD Attending Provider at Discharge: Curtis Cherry MD Primary Care Provider: Jim Obrien MD Diagnoses at Discharge Discharge Diagnosis (1) Atrial fibrillation with RVR: Status: Acute (2) Primary osteoarthritis of left hip: Status: Acute Reason for Visit Reason for Visit: M16.12 Hospital Course Hospital Course Felipe Bello is a 68 year old male hypertension, heart failure with preserved ejection fraction, GERD, atrial flutter/fibrillation, benign prostatic hypertrophy, left hip osteoarthritis and prior back surgeries who underwent left total hip arthroplasty for severe degenerative osteoarthritis of left hip on 01/04/[address] Dawkins. Postop course was concerning for abnormal telemetry showing rapid ventricular rate with heart rate reportedly around 200. An EKG obtained showing actual ventricular rate in the 110s. Heart rate on telemetry deemed to be secondary to patient's tremulous activity. He currently rates his pain severe and uncontrolled. Rates 10 out of 10. He received oxycodone previously but without desired effect. He endorses the pains in his low back and hip. Reports movement makes the pain worse. Denies other alleviating factors. Patient has a history of atrial fibrillation. EKGs in the system show at least persistent, suspected permanent atrial fibrillation. He is on Coreg and Cardizem twice daily for rate control. He does have a history of bradycardia. Takes apixaban for stroke prophylaxis. Both medications have been ordered. Patient was admitted to [facility] for primary osteoarthritis of left hip status post left hip arthroplasty, received inpatient PT OT, discharged to [facility] facility for outpatient PT OT, discharge on oxycodone to be used sparingly for pain, do not drive operate machinery or drink while taking medication Patient's hospitalization was complicated with A-fib with RVR, resolved with his home medications, Coreg, diltiazem, discharged on his home medications including Eliquis Patient's hospitalization was complicated by urinary retention, even after Fischer catheter removal, failed voiding trial, Fischer catheter placed on discharge, follow-up with urology in [place] in 2 weeks for removal Patient had concerns for UTI on admission, urine cultures so far negative, has received 48 hours of Cipro, discharged on 3 more days of Cipro Physical Exam Const: COMMON NORMALS: no acute distress and patient oriented x3 Resp: COMMON NORMALS: normal respiratory effort, No retractions, No use of acc essory muscles and clear to auscultation bilaterally AUSCULTATION: clear to auscultation bilaterally Cardio: COMMON NORMALS: regular rate, regular rhythm, S1 normal heart sound present and S2 normal heart sound present RATE: regular rate RHYTHM: regular rhythm HEART SOUNDS: S1 normal heart sound present and S2 normal heart sound present GI: COMMON NORMALS: Normal to inspection, nondistended, normoactive bowel sounds present and non-tender Extremity: COMMON NORMALS: no pedal edema Neuro: COMMON NORMALS: patient oriented x3 Psych: COMMON NORMALS: mental status grossly normal Urinary Catheter Management: Fischer: Cath Placed During This Visit: yes, but has since been removed by the nurse Reason for Continuing Indwelling Catheter: Acute Urinary Retention or Obstruction Urinary Catheter Date of Insertion: 01/06/24 Urinary Catheter Time of Insertion: 17:25 Date Urinary Catheter Removed: 01/05/24 Time Urinary Catheter Discontinued: 06:09 Discharge Data Studies Completed and Pending Completed Studies During Hospitalization Category Date Time Status XR pelvis 1-2V* [id number] Routine Exams 01/04/24 15:24 Completed Pending at discharge Category Date Time Status Basic Metabolic Panel AM LABS Lab 01/08/24 04:00 Ordered COVID [SARS Covid-2 Antigen] Routine Lab 01/07/24 10:24 Uncollected Complete Blood Count w/Auto AM LABS Lab 01/08/24 04:00 Ordered Radiology Impressions Pelvis X-Ray 01/04/24 15:24 IMPRESSION: Satisfactory postoperative appearance. Laboratory Results WBC 10.81 10^3/uL (3.29-11.43) 01/07/24 04:33 RBC 3.90 10^6/uL (3.85-5.65) 01/07/24 04:33 Hgb 9.50 g/dL (11.27-16.99) L 01/07/24 04:33 Hct 30.8 % (37-53) L 01/07/24 04:33 MCV 79.0 fl (82-101) L 01/07/24 04:33 MCH 24.4 pg (27-33) L 01/07/24 04:33 MCHC 30.8 g/dL (30-55) 01/07/24 04:33 RDW 19.0 % (12.1-15.1) H 01/07/24 04:33 Plt Count 203 10^3/cmm (157-399) 01/07/24 04:33 MPV 12.2 fL (7.4-10.4) H 01/07/24 04:33 Neut % (Auto) 78.0 % 01/07/24 04:33 Lymph % (Auto) 12.0 % 01/07/24 04:33 [place] % (Auto) 7.3 % 01/07/24 04:33 Eos % (Auto) 1.8 % 01/07/24 04:33 Baso % (Auto) 0.3 % 01/07/24 04:33 Neut # (Auto) 8.44 10^3/uL (1.8-7.7) H 01/07/24 04:33 Lymph # (Auto) 1.3 10^3/uL (0.8-4.8) 01/07/24 04:33 [place] # (Auto) 0.8 10^3/uL (0.2-0.9) 01/07/24 04:33 Eos # (Auto) 0.2 10^3/uL (0.0-0.8) 01/07/24 04:33 Baso # (Auto) 0.0 10^3/uL (0.0-0.1) 01/07/24 04:33 Nucleated RBC % (auto) 0 % 01/07/24 04:33 Nucleated RBCs # 0.0 /100WBC 01/07/24 04:33 Sodium 132 mmol/L (136-145) L 01/07/24 04:33 Potassium 4.3 mmol/L (3.5-5.1) 01/07/24 04:33 Chloride 94 mmol/L (98-107) L 01/07/24 04:33 Carbon Dioxide 26 mmol/L (22-29) 01/07/24 04:33 Anion Gap 16.3 (5-19) 01/07/24 04:33 BUN 21 mg/dL (8-23) 01/07/24 04:33 Creatinine 1.2 mg/dL (0.7-1.2) 01/07/24 04:33 GFR Calculation 59.9 mL/min (90-130) L 01/07/24 04:33 Glucose 100 mg/dL (65-115) 01/07/24 04:33 Calculated Osmolality 277 mOsm/kg (285-295) L 01/07/24 04:33 Calcium 8.9 mg/dL (8.5-10.5) 01/07/24 04:33 Phosphorus 2.4 mg/dL (2.5-4.5) L 01/04/24 19:45 Magnesium 2.0 mg/dL (1.7-2.3) 01/04/24 19:45 Albumin 4.0 g/dL (3.5-5.2) 01/04/24 19:45 Urine Color Yellow (Yellow) 01/05/24 00:06 Urine Appearance Cloudy (CLEAR) A 01/05/24 00:06 Urine pH 5 (5-7) 01/05/24 00:06 Ur Specific [place] 1.015 (1.005-1.030) 01/05/24 00:06 Urine Protein 1+ (Negative) H 01/05/24 00:06 Urine Glucose (UA) Norm (Normal) 01/05/24 00:06 Urine Ketones Negative (Negative) 01/05/24 00:06 Urine Blood 3+ (Negative) H 01/05/24 00:06 Urine Nitrate Negative (Negative) 01/05/24 00:06 Urine Bilirubin Neg (Negative) 01/05/24 00:06 Urine Urobilinogen Neg mg/dL (Negative) 01/05/24 00:06 Ur Leukocyte Esterase 1+ (Negative) H 01/05/24 00:06 Urine RBC 50-80 /hpf (0-2) H 01/05/24 00:06 Urine WBC 15-25 /hpf (0-5) H 01/05/24 00:06 Ur Squamous Epith Cells None /hpf (0-5) 01/05/24 00:06 Amorphous Sediment Not Reportable 01/05/24 00:06 Urine Bacteria 3+ /hpf (NONE) H 01/05/24 00:06 Urine Mucus 3+ /hpf 01/05/24 00:06 Vitals Last Vital Signs Temp 98.3 F 01/07/24 07:47 Pulse 76 01/07/24 07:47 Resp 16 01/07/24 07:47 BP 113/67 01/07/24 07:47 Pulse Ox 95 01/07/24 07:56 O2 Del Method Room Air 01/07/24 07:56 O2 Flow Rate 6 01/04/24 15:21 Discharge Plan Discharge Patient Disposition: Xfer SNF Condition: Stable Prescriptions: New oxycodone 5 mg Tablet 5 mg PO Q4H PRN (Reason: Moderate Pain) 7 Days Qty: 42 0RF sennosides-docusate sodium [Stool Softener-Laxative] 8.6-50 mg Tablet 1 tab PO BID 30 Days Qty: 60 0RF Continued carvedilol 12.5 mg tablet 12.5 mg PO BID Qty: 60 5RF Rx Instructions: must administer with a meal/food bumetanide 1 mg tablet 1 mg PO BID 30 Days Qty: 60 5RF tamsulosin 0.4 mg capsule 0.8 mg PO DAILY Eliquis 5 mg tablet 5 mg PO BID Hold Instructions: Resume on 05/11/22. diltiazem HCl 30 mg tablet 30 mg PO BID Qty: 60 2RF potassium chloride 20 mEq tablet,ER particles/crystals 20 meq PO BID 30 Days Qty: 60 0RF Rx Instructions: with bumex therapy gabapentin 600 mg tablet 600 mg PO BID Discharge Orders: Discharge Order (Routine); Ordered 01/07/24 Ordered By: Curtis Cherry Referrals: [facility] Zaragoza [Outside] Jim Obrien MD [Primary Care Provider] - (We have notified your physician's clinic of the need for a follow-up appointment to be scheduled. If you have not heard from them within the next 2 business days, please call them directly. ) Tamara Dawkins MD [Physician] - 01/19/24 2:45 am Usman Law MD [Referring] - 2 weeks (Urinary retention, Fischer catheter in place) Discharge Diet: Advance as tolerated and Usual diet Discharge Activity: Limit activity as instructed, Use walker/crutches as instructed and As per PT/OT instructions Patient Instructions: Opioid Safety Activity Restrictions/Additional Instructions: Posterior hip precautions. May ambulate weightbearing as tolerated. Gait training, ambulation, and strengthening per physical therapy. Maintain current dressing. You may shower. Discharge Attestations Time Spent in Discharge Care*: greater than 30 min Status at Discharge: Cognitive status at discharge: cognitively intact , Behavioral status at discharge: cooperative , Quality Metrics Clinical Quality Measures [ No reported AMI, CVA or VTE this stay] Coding Level of Care Code 46910 Total time (in minutes) for Discharge: 45 Diagnoses Atrial fibrillation with RVR I48.91 Primary osteoarthritis of left hip M16.12
--- NOTE | 2024-01-07 11:01 | PC.NURSE ---
Report called to SHEBA Jenkins at [facility] in [place]
[2024-01-07 11:27] LABS: SARS Covid-2 Antigen Negative (Negative)
--- NOTE | 2024-01-07 11:35 | PC.SOCIAL ---
IMM Update pg 2 of IMM updated and reviewed w/ patient. Copy provided and copy dated, initialed and placed in chart.
--- NOTE | 2024-01-07 17:51 | P.DS_ITS ---
Discharge Providers Date of Admission: 01/04/24 15:35 Date of Discharge: January 07, 2024 Attending Provider at Admission: Tamara Dawkins MD Attending Provider at Discharge: Curtis Cherry MD Primary Care Provider: Jim Obrien MD Diagnoses at Discharge Discharge Diagnosis (1) Atrial fibrillation with RVR: Status: Acute (2) Primary osteoarthritis of left hip: Status: Acute Reason for Visit Reason for Visit: M16.12 Hospital Course Hospital Course Felipe Bello is a 68 year old male hypertension, heart failure with preserved ejection fraction, GERD, atrial flutter/fibrillation, benign prostatic hypertrophy, left hip osteoarthritis and prior back surgeries who underwent left total hip arthroplasty for severe degenerative osteoarthritis of left hip on 01/04/[address] Dawkins. Postop course was concerning for abnormal telemetry showing rapid ventricular rate with heart rate reportedly around 200. An EKG obtained showing actual ventricular rate in the 110s. Heart rate on telemetry deemed to be secondary to patient's tremulous activity. He currently rates his pain severe and uncontrolled. Rates 10 out of 10. He received oxycodone previously but without desired effect. He endorses the pains in his low back and hip. Reports movement makes the pain worse. Denies other alleviating factors. Patient has a history of atrial fibrillation. EKGs in the system show at least persistent, suspected permanent atrial fibrillation. He is on Coreg and Cardizem twice daily for rate control. He does have a history of bradycardia. Takes apixaban for stroke prophylaxis. Both medications have been ordered. Patient was admitted to [facility] for primary osteoarthritis of left hip status post left hip arthroplasty, received inpatient PT OT, discharged to shelter facility for outpatient PT OT, discharge on oxycodone to be used sparingly for pain, do not drive operate machinery or drink while taking medication Patient's hospitalization was complicated with A-fib with RVR, resolved with his home medications, Coreg, diltiazem, discharged on his home medications including Eliquis Patient's hospitalization was complicated by urinary retention, even after Fischer catheter removal, failed voiding trial, Fischer catheter placed on discharge, follow-up with urology in [place] in 2 weeks for removal Patient had concerns for UTI on admission, urine cultures so far negative, has received 48 hours of Cipro, discharged on 3 more days of Cipro Physical Exam Urinary Catheter Management: Fischer: Cath Placed During This Visit: yes, but has since been removed by the nurse Reason for Continuing Indwelling Catheter: Acute Urinary Retention or Obstruction Urinary Catheter Date of Insertion: 01/06/24 Urinary Catheter Time of Insertion: 17:25 Date Urinary Catheter Removed: 01/05/24 Time Urinary Catheter Discontinued: 06:09 Discharge Data Studies Completed and Pending Completed Studies During Hospitalization Category Date Time Status XR pelvis 1-2V* [id number] Routine Exams 01/04/24 15:24 Completed Radiology Impressions Pelvis X-Ray 01/04/24 15:24 IMPRESSION: Satisfactory postoperative appearance. Laboratory Results WBC 10.81 10^3/uL (3.29-11.43) 01/07/24 04:33 RBC 3.90 10^6/uL (3.85-5.65) 01/07/24 04:33 Hgb 9.50 g/dL (11.27-16.99) L 01/07/24 04:33 Hct 30.8 % (37-53) L 01/07/24 04:33 MCV 79.0 fl (82-101) L 01/07/24 04:33 MCH 24.4 pg (27-33) L 01/07/24 04:33 MCHC 30.8 g/dL (30-55) 01/07/24 04:33 RDW 19.0 % (12.1-15.1) H 01/07/24 04:33 Plt Count 203 10^3/cmm (157-399) 01/07/24 04:33 MPV 12.2 fL (7.4-10.4) H 01/07/24 04:33 Neut % (Auto) 78.0 % 01/07/24 04:33 Lymph % (Auto) 12.0 % 01/07/24 04:33 [place] % (Auto) 7.3 % 01/07/24 04:33 Eos % (Auto) 1.8 % 01/07/24 04:33 Baso % (Auto) 0.3 % 01/07/24 04:33 Neut # (Auto) 8.44 10^3/uL (1.8-7.7) H 01/07/24 04:33 Lymph # (Auto) 1.3 10^3/uL (0.8-4.8) 01/07/24 04:33 [place] # (Auto) 0.8 10^3/uL (0.2-0.9) 01/07/24 04:33 Eos # (Auto) 0.2 10^3/uL (0.0-0.8) 01/07/24 04:33 Baso # (Auto) 0.0 10^3/uL (0.0-0.1) 01/07/24 04:33 Nucleated RBC % (auto) 0 % 01/07/24 04:33 Nucleated RBCs # 0.0 /100WBC 01/07/24 04:33 Sodium 132 mmol/L (136-145) L 01/07/24 04:33 Potassium 4.3 mmol/L (3.5-5.1) 01/07/24 04:33 Chloride 94 mmol/L (98-107) L 01/07/24 04:33 Carbon Dioxide 26 mmol/L (22-29) 01/07/24 04:33 Anion Gap 16.3 (5-19) 01/07/24 04:33 BUN 21 mg/dL (8-23) 01/07/24 04:33 Creatinine 1.2 mg/dL (0.7-1.2) 01/07/24 04:33 GFR Calculation 59.9 mL/min (90-130) L 01/07/24 04:33 Glucose 100 mg/dL (65-115) 01/07/24 04:33 Calculated Osmolality 277 mOsm/kg (285-295) L 01/07/24 04:33 Calcium 8.9 mg/dL (8.5-10.5) 01/07/24 04:33 Phosphorus 2.4 mg/dL (2.5-4.5) L 01/04/24 19:45 Magnesium 2.0 mg/dL (1.7-2.3) 01/04/24 19:45 Albumin 4.0 g/dL (3.5-5.2) 01/04/24 19:45 Urine Color Yellow (Yellow) 01/05/24 00:06 Urine Appearance Cloudy (CLEAR) A 01/05/24 00:06 Urine pH 5 (5-7) 01/05/24 00:06 Ur Specific [place] 1.015 (1.005-1.030) 01/05/24 00:06 Urine Protein 1+ (Negative) H 01/05/24 00:06 Urine Glucose (UA) Norm (Normal) 01/05/24 00:06 Urine Ketones Negative (Negative) 01/05/24 00:06 Urine Blood 3+ (Negative) H 01/05/24 00:06 Urine Nitrate Negative (Negative) 01/05/24 00:06 Urine Bilirubin Neg (Negative) 01/05/24 00:06 Urine Urobilinogen Neg mg/dL (Negative) 01/05/24 00:06 Ur Leukocyte Esterase 1+ (Negative) H 01/05/24 00:06 Urine RBC 50-80 /hpf (0-2) H 01/05/24 00:06 Urine WBC 15-25 /hpf (0-5) H 01/05/24 00:06 Ur Squamous Epith Cells None /hpf (0-5) 01/05/24 00:06 Amorphous Sediment Not Reportable 01/05/24 00:06 Urine Bacteria 3+ /hpf (NONE) H 01/05/24 00:06 Urine Mucus 3+ /hpf 01/05/24 00:06 SARS-CoV-2 Ag (Rapid) Negative (Negative) 01/07/24 10:29 Vitals Last Vital Signs Temp 97.5 F L 01/07/24 13:16 Pulse 68 01/07/24 13:16 Resp 14 01/07/24 13:16 BP 118/75 01/07/24 13:16 Pulse Ox 96 01/07/24 13:16 O2 Del Method Room Air 01/07/24 11:32 O2 Flow Rate 6 01/04/24 15:21 Discharge Plan Discharge Patient Disposition: Xfer SNF Condition: Stable Prescriptions: New Stool Softener-Laxative 8.6-50 mg Tablet 1 tab PO BID 30 Days Qty: 60 0RF oxycodone 5 mg Tablet 5 mg PO Q4H PRN (Reason: Moderate Pain) 7 Days Qty: 42 0RF ciprofloxacin HCl 250 mg tablet 250 mg PO BID 3 Days Qty: 6 0RF Continued carvedilol 12.5 mg tablet 12.5 mg PO BID Qty: 60 5RF Rx Instructions: must administer with a meal/food bumetanide 1 mg tablet 1 mg PO BID 30 Days Qty: 60 5RF tamsulosin 0.4 mg capsule 0.8 mg PO DAILY Eliquis 5 mg tablet 5 mg PO BID Hold Instructions: Resume on 05/11/22. diltiazem HCl 30 mg tablet 30 mg PO BID Qty: 60 2RF potassium chloride 20 mEq tablet,ER particles/crystals 20 meq PO BID 30 Days Qty: 60 0RF Rx Instructions: with bumex therapy gabapentin 600 mg tablet 600 mg PO BID Discharge Orders: Discharge Order (Routine); Ordered 01/07/24 Ordered By: Curtis Cherry Referrals: [facility] [Outside] Jim Obrien MD [Primary Care Provider] - (We have notified your physician's clinic of the need for a follow-up appointment to be scheduled. If you have not heard from them within the next 2 business days, please call them directly. ) Tamara Dawkins MD [Physician] - 01/19/24 2:45 am Usman Law MD [Referring] - 2 weeks (Urinary retention, Fischer catheter in place) Discharge Diet: Advance as tolerated and Usual diet Discharge Activity: Limit activity as instructed, Use walker/crutches as instructed and As per PT/OT instructions Patient Instructions: Ciprofloxacin (By mouth) (Cipro), Oxycodone, Rapid Releas e (By mouth), Senna (By mouth) (Sen, Senna-lax), Precautions after Total Joint Replacement Surgery (DC), Joint Replacement Surgery (DC), Opioid Safety Activity Restrictions/Additional Instructions: Posterior hip precautions. May ambulate weightbearing as tolerated. Gait training, ambulation, and strengthening per physical therapy. Maintain current dressing. You may shower. Discharge Attestations Status at Discharge: Cognitive status at discharge: cognitively intact , Behavioral status at discharge: cooperative , Coding Level of Care Code Acute Code for [facility] Diagnoses Atrial fibrillation with RVR I48.91 Primary osteoarthritis of left hip M16.12
== END 2024-01-07 13:17 | DRG 470 ==
LOC: MEDSURG 18:33
PROVIDERS: Internal Medicine; Admitting Provider Specialist; PCP Family Medicine; Visit Provider Family Medicine
PROC: 0SRB0JA Replacement of Left Hip Joint with Synthetic Substitute, Uncemented, Open Approach (ICD-10-PCS; CPT 27130; principal; 2024-01-04 12:25)
DX: M16.12 Unilateral primary osteoarthritis, left hip (principal); I48.20 Chronic atrial fibrillation, unspecified; I50.32 Chronic diastolic (congestive) heart failure; Z79.01 Long term (current) use of anticoagulants; N40.1 Benign prostatic hyperplasia with lower urinary tract symptoms; R33.9 Retention of urine, unspecified; I11.0 Hypertensive heart disease with heart failure
CPT/HCPCS: 36415; 51702; 51798; 72170; 80048; 80069; 81001; 83735; 85025; 87086; 87426; 97110; 97116; 97161; 97167; 97530; C1776; J0131; J0744; J1170; J2250; J2704; J3010; J3370; J3490; J7030

== ENCOUNTER → 2024-01-19 14:12 | Outpatient (BNVA) | payer MEDICARE, SELFPAY | PROVIDERS: PCP Family Medicine; Visit Provider Specialist | DX: Z96.642 Presence of left artificial hip joint (principal) | CPT/HCPCS: 73502; 99024 ==

== ENCOUNTER → 2024-01-27 10:25 | Outpatient (BNVA) | payer MEDICARE, SELFPAY | PROVIDERS: PCP Family Medicine; Visit Provider Nurse Practitioner Family | DX: J06.9 Acute upper respiratory infection, unspecified (principal) | CPT/HCPCS: 81003 ==

== ENCOUNTER → 2024-02-03 12:31 | Outpatient (BNVA) | payer MEDICARE, SELFPAY | PROVIDERS: PCP Family Medicine; Visit Provider Family Medicine | DX: I50.33 Acute on chronic diastolic (congestive) heart failure (principal); Z79.01 Long term (current) use of anticoagulants | CPT/HCPCS: 80053; 85025 ==

== ENCOUNTER 2024-03-06 13:01 | Inpatient (IN) | payer MEDICARE, SELFPAY ==
[2024-03-06] VITALS (8 sets, daily range): BP systolic 86–112; BP diastolic 55–71; PULSE 60–77; RESP 15–17; TEMP 36.7–37; O2SAT 95–97; BMI 36.5
--- NOTE | 2024-03-06 13:16 | XRR_ITS ---
PROCEDURE INFORMATION: Exam: XR Chest Exam date and time: 03/06/2024 1:19 PM Age: 68 years old Clinical indication: Cough and dyspnea; Additional info: Dyspnea/cough TECHNIQUE: Imaging protocol: Radiologic exam of the chest. Views: 1 view. COMPARISON: CR XR chest 1V portable [id number] 08/07/2023 4:50 PM FINDINGS: Lungs: There is no consolidation. Pleural spaces: There is no pleural effusion or pneumothorax. Heart/Mediastinum: Cardiomediastinal contours are unremarkable. Bones/joints: Bones are unremarkable. XR/XR chest 1V portable [id number] IMPRESSION: No acute findings.
--- NOTE | 2024-03-06 13:18 | ECG_ITS ---
[facility] Test Date: 2024-03-06 Pat Name: Felipe Bello Department: Room: Gender: Male [employer] Baker: : 1955 Requested By: Bk Zamarripa Order Number: [id number] Jesse MD: Tamica Booth M.D. Measurements Intervals [place] Rate: 71 P: 0 SC: 0 QRS: -69 QRSD: 125 T: 65 QT: 408 QTc: 445 Interpretive Statements ATRIAL FIBRILLATION LEFT AXIS DEVIATION [QRS AXIS < -30] RIGHT BUNDLE BRANCH BLOCK [120+ ms QRS DURATION, UPRIGHT V1, 40+ ms S IN I/aVL/V4/V5/V6] POSSIBLE ANTERIOR MYOCARDIAL INFARCTION , PROBABLY OLD [30 ms Q WAVE IN V3/V4, OR R < 0.2 mV IN V4] Compared to ECG 08/08/2023 00:13:21 No significant changes Electronically Signed On 03-06-2024 19:03:26 CDT by Tamica Booth M.D. [id number]
[2024-03-06] MEDS: sodium chloride 0.9% 1,000 ML 999 ML IV (13:40)
--- NOTE | 2024-03-06 13:41 | ED_ITS ---
HPI - General Adult 2 General: Chief complaint: General Medical Stated complaint: abnormal labs Time Seen by Provider: 03/06/24 13:13 Source: patient Mode of arrival: ambulatory History of Present Illness: 68-year-old male presents to the emergen cy room from a walk-in clinic she was evaluated there and found to be in A-fib. Patient has a known history of A-fib with RVR he currently is on apixaban. He went in to be evaluated today he said 3 days ago he fell at home he stumbled passed out he is thinks that he was unconscious for 5 to 10 minutes states he felt better when he got up. Associated symptoms: Deny chest pain, dyspnea or rash Review of Systems 2 Const: Denies: fever(s) or chills Card: Denies: chest pain Resp: Denies: dyspnea GI: Denies: abdominal pain : Denies: dysuria, urinary frequency or urinary urgency Musc: Denies: neck pain or back pain Skin/Breast: Denies: rash PFSH ED 2 PFSH: Medical History (Updated 03/06/24 @ 16:30 by Bk Martin DO) Enrolled in chronic care management PLEASE DO NOT REMOVE FROM ACTIVE Afib Anemia Syncope Fall at home Chronic back pain Chronic neck pain Upper respiratory infection Urinary retention Acute bacterial sinusitis Need for pneumococcal vaccine Acute UTI CKD (chronic kidney disease) TMJ dysfunction Chronic sinusitis Vitamin D deficiency History of abnormal breathing pattern Medication management Encounter for screening for cardiovascular disorders Acute right hip pain GI bleed NSTEMI (non-ST elevated myocardial infarction) Drug-induced diarrhea Atrial flutter with rapid ventricular response Hypotension Hematochezia Fluid overload Pain and swelling of right ankle Deviated nasal septum Rhus dermatitis Maxillary sinus cyst Elevated PSA Lower respiratory infection Shortness of breath COVID-19 vaccine series completed Pain, dental Dental abscess Tachycardia BPH loc w urin obs/LUTS Osteoarthritis thoracic spine Thoracic degenerative disc disease 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 Leads intact. 1989 [place], [place] L3-L4, L4-L5 posterior fusion/fixation. L3 right-sided hemilaminectomy. History of umbilical hernia repair S/P hip replacement 08/04/2016 right hip S/P knee surgery S/P appendectomy Family History Father , at age 83 CAD (coronary artery disease) Mother , at age 76 CAD (coronary artery disease) Social History Smoking and tobacco/nicotine status: former use of tobacco/nicotine Alcohol intake: never Substance/Drug Use: never Household members: none Marital status: Current occupational status: retired and disabled Physical Exam 2 Const: COMMON NORMALS: no acute distress GENERAL APPEARANCE: cooperative and comfortable ORIENTATION/CONSCIOUSNESS: Yes awake, Yes oriented to person, Yes oriented to place and Yes oriented to time HENMT: COMMON NORMALS: normocephalic, atraumatic and hearing grossly normal bilaterally HEAD & SCALP: normocephalic and atraumatic Resp: COMMON NORMALS: normal respiratory effort, No retractions, No use of accessory muscles and clear to auscultation bilaterally AUSCULTATION: clear to auscultation bilaterally Cardio: COMMON NORMALS: regular rate, regular rhythm and No murmurs present (Cardio) RATE: regular rate RHYTHM: regular rhythm GI: COMMON NORMALS: Soft to palpation and No hepatosplenomegaly present A USCULTATION: Yes normoactive bowel sounds PALPATION: Yes Soft to palpation, No Tenderness to palpation present (GI), No Guarding due to palpation present (GI) and Yes No hepatosplenomegaly present Extremity: COMMON NORMALS: normal to inspection, capillary refill normal, no clubbing, cyanosis or edema, no calf tenderness and no pedal edema Neuro: SENSORIUM/ORIENTATION: Yes oriented to person, Yes oriented to place and Yes oriented to time Skin: COMMON NORMALS: no rashes or lesions noted GENERAL SKIN EXAM: no rashes or lesions noted Course 2 Vital Signs: Vital signs: Vital Signs Temperature 98.1 F 03/06/24 13:09 Pulse Rate 70 03/06/24 13:41 Respiratory Rate 16 03/06/24 13:09 Blood Pressure 99/62 03/06/24 13:41 Pulse Oximetry 95 03/06/24 13:41 Oxygen Delivery Me thod Room Air 03/06/24 13:41 MDM - General Adult Medical Decision Making Did get a hold of the midlevel at seen the patient earlier because of the syncopal episode did send him out. In the nurses note there is a question about a blood clot in triage according to the midlevel that seen him earlier due to gross there was no concern about clot they are aware that he that he is on Eliquis and had been taking regularly. Here he has mild acute kidney injury potassium of 2 elevated white count and lactic acidosis as well as hyponatremia. He was given IV fluid bolus. Because of the patient's A-fib and his elevated BNP I did not give him the full 30 mL/kg fluid bolus this is concerned that may precipitate worsening heart failure. He did get a liter of fluid and his blood pressures improved to 117/79. I think it is safer for him to not have the full bolus at this time. He will likely require more fluids but this should probably be be given in a more judicious fashion. Have discussed with the hospitalist will admit discussed with the patient as well. He is prophylactically been started on antibiotics. Medical Records I reviewed the patient's medical records. Lab Data I reviewed the patient's lab results. 03/06/24 13:37 03/06/24 13:37 Radiology Impressions Chest X-Ray 03/06/24 13:16 IMPRESSION: No acute findings. Head CT 03/06/24 13:53 IMPRESSION: No acute intracranial abnormality. Cervical Spine CT 03/06/24 13:57 IMPRESSION: 1. No acute fracture. 2. 8 mm left upper lobe pulmonary nodule. For both low risk and high risk patients, consider CT Chest at 3 months, PET/CT, or biopsy. (Reference: Fabien) REFERENCES: Suzannehomishel H, et al. Guidelines for Management of Incidental Pulmonary Nodules Detected on CT Images: From the Fleischner Society 2017. Radiology. 2017;284(1):228-243. Chest/Abdomen/Pelvis CT 03/06/24 15:18 IMPRESSION: 1. No sign of significant traumatic injury in the thorax. 2. Noncalcified bilateral lung nodules measuring up to 6 mm. For patients at low risk (minimal or absent history of smoking and of other known risk factors), recommend CT Chest at 3-6 months, then consider CT Chest at 18-24 months. For patients at high risk (history of smoking or of other known risk factors), recommend CT Chest at 3-6 months, then CT Chest at 18-24 months. IMPRESSION: 1. No sign of significant traumatic injury in the abdomen or pelvis. 2. Incidental findings above. COMMENTS: Consistent with the [employer]'s Incidental Findings Committee white paper (J Am Thomas Radiol 2018): Any incidental renal lesion less than 1 cm or classified as too small to characterize, or any incidental cystic renal lesion characterized as simple-appearing, is likely benign. No follow-up imaging is recommended for these lesions per consensus recommendations based on imaging criteria. Laboratory Results WBC 13.82 10^3/uL (3.29-11.43) H 03/06/24 13:37 RBC 5.45 10^6/uL (3.85-5.65) 03/06/24 13:37 Hgb 13.60 g/dL (11.27-16.99) 03/06/24 13:37 Hct 41.3 % (37-53) 03/06/24 13:37 MCV 75.8 fl (82-101) L 03/06/24 13:37 MCH 25.0 pg (27-33) L 03/06/24 13:37 MCHC 32.9 g/dL (30-55) 03/06/24 13:37 RDW 17.5 % (12.1-15.1) H 03/06/24 13:37 Plt Count 286 10^3/cmm (157-399) 03/06/24 13:37 MPV 11.7 fL (7.4-10.4) H 03/06/24 13:37 Neut % (Auto) 83.1 % 03/06/24 13:37 Lymph % (Auto) 7.7 % 03/06/24 13:37 [place] % (Auto) 7.3 % 03/06/24 13:37 Eos % (Auto) 0.9 % 03/06/24 13:37 Baso % (Auto) 0.3 % 03/06/24 13:37 Neut # (Auto) 11.49 10^3/uL (1.8-7.7) H 03/06/24 13:37 Lymph # (Auto) 1.1 10^3/uL (0.8-4.8) 03/06/24 13:37 [place] # (Auto) 1.0 10^3/uL (0.2-0.9) H 03/06/24 13:37 Eos # (Auto) 0.1 10^3/uL (0.0-0.8) 03/06/24 13:37 Baso # (Auto) 0.0 10^3/uL (0.0-0.1) 03/06/24 13:37 Nucleated RBC % (auto) 0 % 03/06/24 13:37 Nucleated RBCs # 0.0 /100WBC 03/06/24 13:37 Sodium 130 mmol/L (136-145) L 03/06/24 13:37 Potassium 2.0 mmol/L (3.5-5.1) L* 03/06/24 13:37 Chloride 79 mmol/L (98-107) L 03/06/24 13:37 Carbon Dioxide 35 mmol/L (22-29) H 03/06/24 13:37 Anion Gap 18.0 (5-19) 03/06/24 13:37 BUN 47 mg/dL (8-23) H 03/06/24 13:37 Creatinine 1.9 mg/dL (0.7-1.2) H 03/06/24 13:37 GFR Calculation 35.2 mL/min (90-130) L 03/06/24 13:37 Glucose 150 mg/dL (65-115) H 03/06/24 13:37 Calculated Osmolality 285 mOsm/kg (285-295) 03/06/24 13:37 Lactic Acid 2.3 mmol/L (0.5-2.2) H 03/06/24 13:38 Calcium 9.4 mg/dL (8.5-10.5) 03/06/24 13:37 Magnesium 3.2 mg/dL (1.7-2.3) H 03/06/24 15:14 Total Bilirubin 0.3 mg/dL (0.15-1.2) 03/06/24 13:37 AST 15 U/L (0-40) 03/06/24 13:37 ALT 16 U/L (0-41) 03/06/24 13:37 Alkaline Phosphatase 109 U/L (40-130) 03/06/24 13:37 Troponin T Baseline 70 ng/L (0-15) H 03/06/24 13:37 Troponin T 120 Minute 56.80 ng/L (0-15) H 03/06/24 15:14 Delta Troponin T -13.20 ABS# (0-10) L 03/06/24 15:14 NT-Pro-B Natriuret Pep 1998 pg/mL (0-125) H 03/06/24 13:37 Total Protein 7.3 g/dL (6.6-8.7) 03/06/24 13:37 Albumin 4.0 g/dL (3.5-5.2) 03/06/24 13:37 Globulin 3.3 g/dL (1.3-4.6) 03/06/24 13:37 All radiology interpretation(s) finalized by discharge Discharge Plan Discharge Patient Disposition: Admitted As Inpatient Admit Provider: Teodoro Argueta Clinical Impression: AI (acute kidney injury), Atrial fibrillation, Acute hypokalemia, Acidosis, lactic, Leukocytosis, Hyponatremia, Sepsis Condition: Stable Coding Level of Care Code 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
[2024-03-06 13:45] LABS: Basophils % 0.3 %; Eosinophils # 0.1 10^3/uL (0.0-0.8); Eosinophils % 0.9 %; Hematocrit 41.3 % (37-53); Lymphocytes # 1.1 10^3/uL (0.8-4.8); Lymphocytes % 7.7 %; Mean Corpuscular HGB Conc 32.9 g/dL (30-55); Mean Corpuscular Volume 75.8 fl (82-101); Mean Platelet Volume 11.7 fL (7.4-10.4); Monocytes % 7.3 %; Neutrophils # 11.49 10^3/uL (1.8-7.7); Neutrophils % 83.1 %; Nucleated Red Blood Cells % 0 %; Platelet Count 286 10^3/cmm (157-399); Red Blood Count 5.45 10^6/uL (3.85-5.65); Red Cell Distribution Width 17.5 % (12.1-15.1); White Blood Count 13.82 10^3/uL (3.29-11.43)
--- NOTE | 2024-03-06 13:53 | CTR_ITS ---
PROCEDURE INFORMATION: Exam: CT Head Without Contrast Exam date and time: 03/06/2024 2:30 PM Age: 68 years old Clinical indication: Injury or trauma; Fall; Blunt trauma (contusions or hematomas); Patient HX: PT fell this past weekend, doesn't know what happened really. Woke up on the floor and loss of bladder control. PT states he gets dizzy when he stands. TECHNIQUE: Imaging protocol: Computed tomography of the head without contrast. Radiation optimization: All CT scans at this facility use at least one of these dose optimization techniques: automated exposure control; mA and/or kV adjustment per patient size (includes targeted exams where dose is matched to clinical indication); or iterative reconstruction. COMPARISON: CT head wo con* [id number] 05/07/2022 7:46 PM RADIATION DOSE METRICS: Total DLP (mGy-cm): 1259 FINDINGS: Brain: The brain is unremarkable. There is no mass effect or significant white matter disease. There is no acute intracranial hemorrhage. Cerebral ventricles: There is no significant ventricular dilation. The basal cisterns are unremarkable. Paranasal sinuses: The paranasal sinuses are clear. Mastoid air cells: The mastoid air cells are clear. Bones: The skull is unremarkable. Soft tissues: The visible extracranial soft tissues are unremarkable. CT/CT head wo con* [id number] IMPRESSION: No acute intracranial abnormality.
--- NOTE | 2024-03-06 13:57 | CTR_ITS ---
PROCEDURE INFORMATION: Exam: CT Cervical Spine Without Contrast Exam date and time: 03/06/2024 2:30 PM Age: 68 years old Clinical indication: Injury or trauma; Fall; Blunt trauma; Patient HX: PT fell this past weekend, doesn't know what happened really. Woke up on the floor and loss of bladder control. PT states he gets dizzy when he stands. TECHNIQUE: Imaging protocol: Computed tomography of the cervical spine without contrast. Radiation optimization: All CT scans at this facility use at least one of these dose optimization techniques: automated exposure control; mA and/or kV adjustment per patient size (includes targeted exams where dose is matched to clinical indication); or iterative reconstruction. COMPARISON: CT cervical spine w con [id number] 08/06/2020 10:22 AM RADIATION DOSE METRICS: Total DLP (mGy-cm): 243.4 FINDINGS: Bones: Trace degenerative anterolisthesis of C4 on C5. Trace degenerative anterolisthesis of C7 on T1. Vertebral body height is maintained. There is moderate degenerative disc disease in the cervical spine. There is moderate multilevel facet spondylosis. No acute fracture. There is mild multilevel spinal canal stenosis. Lungs: There is a noncalcified pulmonary nodule in the left upper lobe visible on series 2, image 95 measuring 8 mm. Soft tissues: Soft tissues in the neck and thoracic inlet are unremarkable. CT/CT cervical spin wo con* [id number] IMPRESSION: 1. No acute fracture. 2. 8 mm left upper lobe pulmonary nodule. For both low risk and high risk patients, consider CT Chest at 3 months, PET/CT, or biopsy. (Reference: Fabien) REFERENCES: Fabien Ambriz et al. Guidelines for Management of Incidental Pulmonary Nodules Detected on CT Images: From the Fleischner Society 2017. Radiology. 2017;284(1):228-243.
[2024-03-06 14:01] LABS: Lactic Sepsis W/Reflex 2.3 mmol/L (0.5-2.2)
[2024-03-06 14:01] LABS: Troponin(5th) Baseline 70 ng/L (0-15)
[2024-03-06 14:45] LABS: Alanine Aminotransferase 16 U/L (0-41); Alkaline Phosphatase 109 U/L (40-130); Aspartate Amino Transferase 15 U/L (0-40); Blood Urea Nitrogen 47 mg/dL (8-23); Calcium 9.4 mg/dL (8.5-10.5); Carbon Dioxide 35 mmol/L (22-29); Chloride 79 mmol/L (98-107); Creatinine Clr Calc Pharmacy 44.9725; Globulin 3.3 g/dL (1.3-4.6); Glomerular Filtration Rate 35.2 mL/min (90-130); Glucose 150 mg/dL (65-115); NT Pro B Type Natriuretic Pept 1998 pg/mL (0-125); Osmolality Calculated 285 mOsm/kg (285-295); Sodium 130 mmol/L (136-145); Total Bilirubin 0.3 mg/dL (0.15-1.2); Total Protein 7.3 g/dL (6.6-8.7)
--- NOTE | 2024-03-06 15:16 | ECG_ITS ---
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 Measurements Intervals [place] Rate: 63 P: 0 [place]: 0 QRS: -70 QRSD: 125 T: 58 QT: 428 QTc: 439 Interpretive Statements ATRIAL FIBRILLATION LEFT AXIS DEVIATION [QRS AXIS < -30] RIGHT BUNDLE BRANCH BLOCK [120+ ms QRS DURATION, UPRIGHT V1, 40+ ms S IN I/aVL/V4/V5/V6] Compared to ECG 03/06/2024 13:18:25 Myocardial infarct finding no longer present Electronically Signed On 03-06-2024 19:08:46 CDT by Tamica Booth M.D. [email or web address]
--- NOTE | 2024-03-06 15:18 | CTR_ITS ---
PROCEDURE INFORMATION: Exam: CT Chest Without Contrast; Diagnostic Exam date and time: 03/06/2024 3:38 PM Age: 68 years old Clinical indication: Other: See below; Other: Unk; Additional info: Abd pain TECHNIQUE: Imaging protocol: Diagnostic computed tomography of the chest without contrast. Radiation optimization: All CT scans at this facility use at least one of these dose optimization techniques: automated exposure control; mA and/or kV adjustment per patient size (includes targeted exams where dose is matched to clinical indication); or iterative reconstruction. COMPARISON: CR XR chest 1V portable [id number] 03/06/2024 1:19 PM RADIATION DOSE METRICS: Total DLP (mGy-cm): 1261 FINDINGS: Lungs: There is no consolidation. There is a noncalcified pulmonary nodule in the left lower lobe visible on series 4, image 52 measuring 6 mm. This nodule is unchanged since 05/08/2022. There is a 6 mm subpleural nodule in the posterior left lung apex on axial series 4, image 16. The nodule is better visualized and measures 8 mm on the cervical spine CT. There is a noncalcified pulmonary nodule in the right middle lobe visible on series 4, image 44 measuring 5 mm. There is no consolidation. Pleural spaces: There is no pleural effusion or pneumothorax. Heart: Heart size is normal. There is no pericardial effusion. Coronary arteries: There is mild coronary artery calcification. Mediastinal space: There is no mediastinal hematoma. Lymph nodes: There is no mediastinal or hilar lymphadenopathy. Vasculature: The aorta is unremarkable. There is no aneurysm. Bones/joints: Moderate degenerative disc disease in the cervical, thoracic and lumbar spine. No spinal fracture. The sternum is intact. The visible portions of the clavicles, scapulae, and proximal humeri are intact. No visible rib fracture. Soft tissues: The extrathoracic soft tissues are unremarkable. (Reference: Fabien) 3. Incidental findings above. REFERENCES: Fabien H, et al. Guidelines for Management of Incidental Pulmonary Nodules Detected on CT Images: From the Fleischner Society 2017. Radiology. 2017;284(1):228-243. PROCEDURE INFORMATION: Exam: CT Abdomen And Pelvis Without Contrast Exam date and time: 03/06/2024 3:38 PM Age: 68 years old Clinical indication: Other: See below; Other: Unk; Additional info: Abd pain TECHNIQUE: Imaging protocol: Computed tomography of the abdomen and pelvis without contrast. Radiation optimization: All CT scans at this facility use at least one of these dose optimization techniques: automated exposure control; mA and/or kV adjustment per patient size (includes targeted exams where dose is matched to clinical indication); or iterative reconstruction. COMPARISON: CT abdomen pelvis wo con [id number] 05/08/2022 12:55 AM RADIATION DOSE METRICS: Total DLP (mGy-cm): 1261 FINDINGS: Liver: The liver is normal. Gallbladder and bile ducts: There is high attenuation material within the gallbladder lumen consistent with sludge. There is no intrahepatic or extrahepatic bile duct dilation. Pancreas: The pancreas is unremarkable. Spleen: The spleen is unremarkable. Adrenal glands: The adrenal glands are unremarkable. Kidneys and ureters: There is a solitary nonobstructive stone in each kidney. There is a simple 9.9 cm cyst exophytic from the lower pole of the left kidney. There is no hydronephrosis or ureteral dilation. No visible ureteral stones. Stomach and bowel: The stomach is nondistended, limiting assessment of wall thickness. The small bowel is nondilated. The colon is unremarkable. Appendix: The appendix is not visible. Intraperitoneal space: There is no free air or significant intraperitoneal free fluid. Vasculature: There is mild aortic atherosclerotic disease. Lymph nodes: There is no lymphadenopathy in the retroperitoneum, mesentery, pelvis or inguinal regions. Urinary bladder: The bladder is partially obscured by beam hardening artifact but is otherwise unremarkable. Reproductive: Obscured by beam hardening artifact from bilateral hip prostheses. Bones/joints: There is moderate degenerative disease in the lumbar spine. Bilateral hip prostheses are intact and well aligned. Soft tissues: The abdominal wall is intact. CT/[place] [id number] IMPRESSION: 1. No sign of significant traumatic injury in the thorax. 2. Noncalcified bilateral lung nodules measuring up to 6 mm. For patients at low risk (minimal or absent history of smoking and of other known risk factors), recommend CT Chest at 3-6 months, then consider CT Chest at 18-24 months. For patients at high risk (history of smoking or of other known risk factors), recommend CT Chest at 3-6 months, then CT Chest at 18-24 months. IMPRESSION: 1. No sign of significant traumatic injury in the abdomen or pelvis. 2. Incidental findings above. COMMENTS: Consistent with the [employer]'s Incidental Findings Committee white paper (J Am Thomas Radiol 2018): Any incidental renal lesion less than 1 cm or classified as too small to characterize, or any incidental cystic renal lesion characterized as simple-appearing, is likely benign. No follow-up imaging is recommended for these lesions per consensus recommendations based on imaging criteria.
--- NOTE | 2024-03-06 15:30 | PC.NURSE ---
PATIENT STATES HE CANNOT PEE AT THIS TIME. PATIENT HAS STATED HE CANNOT PEE THREE TIMES TOTAL NOW.
[2024-03-06 15:32] LABS: Reflex Lactate Order REFLEX LACTIC ORDERD
[2024-03-06 16:02] LABS: Magnesium 3.2 mg/dL (1.7-2.3)
--- NOTE | 2024-03-06 16:05 | PC.NURSE ---
PHARMACY CONFIRMED POTASSIUM AND LEVAQUIN IV ARE COMPATIBLE.
[2024-03-06] MEDS: potassium chloride premix 100 ML 25 MEQ IV (16:24)
[2024-03-06] MEDS: levofloxacin-dextrose 5 % 750 MG/150 ML PREMIX 100 MG IV (16:24)
--- NOTE | 2024-03-06 16:48 | P.HP_ITS ---
Providers/Chief Complaint 2 Admitting Physician: Teodoro Argueta MD Primary Care Provider: Jim Obrien MD Chief Complaint: abnormal labs History of Present Illness Felipe Bello is a 68 year old male with PMH of A-fib with Eliquis on anticoagulation, diastolic heart failure on Bumex and metolazone as an outpatient presented to the ER from his outpatient physician office because of abnormal labs. As per the patient he had gone to his primary care's office because of episodes of dizziness patiently on standing up from sitting position and episode of passing out 3 days ago. As per the patient when he had passed out he thinks the event was for around 5 minutes as he had urinated on himself. Patient lives by himself and it was a witnessed event. Denies any similar history in the past. Does state he has a history of shortness of breath and dizziness in the past. Shortness of breath has been at his baseline. He denies any chest pain, weakness of any of his arms. Denies any changes in his medications recently. Review of Systems 2 General: Reports: 10 or more systems reviewed and unremarkable except in HPI and below Const: Denies: fever(s), chills, body aches, change in appetite, change in weight, malaise, night sweats, diaphoresis, change in sleep pattern, daytime sleepiness or snoring Eyes: Denies: change in vision, blurry vision, photophobia, eye discomfort or eye discharge ENMT: Denies: throat pain, enlarged tonsils, hoarseness, mouth pain, oral sores, dry mouth, tinnitus, nasal congestion or post nasal drip Card: Denies: chest pain, palpitations, irregular heart rhythm, edema, swelling of feet/ankles, lightheadedness, syncope, pre-syncope, dyspnea on exertion, orthopnea, leg pain with exertion or acrocyanosis Resp: Denies: dyspnea, productive cough, non-productive cough, wheezing, stridor, pain on inspiration, change in phlegm color, hemoptysis or chest congestion GI: Denies: abdominal pain, nausea, vomiting, hematemesis, coffee ground emesis, dysphagia, heartburn, diarrhea, constipation, bloating, GI cramping, change in bowel habits, pain on defecation, hematochezia or melena : Denies: flank pain, difficulty urinating, dysuria, urinary frequency, urinary urgency, urinary hesitancy, urinary dribbling, difficulty starting urination, change in urine stream, nocturia or hematuria Musc: Denies: neck pain, back pain, extremity pain, joint pain, joint swelling, joint redness, joint stiffness or limited range of motion Neuro: Denies: headache(s), numbness in extremities, weakness in extremities, sensory changes, lack of coordination, difficulty walking, frequent falls, dizziness, vertigo, confusion, Slurred speech present, difficulty communicating thoughts or seizure-like activity Psych: Denies: anxiety, depression, mood swings, panic attacks, hopelessness or irritability Endo: Denies: polyuria, polydipsia, tired all the time, cold intolerance, excessive sweating, flushing or heat intolerance Jb/Lymph: Denies: easy bruising or easy bleeding All/Imm: Denies: tongue swelling, facial swelling or acute wheezing Medications/Allergies Home Medications Medication Instructions Recorded Confirmed Last Taken Type apixaban 5 mg tablet (Eliquis) 5 mg PO BID 05/27/23 03/06/24 03/06/24 History tamsulosin 0.4 mg capsule 0.8 mg PO DAILY 05/27/23 03/06/24 03/06/24 History carvedilol 12.5 mg tablet 12.5 mg PO BID #60 tabs 09/08/23 03/06/24 03/06/24 Rx gabapentin 600 mg tablet 600 mg PO BID 01/03/24 03/06/24 03/06/24 History bumetanide 1 mg tablet 2 mg (2 x 1 mg) PO BID 30 days 02/03/24 03/06/24 03/05/24 Rx #120 tabs potassium chloride 20 mEq 20 meq PO BID 30 days #180 tabs 02/03/24 03/06/24 03/06/24 Rx tablet,extended release(part/cryst) diltiazem HCl 30 mg tablet 30 mg PO BID #180 tabs 03/06/24 03/06/24 03/06/24 Rx Allergies Allergy/AdvReac Type Severity Reaction Status Date / Time cefazolin [From Kefzol] Allergy itching, Verified 03/06/24 15:48 redness codeine Allergy ADR-Itching Verified 03/06/24 15:48 morphine Allergy itching Verified 03/06/24 15:48 PFSH Acute 2 PFSH: Medical History (Updated 03/06/24 @ 16:52 by Teodoro Argueta MD) Hypotension Cervical stenosis of spinal canal Enrolled in chronic care management Afib Anemia Syncope Fall at home Chronic back pain Chronic neck pain Upper respiratory infection Urinary retention Acute bacterial sinusitis Need for pneumococcal vaccine Acute UTI CKD (chronic kidney disease) TMJ dysfunction Chronic sinusitis Vitamin D deficiency History of abnormal breathing pattern Medication management Encounter for screening for cardiovascular disorders Acute right hip pain GI bleed NSTEMI (non-ST elevated myocardial infarction) Drug-induced diarrhea Atrial flutter with rapid ventricular response Hematochezia Fluid overload Pain and swelling of right ankle Deviated nasal septum Rhus dermatitis Maxillary sinus cyst Elevated PSA Lower respiratory infection Shortness of breath COVID-19 vaccine series completed Pain, dental Dental abscess Tachycardia BPH loc w urin obs/LUTS Osteoarthritis thoracic spine Thoracic degenerative disc disease 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 Leads intact. 1989 [place], [place] L3-L4, L4-L5 posterior fusion/fixation. L3 right-sided hemilaminectomy. History of umbilical hernia repair S/P hip replacement 08/04/2016 right hip S/P knee surgery S/P appendectomy Family History Father , at age 83 CAD (coronary artery disease) Mother , at age 76 CAD (coronary artery disease) Social History Smoking and tobacco/nicotine status: former use of tobacco/nicotine Alcohol intake: never Substance/Drug Use: never Household members: none Marital status: Current occupational status: retired and disabled Vitals/I&O/Wt Last Vital Signs Temp 98.1 F 03/06/24 13:09 Pulse 68 03/06/24 16:38 Resp 16 03/06/24 13:09 BP 112/70 03/06/24 16:38 Pulse Ox 96 03/06/24 16:38 O2 Del Method Room Air 03/06/24 16:38 03/06/24 03/06/24 03/06/24 06:59 14:59 22:59 Intake Total 1000 / 1000 Balance 1000 / 1000 Weight last 48 hrs Weight 110.223 kg Physical Exam 2 Narrative: General: No acute distress, AO x3 HEENT: PERRLA, pupils bilaterally equal and reactive Chest: Normal vesicular breath sounds, no added sounds, equal good air entry bilaterally CVS: S1-S2 regular, no murmurs, no tachycardia, no gallops, no rubs Abdomen: Soft, nontender, no organomegaly, bowel sounds present Neuro: No focal deficits, no facial deformity, AO x3, power 5/5 in all limbs Quick SOFA Score: Respiratory Rate: 18 Blood Pressure: 111/77 Corry Coma Scale: 15 qSOFA Score: 0 If qSOFA score 2 or greater, continue: Blood Pressure Mean: 88 Bilirubin (mg/dl): 0.4 Platelets (x10?/ml): 209 Creatinine (mg/dl): 1.2 Evaluation: Current stage of sepsis: sepsis Sepsis stage criteria used: CMS Sep-1 and Sepsis-3 Crystalloid fluids: 30 mL/kg crystalloid fluids ordered and initiated within 3 hours Possible source: genitourinary Focused Exam: Vital signs: Temp Pulse Resp BP Pulse Ox O2 Del Method 03/06/24 16:38 68 112/70 96 Room Air 03/06/24 13:41 70 99/62 95 Room Air 03/06/24 13:09 98.1 F 77 16 86/55 95 Date exam was performed: 03/07/24 Time exam was performed: 11:18 2 Sepsis Screen No Definite Risk 03/06/24 16:38 Respiratory Rate 18 breaths/min (12 - 18) 03/07/24 10:21 Blood Pressure 111/77 mmHg 03/07/24 10:21 Corry Coma Scale Score 15 03/07/24 08:00 Quick SOFA Score 0 03/06/24 19:25 SOFA Score: 2 Kelly Coma Scale Score 15 03/07/24 08:00 Blood Pressure Mean 88 mmHg 03/07/24 10:21 Total Bilirubin 0.4 mg/dL (0.15-1.2) 03/07/24 03:29 Platelet Count 209 10^3/cmm (157-399) 03/07/24 03:29 Creatinine 1.2 mg/dL (0.7-1.2) 03/07/24 03:29 SOFA Score 3 03/06/24 16:58 Data 03/07/24 03:29 03/07/24 03:29 Micro: Microbiology 03/06/24 15:10 Blood Culture - Preliminary Blood SPECIMEN COLLECTED 03/06/24 15:14 Blood Culture - Preliminary Blood SPECIMEN COLLECTED A&P Assessment and plan (1) Sepsis: SIRS: Hypotension, leukocytosis, elevated lactate on admission. Source: Unknown. Possibly UTI. End organ damage: Acute infectious encephalopathy, acute kidney injury Lactic acid elevated. Patient received 1 L of fluid in the ER. Will finish sepsis bolus of 30 mill per KG body weight. Watch for fluid overload. Monitor blood pressures. Keep mean artery pressure 65 mmHg. Check blood culture, urine culture, MRSA swab, procalcitonin, urine Legionella, bacterial antigen. De-escalate antibiotics as per culture results. (2) Hypotension: Hypertension present on presentation to the ER. Improved with sepsis fluid bolus. Keep mean artery pressure 65. Hold off antihypertensive for now. (3) Acute hypokalemia: Denies any episodes of diarrhea. Patient is on excessive diuretics as an outpatient. Did not tolerate IV potassium in the ER. Replace with 100 mg oral. Repeat potassium in the evening. (4) Hyponatremia: Most likely in setting of dehydration. Normal saline as fluid bolus followed by 100 cc/h after that. Monitor sodium level daily for now. Check urine lites. (5) AI (acute kidney injury): Baseline creatinine 1.2-1.3. Currently 1.9. Associated with hypokalemia and hyponatremia. Elevated BUN. Could be in setting of dehydration. Patient does take Bumex and metolazone at home. Bladder scan one-time. If urine retention we will plan for Fischer catheterization. Medically construction done for nephrotoxic drugs. Hold off on diuretics for now. Repeat BMP in evening. Otherwise monitor BMP daily for now. (6) Syncope: Unknown etiology. Could be in setting of A-fib with RVR versus dehydration leading to AI and hyponatremia and hypokalemia or in setting of hypotension. Telemetry. Fluid as above. Monitor blood pressure as above. Replace electrolytes as above. Physical therapy. Orthostatic blood pressure check. (7) Afib: Currently rate controlled. At home patient seems to be on Cardizem 30 mg twice daily, Coreg 12.5 mg twice daily along with Eliquis 5 mg twice daily. Hold off on antihypertensive and rate admitting medications for now. Telemonitoring. Continue with home dose of Eliquis. (8) Diastolic CHF: Last echocardiogram from 07/19 shows an EF of 60% with RVSP of 24.8 mmHg. Continue to monitor. Qualifiers: Heart failure chronicity: acute on chronic Qualified Code(s): I50.33 - Acute on chronic diastolic (congestive) heart failure (9) Leukocytosis: Unknown etiology. Could be in setting of dehydration. Patient denies of having any localized symptoms for infection. Check blood culture, respiratory viral panel, urine culture. For now start on IV antibiotics for presumable possible UTI. Patient is allergic to cefazolin. Start on IV Zosyn. Plan Full code. Patient does not have a DPOA. Cardiac diet Eliquis will be sufficient for DVT prophylaxis Famotidine for PUD prophylaxis Attestations 2 Medical Necessity Statement*: Admission for more than 2 midnights for management of electrolyte abnormality, acute kidney injury, hypotension in setting of dehydration while infectious source is ruled out Diagnoses Sepsis A41.9 Hypotension I95.9 Acute hypokalemia E87.6 Hyponatremia E87.1 AI (acute kidney injury) N17.9 Syncope R55 Afib I48.91 Acute on chronic diastolic congestive heart failure I50.33 Heart failure chronicity: acute on chronic Leukocytosis D72.829
[2024-03-06 17:26] LABS: Procalcitonin 0.22 ng/mL (0-0.5)
[2024-03-06 17:40] LABS: Add Urine Culture? Yes; Add Urine Microscopic? YES; Bacteria Urine 2+ /hpf; Bilirubin Urine Neg (Negative); Blood Urine 3+ (Negative); Glucose Urine UA Trace (Normal); Ketones Urine Negative (Negative); Leukocyte Esterase Urine 2+ (Negative); Nitrate Urine Negative (Negative); Protein Urine Neg (Negative); RBC Urine 25-40 /hpf (0-2); Specific Gravity, Urine 1.005 (1.005-1.030); Urine Appearance Cloudy (CLEAR); Urine Color Yellow (Yellow); Urobilinogen Urine Norm (Negative); WBC Urine >100 /hpf (0-5); pH Urine 6.5 (5-7)
[2024-03-06 17:42] LABS: Lactic Acid level (Lactate) 1.6 mmol/L (0.5-2.2)
[2024-03-06 17:56] LABS: Amphetamines Screen Urine Negative (Negative); Barbiturates Screen Urine Negative (Negative); Benzodiazepines Screen Urine Negative (Negative); Cocaine Screen Urine Negative (Negative); Opiate Screen Urine Negative (Negative); PCP Screen Urine Negative (Negative); THC Screen Urine Negative (Negative)
--- NOTE | 2024-03-06 18:51 | PC.NURSE ---
Patient transferred to CSU from ED via a bed at 1850.
--- NOTE | 2024-03-06 19:16 | ECG_ITS ---
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 Measurements Intervals Foster Rate: 67 P: 0 PA: 0 QRS: -70 QRSD: 123 T: -46 QT: 429 QTc: 456 Interpretive Statements ATRIAL FIBRILLATION LEFT AXIS DEVIATION [QRS AXIS < -30] RIGHT BUNDLE BRANCH BLOCK [120+ ms QRS DURATION, UPRIGHT V1, 40+ ms S IN I/aVL/V4/V5/V6] MODERATE T-WAVE ABNORMALITY, CONSIDER INFERIOR ISCHEMIA [-0.1+ mV T-WAVE IN II/aVF] Compared to ECG 03/06/2024 15:29:42 T-wave abnormality now present Possible ischemia now present Electronically Signed On 03-07-2024 17:24:27 CDT by Adan Sutton M.D. [id number]
[2024-03-06] MEDS: sodium chlor 0.9% + KCl 20 mEq 20 MEQ/1,000 ML BAG 100 MEQ IV (19:26)
[2024-03-06] MEDS: piperacillin-tazobactam 3.375 GM in sodium chloride 0.9% (plus) 50 ML IV (19:27)
[2024-03-06 20:13] LABS: Troponin 5 6HR 52.68 ng/L (0-15)
[2024-03-06 20:19] LABS: Glucose Point of Care 196 mg/dL (70-110)
[2024-03-06 20:21] LABS: Troponin 5 6HR Delta -17.32 ng/L (0-12)
[2024-03-06 20:31] LABS: Adenovirus Not Detected (NOT DETECT); Chlamydia Pneumoniae Not Detected (NOT DETECT); Coronavirus 229E,HKU1,NL63,OC4 Not Detected (NOT DETECT); Human Metapneumovirus Not Detected (NOT DETECT); Human Rhinovirus/Enterovirus Not Detected (NOT DETECT); Influenza A Not Detected (NOT DETECT); Influenza A H1 Not Detected (NOT DETECT); Influenza A H1-2009 Not Detected (NOT DETECT); Influenza A H3 Not Detected (NOT DETECT); Influenza B Not Detected (NOT DETECT); Mycoplasma Pneumoniae Not Detected (NOT DETECT); Parainfluenza Virus Type 1 Not Detected (NOT DETECT); Parainfluenza Virus Type 2 Not Detected (NOT DETECT); Parainfluenza Virus Type 3 Not Detected (NOT DETECT); Parainfluenza Virus Type 4 Not Detected (NOT DETECT); Respiratory Syncytial Virus A Not Detected (NOT DETECT); Respiratory Syncytial Virus B Not Detected (NOT DETECT); SARS-COV-2 Not Detected (NOT DETECT)
[2024-03-06 20:31] LABS: Anion Gap 15.2 (5-19); Blood Urea Nitrogen 47 mg/dL (8-23); Calcium 9.4 mg/dL (8.5-10.5); Carbon Dioxide 33 mmol/L (22-29); Chloride 83 mmol/L (98-107); Glomerular Filtration Rate 46.3 mL/min (90-130); Glucose 99 mg/dL (65-115); Iron 35 ug/dL (59-158); Osmolality Calculated 280 mOsm/kg (285-295); Percent Saturation 9.4 % (20-50); Sodium 129 mmol/L (136-145); Thyroid Stimulating Hormone 0.85 uIU/mL (0.27-4.20); Total Iron Binding Capacity 370 mcg/dl; Unsaturated Iron Binding 335 ug/dL (112-347)
[2024-03-06 20:33] LABS: Creatinine Clr Calc Pharmacy 56.9652
[2024-03-06 20:35] LABS: Potassium 2.2 mmol/L (3.5-5.1)
[2024-03-06] MEDS: potassium chloride ER 20 mEq Tablet 80 MEQ PO (20:40)
[2024-03-06] MEDS: famotidine 20 mg Tablet PO (20:40)
[2024-03-06] MEDS: apixaban 5 mg Tablet PO (20:40)
[2024-03-06 20:44] LABS: Vitamin B12 > 2000 pg/mL (232-1245)
[2024-03-06] MEDS: potassium chloride ER 20 mEq Tablet PO (20:53)
[2024-03-07] VITALS (9 sets, daily range): BP systolic 94–114; BP diastolic 56–77; PULSE 61–67; RESP 16–24; TEMP 36.5–37; O2SAT 94–97; BMI 36.5
[2024-03-07] MEDS: piperacillin-tazobactam 3.375 GM in sodium chloride 0.9% (plus) 50 ML IV ×3 (02:35→16:47)
[2024-03-07] MEDS: acetaminophen 325 mg Tablet 650 MG PO ×3 (02:48→23:44)
[2024-03-07 04:31] LABS: Basophils % 0.3 %; Eosinophils # 0.2 10^3/uL (0.0-0.8); Eosinophils % 1.5 %; Lymphocytes # 1.7 10^3/uL (0.8-4.8); Lymphocytes % 13.4 %; Mean Corpuscular Hemoglobin 25.2 pg (27-33); Mean Corpuscular Volume 78.7 fl (82-101); Mean Platelet Volume 11.5 fL (7.4-10.4); Monocytes # 0.9 10^3/uL (0.2-0.9); Monocytes % 7.3 %; Neutrophils # 9.47 10^3/uL (1.8-7.7); Neutrophils % 76.9 %; Nucleated Red Blood Cells % 0 %; Platelet Count 209 10^3/cmm (157-399); Red Blood Count 4.45 10^6/uL (3.85-5.65); Red Cell Distribution Width 17.6 % (12.1-15.1); White Blood Count 12.32 10^3/uL (3.29-11.43)
--- NOTE | 2024-03-07 04:37 | PC.NURSE ---
Patient arrived on floor at aprox 1900. K rider was turned back on and patient stated that his arm is killing him This nurse turned off krider, flushed line and contacted Dr Argueta. Krider discontinued and PO potassium chloride ordered and administered per Dr Argueta orders.
[2024-03-07 04:46] LABS: Estmated Average Glucose 108; Hemoglobin A1C 5.4 % (4.0-6.0)
[2024-03-07 04:47] LABS: Chol HDL Ratio 3.66 mg/dL (1.0-5.00); Cholesterol 150 mg/dL (0-200); HDL Cholesterol 41 mg/dL (60-100); LDL Cholesterol Calculated 88 mg/dL (50-129); LDL HDL Ratio 2.15 RATIO (0.00-3.22); Triglycerides 107 mg/dL (0-150)
[2024-03-07 04:55] LABS: Alanine Aminotransferase 13 U/L (0-41); Albumin Level 3.4 g/dL (3.5-5.2); Alkaline Phosphatase 77 U/L (40-130); Anion Gap 15.1 (5-19); Aspartate Amino Transferase 12 U/L (0-40); Blood Urea Nitrogen 38 mg/dL (8-23); Calcium 8.5 mg/dL (8.5-10.5); Carbon Dioxide 28 mmol/L (22-29); Chloride 89 mmol/L (98-107); Creatinine Clr Calc Pharmacy 72.8969; Globulin 2.5 g/dL (1.3-4.6); Glomerular Filtration Rate 59.9 mL/min (90-130); Glucose 98 mg/dL (65-115); Magnesium 2.6 mg/dL (1.7-2.3); Osmolality Calculated 279 mOsm/kg (285-295); Phosphorus 2.4 mg/dL (2.5-4.5); Sodium 130 mmol/L (136-145); Total Bilirubin 0.4 mg/dL (0.15-1.2); Total Protein 5.9 g/dL (6.6-8.7)
[2024-03-07 05:04] LABS: Folate Level 8.9 ng/mL (4.5-32.2)
[2024-03-07 05:13] LABS: Potassium 2.1 mmol/L (3.5-5.1)
--- NOTE | 2024-03-07 05:31 | PC.NURSE ---
Villalobos catheter was ordered for patient. Villalobos was placed with no urine flash, patient was yelling in pain. Villalobos was removed and discarded. Patient refuses reinsert of villalobos catheter.
[2024-03-07] MEDS: potassium chloride ER 20 mEq Tablet 40 MEQ PO (06:23)
[2024-03-07] MEDS: lidocaine 1% 5 ML in potassium chloride premix 100 ML 25 ML IV (06:24)
--- NOTE | 2024-03-07 07:44 | PC.NURSE ---
Nurse got report from night nurse her said there was two attempts for a villalobos catheter that were unsuccessful. Patients potassium is critically low and patient is yelling out in pain. He reports that his spine, arm where potassium is going in and penis are all hurting. Physician called and orders were as follows, 0.2 IV dilaudid x1, and flomax 0.4mg. Nurse will complete these orders and attempt to place a coude catheter.
[2024-03-07] MEDS: HYDROmorphone 1 mg/mL INJ 1 mL 0.200000000000000011 MG IVP (07:56)
--- NOTE | 2024-03-07 07:56 | PC.NURSE ---
0.2mg of Dilaudid given to patient and 0.8mg of dilaudid wasted in the pyxis with BRANDON Sexton>
--- NOTE | 2024-03-07 09:37 | PC.NURSE ---
Physician orders: Potassium 80 MEQ PO once now
[2024-03-07] MEDS: potassium chloride ER 20 mEq Tablet 80 MEQ PO ×2 (09:46→16:46)
[2024-03-07] MEDS: famotidine 20 mg Tablet PO ×2 (09:47→18:30)
[2024-03-07] MEDS: apixaban 5 mg Tablet PO (09:47)
[2024-03-07] MEDS: tamsulosin 0.4 mg Capsule 0.400000000000000022 MG PO (09:47)
--- NOTE | 2024-03-07 10:28 | PC.CHAP ---
Pastoral Care Encounter/Spiritual Assessment Type of Contact [] Declined data analytics analyst visit [] Patient/Family/Request visit [] Outpatient visit [] Follow-up visit [] Physician referral [] Code/Alert [x] Routine visit [] Staff referral [] Actively dying [] Patient sleeping [x] Family support [] [] Out of room [] Palliative care [] [] Receiving care in room [] Pre-surgical visit [] Trauma [] Long length of stay [] ICU visit [] Other: Relational/Emotional Strength [x] Patient feels connected with others/family/visitors/staff [] Distress [] Loneliness/isolation [] Abandonment Spirituality of Patient [x] Person of Niesha [] Attends Latter Day of their Niesha [x] Believes in Prayer [] Reads Bible or Moravian materials [] There are Spiritual issues to be addressed Bail Agent Interventions [x] Prayer [x] Active listening [] Non-anxious presence [] Spiritual/emotional support [] Crisis/trauma care [] Spiritual counseling [] Bereavement support [] Provided bereavement packet [] Provided Bible/devotional materials [] Provided toy/stuffed animal, coloring book to patient or family member [] Provided Communion [] Anointing/[place] [] Salvation [] Completed spiritual assessment [] Other: Impact on Illness or Injury [] Angry [] Fearful [] Anxious [] Often cries [] Exhaustion [] Unable to work [] Unable to attend congregation [] Unable to walk/stand [] Unable to read [] Unable to drive [] Unable to eat/drink [] Unable to sleep [] Unable to be with family [] Patient intubated [] Other: Summary Time spent with patient 10 min
[2024-03-07 12:06] LABS: Potassium, Radom Urine 24 mmol/L; Urine Creatinine 115 mg/dL (39-259)
[2024-03-07 12:11] LABS: Urine Random Chloride 16 mmol/L; Urine Random Sodium 10 mmol/L
[2024-03-07] MEDS: sodium chlor 0.9% + KCl 20 mEq 20 MEQ/1,000 ML BAG 100 MEQ IV ×2 (12:18→22:24)
--- NOTE | 2024-03-07 15:08 | P.PN_ITS ---
Subjective 2 Subjective: Overnight patient had difficulty in Fischer catheter placement resulting in mild hematuria. Today morning Fischer catheter was placed through coud?. Patient did have hematuria after placement of Fischer but had around 1300 cc of urine evacuated. Patient seems more comfortable on examination today. Denies any nausea, vomiting, headache. Getting ready to work with physical therapy. Vitals/I&O/Wt Last Vital Signs Temp 98.6 F 03/07/24 14:38 Pulse 66 03/07/24 14:38 Resp 24 H 03/07/24 14:38 BP 113/65 03/07/24 14:38 Pulse Ox 97 03/07/24 14:38 O2 Del Method Room Air 03/06/24 23:24 03/07/24 03/07/24 03/07/24 06:59 14:59 22:59 Intake Total 526.667 / 1972.087 9132.023 / 4630.023 Output Total 775 / 775 2150 / 2150 Balance -248.333 / 3125.631 1809.023 / 2480.023 Weight last 48 hrs Weight 115.439 kg Weight 115.439 kg Weight 115.439 kg Weight 110.223 kg Physical Exam 2 Narrative: General: No acute distress, AO x3 HEENT: PERRLA, pupils bilaterally equal and reactive Chest: Normal vesicular breath sounds, no added sounds, equal good air entry bilaterally CVS: S1-S2 regular, no murmurs, no tachycardia, no gallops, no rubs Abdomen: Soft, nontender, no organomegaly, bowel sounds present Neuro: No focal deficits, no facial deformity, AO x3, power 5/5 in all limbs Urinary Catheter Management: Coude: Cath Placed During This Visit: yes Urinary Catheter Date of Insertion: 03/07/24 Urinary Catheter Time of Insertion: 08:30 Data 03/07/24 03:29 03/07/24 03:29 Micro: Microbiology 03/06/24 16:25 Bacterial Antigens - Final Urine Kidney 03/06/24 16:25 Legionella Urinary Antigen - Final Unknown Source 03/06/24 15:10 Blood Culture - Preliminary Blood SPECIMEN COLLECTED 03/06/24 15:14 Blood Culture - Preliminary Blood SPECIMEN COLLECTED A&P Assessment and plan (1) Sepsis: SIRS: Hypotension, leukocytosis, elevated lactate on admission. Source: Unknown. Possibly UTI. End organ damage: Acute infectious encephalopathy, acute kidney injury Lactic acid elevated. Patient did receive full sepsis bolus of 30 mill per KG body weight. Continue with NS at 100 cc/h. Monitor blood pressures. Keep mean artery pressure 65 mmHg. Follow-up blood culture, urine culture, MRSA swab. Appreciate procalcitonin, urine Legionella, bacterial antigen. Patient is allergic to cefazolin. For now continue with Zosyn. De-escalate antibiotics as per culture results. (2) Hypotension: Hypertension present on presentation to the ER. Improved with sepsis fluid bolus. Keep mean artery pressure 65. Hold off antihypertensive for now. Check orthostatics. (3) Acute hypokalemia: Denies any episodes of diarrhea. Patient is on excessive diuretics as an outpatient. Did not tolerate IV potassium in the ER. Persistent hypokalemia. Replaced with 100 mg once more. Repeat potassium in the evening. (4) Hyponatremia: Most likely in setting of dehydration. Slightly improving. Continue with normal saline with 20 minutes of potassium at 100 cc/h. Monitor sodium level daily for now. Appreciate urine lites. (5) AI (acute kidney injury): Baseline creatinine 1.2-1.3. Creatinine down to baseline. Associated with hypokalemia and hyponatremia. Elevated BUN. Could be in setting of dehydration. Patient does take Bumex and metolazone at home. Bladder scan did show urinary retention. Fischer catheter placed with some difficulty with help of coud?. Medical reconciliation done for nephrotoxic drugs. Hold off on diuretics for now. Repeat BMP in evening. Otherwise monitor BMP daily for now. (6) Syncope: Unknown etiology. Could be in setting of A-fib with RVR versus dehydration leading to AI and hyponatremia and hypokalemia or in setting of hypotension. Telemetry. Fluid as above. Monitor blood pressure as above. Replace electrolytes as above. Physical therapy. Orthostatic blood pressure check. (7) Urinary retention: Fischer catheter placed. Continue with Flomax 0.4 mg daily. Patient will need to follow-up with urology as an outpatient. (8) Hematuria: Most likely traumatic Fischer catheterization. Hold off on Eliquis for now. Monitor daily. (9) Afib: Currently rate controlled. At home patient seems to be on Cardizem 30 mg twice daily, Coreg 12.5 mg twice daily along with Eliquis 5 mg twice daily. Hold off on antihypertensive and rate admitting medications for now. Telemonitoring. Holding Eliquis given hematuria (10) Leukocytosis: Unknown etiology. Could be in setting of dehydration. Patient denies of having any localized symptoms for infection. Check blood culture, respiratory viral panel, urine culture. For now start on IV antibiotics for presumable possible UTI. Patient is allergic to cefazolin. (11) Diastolic CHF: Last echocardiogram from 07/19 shows an EF of 60% with RVSP of 24.8 mmHg. Continue to monitor. Qualifiers: Heart failure chronicity: acute on chronic Qualified Code(s): I50.33 - Acute on chronic diastolic (congestive) heart failure Plan Full code. Patient does not have a DPOA. Cardiac diet Eliquis will be sufficient for DVT prophylaxis Famotidine for PUD prophylaxis Attestations 2 Medical Necessity Statement*: Requires further hospitalization for management of acute hypokalemia, hyponatremia in setting of dehydration leading to soft blood pressure, syncope in a patient with history of A-fib, urinary retention and hematuria post Fischer catheterization Diagnoses Sepsis A41.9 Hypotension I95.9 Acute hypokalemia E87.6 Hyponatremia E87.1 AI (acute kidney injury) N17.9 Syncope R55 Urinary retention R33.9 Hematuria R31.9 Afib I48.91 Leukocytosis D72.829 Acute on chronic diastolic congestive heart failure I50.33 Heart failure chronicity: acute on chronic
[2024-03-07 16:10] LABS: Anion Gap 13.7 (5-19); Blood Urea Nitrogen 30 mg/dL (8-23); Calcium 8.4 mg/dL (8.5-10.5); Carbon Dioxide 27 mmol/L (22-29); Chloride 96 mmol/L (98-107); Creatinine Clr Calc Pharmacy 79.5239; Glomerular Filtration Rate 66.2 mL/min (90-130); Glucose 121 mg/dL (65-115); Osmolality Calculated 285 mOsm/kg (285-295); Sodium 134 mmol/L (136-145)
[2024-03-07 16:21] LABS: Potassium 2.7 mmol/L (3.5-5.1)
[2024-03-08] VITALS (63 sets, daily range): BP systolic 102–162; BP diastolic 65–128; PULSE 57–117; RESP 13–38; TEMP 36.6–37; O2SAT 72–99; BMI 36.5
[2024-03-08] MEDS: piperacillin-tazobactam 3.375 GM in sodium chloride 0.9% (plus) 50 ML IV ×4 (01:40→23:59)
[2024-03-08 03:54] LABS: Basophils % 0.3 %; Eosinophils # 0.3 10^3/uL (0.0-0.8); Eosinophils % 2.8 %; Hematocrit 36.4 % (37-53); Lymphocytes # 1.9 10^3/uL (0.8-4.8); Lymphocytes % 18.3 %; Mean Corpuscular Hemoglobin 24.8 pg (27-33); Mean Platelet Volume 10.9 fL (7.4-10.4); Monocytes # 0.7 10^3/uL (0.2-0.9); Monocytes % 6.4 %; Neutrophils # 7.28 10^3/uL (1.8-7.7); Neutrophils % 71.6 %; Nucleated Red Blood Cells % 0 %; Platelet Count 205 10^3/cmm (157-399); Red Blood Count 4.55 10^6/uL (3.85-5.65); Red Cell Distribution Width 18.8 % (12.1-15.1); White Blood Count 10.16 10^3/uL (3.29-11.43)
[2024-03-08 04:12] LABS: Alanine Aminotransferase 15 U/L (0-41); Albumin Level 3.4 g/dL (3.5-5.2); Alkaline Phosphatase 81 U/L (40-130); Aspartate Amino Transferase 17 U/L (0-40); Blood Urea Nitrogen 22 mg/dL (8-23); Calcium 8.8 mg/dL (8.5-10.5); Carbon Dioxide 27 mmol/L (22-29); Chloride 95 mmol/L (98-107); Creatinine Clr Calc Pharmacy 87.4763; Globulin 2.7 g/dL (1.3-4.6); Glomerular Filtration Rate 73.9 mL/min (90-130); Glucose 99 mg/dL (65-115); Osmolality Calculated 283 mOsm/kg (285-295); Sodium 135 mmol/L (136-145); Total Bilirubin 0.3 mg/dL (0.15-1.2); Total Protein 6.1 g/dL (6.6-8.7)
[2024-03-08 04:23] LABS: Anion Gap 15.8 (5-19)
[2024-03-08 04:24] LABS: Potassium 2.8 mmol/L (3.5-5.1)
--- NOTE | 2024-03-08 06:19 | PC.NURSE ---
Spoke to Dr. Martino regarding patients Potassium level of 2.8, given orders for one time dose of Potassium 60meq PO.
[2024-03-08] MEDS: potassium chloride ER 20 mEq Tablet 60 MEQ PO ×3 (06:24→19:02)
[2024-03-08 08:27] LABS: Magnesium 2.2 mg/dL (1.7-2.3)
[2024-03-08] MEDS: magnesium hydroxide 30 mL UDC PO (08:52)
[2024-03-08] MEDS: acetaminophen 325 mg Tablet 650 MG PO (08:53)
[2024-03-08] MEDS: ferrous gluconate 324 mg Tablet PO (08:53)
[2024-03-08] MEDS: tamsulosin 0.4 mg Capsule 0.800000000000000044 MG PO (08:53)
--- NOTE | 2024-03-08 10:24 | PC.SOCIAL ---
IMM Update Pg. 2 of IMM Updated and reviewed with patient, who verbalized understanding. Copy provided.
--- NOTE | 2024-03-08 10:42 | P.PN_ITS ---
Subjective 2 Subjective: No acute events overnight. Today morning patient seen sitting in chair with friends at bedside. Patient states he is feeling stable. States he feels a lot of energy and feels like walking around. Denies any chest pain, nausea, vomiting, headache, dizziness or difficulty in breathing. Complaining of back pain. Documented urine output of 3.6 L in last 24 hours Vitals/I&O/Wt Last Vital Signs Temp 97.9 F 03/08/24 11:16 Pulse 81 03/08/24 11:16 Resp 13 03/08/24 11:16 BP 117/75 03/08/24 11:16 Pulse Ox 91 03/08/24 11:16 O2 Del Method Room Air 03/08/24 11:16 03/07/24 03/08/24 03/08/24 22:59 06:59 14:59 Intake Total 1050 / 5680.023 50 / 5730.023 650 / 650 Output Total 350 / 2500 1100 / 3600 1400 / 1400 Balance 700 / 3180.023 -1050 / 2130.023 -750 / -750 Weight last 48 hrs Weight 115.439 kg Weight 115.439 kg Weight 115.439 kg Weight 115.439 kg Physical Exam 2 Narrative: General: No acute distress, AO x3, anxious, jittery HEENT: PERRLA, pupils bilaterally equal and reactive Chest: Normal vesicular breath sounds, no added sounds, equal good air entry bilaterally CVS: S1-S2 regular, no murmurs, no tachycardia, no gallops, no rubs Abdomen: Soft, nontender, no organomegaly, bowel sounds present Neuro: No focal deficits, no facial deformity, AO x3, power 5/5 in all limbs Urinary Catheter Management: Coude: Cath Placed During This Visit: yes Reason for Continuing Indwelling Catheter: Acute Urinary Retention or Obstruction Urinary Catheter Date of Insertion: 03/07/24 Urinary Catheter Time of Insertion: 08:30 Data 03/08/24 13:15 03/08/24 13:15 Micro: Microbiology 03/06/24 16:25 Urine Culture - Preliminary Urine,Clean Catch 03/06/24 15:10 Blood Culture - Preliminary Blood NEGATIVE TO DATE 03/06/24 15:14 Blood Culture - Preliminary Blood NEGATIVE TO DATE 03/06/24 16:25 Bacterial Antigens - Final Urine Kidney A&P Assessment and plan (1) Sepsis: SIRS: Hypotension, leukocytosis, elevated lactate on admission. Source: Unknown. Possibly UTI. End organ damage: Acute infectious encephalopathy, acute kidney injury Lactic acid elevated. Patient did receive full sepsis bolus of 30 mill per KG body weight. Continue with NS at 100 cc/h. Monitor blood pressures. Keep mean artery pressure 65 mmHg. Follow-up blood culture, urine culture, MRSA swab. Appreciate procalcitonin, urine Legionella, bacterial antigen. Patient is allergic to cefazolin. For now continue with Zosyn. De-escalate antibiotics as per culture results. (2) Hypotension: Hypertension present on presentation to the ER. Improved with sepsis fluid bolus. Keep mean artery pressure 65. Hold off antihypertensive for now. Check orthostatics. (3) Acute hypokalemia: Denies any episodes of diarrhea. Patient is on excessive diuretics as an outpatient. Did not tolerate IV potassium in the ER. Persistent hypokalemia. Replaced with 100 mg once more. Repeat potassium in the evening. (4) Hyponatremia: Most likely in setting of dehydration. Slightly improving. Continue with normal saline with 20 minutes of potassium at 100 cc/h. Monitor sodium level daily for now. Appreciate urine lites. (5) AI (acute kidney injury): Baseline creatinine 1.2-1.3. Creatinine down to baseline. Associated with hypokalemia and hyponatremia. Elevated BUN. Could be in setting of dehydration. Patient does take Bumex and metolazone at home. Bladder scan did show urinary retention. Fischer catheter placed with some difficulty with help of coud?. Medical reconciliation done for nephrotoxic drugs. Hold off on diuretics for now. Repeat BMP in evening. Otherwise monitor BMP daily for now. (6) Syncope: Unknown etiology. Could be in setting of A-fib with RVR versus dehydration leading to AI and hyponatremia and hypokalemia or in setting of hypotension. Telemetry. Fluid as above. Monitor blood pressure as above. Replace electrolytes as above. Physical therapy. Orthostatic blood pressure check. Qualifiers: Syncope type: unspecified Qualified Code(s): R55 - Syncope and collapse (7) Urinary retention: Fischer catheter placed. Continue with Flomax 0.4 mg daily. Patient will need to follow-up with urology as an outpatient. (8) Hematuria: Most likely traumatic Fischer catheterization. Hold off on Eliquis for now. Monitor daily. (9) Afib: Currently rate controlled. At home patient seems to be on Cardizem 30 mg twice daily, Coreg 12.5 mg twice daily along with Eliquis 5 mg twice daily. Hold off on antihypertensive and rate admitting medications for now. Telemonitoring. Holding Eliquis given hematuria Qualifiers: Atrial fibrillation type: unspecified Qualified Code(s): I48.91 - Unspecified atrial fibrillation (10) Leukocytosis: Unknown etiology. Could be in setting of dehydration. Patient denies of having any localized symptoms for infection. Check blood culture, respiratory viral panel, urine culture. For now start on IV antibiotics for presumable possible UTI. Patient is allergic to cefazolin. (11) Diastolic CHF: Last echocardiogram from 07/19 shows an EF of 60% with RVSP of 24.8 mmHg. Continue to monitor. Qualifiers: Heart failure chronicity: acute on chronic Qualified Code(s): I50.33 - Acute on chronic diastolic (congestive) heart failure Plan Full code. Patient does not have a DPOA. Cardiac diet Eliquis will be sufficient for DVT prophylaxis Famotidine for PUD prophylaxis Plan for the day: Cultures so far negative. Urine Legionella and bacterial antigen negative. MRSA swab negative. Continue with IV Zosyn. Acute kidney injury resolving. Creatinine normal at 1 today. Continue with normal saline at 100 cc/h. Patient remains euvolemic. Continues to have hypokalemia. Start on 60 mEq oral twice daily. It seems patient has had recurrent hypokalemia in the past. Cannot rule out periodic hypokalemic paralysis. Recheck urine electrolytes and urine creatinine to see potassium to creatinine ratio. Patient seems anxious today. Start on Xanax 0.5 mg 3 times daily as needed. Urine drug screen on admission negative. Patient states last alcoholic use was more than 10 years ago. Denies any recreational drugs. Recheck urine drug screen. Blood pressure stable. Increase dose of Flomax to 0.8 mg to match home dose. Repeat BMP in evening. Orthostatics negative. Continue to hold off on antihypertensives for now. Heart rate so far stable. Hematuria seems to be improving. Continue to hold off on Eliquis. Hemoglobin stable. Attestations 2 Medical Necessity Statement*: Requires further hospitalization for management of persistent hypokalemia leading to generalized weakness, dehydration leading to AI as patient requires IV fluids Diagnoses Sepsis A41.9 Hypotension I95.9 Acute hypokalemia E87.6 Hyponatremia E87.1 AI (acute kidney injury) N17.9 Syncope, unspecified syncope type R55 Syncope type: unspecified Urinary retention R33.9 Hematuria R31.9 Atrial fibrillation, unspecified type I48.91 Atrial fibrillation type: unspecified Leukocytosis D72.829 Acute on chronic diastolic congestive heart failure I50.33 Heart failure chronicity: acute on chronic
[2024-03-08 11:23] LABS: Amphetamines Screen Urine Negative (Negative); Barbiturates Screen Urine Negative (Negative); Benzodiazepines Screen Urine Negative (Negative); Cocaine Screen Urine Negative (Negative); Opiate Screen Urine Negative (Negative); PCP Screen Urine Negative (Negative); THC Screen Urine Negative (Negative)
[2024-03-08 11:32] LABS: Potassium, Radom Urine 35 mmol/L; Urine Creatinine 70 mg/dL (39-259); Urine Random Chloride 128 mmol/L; Urine Random Sodium 95 mmol/L
[2024-03-08] MEDS: ALPRAZolam 0.5 mg Tablet PO (12:37)
--- NOTE | 2024-03-08 12:41 | PC.NURSE ---
Patient had call leon in hand and was screaming very loudly. Nurse came in to ask patient what he needed and patient then yelled at nurse demanding that nurse move the table just a certain way and the chair a certain way. Patient then began to panic stating I can't breath, something's wrong, I cant breath. . Nurse attempted breathing techniques with no success, patient became more frantic, hyperventilating, and screaming. Rapid response was initiated. During rapid response patient received 2mg of morphine, 2mg of ativan, and 2mg of haldol. Patient transferred to ICU to initiate precedex gtt.
--- NOTE | 2024-03-08 12:50 | PM.CCNAC ---
Critical Care Event Note Got a rapid response call from the nurse at around 12:50 PM stating that patient is screaming, hyperventilating. On examination patient is awake and alert, profusely sweating, jittery, clenching his teeth and hyperventilating on oxime mask of 10 L saturating more than 90% with heart rate up in 130s and blood pressure 160 over 110 mmHg. Patient was moved to the bed. ABG drawn. Urine drug screen from AM negative. Patient continues to deny any recent alcohol use. Concern for panic disorder. Other differential diagnosis could be ACS versus acute respiratory failure. Patient was given 2 mg of IM Haldol, 2 minutes of IV Ativan and 125 of IV Solu-Medrol, 2 mg of IV morphine. After persistent counseling and talking with the patient he calmed down after which his saturations were 100%, ABG showed respiratory alkalosis with pCO2 24 and pO2 of more than 200. Heart rate came down to 80s. Patient was transferred to ICU for possible Precedex drip. Check CBC, CMP, CPK, troponin cycle. Check portable chest x-ray Continue with IV fluids. Replace potassium accordingly. Start on Xanax 0.5 mg 3 times daily as needed, Prozac 10 mg oral daily. Not sure if patient has any underlying psych disorder. Abnormal lab results 03/07/24 03/08/24 03/08/24 Range/Units 15:10 03:11 12:50 Hct 36.4 L (37-53) % MCV 80.0 L (82-101) fl MCH 24.8 L (27-33) pg RDW 18.8 H (12.1-15.1) % MPV 10.9 H (7.4-10.4) fL ABG pH 7.60 H* (7.35-7.45) ABG pCO2 24.4 L (35-45) mmHg ABG pO2 205.0 H (80.0-100.0) mmHg ABG Base Excess 3.5 H (-2.0-2.0) mmol/L Hematocrit 38.6 L (42-52) % Methemoglobin < 0.0 L (0.4-1.5) % Total Hemoglobin 12.6 L (14-18) g/dL Sodium 134 L 135 L (136-145) mmol/L Potassium 2.7 L* D 2.8 L* (3.5-5.1) mmol/L Chloride 96 L 95 L (98-107) mmol/L BUN 30 H (8-23) mg/dL GFR Calculation 66.2 L 73.9 L (90-130) mL/min Glucose 121 H (65-115) mg/dL Calculated Osmolality 283 L (285-295) mOsm/kg Calcium 8.4 L (8.5-10.5) mg/dL Troponin T Baseline (0-15) ng/L Total Protein 6.1 L (6.6-8.7) g/dL Albumin 3.4 L (3.5-5.2) g/dL 03/08/24 Range/Units 13:15 Hct 36.9 L (37-53) % MCV 80.0 L (82-101) fl MCH 24.9 L (27-33) pg RDW 18.8 H (12.1-15.1) % MPV 11.2 H (7.4-10.4) fL ABG pH (7.35-7.45) ABG pCO2 (35-45) mmHg ABG pO2 (80.0-100.0) mmHg ABG Base Excess (-2.0-2.0) mmol/L Hematocrit (42-52) % Methemoglobin (0.4-1.5) % Total Hemoglobin (14-18) g/dL Sodium 134 L (136-145) mmol/L Potassium 3.1 L (3.5-5.1) mmol/L Chloride 97 L (98-107) mmol/L BUN (8-23) mg/dL GFR Calculation 73.9 L (90-130) mL/min Glucose (65-115) mg/dL Calculated Osmolality 279 L (285-295) mOsm/kg Calcium (8.5-10.5) mg/dL Troponin T Baseline 34 H (0-15) ng/L Total Protein 6.3 L (6.6-8.7) g/dL Albumin (3.5-5.2) g/dL The high probability of a clinically significant, sudden or life threatening deterioration of the patient's [cardiac, respiratory, neurological, NEONATAL SPECIALIST] system(s) required my full and direct attention, intervention and personal management. The critical care time is as shown. This time is in addition to time spent performing any reported procedures but includes the following: [x] Data and vital sign review and interpretation [x] Patient assessment, examination and intervention [x] Documentation [x] Medication orders and management 60 Critical Care Time Code activated: Yes Critical Care Time (min): 60 Additional information about critical care time: Rapid response, stabilizing patient, moving to ICU, diagnosing and interpreting labs Coding Level of Care Code Critical Care Other Coding Information Prolonged care (total time indicated above or notated here)
[2024-03-08] MEDS: haloperidol inj 5 mg/mL INJ 1 mL 2 MG IM (12:51)
[2024-03-08] MEDS: hydrocortisone 100 mg/2 mL SDV 125 MG IVP (12:55)
[2024-03-08] MEDS: morphine 4 mg/mL SDV 1 mL 2 MG IVP (12:58)
[2024-03-08] MEDS: LORazepam 2 mg/mL INJ 1 mL IVP (13:00)
[2024-03-08 13:02] LABS: ABG PCO2 24.4 mmHg (35-45); Arterial Blood Gas Hematocrit 38.6 % (42-52); Base Excess ABG 3.5 mmol/L (-2.0-2.0); Blood Gas Allen Test Pos; Blood Gas Sample Site Radial, left; Blood Gas Sample Type Arterial; Carboxyhemoglobin 0.6 %THgb (0.4-20.1); HCO3 ABG 23.9 mmol/L (22-26); HGB O2 Sat 98.9 % (95-100); Ionized Calcium Level - ABG 1.2 mmol/L (1.1-1.4); Methemoglobin < 0.0 % (0.4-1.5); Oxygen Device OXY MASK; Oxygen Saturation ABG 99.4; Potassium Level - ABG 3.8 mmol/L (3.5-5.0); Total Hemoglobin 12.6 g/dL (14-18)
--- NOTE | 2024-03-08 13:22 | PC.NURSE ---
Pt found standing at the side of the bed stretching his IV tubing and villalobos catheter tubing very tightly. Pt appeared to be confused and and was hard to redirect. Turned the precedex drip back on the pt after Dr. Argueta instructed us to turn it off and see how the pt was doing. called Dr. Argueta with the informationand notified him that we needed to turn the precedex drip back on the pt
[2024-03-08] MEDS: dexmedeTOMIDine 0.9 % NaCL 400 MCG/100 ML PREMIX 2.89000000000000012 MCG IV (13:30)
--- NOTE | 2024-03-08 13:32 | ECG_ITS ---
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 Measurements Intervals [place] Rate: 89 P: 0 AL: 0 QRS: -29 QRSD: 102 T: 48 QT: 377 QTc: 461 Interpretive Statements ATRIAL FIBRILLATION INCOMPLETE RIGHT BUNDLE BRANCH BLOCK [90+ ms QRS DURATION, TERMINAL R IN V1/V2, 40+ ms S IN I/aVL/V4/V5/V6] SEPTAL MYOCARDIAL INFARCTION , OF INDETERMINATE AGE [40+ ms Q WAVE IN V1/V2] Compared to ECG 03/06/2024 20:44:53 Incomplete right bundle-branch block now present Myocardial infarct finding now present Left-axis deviation no longer present Right bundle-branch block no longer present T-wave abnormality no longer present Possible ischemia no longer present Electronically Signed On 03-08-2024 17:04:08 CDT by Adan Sutton M.D. [email or web address].[email or web address]/[id number]
[2024-03-08 13:34] LABS: Basophils % 0.4 %; Eosinophils # 0.3 10^3/uL (0.0-0.8); Eosinophils % 2.8 %; Hematocrit 36.9 % (37-53); Lymphocytes # 1.6 10^3/uL (0.8-4.8); Mean Corpuscular HGB Conc 31.2 g/dL (30-55); Mean Corpuscular Hemoglobin 24.9 pg (27-33); Mean Platelet Volume 11.2 fL (7.4-10.4); Monocytes # 0.8 10^3/uL (0.2-0.9); Monocytes % 7.3 %; Neutrophils # 7.66 10^3/uL (1.8-7.7); Nucleated Red Blood Cells % 0 %; Platelet Count 219 10^3/cmm (157-399); Red Blood Count 4.61 10^6/uL (3.85-5.65); Red Cell Distribution Width 18.8 % (12.1-15.1); White Blood Count 10.35 10^3/uL (3.29-11.43)
[2024-03-08 13:54] LABS: Alanine Aminotransferase 19 U/L (0-41); Albumin Level 3.5 g/dL (3.5-5.2); Alkaline Phosphatase 77 U/L (40-130); Anion Gap 18.1 (5-19); Aspartate Amino Transferase 16 U/L (0-40); Blood Urea Nitrogen 16 mg/dL (8-23); Calcium 9.1 mg/dL (8.5-10.5); Carbon Dioxide 22 mmol/L (22-29); Chloride 97 mmol/L (98-107); Creatine Phosphokinase 90 U/L (39-308); Creatinine Clr Calc Pharmacy 87.4763; Globulin 2.8 g/dL (1.3-4.6); Glomerular Filtration Rate 73.9 mL/min (90-130); Glucose 102 mg/dL (65-115); Osmolality Calculated 279 mOsm/kg (285-295); Potassium 3.1 mmol/L (3.5-5.1); Sodium 134 mmol/L (136-145); Total Bilirubin 0.3 mg/dL (0.15-1.2); Total Protein 6.3 g/dL (6.6-8.7)
[2024-03-08 13:55] LABS: Troponin(5th) Baseline 34 ng/L (0-15)
[2024-03-08 14:06] LABS: Methicillin-Resist S.aureu PCR NOT DETECTED (NOT DETECTED)
[2024-03-08 15:31] LABS: Troponin 5 2HR 32.13 ng/L (0-15)
--- NOTE | 2024-03-08 15:31 | PC.OT ---
OT EVALUATION ORDERS RECEIVED FOR COGNITIVE TEST (SUHAS). PATIENT HAD RAPID RESPONSE EARLIER TODAY AND TRANSFERRED TO TO ICU, MULTIPLE MEDICATIONS AND PER NURSING IS TRYING TO CLIMB OUT OF BED. WILL HOLD THIS EVALUATION TODAY AND ATTEMPT TOMORROW.
--- NOTE | 2024-03-08 15:36 | ECG_ITS ---
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 Measurements Intervals [place] Rate: 84 P: 0 GA: 0 QRS: -38 QRSD: 108 T: 26 QT: 409 QTc: 484 Interpretive Statements ATRIAL FIBRILLATION LEFT AXIS DEVIATION [QRS AXIS < -30] NONSPECIFIC ST & T-WAVE ABNORMALITY Compared to ECG 03/08/2024 13:32:28 Left-axis deviation now present T-wave abnormality now present Incomplete right bundle-branch block no longer present Myocardial infarct finding no longer present Electronically Signed On 03-08-2024 17:07:39 CDT by Adan Sutton M.D. [email or web address]/[id number]
[2024-03-08 15:38] LABS: Troponin 5 2HR Delta -1.87 ABS# (0-10)
[2024-03-08] MEDS: PARoxetine 20 mg Tablet 10 MG PO (15:59)
--- NOTE | 2024-03-08 17:00 | PC.NURSE ---
Unable to give gabapentin to the t as per MD request as we were tied up with another pt that was a Code 10. When things started to settle down, it was too late to give as the pt had another gabapentin dose due at 21:00. electronics hardware design engineer notified.
[2024-03-08] MEDS: famotidine 20 mg Tablet PO (19:03)
[2024-03-08] MEDS: sodium chlor 0.9% + KCl 20 mEq 20 MEQ/1,000 ML BAG 100 MEQ IV (19:04)
--- NOTE | 2024-03-08 19:22 | ECG_ITS ---
[facility] Test Date: 2024-03-08 Pat Name: Felipe Bello Department: Room: ICU08 Gender: Male Cash Person: : 1955 Requested By: Teodoro Argueta Order Number: [id number] Jesse MD: Adan Sutton M.D. Measurements Intervals [place] Rate: 72 P: 0 MD: 0 QRS: -31 QRSD: 106 T: 23 QT: 432 QTc: 474 Interpretive Statements ATRIAL FIBRILLATION LEFT AXIS DEVIATION [QRS AXIS < -30] NONSPECIFIC ST & T-WAVE ABNORMALITY Compared to ECG 03/08/2024 15:36:09 No significant changes Electronically Signed On 03-09-2024 0:04:57 CDT by Adan Sutton M.D. [id number]
[2024-03-08 20:15] LABS: Troponin 5 6HR 29.47 ng/L (0-15); Troponin 5 6HR Delta -4.53 ng/L (0-12)
[2024-03-08] MEDS: finasteride 5 mg Tablet PO (20:34)
[2024-03-08] MEDS: gabapentin 300 mg Capsule PO (20:34)
[2024-03-08] MEDS: dexmedeTOMIDine 0.9 % NaCL 400 MCG/100 ML PREMIX 11.5399999999999991 MCG IV (22:05)
[2024-03-09] VITALS (40 sets, daily range): BP systolic 90–148; BP diastolic 62–100; PULSE 50–90; RESP 10–23; TEMP 36.7–36.9; O2SAT 90–100
[2024-03-09] MEDS: sodium chlor 0.9% + KCl 20 mEq 20 MEQ/1,000 ML BAG 100 MEQ IV ×2 (05:02→15:08)
[2024-03-09 05:37] LABS: Basophils % 0.3 %; Eosinophils # 0.2 10^3/uL (0.0-0.8); Eosinophils % 2.1 %; Lymphocytes # 1.9 10^3/uL (0.8-4.8); Lymphocytes % 17.4 %; Mean Corpuscular HGB Conc 31.4 g/dL (30-55); Mean Corpuscular Hemoglobin 25.2 pg (27-33); Mean Corpuscular Volume 80.1 fl (82-101); Mean Platelet Volume 10.9 fL (7.4-10.4); Monocytes # 0.7 10^3/uL (0.2-0.9); Monocytes % 6.1 %; Neutrophils # 8.14 10^3/uL (1.8-7.7); Neutrophils % 73.6 %; Nucleated Red Blood Cells % 0 %; Platelet Count 207 10^3/cmm (157-399); Red Blood Count 4.37 10^6/uL (3.85-5.65); Red Cell Distribution Width 19.1 % (12.1-15.1); White Blood Count 11.04 10^3/uL (3.29-11.43)
[2024-03-09 06:04] LABS: Alanine Aminotransferase 15 U/L (0-41); Albumin Level 3.2 g/dL (3.5-5.2); Alkaline Phosphatase 74 U/L (40-130); Anion Gap 13.9 (5-19); Aspartate Amino Transferase 16 U/L (0-40); Blood Urea Nitrogen 13 mg/dL (8-23); Calcium 8.8 mg/dL (8.5-10.5); Carbon Dioxide 27 mmol/L (22-29); Chloride 100 mmol/L (98-107); Creatinine Clr Calc Pharmacy 109.4557; Glomerular Filtration Rate 95.6 mL/min (90-130); Glucose 89 mg/dL (65-115); Osmolality Calculated 284 mOsm/kg (285-295); Potassium 3.9 mmol/L (3.5-5.1); Sodium 137 mmol/L (136-145); Total Bilirubin 0.4 mg/dL (0.15-1.2); Total Protein 5.2 g/dL (6.6-8.7)
[2024-03-09 06:07] LABS: Magnesium 1.8 mg/dL (1.7-2.3)
[2024-03-09] MEDS: piperacillin-tazobactam 3.375 GM in sodium chloride 0.9% (plus) 50 ML IV ×2 (08:18→17:00)
[2024-03-09] MEDS: potassium chloride ER 20 mEq Tablet 60 MEQ PO (08:33)
[2024-03-09] MEDS: PARoxetine 20 mg Tablet 10 MG PO (08:33)
[2024-03-09] MEDS: magnesium hydroxide 30 mL UDC PO (08:34)
[2024-03-09] MEDS: tamsulosin 0.4 mg Capsule 0.800000000000000044 MG PO (08:34)
[2024-03-09] MEDS: gabapentin 300 mg Capsule PO ×3 (08:34→21:16)
[2024-03-09] MEDS: famotidine 20 mg Tablet PO ×2 (08:34→17:02)
--- NOTE | 2024-03-09 11:22 | P.PN_ITS ---
Subjective 2 Subjective: No acute events overnight. Today morning on examination patient is back to his baseline. Not agitated or anxious. Awake and alert, apologetic about yesterday. Denies any nausea, vomiting, headache. Precedex has been off since 3 AM last night. Vitals/I&O/Wt Last Vital Signs Temp 98.0 F 03/09/24 00:30 Pulse 55 L 03/09/24 06:30 Resp 15 03/09/24 06:30 BP 94/62 03/09/24 06:30 Pulse Ox 95 03/09/24 06:30 O2 Del Method Room Air 03/08/24 11:16 03/08/24 03/09/24 03/09/24 22:59 06:59 14:59 Intake Total 196.458 / 3681.304 9999.923 / 3588.826 300 / 300 Output Total 1200 / 2600 425 / 3025 Balance -1003.542 / -229.245 6304.923 / 563.826 300 / 300 Weight last 48 hrs Weight 115.666 kg Weight 115.439 kg Physical Exam 2 Narrative: General: No acute distress, AO x3, calm HEENT: PERRLA, pupils bilaterally equal and reactive Chest: Normal vesicular breath sounds, no added sounds, equal good air entry bilaterally CVS: S1-S2 regular, no murmurs, no tachycardia, no gallops, no rubs Abdomen: Soft, nontender, no organomegaly, bowel sounds present Neuro: No focal deficits, no facial deformity, AO x3, power 5/5 in all limbs Urinary Catheter Management: Coude: Cath Placed During This Visit: yes Reason for Continuing Indwelling Catheter: Acute Urinary Retention or Obstruction Urinary Catheter Date of Insertion: 03/07/24 Urinary Catheter Time of Insertion: 08:30 Data 03/09/24 04:42 03/09/24 04:42 Micro: Microbiology 03/06/24 16:25 Urine Culture - Final Urine,Clean Catch A&P Assessment and plan (1) Sepsis: SIRS: Hypotension, leukocytosis, elevated lactate on admission. Source: Unknown. Possibly UTI. End organ damage: Acute infectious encephalopathy, acute kidney injury Lactic acid elevated. Patient did receive full sepsis bolus of 30 mill per KG body weight. Continue with NS at 100 cc/h. Monitor blood pressures. Keep mean artery pressure 65 mmHg. Follow-up blood culture, urine culture, MRSA swab. Appreciate procalcitonin, urine Legionella, bacterial antigen. Patient is allergic to cefazolin. For now continue with Zosyn. De-escalate antibiotics as per culture results. (2) Hypotension: Hypertension present on presentation to the ER. Improved with sepsis fluid bolus. Keep mean artery pressure 65. Hold off antihypertensive for now. Check orthostatics. (3) Acute hypokalemia: Denies any episodes of diarrhea. Patient is on excessive diuretics as an outpatient. Did not tolerate IV potassium in the ER. Persistent hypokalemia. Replaced with 100 mg once more. Repeat potassium in the evening. (4) Hyponatremia: Most likely in setting of dehydration. Slightly improving. Continue with normal saline with 20 minutes of potassium at 100 cc/h. Monitor sodium level daily for now. Appreciate urine lites. (5) AI (acute kidney injury): Baseline creatinine 1.2-1.3. Creatinine down to baseline. Associated with hypokalemia and hyponatremia. Elevated BUN. Could be in setting of dehydration. Patient does take Bumex and metolazone at home. Bladder scan did show urinary retention. Fischer catheter placed with some difficulty with help of coud?. Medical reconciliation done for nephrotoxic drugs. Hold off on diuretics for now. Repeat BMP in evening. Otherwise monitor BMP daily for now. (6) Syncope: Unknown etiology. Could be in setting of A-fib with RVR versus dehydration leading to AI and hyponatremia and hypokalemia or in setting of hypotension. Telemetry. Fluid as above. Monitor blood pressure as above. Replace electrolytes as above. Physical therapy. Orthostatic blood pressure check. Qualifiers: Syncope type: unspecified Qualified Code(s): R55 - Syncope and collapse (7) Urinary retention: Fischer catheter placed. Continue with Flomax 0.4 mg daily. Patient will need to follow-up with urology as an outpatient. (8) Hematuria: Most likely traumatic Fischer catheterization. Hold off on Eliquis for now. Monitor daily. (9) Afib: Currently rate controlled. At home patient seems to be on Cardizem 30 mg twice daily, Coreg 12.5 mg twice daily along with Eliquis 5 mg twice daily. Hold off on antihypertensive and rate admitting medications for now. Telemonitoring. Holding Eliquis given hematuria Qualifiers: Atrial fibrillation type: unspecified Qualified Code(s): I48.91 - Unspecified atrial fibrillation (10) Leukocytosis: Unknown etiology. Could be in setting of dehydration. Patient denies of having any localized symptoms for infection. Check blood culture, respiratory viral panel, urine culture. For now start on IV antibiotics for presumable possible UTI. Patient is allergic to cefazolin. (11) Diastolic CHF: Last echocardiogram from 07/19 shows an EF of 60% with RVSP of 24.8 mmHg. Continue to monitor. Qualifiers: Heart failure chronicity: acute on chronic Qualified Code(s): I50.33 - Acute on chronic diastolic (congestive) heart failure Plan Full code. Patient does not have a DPOA. Cardiac diet Eliquis will be sufficient for DVT prophylaxis Famotidine for PUD prophylaxis Plan for the day: After review of medications from outpatient pharmacy it seems patient is also on gabapentin 600 mg twice daily and finasteride 5 mg oral daily. Patient agitation and anxiety yesterday most likely in setting of withdrawal from gabapentin. Continue with gabapentin 300 mg 3 times daily for now. Blood cultures so far remain negative. Continue with Zosyn. Will plan to finish overall 7-day course of antibiotics. Electrolytes stable today. Potassium at 3.9. Continue with potassium replacement 60 mg twice daily. Repeat BMP in evening. Continue with Flomax 0.8 mg along with new finasteride 5 mg oral daily to match home dose. Hematuria has resolved. Restart Eliquis 5 mg twice daily. Transfer back to [facility]. Continue with physical therapy. Discharge plan: Plan to discharge back home with home health within next 24 hours if patient's electrolytes remained stable and remains medically stable. Attestations 2 Medical Necessity Statement*: Requires further hospitalization for further management of electrode abnormality due to dehydration from overdiuresis, improvement in agitation Diagnoses Sepsis A41.9 Hypotension I95.9 Acute hypokalemia E87.6 Hyponatremia E87.1 AI (acute kidney injury) N17.9 Syncope, unspecified syncope type R55 Syncope type: unspecified Urinary retention R33.9 Hematuria R31.9 Atrial fibrillation, unspecified type I48.91 Atrial fibrillation type: unspecified Leukocytosis D72.829 Acute on chronic diastolic congestive heart failure I50.33 Heart failure chronicity: acute on chronic
[2024-03-09] MEDS: acetaminophen 325 mg Tablet 650 MG PO (11:26)
[2024-03-09 13:45] LABS: Blood Urea Nitrogen 14 mg/dL (8-23); Calcium 8.6 mg/dL (8.5-10.5); Carbon Dioxide 23 mmol/L (22-29); Chloride 102 mmol/L (98-107); Glomerular Filtration Rate 83.4 mL/min (90-130); Glucose 116 mg/dL (65-115); Osmolality Calculated 285 mOsm/kg (285-295); Sodium 137 mmol/L (136-145)
[2024-03-09] MEDS: morphine 4 mg/mL SDV 1 mL 2 MG IVP ×2 (15:08→19:26)
--- NOTE | 2024-03-09 16:48 | PC.NURSE ---
Report caled to [facility]. Report given to BRANDON Sexton.
[2024-03-09] MEDS: potassium chloride ER 20 mEq Tablet 40 MEQ PO (17:02)
[2024-03-09] MEDS: apixaban 5 mg Tablet PO (17:03)
--- NOTE | 2024-03-09 17:17 | PC.NURSE ---
Pt transferred to [facility] via W/C.
[2024-03-09] MEDS: finasteride 5 mg Tablet PO (21:16)
[2024-03-10] VITALS (12 sets, daily range): BP systolic 111–131; BP diastolic 74–83; PULSE 68–83; RESP 15–19; TEMP 36.7–36.9; O2SAT 95–98
[2024-03-10] MEDS: acetaminophen 325 mg Tablet 650 MG PO (00:28)
[2024-03-10] MEDS: piperacillin-tazobactam 3.375 GM in sodium chloride 0.9% (plus) 50 ML IV ×3 (00:29→17:46)
[2024-03-10] MEDS: sodium chlor 0.9% + KCl 20 mEq 20 MEQ/1,000 ML BAG 100 MEQ IV (01:14)
[2024-03-10] MEDS: morphine 4 mg/mL SDV 1 mL 2 MG IVP ×3 (02:30→19:55)
[2024-03-10 05:08] LABS: Basophils % 0.4 %; Eosinophils # 0.4 10^3/uL (0.0-0.8); Eosinophils % 3.8 %; Hematocrit 33.8 % (37-53); Lymphocytes % 21.2 %; Mean Corpuscular HGB Conc 31.1 g/dL (30-55); Mean Corpuscular Hemoglobin 24.9 pg (27-33); Mean Corpuscular Volume 80.3 fl (82-101); Mean Platelet Volume 10.7 fL (7.4-10.4); Monocytes # 0.7 10^3/uL (0.2-0.9); Monocytes % 7.5 %; Neutrophils # 6.15 10^3/uL (1.8-7.7); Neutrophils % 66.6 %; Nucleated Red Blood Cells % 0 %; Platelet Count 217 10^3/cmm (157-399); Red Blood Count 4.21 10^6/uL (3.85-5.65); Red Cell Distribution Width 19.9 % (12.1-15.1); White Blood Count 9.24 10^3/uL (3.29-11.43)
[2024-03-10 05:25] LABS: Alanine Aminotransferase 22 U/L (0-41); Alkaline Phosphatase 69 U/L (40-130); Anion Gap 13.1 (5-19); Aspartate Amino Transferase 18 U/L (0-40); Blood Urea Nitrogen 13 mg/dL (8-23); Calcium 8.2 mg/dL (8.5-10.5); Carbon Dioxide 25 mmol/L (22-29); Chloride 102 mmol/L (98-107); Creatinine Clr Calc Pharmacy 90.8281; Globulin 2.3 g/dL (1.3-4.6); Glomerular Filtration Rate 73.9 mL/min (90-130); Glucose 79 mg/dL (65-115); Osmolality Calculated 281 mOsm/kg (285-295); Potassium 4.1 mmol/L (3.5-5.1); Sodium 136 mmol/L (136-145); Total Bilirubin 0.4 mg/dL (0.15-1.2); Total Protein 5.3 g/dL (6.6-8.7)
[2024-03-10 05:30] LABS: Magnesium 1.7 mg/dL (1.7-2.3)
--- NOTE | 2024-03-10 08:32 | PC.SOCIAL ---
IMM Update Pg. 2 of IMM Updated and reviewed with patient, copy provided.
[2024-03-10] MEDS: apixaban 5 mg Tablet PO ×2 (08:59→17:46)
[2024-03-10] MEDS: ferrous gluconate 324 mg Tablet PO (09:00)
[2024-03-10] MEDS: gabapentin 300 mg Capsule PO ×3 (09:00→20:30)
[2024-03-10] MEDS: potassium chloride ER 20 mEq Tablet 40 MEQ PO ×2 (09:00→17:46)
[2024-03-10] MEDS: PARoxetine 20 mg Tablet 10 MG PO (09:00)
[2024-03-10] MEDS: tamsulosin 0.4 mg Capsule 0.800000000000000044 MG PO (09:01)
[2024-03-10] MEDS: famotidine 20 mg Tablet PO ×2 (09:01→17:46)
--- NOTE | 2024-03-10 12:05 | P.PN_ITS ---
Subjective 2 Subjective: No acute events overnight. Today morning patient seen sitting up in the bed. He is awake and alert back to his baseline. Denies any nausea, vomiting, headache. Appetite is appropriate. Pain is controlled. Documented urine output of around 4.9 L in last 24 hours. Vitals/I&O/Wt Last Vital Signs Temp 98.2 F 03/10/24 11:46 Pulse 79 03/10/24 11:46 Resp 17 03/10/24 11:46 BP 116/74 03/10/24 11:46 Pulse Ox 95 03/10/24 11:46 O2 Del Method Room Air 03/10/24 11:46 O2 Flow Rate 98 03/09/24 20:00 03/09/24 03/10/24 03/10/24 22:59 06:59 14:59 Intake Total 1990 / 2740 1150 / 3890 1360 / 1360 Output Total 600 / 1900 1300 / 3200 1250 / 1250 Balance 1390 / 840 -150 / 690 110 / 110 Weight last 48 hrs Weight 124.058 kg Weight 124.284 kg Weight 123.014 kg Weight 115.666 kg Physical Exam 2 Narrative: General: No acute distress, AO x3, calm HEENT: PERRLA, pupils bilaterally equal and reactive Chest: Normal vesicular breath sounds, no added sounds, equal good air entry bilaterally CVS: S1-S2 regular, no murmurs, no tachycardia, no gallops, no rubs Abdomen: Soft, nontender, no organomegaly, bowel sounds present Neuro: No focal deficits, no facial deformity, AO x3, power 5/5 in all limbs Urinary Catheter Management: Coude: Cath Placed During This Visit: yes Reason for Continuing Indwelling Catheter: Acute Urinary Retention or Obstruction Urinary Catheter Date of Insertion: 03/07/24 Urinary Catheter Time of Insertion: 08:30 Data 03/10/24 04:31 03/10/24 04:31 Micro: Microbiology 03/06/24 16:25 Urine Culture - Final Urine,Clean Catch A&P Assessment and plan (1) Sepsis: SIRS: Hypotension, leukocytosis, elevated lactate on admission. Source: Unknown. Possibly UTI. End organ damage: Acute infectious encephalopathy, acute kidney injury Lactic acid elevated. Patient did receive full sepsis bolus of 30 mill per KG body weight. Continue with NS at 100 cc/h. Monitor blood pressures. Keep mean artery pressure 65 mmHg. Follow-up blood culture, urine culture, MRSA swab. Appreciate procalcitonin, urine Legionella, bacterial antigen. Patient is allergic to cefazolin. For now continue with Zosyn. De-escalate antibiotics as per culture results. (2) Hypotension: Hypertension present on presentation to the ER. Improved with sepsis fluid bolus. Keep mean artery pressure 65. Hold off antihypertensive for now. Check orthostatics. (3) Acute hypokalemia: Denies any episodes of diarrhea. Patient is on excessive diuretics as an outpatient. Did not tolerate IV potassium in the ER. Persistent hypokalemia. Replaced with 100 mg once more. Repeat potassium in the evening. (4) Hyponatremia: Most likely in setting of dehydration. Slightly improving. Continue with normal saline with 20 minutes of potassium at 100 cc/h. Monitor sodium level daily for now. Appreciate urine lites. (5) AI (acute kidney injury): Baseline creatinine 1.2-1.3. Creatinine down to baseline. Associated with hypokalemia and hyponatremia. Elevated BUN. Could be in setting of dehydration. Patient does take Bumex and metolazone at home. Bladder scan did show urinary retention. Fischer catheter placed with some difficulty with help of coud?. Medical reconciliation done for nephrotoxic drugs. Hold off on diuretics for now. Repeat BMP in evening. Otherwise monitor BMP daily for now. (6) Syncope: Unknown etiology. Could be in setting of A-fib with RVR versus dehydration leading to AI and hyponatremia and hypokalemia or in setting of hypotension. Telemetry. Fluid as above. Monitor blood pressure as above. Replace electrolytes as above. Physical therapy. Orthostatic blood pressure check. Qualifiers: Syncope type: unspecified Qualified Code(s): R55 - Syncope and collapse (7) Urinary retention: Fischer catheter placed. Continue with Flomax 0.4 mg daily. Patient will need to follow-up with urology as an outpatient. (8) Hematuria: Resolved. Eliquis restarted on 03/09 evening (9) Afib: Currently rate controlled. At home patient seems to be on Cardizem 30 mg twice daily, Coreg 12.5 mg twice daily along with Eliquis 5 mg twice daily. Hold off on antihypertensive and rate admitting medications for now. Telemonitoring. Holding Eliquis given hematuria Qualifiers: Atrial fibrillation type: unspecified Qualified Code(s): I48.91 - Unspecified atrial fibrillation (10) Leukocytosis: Unknown etiology. Could be in setting of dehydration. Patient denies of having any localized symptoms for infection. Check blood culture, respiratory viral panel, urine culture. For now start on IV antibiotics for presumable possible UTI. Patient is allergic to cefazolin. (11) Diastolic CHF: Last echocardiogram from 07/19 shows an EF of 60% with RVSP of 24.8 mmHg. Continue to monitor. Qualifiers: Heart failure chronicity: acute on chronic Qualified Code(s): I50.33 - Acute on chronic diastolic (congestive) heart failure Plan Full code. Patient does not have a DPOA. Cardiac diet Eliquis will be sufficient for DVT prophylaxis Famotidine for PUD prophylaxis Plan for the day: Patient's mentation is back to baseline. Continue with gabapentin at 300 mg thrice daily, Paxil 10 mg oral daily. Continue with Zosyn to finish a 5-day course with last antibiotic on 03/11. Continue on Flomax and finasteride. Fischer catheter in place for now. Strict input output charting. Stop IV fluids for now. Monitor BMP and a.m. Hematuria has resolved. Eliquis has been started. Hemoglobin stable for now. Plan to discharge patient with Fischre catheter in place advised to follow-up with urology in the next 2 to 3 weeks. Discharge plan: Patient wants to go to SNF for now further rehabitation. Case management alerted. Attestations 2 Medical Necessity Statement*: Requires further hospitalization for management of weakness in setting of dehydration from overdiuresis, acute hypokalemia while safe discharge planning is sought Diagnoses Sepsis A41.9 Hypotension I95.9 Acute hypokalemia E87.6 Hyponatremia E87.1 AI (acute kidney injury) N17.9 Syncope, unspecified syncope type R55 Syncope type: unspecified Urinary retention R33.9 Hematuria R31.9 Atrial fibrillation, unspecified type I48.91 Atrial fibrillation type: unspecified Leukocytosis D72.829 Acute on chronic diastolic congestive heart failure I50.33 Heart failure chronicity: acute on chronic
[2024-03-10] MEDS: finasteride 5 mg Tablet PO (20:30)
[2024-03-11] VITALS (11 sets, daily range): BP systolic 109–144; BP diastolic 81–96; PULSE 65–99; RESP 15–23; TEMP 36.6–36.9; O2SAT 94–97
[2024-03-11] MEDS: piperacillin-tazobactam 3.375 GM in sodium chloride 0.9% (plus) 50 ML IV ×2 (00:44→08:12)
[2024-03-11 03:18] LABS: Magnesium 1.7 mg/dL (1.7-2.3)
[2024-03-11] MEDS: magnesium hydroxide 30 mL UDC PO (08:10)
[2024-03-11] MEDS: PARoxetine 20 mg Tablet 10 MG PO (08:10)
[2024-03-11] MEDS: potassium chloride ER 20 mEq Tablet 40 MEQ PO ×2 (08:11→17:12)
[2024-03-11] MEDS: gabapentin 300 mg Capsule PO ×3 (08:11→20:47)
[2024-03-11] MEDS: famotidine 20 mg Tablet PO ×2 (08:12→17:12)
[2024-03-11] MEDS: apixaban 5 mg Tablet PO ×2 (08:12→17:12)
[2024-03-11] MEDS: morphine 4 mg/mL SDV 1 mL 2 MG IVP ×2 (08:13→13:47)
[2024-03-11] MEDS: ALPRAZolam 0.5 mg Tablet PO ×2 (08:13→16:36)
[2024-03-11] MEDS: tamsulosin 0.4 mg Capsule 0.800000000000000044 MG PO (08:15)
--- NOTE | 2024-03-11 15:51 | P.PN_ITS ---
Subjective 2 Subjective: No acute events overnight. Patient has remained hemodynamically stable and afebrile. Denies any nausea, vomiting, headache. Worked with physical therapy. Remains on room air. Vitals/I&O/Wt Last Vital Signs Temp 98.4 F 03/11/24 11:59 Pulse 85 03/11/24 14:34 Resp 23 H 03/11/24 13:47 BP 109/84 03/11/24 11:59 Pulse Ox 97 03/11/24 04:00 O2 Del Method Room Air 03/11/24 04:00 O2 Flow Rate 98 03/09/24 20:00 03/11/24 03/11/24 03/11/24 06:59 14:59 22:59 Intake Total / 1989 770.000 / 770.000 Output Total 900 / 3945 Balance -850 / -1955 770.000 / 770.000 Weight last 48 hrs Weight 125.237 kg Weight 124.058 kg Weight 124.284 kg Physical Exam 2 Narrative: General: No acute distress, AO x3, calm HEENT: PERRLA, pupils bilaterally equal and reactive Chest: Normal vesicular breath sounds, no added sounds, equal good air entry bilaterally CVS: S1-S2 regular, no murmurs, no tachycardia, no gallops, no rubs Abdomen: Soft, nontender, no organomegaly, bowel sounds present Neuro: No focal deficits, no facial deformity, AO x3, power 5/5 in all limbs Urinary Catheter Management: Coude: Cath Placed During This Visit: yes Reason for Continuing Indwelling Catheter: Acute Urinary Retention or Obstruction Urinary Catheter Date of Insertion: 03/07/24 Urinary Catheter Time of Insertion: 08:30 Data 03/10/24 04:31 03/10/24 04:31 Micro: Microbiology 03/06/24 15:10 Blood Culture - Final Blood NO GROWTH AFTER 5 DAYS 03/06/24 15:14 Blood Culture - Final Blood NO GROWTH AFTER 5 DAYS A&P Assessment and plan (1) Sepsis: SIRS: Hypotension, leukocytosis, elevated lactate on admission. Source: Unknown. Possibly UTI. End organ damage: Acute infectious encephalopathy, acute kidney injury Lactic acid elevated. Patient did receive full sepsis bolus of 30 mill per KG body weight. Continue with NS at 100 cc/h. Monitor blood pressures. Keep mean artery pressure 65 mmHg. Follow-up blood culture, urine culture, MRSA swab. Appreciate procalcitonin, urine Legionella, bacterial antigen. Patient is allergic to cefazolin. For now continue with Zosyn. De-escalate antibiotics as per culture results. (2) Hypotension: Hypertension present on presentation to the ER. Improved with sepsis fluid bolus. Keep mean artery pressure 65. Hold off antihypertensive for now. Check orthostatics. (3) Acute hypokalemia: Denies any episodes of diarrhea. Patient is on excessive diuretics as an outpatient. Did not tolerate IV potassium in the ER. Persistent hypokalemia. Replaced with 100 mg once more. Repeat potassium in the evening. (4) Hyponatremia: Most likely in setting of dehydration. Slightly improving. Continue with normal saline with 20 minutes of potassium at 100 cc/h. Monitor sodium level daily for now. Appreciate urine lites. (5) AI (acute kidney injury): Baseline creatinine 1.2-1.3. Creatinine down to baseline. Associated with hypokalemia and hyponatremia. Elevated BUN. Could be in setting of dehydration. Patient does take Bumex and metolazone at home. Bladder scan did show urinary retention. Fischer catheter placed with some difficulty with help of coud?. Medical reconciliation done for nephrotoxic drugs. Hold off on diuretics for now. Repeat BMP in evening. Otherwise monitor BMP daily for now. (6) Syncope: Unknown etiology. Could be in setting of A-fib with RVR versus dehydration leading to AI and hyponatremia and hypokalemia or in setting of hypotension. Telemetry. Fluid as above. Monitor blood pressure as above. Replace electrolytes as above. Physical therapy. Orthostatic blood pressure check. Qualifiers: Syncope type: unspecified Qualified Code(s): R55 - Syncope and collapse (7) Urinary retention: Fischer catheter placed. Continue with Flomax 0.4 mg daily. Patient will need to follow-up with urology as an outpatient. (8) Hematuria: Resolved. Eliquis restarted on 03/09 evening (9) Afib: Currently rate controlled. At home patient seems to be on Cardizem 30 mg twice daily, Coreg 12.5 mg twice daily along with Eliquis 5 mg twice daily. Hold off on antihypertensive and rate admitting medications for now. Telemonitoring. Holding Eliquis given hematuria Qualifiers: Atrial fibrillation type: unspecified Qualified Code(s): I48.91 - Unspecified atrial fibrillation (10) Leukocytosis: Unknown etiology. Could be in setting of dehydration. Patient denies of having any localized symptoms for infection. Check blood culture, respiratory viral panel, urine culture. For now start on IV antibiotics for presumable possible UTI. Patient is allergic to cefazolin. (11) Diastolic CHF: Last echocardiogram from 07/19 shows an EF of 60% with RVSP of 24.8 mmHg. Continue to monitor. Qualifiers: Heart failure chronicity: acute on chronic Qualified Code(s): I50.33 - Acute on chronic diastolic (congestive) heart failure Plan Full code. Patient does not have a DPOA. Cardiac diet Eliquis will be sufficient for DVT prophylaxis Famotidine for PUD prophylaxis Plan for the day: Last dose of Zosyn today. Monitor CMP. Currently on potassium 40 mg twice daily. Continue physical therapy. Continue on Flomax and finasteride. Fischer catheter in place for now. Will most likely need to be discharged with Fischer in place with advised to follow-up with urology as an outpatient. Discharge plan: Awaiting transfer to SNF. Most likely discharge on Wednesday. Attestations 2 Medical Necessity Statement*: Requires further hospitalization while safe discharge planning is sought in a patient who was admitted to with concerns for acute kidney injury, weakness and hypotension in setting of dehydration and hypokalemia Diagnoses Sepsis A41.9 Hypotension I95.9 Acute hypokalemia E87.6 Hyponatremia E87.1 AI (acute kidney injury) N17.9 Syncope, unspecified syncope type R55 Syncope type: unspecified Urinary retention R33.9 Hematuria R31.9 Atrial fibrillation, unspecified type I48.91 Atrial fibrillation type: unspecified Leukocytosis D72.829 Acute on chronic diastolic congestive heart failure I50.33 Heart failure chronicity: acute on chronic
[2024-03-11] MEDS: acetaminophen 325 mg Tablet 650 MG PO (16:36)
[2024-03-11 16:47] LABS: Alanine Aminotransferase 26 U/L (0-41); Albumin Level 3.1 g/dL (3.5-5.2); Alkaline Phosphatase 72 U/L (40-130); Anion Gap 12.9 (5-19); Aspartate Amino Transferase 19 U/L (0-40); Blood Urea Nitrogen 11 mg/dL (8-23); Calcium 8.5 mg/dL (8.5-10.5); Carbon Dioxide 25 mmol/L (22-29); Chloride 103 mmol/L (98-107); Creatinine Clr Calc Pharmacy 114.1083; Globulin 2.5 g/dL (1.3-4.6); Glomerular Filtration Rate 95.6 mL/min (90-130); Glucose 125 mg/dL (65-115); Osmolality Calculated 283 mOsm/kg (285-295); Potassium 4.9 mmol/L (3.5-5.1); Sodium 136 mmol/L (136-145); Total Bilirubin 0.2 mg/dL (0.15-1.2); Total Protein 5.6 g/dL (6.6-8.7)
[2024-03-11] MEDS: finasteride 5 mg Tablet PO (20:47)
[2024-03-12] VITALS (9 sets, daily range): BP systolic 110–138; BP diastolic 74–115; PULSE 73–89; RESP 14–24; TEMP 36.4–36.8; O2SAT 95
[2024-03-12 03:53] LABS: Basophils % 0.5 %; Eosinophils # 0.4 10^3/uL (0.0-0.8); Eosinophils % 5.7 %; Hematocrit 35.3 % (37-53); Lymphocytes # 1.7 10^3/uL (0.8-4.8); Lymphocytes % 26.5 %; Mean Corpuscular HGB Conc 30.6 g/dL (30-55); Mean Corpuscular Hemoglobin 25.1 pg (27-33); Mean Corpuscular Volume 82.1 fl (82-101); Mean Platelet Volume 10.5 fL (7.4-10.4); Monocytes # 0.5 10^3/uL (0.2-0.9); Monocytes % 8.3 %; Neutrophils # 3.76 10^3/uL (1.8-7.7); Neutrophils % 58.1 %; Nucleated Red Blood Cells % 0 %; Platelet Count 210 10^3/cmm (157-399); Red Cell Distribution Width 19.6 % (12.1-15.1); White Blood Count 6.48 10^3/uL (3.29-11.43)
[2024-03-12 04:29] LABS: Alanine Aminotransferase 26 U/L (0-41); Albumin Level 3.1 g/dL (3.5-5.2); Alkaline Phosphatase 70 U/L (40-130); Anion Gap 11.8 (5-19); Aspartate Amino Transferase 16 U/L (0-40); Blood Urea Nitrogen 12 mg/dL (8-23); Calcium 8.8 mg/dL (8.5-10.5); Carbon Dioxide 27 mmol/L (22-29); Chloride 104 mmol/L (98-107); Creatinine Clr Calc Pharmacy 114.1083; Globulin 2.5 g/dL (1.3-4.6); Glomerular Filtration Rate 95.6 mL/min (90-130); Glucose 91 mg/dL (65-115); Osmolality Calculated 285 mOsm/kg (285-295); Potassium 4.8 mmol/L (3.5-5.1); Sodium 138 mmol/L (136-145); Total Bilirubin 0.3 mg/dL (0.15-1.2); Total Protein 5.6 g/dL (6.6-8.7)
[2024-03-12] MEDS: acetaminophen 325 mg Tablet 650 MG PO ×4 (05:37→23:36)
[2024-03-12] MEDS: magnesium hydroxide 30 mL UDC PO (08:33)
[2024-03-12] MEDS: potassium chloride ER 20 mEq Tablet 40 MEQ PO ×2 (08:33→16:57)
[2024-03-12] MEDS: ferrous gluconate 324 mg Tablet PO (08:34)
[2024-03-12] MEDS: famotidine 20 mg Tablet PO ×2 (08:34→16:57)
[2024-03-12] MEDS: PARoxetine 20 mg Tablet 10 MG PO (08:34)
[2024-03-12] MEDS: tamsulosin 0.4 mg Capsule 0.800000000000000044 MG PO (08:34)
[2024-03-12] MEDS: apixaban 5 mg Tablet PO ×2 (08:34→16:57)
[2024-03-12] MEDS: gabapentin 300 mg Capsule PO ×3 (08:34→21:00)
--- NOTE | 2024-03-12 08:45 | PC.NURSE ---
Patient c/o severe pain 04/05 to low back. Tylenol given as documented. Informed Dr Argueta and received telephone order for Tramadol 50mg PO every 6 hours as needed for mod-sev pain.
[2024-03-12] MEDS: TRAMadol 50 mg Tablet PO (09:16)
--- NOTE | 2024-03-12 10:01 | CTR_ITS ---
PROCEDURE INFORMATION: Exam: CT Lumbar Spine Without Contrast Exam date and time: 03/12/2024 1:20 PM Age: 68 years old Clinical indication: Low back pain; Prior surgery; Surgery date: 6+ months; Surgery type: Twin hips TECHNIQUE: Imaging protocol: Computed tomography of the lumbar spine without contrast. Radiation optimization: All CT scans at this facility use at least one of these dose optimization techniques: automated exposure control; mA and/or kV adjustment per patient size (includes targeted exams where dose is matched to clinical indication); or iterative reconstruction. 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 Bones/joints: Stable grade 1 retrolisthesis of L2 over L3. Stable chronic degenerative fusion of L3 and L4. Stable severe chronic degenerative changes at T12-L1, L1-L2, L2-L3, and L4-L5. No evidence of a lumbosacral fracture. There are significant degenerative facet hypertrophic changes throughout the lumbar spine. Pleural spaces: Small, partially imaged left pleural effusion. Kidneys and ureters: The patient's known large lower pole left renal cyst is partially imaged and otherwise unremarkable. Soft tissues: Unremarkable. CT/CT lumbar spine wo con* [id number] IMPRESSION: 1. No major interval change in the appearance of the lumbar spine when compared to the previous study with multilevel chronic degenerative changes as above. No acute fracture identified. 2. Small partially imaged left pleural effusion.
--- NOTE | 2024-03-12 13:20 | P.PN_ITS ---
Subjective 2 Subjective: No acute events overnight. On examination patient laying comfortably in bed. Today morning was having more back pain than usual. Settled with oral tramadol. Has remained hemodynamically stable and afebrile. On room air. Vitals/I&O/Wt Last Vital Signs Temp 97.8 F 03/12/24 11:57 Pulse 81 03/12/24 11:57 Resp 24 H 03/12/24 11:57 BP 128/82 03/12/24 11:57 Pulse Ox 97 03/11/24 04:00 O2 Del Method Room Air 03/11/24 04:00 O2 Flow Rate 98 03/09/24 20:00 03/11/24 03/12/24 03/12/24 22:59 06:59 14:59 Intake Total 480 / 1250.000 600 / 600 Output Total 1900 / 1900 650 / 2550 1000 / 1000 Balance -1420 / -650.000 -650 / -1300.000 -400 / -400 Weight last 48 hrs Weight 125.418 kg Weight 125.237 kg Physical Exam 2 Narrative: General: No acute distress, AO x3, calm HEENT: PERRLA, pupils bilaterally equal and reactive Chest: Normal vesicular breath sounds, no added sounds, equal good air entry bilaterally CVS: S1-S2 regular, no murmurs, no tachycardia, no gallops, no rubs Abdomen: Soft, nontender, no organomegaly, bowel sounds present Neuro: No focal deficits, no facial deformity, AO x3, power 5/5 in all limbs Urinary Catheter Management: Coude: Cath Placed During This Visit: yes Reason for Continuing Indwelling Catheter: Acute Urinary Retention or Obstruction Urinary Catheter Date of Insertion: 03/07/24 Urinary Catheter Time of Insertion: 08:30 Data 03/12/24 02:54 03/12/24 02:54 Micro: Microbiology 03/06/24 15:10 Blood Culture - Final Blood NO GROWTH AFTER 5 DAYS 03/06/24 15:14 Blood Culture - Final Blood NO GROWTH AFTER 5 DAYS A&P Assessment and plan (1) Sepsis: SIRS: Hypotension, leukocytosis, elevated lactate on admission. Source: Unknown. Possibly UTI. End organ damage: Acute infectious encephalopathy, acute kidney injury Lactic acid elevated. Patient did receive full sepsis bolus of 30 mill per KG body weight. Continue with NS at 100 cc/h. Monitor blood pressures. Keep mean artery pressure 65 mmHg. Follow-up blood culture, urine culture, MRSA swab. Appreciate procalcitonin, urine Legionella, bacterial antigen. Patient is allergic to cefazolin. For now continue with Zosyn. De-escalate antibiotics as per culture results. (2) Hypotension: Hypertension present on presentation to the ER. Improved with sepsis fluid bolus. Keep mean artery pressure 65. Hold off antihypertensive for now. Check orthostatics. (3) Acute hypokalemia: Denies any episodes of diarrhea. Patient is on excessive diuretics as an outpatient. Did not tolerate IV potassium in the ER. Persistent hypokalemia. Replaced with 100 mg once more. Repeat potassium in the evening. (4) Hyponatremia: Most likely in setting of dehydration. Slightly improving. Continue with normal saline with 20 minutes of potassium at 100 cc/h. Monitor sodium level daily for now. Appreciate urine lites. (5) AI (acute kidney injury): Baseline creatinine 1.2-1.3. Creatinine down to baseline. Associated with hypokalemia and hyponatremia. Elevated BUN. Could be in setting of dehydration. Patient does take Bumex and metolazone at home. Bladder scan did show urinary retention. Fischer catheter placed with some difficulty with help of coud?. Medical reconciliation done for nephrotoxic drugs. Hold off on diuretics for now. Repeat BMP in evening. Otherwise monitor BMP daily for now. (6) Syncope: Unknown etiology. Could be in setting of A-fib with RVR versus dehydration leading to AI and hyponatremia and hypokalemia or in setting of hypotension. Telemetry. Fluid as above. Monitor blood pressure as above. Replace electrolytes as above. Physical therapy. Orthostatic blood pressure check. Qualifiers: Syncope type: unspecified Qualified Code(s): R55 - Syncope and collapse (7) Urinary retention: Fischer catheter placed. Continue with Flomax 0.4 mg daily. Patient will need to follow-up with urology as an outpatient. (8) Hematuria: Resolved. Eliquis restarted on 03/09 evening (9) Afib: Currently rate controlled. At home patient seems to be on Cardizem 30 mg twice daily, Coreg 12.5 mg twice daily along with Eliquis 5 mg twice daily. Hold off on antihypertensive and rate admitting medications for now. Telemonitoring. Holding Eliquis given hematuria Qualifiers: Atrial fibrillation type: unspecified Qualified Code(s): I48.91 - Unspecified atrial fibrillation (10) Leukocytosis: Unknown etiology. Could be in setting of dehydration. Patient denies of having any localized symptoms for infection. Check blood culture, respiratory viral panel, urine culture. For now start on IV antibiotics for presumable possible UTI. Patient is allergic to cefazolin. (11) Diastolic CHF: Last echocardiogram from 07/19 shows an EF of 60% with RVSP of 24.8 mmHg. Continue to monitor. Qualifiers: Heart failure chronicity: acute on chronic Qualified Code(s): I50.33 - Acute on chronic diastolic (congestive) heart failure Plan Full code. Patient does not have a DPOA. Cardiac diet Eliquis will be sufficient for DVT prophylaxis Famotidine for PUD prophylaxis Plan for the day: Renal functions and potassium level stable off IV fluids. Continue with oral potassium 40 mg twice daily. Patient complaining of more back pain. Add tramadol 50 mg every [address] lumbar spine to rule out acute injury. Patient did have back surgery in the past. Continue with physical therapy. Out of bed to chair. Continue with Flomax and finasteride. Will most likely discharge with Fischer catheter in place with follow-up with urology as an outpatient. Discharge plan: Awaiting transfer to SNF. Most likely discharge on Wednesday. Attestations 2 Medical Necessity Statement*: Requires further hospitalization while safe discharge planning is sought and the patient was initially admitted for generalized weakness in setting of dehydration, acute hypokalemia Diagnoses Sepsis A41.9 Hypotension I95.9 Acute hypokalemia E87.6 Hyponatremia E87.1 AI (acute kidney injury) N17.9 Syncope, unspecified syncope type R55 Syncope type: unspecified Urinary retention R33.9 Hematuria R31.9 Atrial fibrillation, unspecified type I48.91 Atrial fibrillation type: unspecified Leukocytosis D72.829 Acute on chronic diastolic congestive heart failure I50.33 Heart failure chronicity: acute on chronic
[2024-03-12] MEDS: ALPRAZolam 0.5 mg Tablet PO (15:06)
[2024-03-12] MEDS: finasteride 5 mg Tablet PO (21:00)
[2024-03-13] VITALS (56 sets, daily range): BP systolic 117–157; BP diastolic 76–110; PULSE 67–117; RESP 14–33; TEMP 36.4–36.9; O2SAT 83–99
[2024-03-13] MEDS: acetaminophen 325 mg Tablet 650 MG PO (05:10)
[2024-03-13 05:32] LABS: Basophils % 0.4 %; Eosinophils # 0.3 10^3/uL (0.0-0.8); Eosinophils % 4.8 %; Hematocrit 36.1 % (37-53); Lymphocytes # 1.7 10^3/uL (0.8-4.8); Lymphocytes % 23.6 %; Mean Corpuscular HGB Conc 30.5 g/dL (30-55); Mean Corpuscular Hemoglobin 25.1 pg (27-33); Mean Corpuscular Volume 82.2 fl (82-101); Mean Platelet Volume 10.4 fL (7.4-10.4); Monocytes # 0.5 10^3/uL (0.2-0.9); Monocytes % 6.4 %; Neutrophils % 63.9 %; Nucleated Red Blood Cells % 0 %; Platelet Count 217 10^3/cmm (157-399); Red Blood Count 4.39 10^6/uL (3.85-5.65); Red Cell Distribution Width 19.2 % (12.1-15.1); White Blood Count 7.04 10^3/uL (3.29-11.43)
[2024-03-13 05:50] LABS: Alanine Aminotransferase 27 U/L (0-41); Albumin Level 3.2 g/dL (3.5-5.2); Alkaline Phosphatase 72 U/L (40-130); Anion Gap 14.5 (5-19); Aspartate Amino Transferase 17 U/L (0-40); Blood Urea Nitrogen 13 mg/dL (8-23); Calcium 8.9 mg/dL (8.5-10.5); Carbon Dioxide 24 mmol/L (22-29); Chloride 109 mmol/L (98-107); Creatinine Clr Calc Pharmacy 114.0422; Globulin 2.6 g/dL (1.3-4.6); Glomerular Filtration Rate 95.6 mL/min (90-130); Glucose 99 mg/dL (65-115); Osmolality Calculated 294 mOsm/kg (285-295); Potassium 5.5 mmol/L (3.5-5.1); Sodium 142 mmol/L (136-145); Total Bilirubin 0.3 mg/dL (0.15-1.2); Total Protein 5.8 g/dL (6.6-8.7)
[2024-03-13] MEDS: magnesium hydroxide 30 mL UDC PO (08:15)
[2024-03-13] MEDS: apixaban 5 mg Tablet PO ×2 (08:16→17:30)
[2024-03-13] MEDS: tamsulosin 0.4 mg Capsule 0.800000000000000044 MG PO (08:16)
[2024-03-13] MEDS: gabapentin 300 mg Capsule PO ×3 (08:16→21:37)
[2024-03-13] MEDS: famotidine 20 mg Tablet PO ×2 (08:16→17:30)
[2024-03-13] MEDS: PARoxetine 20 mg Tablet 10 MG PO (08:17)
--- NOTE | 2024-03-13 09:12 | PC.NURSE ---
repeat bmp ordered on patient due to a potassium of 5.[address] Garcia
--- NOTE | 2024-03-13 10:05 | PC.NURSE ---
Potassium Chloride 40 meq not given 03/13. Potassium labs are elevated at 5.5. Doctor contacted, advised to hold medication and order BMP.
[2024-03-13] MEDS: HYDROcodone-acetaminophen 5-325 mg Tablet 1 TAB PO ×2 (10:39→18:28)
--- NOTE | 2024-03-13 12:00 | PC.SOCIAL ---
IMM Updated Updated pt on IMM. no questions voiced. Provided pt a copy. Initialed, dated, & timed copy in chart.
--- NOTE | 2024-03-13 12:28 | P.PN_ITS ---
Subjective 2 Subjective: seen this morning states he has chronic back pain and has had shots before. He had a spinal block years ago and is interested in pursuing that after discharge. Would like to see local spine surgeon. Vitals/I&O/Wt Last Vital Signs Temp 97.9 F 03/13/24 11:42 Pulse 95 03/13/24 11:42 Resp 16 03/13/24 11:42 BP 123/77 03/13/24 11:42 Pulse Ox 96 03/13/24 11:42 O2 Del Method Room Air 03/13/24 11:42 O2 Flow Rate 98 03/09/24 20:00 03/12/24 03/13/24 03/13/24 22:59 06:59 14:59 Intake Total 420 / 1020 420 / 1440 480 / 480 Output Total 950 / 1950 1000 / 2950 350 / 350 Balance -530 / -930 -580 / -1510 130 / 130 Weight last 48 hrs Weight 125.101 kg Weight 125.418 kg Physical Exam 2 Narrative: General: No acute distress, AO x3, calm HEENT: PERRLA, pupils bilaterally equal and reactive Chest: Normal vesicular breath sounds, no added sounds, equal good air entry bilaterally CVS: S1-S2 regular, no murmurs, no tachycardia, no gallops, no rubs Abdomen: Soft, nontender, no organomegaly, bowel sounds present Neuro: No focal deficits able to move all 4 extremities Urinary Catheter Management: Coude: Cath Placed During This Visit: yes Reason for Continuing Indwelling Catheter: Acute Urinary Retention or Obstruction Urinary Catheter Date of Insertion: 03/07/24 Urinary Catheter Time of Insertion: 08:30 Data 03/13/24 04:31 03/13/24 04:31 A&P Assessment and plan (1) Sepsis: SIRS: Hypotension, leukocytosis, elevated lactate on admission. Source: Unknown. Possibly UTI. End organ damage: Acute infectious encephalopathy, acute kidney injury Lactic acid elevated. Patient did receive full sepsis bolus of 30 mill per KG body weight. Continue with NS at 100 cc/h. Monitor blood pressures. Keep mean artery pressure 65 mmHg. Follow-up blood culture, urine culture, MRSA swab. Appreciate procalcitonin, urine Legionella, bacterial antigen. Patient is allergic to cefazolin. For now continue with Zosyn. De-escalate antibiotics as per culture results. (2) Hypotension: Hypertension present on presentation to the ER. Improved with sepsis fluid bolus. Keep mean artery pressure 65. Hold off antihypertensive for now. Check orthostatics. (3) Acute hypokalemia: Denies any episodes of diarrhea. Patient is on excessive diuretics as an outpatient. Did not tolerate IV potassium in the ER. Persistent hypokalemia. Replaced with 100 mg once more. Repeat potassium in the evening. (4) Hyponatremia: Most likely in setting of dehydration. Slightly improving. Continue with normal saline with 20 minutes of potassium at 100 cc/h. Monitor sodium level daily for now. Appreciate urine lites. (5) AI (acute kidney injury): Baseline creatinine 1.2-1.3. Creatinine down to baseline. Associated with hypokalemia and hyponatremia. Elevated BUN. Could be in setting of dehydration. Patient does take Bumex and metolazone at home. Bladder scan did show urinary retention. Fischer catheter placed with some difficulty with help of coud?. Medical reconciliation done for nephrotoxic drugs. Hold off on diuretics for now. Repeat BMP in evening. Otherwise monitor BMP daily for now. (6) Syncope: Unknown etiology. Could be in setting of A-fib with RVR versus dehydration leading to AI and hyponatremia and hypokalemia or in setting of hypotension. Telemetry. Fluid as above. Monitor blood pressure as above. Replace electrolytes as above. Physical therapy. Orthostatic blood pressure check. Qualifiers: Syncope type: unspecified Qualified Code(s): R55 - Syncope and collapse (7) Urinary retention: Fischer catheter placed. Continue with Flomax 0.4 mg daily. Patient will need to follow-up with urology as an outpatient. (8) Hematuria: Resolved. Eliquis restarted on 03/09 evening (9) Afib: Currently rate controlled. At home patient seems to be on Cardizem 30 mg twice daily, Coreg 12.5 mg twice daily along with Eliquis 5 mg twice daily. Hold off on antihypertensive and rate admitting medications for now. Telemonitoring. Holding Eliquis given hematuria Qualifiers: Atrial fibrillation type: unspecified Qualified Code(s): I48.91 - Unspecified atrial fibrillation (10) Leukocytosis: Unknown etiology. Could be in setting of dehydration. Patient denies of having any localized symptoms for infection. Check blood culture, respiratory viral panel, urine culture. For now start on IV antibiotics for presumable possible UTI. Patient is allergic to cefazolin. (11) Diastolic CHF: Last echocardiogram from 07/19 shows an EF of 60% with RVSP of 24.8 mmHg. Continue to monitor. Qualifiers: Heart failure chronicity: acute on chronic Qualified Code(s): I50.33 - Acute on chronic diastolic (congestive) heart failure Plan Full code. Patient does not have a DPOA. Cardiac diet Eliquis will be sufficient for DVT prophylaxis Famotidine for PUD prophylaxis Plan for the day: Renal functions and potassium level stable off IV fluids. Continue with oral potassium 40 mg twice daily. Patient complaining of more back pain. Add tramadol 50 mg every [address] lumbar spine to rule out acute injury. Patient did have back surgery in the past. Continue with physical therapy. Out of bed to chair. Continue with Flomax and finasteride. Will most likely discharge with Fischer catheter in place with follow-up with urology as an outpatient. Plan for the day 03/13/2024 - K 5.5 this am. - Stop oral Potassium 40 bid. Morning K dose was held - Recheck BMP, and will treat accordingly - Was on bumex 2 mg bid at home. That is being held for now. For diastolic HF , was on it at home. Will restart on lasix 20 daily at discharge. Echo shows normal EF. - Continue with Flomax and finasteride. Will most likely discharge with Fischer catheter in place with follow-up with urology as an outpatient. - Refer to Dr. Phoenix at outpatient - Place on hydrocodone 5 q8 hr prn pain. -- Discharge plan: Awaiting transfer to SNF. Attestations 2 Medical Necessity Statement*: awaiting SNF placement Diagnoses Sepsis A41.9 Hypotension I95.9 Acute hypokalemia E87.6 Hyponatremia E87.1 AI (acute kidney injury) N17.9 Syncope, unspecified syncope type R55 Syncope type: unspecified Urinary retention R33.9 Hematuria R31.9 Atrial fibrillation, unspecified type I48.91 Atrial fibrillation type: unspecified Leukocytosis D72.829 Acute on chronic diastolic congestive heart failure I50.33 Heart failure chronicity: acute on chronic
[2024-03-13 12:52] LABS: Blood Urea Nitrogen 12 mg/dL (8-23); Calcium 8.9 mg/dL (8.5-10.5); Carbon Dioxide 25 mmol/L (22-29); Chloride 107 mmol/L (98-107); Creatinine Clr Calc Pharmacy 101.3708; Glomerular Filtration Rate 83.4 mL/min (90-130); Glucose 89 mg/dL (65-115); Osmolality Calculated 287 mOsm/kg (285-295); Sodium 139 mmol/L (136-145)
[2024-03-13] MEDS: finasteride 5 mg Tablet PO (21:38)
[2024-03-14 04:00] VITALS: BP 128/84; PULSE 91; RESP 16; TEMP 36.6; O2SAT 94
[2024-03-14 04:13] LABS: Basophils % 0.5 %; Eosinophils # 0.3 10^3/uL (0.0-0.8); Eosinophils % 4.3 %; Hematocrit 37.5 % (37-53); Lymphocytes # 1.7 10^3/uL (0.8-4.8); Lymphocytes % 22.3 %; Mean Corpuscular HGB Conc 30.4 g/dL (30-55); Mean Corpuscular Hemoglobin 24.9 pg (27-33); Mean Corpuscular Volume 82.1 fl (82-101); Mean Platelet Volume 10.3 fL (7.4-10.4); Monocytes # 0.5 10^3/uL (0.2-0.9); Monocytes % 6.5 %; Neutrophils # 4.88 10^3/uL (1.8-7.7); Neutrophils % 65.9 %; Nucleated Red Blood Cells % 0 %; Platelet Count 237 10^3/cmm (157-399); Red Blood Count 4.57 10^6/uL (3.85-5.65); Red Cell Distribution Width 19.3 % (12.1-15.1); White Blood Count 7.41 10^3/uL (3.29-11.43)
[2024-03-14 04:34] LABS: Anion Gap 16.8 (5-19); Blood Urea Nitrogen 14 mg/dL (8-23); Calcium 8.8 mg/dL (8.5-10.5); Carbon Dioxide 23 mmol/L (22-29); Chloride 104 mmol/L (98-107); Creatinine Clr Calc Pharmacy 114.0422; Glomerular Filtration Rate 95.6 mL/min (90-130); Glucose 82 mg/dL (65-115); Osmolality Calculated 288 mOsm/kg (285-295); Potassium 4.8 mmol/L (3.5-5.1); Sodium 139 mmol/L (136-145)
[2024-03-14] MEDS: HYDROcodone-acetaminophen 5-325 mg Tablet 1 TAB PO ×2 (06:04→16:43)
[2024-03-14 07:56] VITALS: BP 122/88; PULSE 83; RESP 14; TEMP 36.5; O2SAT 95
--- NOTE | 2024-03-14 08:15 | USCV_ITS ---
BelloFelipe castellanos Age: 68 Gender: M : 1955 Exam Date: 03/14/2024 08:51 Ordering Phys: Shelly Garcia MD Technologist: CT Exam Location: [facility] [place]_ Indication: swelling PROCEDURES: Venous duplex imaging was performed in only the right upper extremity. In addition, the basilic vein, cephalic vein, radial vein, and ulnar vein. FINDINGS: No evidence of deep vein thrombosis or superficial thrombophlebitis in the right upper extremity. Complex, nonvascular mass right supraclavicular region, probable hematoma, 5.1 x 3.0 cm. CONCLUSIONS No evidence for right upper extremity deep venous thrombosis. Probable hematoma right supraclavicular fossa. Dr. Sandra Staley DO (Electronically Signed) Final Date: 14 March 2024 10:26 S
[2024-03-14] MEDS: gabapentin 300 mg Capsule PO ×3 (09:55→20:56)
[2024-03-14] MEDS: tamsulosin 0.4 mg Capsule 0.800000000000000044 MG PO (09:55)
[2024-03-14] MEDS: famotidine 20 mg Tablet PO ×2 (09:55→17:17)
[2024-03-14] MEDS: apixaban 5 mg Tablet PO ×2 (09:55→17:17)
[2024-03-14] MEDS: ferrous gluconate 324 mg Tablet PO (09:55)
[2024-03-14] MEDS: PARoxetine 20 mg Tablet 10 MG PO (09:55)
[2024-03-14] MEDS: magnesium hydroxide 30 mL UDC PO (09:56)
[2024-03-14 12:00] VITALS: BP 111/80; PULSE 87; RESP 17; TEMP 36.7; O2SAT 95
--- NOTE | 2024-03-14 14:55 | P.PN_ITS ---
Subjective 2 Subjective: seen today awaiting insurance auth Vitals/I&O/Wt Last Vital Signs Temp 98.1 F 03/14/24 12:00 Pulse 87 03/14/24 12:00 Resp 17 03/14/24 12:00 BP 111/80 03/14/24 12:00 Pulse Ox 95 03/14/24 12:00 O2 Del Method Room Air 03/14/24 12:00 O2 Flow Rate 98 03/09/24 20:00 03/13/24 03/14/24 03/14/24 22:59 06:59 14:59 Intake Total 250 / 1090 Output Total 2150 / 2500 1350 / 3850 1350 / 1350 Balance -1900 / -1410 -1350 / -2760 -1350 / -1350 Weight last 48 hrs Weight 127.868 kg Weight 125.101 kg Physical Exam 2 Narrative: General: No acute distress, AO x3, calm HEENT: PERRLA, pupils bilaterally equal and reactive Chest: Normal vesicular breath sounds, no added sounds, equal good air entry bilaterally CVS: S1-S2 regular, no murmurs, no tachycardia, no gallops, no rubs Abdomen: Soft, nontender, no organomegaly, bowel sounds present Neuro: No focal deficits able to move all 4 extremities Urinary Catheter Management: Coude: Cath Placed During This Visit: yes Reason for Continuing Indwelling Catheter: Acute Urinary Retention or Obstruction Urinary Catheter Date of Insertion: 03/07/24 Urinary Catheter Time of Insertion: 08:30 Data 03/14/24 03:26 03/14/24 03:26 A&P Assessment and plan (1) Sepsis: SIRS: Hypotension, leukocytosis, elevated lactate on admission. Source: Unknown. Possibly UTI. End organ damage: Acute infectious encephalopathy, acute kidney injury Lactic acid elevated. Patient did receive full sepsis bolus of 30 mill per KG body weight. Continue with NS at 100 cc/h. Monitor blood pressures. Keep mean artery pressure 65 mmHg. Follow-up blood culture, urine culture, MRSA swab. Appreciate procalcitonin, urine Legionella, bacterial antigen. Patient is allergic to cefazolin. For now continue with Zosyn. De-escalate antibiotics as per culture results. (2) Hypotension: Hypertension present on presentation to the ER. Improved with sepsis fluid bolus. Keep mean artery pressure 65. Hold off antihypertensive for now. Check orthostatics. (3) Acute hypokalemia: Denies any episodes of diarrhea. Patient is on excessive diuretics as an outpatient. Did not tolerate IV potassium in the ER. Persistent hypokalemia. Replaced with 100 mg once more. Repeat potassium in the evening. (4) Hyponatremia: Most likely in setting of dehydration. Slightly improving. Continue with normal saline with 20 minutes of potassium at 100 cc/h. Monitor sodium level daily for now. Appreciate urine lites. (5) AI (acute kidney injury): Baseline creatinine 1.2-1.3. Creatinine down to baseline. Associated with hypokalemia and hyponatremia. Elevated BUN. Could be in setting of dehydration. Patient does take Bumex and metolazone at home. Bladder scan did show urinary retention. Fischer catheter placed with some difficulty with help of coud?. Medical reconciliation done for nephrotoxic drugs. Hold off on diuretics for now. Repeat BMP in evening. Otherwise monitor BMP daily for now. (6) Syncope: Unknown etiology. Could be in setting of A-fib with RVR versus dehydration leading to AI and hyponatremia and hypokalemia or in setting of hypotension. Telemetry. Fluid as above. Monitor blood pressure as above. Replace electrolytes as above. Physical therapy. Orthostatic blood pressure check. Qualifiers: Syncope type: unspecified Qualified Code(s): R55 - Syncope and collapse (7) Urinary retention: Fischer catheter placed. Continue with Flomax 0.4 mg daily. Patient will need to follow-up with urology as an outpatient. (8) Hematuria: Resolved. Eliquis restarted on 03/09 evening (9) Afib: Currently rate controlled. At home patient seems to be on Cardizem 30 mg twice daily, Coreg 12.5 mg twice daily along with Eliquis 5 mg twice daily. Hold off on antihypertensive and rate admitting medications for now. Telemonitoring. Holding Eliquis given hematuria Qualifiers: Atrial fibrillation type: unspecified Qualified Code(s): I48.91 - Unspecified atrial fibrillation (10) Leukocytosis: Unknown etiology. Could be in setting of dehydration. Patient denies of having any localized symptoms for infection. Check blood culture, respiratory viral panel, urine culture. For now start on IV antibiotics for presumable possible UTI. Patient is allergic to cefazolin. (11) Diastolic CHF: Last echocardiogram from 07/19 shows an EF of 60% with RVSP of 24.8 mmHg. Continue to monitor. Qualifiers: Heart failure chronicity: acute on chronic Qualified Code(s): I50.33 - Acute on chronic diastolic (congestive) heart failure Plan Full code. Patient does not have a DPOA. Cardiac diet Eliquis will be sufficient for DVT prophylaxis Famotidine for PUD prophylaxis Plan for the day: Renal functions and potassium level stable off IV fluids. Continue with oral potassium 40 mg twice daily. Patient complaining of more back pain. Add tramadol 50 mg every [address] lumbar spine to rule out acute injury. Patient did have back surgery in the past. Continue with physical therapy. Out of bed to chair. Continue with Flomax and finasteride. Will most likely discharge with Fischer catheter in place with follow-up with urology as an outpatient. Plan for the day 03/14/2024 - K 5.0 this am - Stop oral Potassium - Recheck BMP, and will treat accordingly - Was on bumex 2 mg bid at home. That is being held for now. For diastolic HF , was on it at home. Will restart on lasix 20 daily at discharge. Echo shows normal EF. - Continue with Flomax and finasteride. Will most likely discharge with Fischer catheter in place with follow-up with urology as an outpatient. - Refer to Dr. Phoenix at outpatient - Place on hydrocodone 5 q8 hr prn pain. -- Discharge plan: Awaiting transfer to SNF. - right am swollen, check venous dopplers Attestations 2 Medical Necessity Statement*: awaiting SNF placement Diagnoses Sepsis A41.9 Hypotension I95.9 Acute hypokalemia E87.6 Hyponatremia E87.1 AI (acute kidney injury) N17.9 Syncope, unspecified syncope type R55 Syncope type: unspecified Urinary retention R33.9 Hematuria R31.9 Atrial fibrillation, unspecified type I48.91 Atrial fibrillation type: unspecified Leukocytosis D72.829 Acute on chronic diastolic congestive heart failure I50.33 Heart failure chronicity: acute on chronic
[2024-03-14 16:00] VITALS: BP 133/82; PULSE 90; RESP 16; TEMP 36.8; O2SAT 96
[2024-03-14 19:47] VITALS: BP 124/87; PULSE 85; RESP 18; TEMP 36.8; O2SAT 97
[2024-03-14] MEDS: finasteride 5 mg Tablet PO (20:56)
[2024-03-14] MEDS: acetaminophen 325 mg Tablet 650 MG PO (21:02)
[2024-03-14 22:00] VITALS: PULSE 98
[2024-03-15] VITALS (10 sets, daily range): BP systolic 125–156; BP diastolic 79–108; PULSE 80–90; RESP 15–21; TEMP 36.3–36.9; O2SAT 94–96
[2024-03-15 05:30] LABS: Basophils % 0.4 %; Eosinophils # 0.3 10^3/uL (0.0-0.8); Eosinophils % 3.9 %; Hematocrit 38.7 % (37-53); Lymphocytes # 1.7 10^3/uL (0.8-4.8); Lymphocytes % 24.3 %; Mean Corpuscular HGB Conc 30.5 g/dL (30-55); Mean Corpuscular Hemoglobin 25.1 pg (27-33); Mean Corpuscular Volume 82.2 fl (82-101); Mean Platelet Volume 10.6 fL (7.4-10.4); Monocytes # 0.5 10^3/uL (0.2-0.9); Neutrophils # 4.48 10^3/uL (1.8-7.7); Nucleated Red Blood Cells % 0 %; Platelet Count 260 10^3/cmm (157-399); Red Blood Count 4.71 10^6/uL (3.85-5.65); Red Cell Distribution Width 19.6 % (12.1-15.1)
[2024-03-15 05:51] LABS: Anion Gap 14.8 (5-19); Blood Urea Nitrogen 13 mg/dL (8-23); Calcium 8.8 mg/dL (8.5-10.5); Carbon Dioxide 26 mmol/L (22-29); Chloride 104 mmol/L (98-107); Creatinine Clr Calc Pharmacy 115.3872; Glomerular Filtration Rate 95.6 mL/min (90-130); Glucose 83 mg/dL (65-115); Osmolality Calculated 289 mOsm/kg (285-295); Potassium 4.8 mmol/L (3.5-5.1); Sodium 140 mmol/L (136-145)
[2024-03-15] MEDS: magnesium hydroxide 30 mL UDC PO (08:25)
[2024-03-15] MEDS: tamsulosin 0.4 mg Capsule 0.800000000000000044 MG PO (08:26)
[2024-03-15] MEDS: famotidine 20 mg Tablet PO ×2 (08:26→17:44)
[2024-03-15] MEDS: gabapentin 300 mg Capsule PO ×3 (08:26→20:07)
[2024-03-15] MEDS: apixaban 5 mg Tablet PO ×2 (08:26→17:44)
[2024-03-15] MEDS: PARoxetine 20 mg Tablet 10 MG PO (08:26)
--- NOTE | 2024-03-15 11:35 | P.PN_ITS ---
Subjective 2 Subjective: seen this morning us extremity Dopplers revealed supraclavicular fossa possible hematoma Hemoglobin stable 11.8, Vital stable Patient feels well and has no complaints this morning. Vitals/I&O/Wt Last Vital Signs Temp 98.2 F 03/15/24 11:10 Pulse 90 03/15/24 11:10 Resp 21 H 03/15/24 11:10 BP 127/86 03/15/24 11:10 Pulse Ox 95 03/15/24 11:10 O2 Del Method Room Air 03/15/24 11:10 O2 Flow Rate 98 03/09/24 20:00 03/14/24 03/15/24 03/15/24 22:59 06:59 14:59 Intake Total 480 / 480 480 / 480 Output Total 1200 / 2550 850 / 3400 Balance -1200 / -2550 -370 / -2920 480 / 480 Weight last 48 hrs Weight 126.87 kg Weight 127.868 kg Physical Exam 2 Narrative: General: No acute distress, AO x3, calm HEENT: PERRLA, pupils bilaterally equal and reactive Chest: Normal vesicular breath sounds, no added sounds, equal good air entry bilaterally CVS: S1-S2 regular, no murmurs, no tachycardia, no gallops, no rubs Abdomen: Soft, nontender, bowel sounds present Neuro: No focal deficits able to move all 4 extremities Urinary Catheter Management: Coude: Cath Placed During This Visit: yes Reason for Continuing Indwelling Catheter: Acute Urinary Retention or Obstruction Urinary Catheter Date of Insertion: 03/07/24 Urinary Catheter Time of Insertion: 08:30 Data 03/15/24 04:37 03/15/24 04:37 A&P Assessment and plan (1) Sepsis: SIRS: Hypotension, leukocytosis, elevated lactate on admission. Source: Unknown. Possibly UTI. End organ damage: Acute infectious encephalopathy, acute kidney injury Lactic acid elevated. Patient did receive full sepsis bolus of 30 mill per KG body weight. Continue with NS at 100 cc/h. Monitor blood pressures. Keep mean artery pressure 65 mmHg. Follow-up blood culture, urine culture, MRSA swab. Appreciate procalcitonin, urine Legionella, bacterial antigen. Patient is allergic to cefazolin. For now continue with Zosyn. De-escalate antibiotics as per culture results. (2) Hypotension: Hypertension present on presentation to the ER. Improved with sepsis fluid bolus. Keep mean artery pressure 65. Hold off antihypertensive for now. Check orthostatics. (3) Acute hypokalemia: Denies any episodes of diarrhea. Patient is on excessive diuretics as an outpatient. Did not tolerate IV potassium in the ER. Persistent hypokalemia. Replaced with 100 mg once more. Repeat potassium in the evening. (4) Hyponatremia: Most likely in setting of dehydration. Slightly improving. Continue with normal saline with 20 minutes of potassium at 100 cc/h. Monitor sodium level daily for now. Appreciate urine lites. (5) AI (acute kidney injury): Baseline creatinine 1.2-1.3. Creatinine down to baseline. Associated with hypokalemia and hyponatremia. Elevated BUN. Could be in setting of dehydration. Patient does take Bumex and metolazone at home. Bladder scan did show urinary retention. Fischer catheter placed with some difficulty with help of coud?. Medical reconciliation done for nephrotoxic drugs. Hold off on diuretics for now. Repeat BMP in evening. Otherwise monitor BMP daily for now. (6) Syncope: Unknown etiology. Could be in setting of A-fib with RVR versus dehydration leading to AI and hyponatremia and hypokalemia or in setting of hypotension. Telemetry. Fluid as above. Monitor blood pressure as above. Replace electrolytes as above. Physical therapy. Orthostatic blood pressure check. Qualifiers: Syncope type: unspecified Qualified Code(s): R55 - Syncope and collapse (7) Urinary retention: Fischer catheter placed. Continue with Flomax 0.4 mg daily. Patient will need to follow-up with urology as an outpatient. (8) Hematuria: Resolved. Eliquis restarted on 03/09 evening (9) Afib: Currently rate controlled. At home patient seems to be on Cardizem 30 mg twice daily, Coreg 12.5 mg twice daily along with Eliquis 5 mg twice daily. Hold off on antihypertensive and rate admitting medications for now. Telemonitoring. Holding Eliquis given hematuria Qualifiers: Atrial fibrillation type: unspecified Qualified Code(s): I48.91 - Unspecified atrial fibrillation (10) Leukocytosis: Unknown etiology. Could be in setting of dehydration. Patient denies of having any localized symptoms for infection. Check blood culture, respiratory viral panel, urine culture. For now start on IV antibiotics for presumable possible UTI. Patient is allergic to cefazolin. (11) Diastolic CHF: Last echocardiogram from 07/19 shows an EF of 60% with RVSP of 24.8 mmHg. Continue to monitor. Qualifiers: Heart failure chronicity: acute on chronic Qualified Code(s): I50.33 - Acute on chronic diastolic (congestive) heart failure Plan Full code. Patient does not have a DPOA. Cardiac diet Eliquis will be sufficient for DVT prophylaxis Famotidine for PUD prophylaxis Plan for the day: Renal functions and potassium level stable off IV fluids. Continue with oral potassium 40 mg twice daily. Patient complaining of more back pain. Add tramadol 50 mg every [address] lumbar spine to rule out acute injury. Patient did have back surgery in the past. Continue with physical therapy. Out of bed to chair. Continue with Flomax and finasteride. Will most likely discharge with Fischer catheter in place with follow-up with urology as an outpatient. Plan for the day 03/15/2024 - K 4.8 this am - Stop oral Potassium - Recheck BMP, and will treat accordingly - Was on bumex 2 mg bid at home. That is being held for now. For diastolic HF , was on it at home. Will restart on lasix 20 daily at discharge. Echo shows normal EF. - Continue with Flomax and finasteride. Will most likely discharge with Fischer catheter in place with follow-up with urology as an outpatient. - Refer to Dr. Phoenix at outpatient - Place on hydrocodone 5 q8 hr prn pain. -- Discharge plan: Awaiting transfer to SNF. - right am swollen, check venous dopplers: No evidence for right upper extremity deep venous thrombosis. Probable hematoma right supraclavicular fossa.Hemoglobin is stable, no evidence of fluctuance or bleeding. This should self resolve. Discussed briefly with general surgery. Attestations 2 Medical Necessity Statement*: awaiting SNF placement Diagnoses Sepsis A41.9 Hypotension I95.9 Acute hypokalemia E87.6 Hyponatremia E87.1 AI (acute kidney injury) N17.9 Syncope, unspecified syncope type R55 Syncope type: unspecified Urinary retention R33.9 Hematuria R31.9 Atrial fibrillation, unspecified type I48.91 Atrial fibrillation type: unspecified Leukocytosis D72.829 Acute on chronic diastolic congestive heart failure I50.33 Heart failure chronicity: acute on chronic
--- NOTE | 2024-03-15 12:09 | PC.NURSE ---
Addendum entered by Marija Jones RN 03/15/24 12:18: spoke with provider ok to give hydrocondone at this time Original Note: patient asking for pain medications first line order tramodol taken to patient refused tramodol stated that does not work i need the hydrocondone for my pain its the only thing that works. second line medication given will contact provider.
--- NOTE | 2024-03-15 12:15 | PC.SOCIAL ---
IMM Updated Updated pt on IMM. No questions voiced. Provided pt a copy. Initialed, dated, & timed copy in chart.
[2024-03-15] MEDS: HYDROcodone-acetaminophen 5-325 mg Tablet 1 TAB PO ×2 (12:20→20:07)
[2024-03-15] MEDS: acetaminophen 325 mg Tablet 650 MG PO (16:32)
[2024-03-15] MEDS: finasteride 5 mg Tablet PO (20:08)
[2024-03-16] VITALS (8 sets, daily range): BP systolic 120–142; BP diastolic 78–88; PULSE 72–86; RESP 14–18; TEMP 36.6–36.8; O2SAT 92–97; BMI 40.1
[2024-03-16 05:31] LABS: Basophils % 0.4 %; Eosinophils # 0.2 10^3/uL (0.0-0.8); Hematocrit 36.5 % (37-53); Lymphocytes # 1.7 10^3/uL (0.8-4.8); Lymphocytes % 24.1 %; Mean Corpuscular HGB Conc 30.4 g/dL (30-55); Mean Corpuscular Hemoglobin 24.8 pg (27-33); Mean Corpuscular Volume 81.5 fl (82-101); Mean Platelet Volume 10.6 fL (7.4-10.4); Monocytes # 0.5 10^3/uL (0.2-0.9); Neutrophils # 4.48 10^3/uL (1.8-7.7); Neutrophils % 65.1 %; Nucleated Red Blood Cells % 0 %; Platelet Count 239 10^3/cmm (157-399); Red Blood Count 4.48 10^6/uL (3.85-5.65); Red Cell Distribution Width 19.5 % (12.1-15.1); White Blood Count 6.89 10^3/uL (3.29-11.43)
[2024-03-16] MEDS: tamsulosin 0.4 mg Capsule 0.800000000000000044 MG PO (08:45)
[2024-03-16] MEDS: magnesium hydroxide 30 mL UDC PO (08:45)
[2024-03-16] MEDS: gabapentin 300 mg Capsule PO ×3 (08:45→21:22)
[2024-03-16] MEDS: PARoxetine 20 mg Tablet 10 MG PO (08:46)
[2024-03-16] MEDS: apixaban 5 mg Tablet PO ×2 (08:46→17:38)
[2024-03-16] MEDS: famotidine 20 mg Tablet PO ×2 (08:46→17:38)
[2024-03-16] MEDS: ferrous gluconate 324 mg Tablet PO (08:46)
[2024-03-16] MEDS: HYDROcodone-acetaminophen 5-325 mg Tablet 1 TAB PO (10:48)
--- NOTE | 2024-03-16 12:14 | P.PN_ITS ---
Subjective 2 Subjective: Seen this morning. Patient awaiting insurance authorization. He is requesting his home diuretic to be restarted. Vitals/I&O/Wt Last Vital Signs Temp 97.9 F 03/16/24 11:15 Pulse 85 03/16/24 11:15 Resp 15 03/16/24 11:15 BP 120/78 03/16/24 11:15 Pulse Ox 96 03/16/24 11:15 O2 Del Method Room Air 03/16/24 11:15 O2 Flow Rate 98 03/09/24 20:00 03/15/24 03/16/24 03/16/24 22:59 06:59 14:59 Intake Total 360 / 360 Output Total 1500 / 1500 1250 / 2750 2150 / 2150 Balance -1500 / -660 -1250 / -1910 -1790 / -1790 Weight last 48 hrs Weight 126.87 kg Weight 126.87 kg Physical Exam 2 Narrative: General: No acute distress, AO x3, calm HEENT: PERRLA, pupils bilaterally equal and reactive Chest: Normal vesicular breath sounds, no added sounds, equal good air entry bilaterally CVS: S1-S2 regular, no murmurs, no tachycardia, no gallops, no rubs Abdomen: Soft, nontender, bowel sounds present Neuro: No focal deficits able to move all 4 extremities Extremities: 1+ pitting edema bilateral lower extremities however mostly in dependent areas. Urinary Catheter Management: Coude: Cath Placed During This Visit: yes Reason for Continuing Indwelling Catheter: Acute Urinary Retention or Obstruction Urinary Catheter Date of Insertion: 03/07/24 Urinary Catheter Time of Insertion: 08:30 Data 03/16/24 04:33 03/15/24 04:37 A&P Assessment and plan (1) Sepsis: SIRS: Hypotension, leukocytosis, elevated lactate on admission. Source: Unknown. Possibly UTI. End organ damage: Acute infectious encephalopathy, acute kidney injury Lactic acid elevated. Patient did receive full sepsis bolus of 30 mill per KG body weight. Continue with NS at 100 cc/h. Monitor blood pressures. Keep mean artery pressure 65 mmHg. Follow-up blood culture, urine culture, MRSA swab. Appreciate procalcitonin, urine Legionella, bacterial antigen. Patient is allergic to cefazolin. For now continue with Zosyn. De-escalate antibiotics as per culture results. (2) Hypotension: Hypertension present on presentation to the ER. Improved with sepsis fluid bolus. Keep mean artery pressure 65. Hold off antihypertensive for now. Check orthostatics. (3) Acute hypokalemia: Denies any episodes of diarrhea. Patient is on excessive diuretics as an outpatient. Did not tolerate IV potassium in the ER. Persistent hypokalemia. Replaced with 100 mg once more. Repeat potassium in the evening. (4) Hyponatremia: Most likely in setting of dehydration. Slightly improving. Continue with normal saline with 20 minutes of potassium at 100 cc/h. Monitor sodium level daily for now. Appreciate urine lites. (5) AI (acute kidney injury): Baseline creatinine 1.2-1.3. Creatinine down to baseline. Associated with hypokalemia and hyponatremia. Elevated BUN. Could be in setting of dehydration. Patient does take Bumex and metolazone at home. Bladder scan did show urinary retention. Fischer catheter placed with some difficulty with help of coud?. Medical reconciliation done for nephrotoxic drugs. Hold off on diuretics for now. Repeat BMP in evening. Otherwise monitor BMP daily for now. (6) Syncope: Unknown etiology. Could be in setting of A-fib with RVR versus dehydration leading to AI and hyponatremia and hypokalemia or in setting of hypotension. Telemetry. Fluid as above. Monitor blood pressure as above. Replace electrolytes as above. Physical therapy. Orthostatic blood pressure check. Qualifiers: Syncope type: unspecified Qualified Code(s): R55 - Syncope and collapse (7) Urinary retention: Fischer catheter placed. Continue with Flomax 0.4 mg daily. Patient will need to follow-up with urology as an outpatient. (8) Hematuria: Resolved. Eliquis restarted on 03/09 evening (9) Afib: Currently rate controlled. At home patient seems to be on Cardizem 30 mg twice daily, Coreg 12.5 mg twice daily along with Eliquis 5 mg twice daily. Hold off on antihypertensive and rate admitting medications for now. Telemonitoring. Holding Eliquis given hematuria Qualifiers: Atrial fibrillation type: unspecified Qualified Code(s): I48.91 - Unspecified atrial fibrillation (10) Leukocytosis: Unknown etiology. Could be in setting of dehydration. Patient denies of having any localized symptoms for infection. Check blood culture, respiratory viral panel, urine culture. For now start on IV antibiotics for presumable possible UTI. Patient is allergic to cefazolin. (11) Diastolic CHF: Last echocardiogram from 07/19 shows an EF of 60% with RVSP of 24.8 mmHg. Continue to monitor. Qualifiers: Heart failure chronicity: acute on chronic Qualified Code(s): I50.33 - Acute on chronic diastolic (congestive) heart failure Plan Full code. Patient does not have a DPOA. Cardiac diet Eliquis will be sufficient for DVT prophylaxis Famotidine for PUD prophylaxis Plan for the day: Renal functions and potassium level stable off IV fluids. Continue with oral potassium 40 mg twice daily. Patient complaining of more back pain. Add tramadol 50 mg every [address] lumbar spine to rule out acute injury. Patient did have back surgery in the past. Continue with physical therapy. Out of bed to chair. Continue with Flomax and finasteride. Will most likely discharge with Fischer catheter in place with follow-up with urology as an outpatient. Plan for the day 03/16/2024 - K stable. - Stop oral Potassium - Recheck BMP, and will treat accordingly - Was on bumex 2 mg bid at home. That is being held for now. For diastolic HF , was on it at home. Restart diuretic. Will place on Bumex 1 mg daily orally. Echo shows normal EF. - Continue with Flomax and finasteride. Will most likely discharge with Fischer catheter in place with follow-up with urology as an outpatient. - Refer to Dr. Phoenix at outpatient - Place on hydrocodone 5 q8 hr prn pain. -- Discharge plan: Awaiting transfer to SNF. - right am swollen, check venous dopplers: No evidence for right upper extremity deep venous thrombosis. Probable hematoma right supraclavicular fossa.Hemoglobin is stable, no evidence of fluctuance or bleeding. This should self resolve. Discussed briefly with general surgery. Attestations 2 Medical Necessity Statement*: Awaiting insurance authorization Diagnoses Sepsis A41.9 Hypotension I95.9 Acute hypokalemia E87.6 Hyponatremia E87.1 AI (acute kidney injury) N17.9 Syncope, unspecified syncope type R55 Syncope type: unspecified Urinary retention R33.9 Hematuria R31.9 Atrial fibrillation, unspecified type I48.91 Atrial fibrillation type: unspecified Leukocytosis D72.829 Acute on chronic diastolic congestive heart failure I50.33 Heart failure chronicity: acute on chronic
[2024-03-16] MEDS: bumetanide 1 mg Tablet PO (12:40)
[2024-03-16] MEDS: finasteride 5 mg Tablet PO (21:22)
[2024-03-17] VITALS (7 sets, daily range): BP systolic 119–135; BP diastolic 82–88; PULSE 80–86; RESP 15–18; TEMP 36.6–36.9; O2SAT 91–95
[2024-03-17] MEDS: HYDROcodone-acetaminophen 5-325 mg Tablet 1 TAB PO ×2 (01:48→11:05)
[2024-03-17 05:01] LABS: Basophils % 0.5 %; Eosinophils # 0.2 10^3/uL (0.0-0.8); Eosinophils % 2.6 %; Lymphocytes # 1.8 10^3/uL (0.8-4.8); Lymphocytes % 23.4 %; Mean Corpuscular HGB Conc 30.8 g/dL (30-55); Mean Corpuscular Hemoglobin 25.1 pg (27-33); Mean Corpuscular Volume 81.4 fl (82-101); Mean Platelet Volume 10.4 fL (7.4-10.4); Monocytes # 0.5 10^3/uL (0.2-0.9); Monocytes % 6.8 %; Neutrophils # 5.17 10^3/uL (1.8-7.7); Neutrophils % 66.4 %; Nucleated Red Blood Cells % 0 %; Platelet Count 237 10^3/cmm (157-399); Red Blood Count 4.42 10^6/uL (3.85-5.65); Red Cell Distribution Width 19.6 % (12.1-15.1); White Blood Count 7.78 10^3/uL (3.29-11.43)
[2024-03-17 05:28] LABS: Anion Gap 12.1 (5-19); Blood Urea Nitrogen 13 mg/dL (8-23); Calcium 8.8 mg/dL (8.5-10.5); Carbon Dioxide 26 mmol/L (22-29); Chloride 106 mmol/L (98-107); Creatinine Clr Calc Pharmacy 114.9021; Glomerular Filtration Rate 95.6 mL/min (90-130); Glucose 79 mg/dL (65-115); Osmolality Calculated 289 mOsm/kg (285-295); Potassium 4.1 mmol/L (3.5-5.1); Sodium 140 mmol/L (136-145)
[2024-03-17] MEDS: apixaban 5 mg Tablet PO ×2 (07:54→18:37)
[2024-03-17] MEDS: PARoxetine 20 mg Tablet 10 MG PO (07:54)
[2024-03-17] MEDS: famotidine 20 mg Tablet PO ×2 (07:54→18:37)
[2024-03-17] MEDS: tamsulosin 0.4 mg Capsule 0.800000000000000044 MG PO (07:54)
[2024-03-17] MEDS: gabapentin 300 mg Capsule PO ×3 (07:54→20:31)
[2024-03-17] MEDS: bumetanide 1 mg Tablet PO (07:54)
[2024-03-17] MEDS: magnesium hydroxide 30 mL UDC PO (07:54)
--- NOTE | 2024-03-17 10:58 | PC.NURSE ---
Informed Dr Garcia patient requesting pain medication and that the order . Received order to resume as before.
--- NOTE | 2024-03-17 11:58 | PC.NURSE ---
Patient to transfer to [facility]. Report called to BRANDON Simpson at this time.
--- NOTE | 2024-03-17 12:26 | P.PN_ITS ---
Subjective 2 Subjective: seen today 3L urine output Vitals/I&O/Wt Last Vital Signs Temp 97.8 F 03/17/24 11:30 Pulse 83 03/17/24 11:30 Resp 18 03/17/24 11:30 BP 123/83 03/17/24 11:30 Pulse Ox 93 03/17/24 11:30 O2 Del Method Room Air 03/17/24 11:30 O2 Flow Rate 98 03/09/24 20:00 03/16/24 03/17/24 03/17/24 22:59 06:59 14:59 Intake Total 460 / 1300 360 / 360 Output Total 3175 / 5325 700 / 6025 1850 / 1850 Balance -2715 / -4025 -700 / -4725 -1490 / -1490 Weight last 48 hrs Weight 122.561 kg Weight 126.87 kg Physical Exam 2 Narrative: General: No acute distress, AO x3, calm HEENT: PERRLA, pupils bilaterally equal and reactive Chest: Normal vesicular breath sounds, no added sounds, equal good air entry bilaterally CVS: S1-S2 regular, no murmurs, Abdomen: Soft, nontender, bowel sounds present Neuro: No focal deficits able to move all 4 extremities Extremities: Trace pitting edema bilateral lower extremities however mostly in dependent areas. Urinary Catheter Management: Coude: Cath Placed During This Visit: yes Reason for Continuing Indwelling Catheter: Acute Urinary Retention or Obstruction Urinary Catheter Date of Insertion: 03/07/24 Urinary Catheter Time of Insertion: 08:30 Data 03/17/24 04:21 03/17/24 04:21 A&P Assessment and plan (1) Sepsis: SIRS: Hypotension, leukocytosis, elevated lactate on admission. Source: Unknown. Possibly UTI. End organ damage: Acute infectious encephalopathy, acute kidney injury Lactic acid elevated. Patient did receive full sepsis bolus of 30 mill per KG body weight. Continue with NS at 100 cc/h. Monitor blood pressures. Keep mean artery pressure 65 mmHg. Follow-up blood culture, urine culture, MRSA swab. Appreciate procalcitonin, urine Legionella, bacterial antigen. Patient is allergic to cefazolin. For now continue with Zosyn. De-escalate antibiotics as per culture results. (2) Hypotension: Hypertension present on presentation to the ER. Improved with sepsis fluid bolus. Keep mean artery pressure 65. Hold off antihypertensive for now. Check orthostatics. (3) Acute hypokalemia: Denies any episodes of diarrhea. Patient is on excessive diuretics as an outpatient. Did not tolerate IV potassium in the ER. Persistent hypokalemia. Replaced with 100 mg once more. Repeat potassium in the evening. (4) Hyponatremia: Most likely in setting of dehydration. Slightly improving. Continue with normal saline with 20 minutes of potassium at 100 cc/h. Monitor sodium level daily for now. Appreciate urine lites. (5) AI (acute kidney injury): Baseline creatinine 1.2-1.3. Creatinine down to baseline. Associated with hypokalemia and hyponatremia. Elevated BUN. Could be in setting of dehydration. Patient does take Bumex and metolazone at home. Bladder scan did show urinary retention. Fischer catheter placed with some difficulty with help of coud?. Medical reconciliation done for nephrotoxic drugs. Hold off on diuretics for now. Repeat BMP in evening. Otherwise monitor BMP daily for now. (6) Syncope: Unknown etiology. Could be in setting of A-fib with RVR versus dehydration leading to AI and hyponatremia and hypokalemia or in setting of hypotension. Telemetry. Fluid as above. Monitor blood pressure as above. Replace electrolytes as above. Physical therapy. Orthostatic blood pressure check. Qualifiers: Syncope type: unspecified Qualified Code(s): R55 - Syncope and collapse (7) Urinary retention: Fischer catheter placed. Continue with Flomax 0.4 mg daily. Patient will need to follow-up with urology as an outpatient. (8) Hematuria: Resolved. Eliquis restarted on 03/09 evening (9) Afib: Currently rate controlled. At home patient seems to be on Cardizem 30 mg twice daily, Coreg 12.5 mg twice daily along with Eliquis 5 mg twice daily. Hold off on antihypertensive and rate admitting medications for now. Telemonitoring. Holding Eliquis given hematuria Qualifiers: Atrial fibrillation type: unspecified Qualified Code(s): I48.91 - Unspecified atrial fibrillation (10) Leukocytosis: Unknown etiology. Could be in setting of dehydration. Patient denies of having any localized symptoms for infection. Check blood culture, respiratory viral panel, urine culture. For now start on IV antibiotics for presumable possible UTI. Patient is allergic to cefazolin. (11) Diastolic CHF: Last echocardiogram from 07/19 shows an EF of 60% with RVSP of 24.8 mmHg. Continue to monitor. Qualifiers: Heart failure chronicity: acute on chronic Qualified Code(s): I50.33 - Acute on chronic diastolic (congestive) heart failure Plan Full code. Patient does not have a DPOA. Cardiac diet Eliquis will be sufficient for DVT prophylaxis Famotidine for PUD prophylaxis Plan for the day: Renal functions and potassium level stable off IV fluids. Continue with oral potassium 40 mg twice daily. Patient complaining of more back pain. Add tramadol 50 mg every [address] lumbar spine to rule out acute injury. Patient did have back surgery in the past. Continue with physical therapy. Out of bed to chair. Continue with Flomax and finasteride. Will most likely discharge with Fischer catheter in place with follow-up with urology as an outpatient. Plan for the day 03/17/2024 - K stable. - Stop oral Potassium - Recheck BMP, and will treat accordingly - Continue on Bumex 1 mg daily orally. Echo shows normal EF. - Continue with Flomax and finasteride.Discharge with Fischer catheter in place with follow-up with urology as an outpatient. - Refer to Dr. Phoenix at outpatient - Place on hydrocodone 5 q8 hr prn pain. -- Discharge plan: Awaiting transfer to SNF. - right am swollen, check venous dopplers: No evidence for right upper extremity deep venous thrombosis. Probable hematoma right supraclavicular fossa.Hemoglobin is stable, no evidence of fluctuance or bleeding. This should self resolve. Discussed briefly with general surgery. GIVE PATIENT LAB HOLIDAY NEXT 24 hours. AWAITING PLACEMENT Attestations 2 Medical Necessity Statement*: Awaiting insurance authorization Diagnoses Sepsis A41.9 Hypotension I95.9 Acute hypokalemia E87.6 Hyponatremia E87.1 AI (acute kidney injury) N17.9 Syncope, unspecified syncope type R55 Syncope type: unspecified Urinary retention R33.9 Hematuria R31.9 Atrial fibrillation, unspecified type I48.91 Atrial fibrillation type: unspecified Leukocytosis D72.829 Acute on chronic diastolic congestive heart failure I50.33 Heart failure chronicity: acute on chronic
--- NOTE | 2024-03-17 14:28 | PC.SOCIAL ---
IMM Updated Updated pt on IMM. No questions voiced. Provided pt a copy. Initialed, dated, & timed copy in chart.
[2024-03-17] MEDS: acetaminophen 325 mg Tablet 650 MG PO (16:12)
[2024-03-17] MEDS: finasteride 5 mg Tablet PO (20:31)
[2024-03-18] VITALS (7 sets, daily range): BP systolic 118–149; BP diastolic 79–86; PULSE 75–90; RESP 15–19; TEMP 36.6–37.1; O2SAT 94–97
[2024-03-18] MEDS: HYDROcodone-acetaminophen 5-325 mg Tablet 1 TAB PO ×2 (00:42→08:27)
[2024-03-18] MEDS: acetaminophen 325 mg Tablet 650 MG PO ×2 (05:58→20:21)
[2024-03-18] MEDS: bumetanide 1 mg Tablet PO (08:26)
[2024-03-18] MEDS: tamsulosin 0.4 mg Capsule 0.800000000000000044 MG PO (08:26)
[2024-03-18] MEDS: gabapentin 300 mg Capsule PO ×3 (08:26→20:14)
[2024-03-18] MEDS: apixaban 5 mg Tablet PO ×2 (08:26→16:55)
[2024-03-18] MEDS: ferrous gluconate 324 mg Tablet PO (08:26)
[2024-03-18] MEDS: famotidine 20 mg Tablet PO ×2 (08:26→16:55)
[2024-03-18] MEDS: PARoxetine 20 mg Tablet 10 MG PO (08:26)
--- NOTE | 2024-03-18 14:18 | P.PN_ITS ---
Subjective 2 Subjective: seen this am no acute events overnight Vitals/I&O/Wt Last Vital Signs Temp 97.9 F 03/18/24 11:25 Pulse 75 03/18/24 11:25 Resp 15 03/18/24 11:25 BP 126/83 03/18/24 11:25 Pulse Ox 96 03/18/24 11:25 O2 Del Method Room Air 03/18/24 11:25 O2 Flow Rate 98 03/09/24 20:00 03/17/24 03/18/24 03/18/24 22:59 06:59 14:59 Intake Total 738 / 1218 240 / 1458 236 / 236 Output Total 2099 / 3950 1000 / 4950 2099 / 2099 Balance -1362 / -2732 -760 / -3492 -1864 / -1864 Weight last 48 hrs Weight 121.109 kg Weight 122.561 kg Physical Exam 2 Narrative: General: No acute distress, AO x3, calm Chest: Normal vesicular breath sounds, equal good air entry bilaterally CVS: S1-S2 regular, no murmurs, Abdomen: Soft, nontender, bowel sounds present Neuro: No focal deficits able to move all 4 extremities Extremities: Trace pitting edema bilateral lower extremities however mostly in dependent areas. Urinary Catheter Management: Coude: Cath Placed During This Visit: yes Reason for Continuing Indwelling Catheter: Acute Urinary Retention or Obstruction Urinary Catheter Date of Insertion: 03/07/24 Urinary Catheter Time of Insertion: 08:30 Data 03/17/24 04:21 03/17/24 04:21 A&P Assessment and plan (1) Sepsis: SIRS: Hypotension, leukocytosis, elevated lactate on admission. Source: Unknown. Possibly UTI. End organ damage: Acute infectious encephalopathy, acute kidney injury Lactic acid elevated. Patient did receive full sepsis bolus of 30 mill per KG body weight. Continue with NS at 100 cc/h. Monitor blood pressures. Keep mean artery pressure 65 mmHg. Follow-up blood culture, urine culture, MRSA swab. Appreciate procalcitonin, urine Legionella, bacterial antigen. Patient is allergic to cefazolin. For now continue with Zosyn. De-escalate antibiotics as per culture results. (2) Hypotension: Hypertension present on presentation to the ER. Improved with sepsis fluid bolus. Keep mean artery pressure 65. Hold off antihypertensive for now. Check orthostatics. (3) Acute hypokalemia: Denies any episodes of diarrhea. Patient is on excessive diuretics as an outpatient. Did not tolerate IV potassium in the ER. Persistent hypokalemia. Replaced with 100 mg once more. Repeat potassium in the evening. (4) Hyponatremia: Most likely in setting of dehydration. Slightly improving. Continue with normal saline with 20 minutes of potassium at 100 cc/h. Monitor sodium level daily for now. Appreciate urine lites. (5) AI (acute kidney injury): Baseline creatinine 1.2-1.3. Creatinine down to baseline. Associated with hypokalemia and hyponatremia. Elevated BUN. Could be in setting of dehydration. Patient does take Bumex and metolazone at home. Bladder scan did show urinary retention. Fischer catheter placed with some difficulty with help of coud?. Medical reconciliation done for nephrotoxic drugs. Hold off on diuretics for now. Repeat BMP in evening. Otherwise monitor BMP daily for now. (6) Syncope: Unknown etiology. Could be in setting of A-fib with RVR versus dehydration leading to AI and hyponatremia and hypokalemia or in setting of hypotension. Telemetry. Fluid as above. Monitor blood pressure as above. Replace electrolytes as above. Physical therapy. Orthostatic blood pressure check. Qualifiers: Syncope type: unspecified Qualified Code(s): R55 - Syncope and collapse (7) Urinary retention: Fischer catheter placed. Continue with Flomax 0.4 mg daily. Patient will need to follow-up with urology as an outpatient. (8) Hematuria: Resolved. Eliquis restarted on 03/09 evening (9) Afib: Currently rate controlled. At home patient seems to be on Cardizem 30 mg twice daily, Coreg 12.5 mg twice daily along with Eliquis 5 mg twice daily. Hold off on antihypertensive and rate admitting medications for now. Telemonitoring. Holding Eliquis given hematuria Qualifiers: Atrial fibrillation type: unspecified Qualified Code(s): I48.91 - Unspecified atrial fibrillation (10) Leukocytosis: Unknown etiology. Could be in setting of dehydration. Patient denies of having any localized symptoms for infection. Check blood culture, respiratory viral panel, urine culture. For now start on IV antibiotics for presumable possible UTI. Patient is allergic to cefazolin. (11) Diastolic CHF: Last echocardiogram from 07/19 shows an EF of 60% with RVSP of 24.8 mmHg. Continue to monitor. Qualifiers: Heart failure chronicity: acute on chronic Qualified Code(s): I50.33 - Acute on chronic diastolic (congestive) heart failure Plan Full code. Patient does not have a DPOA. Cardiac diet Eliquis will be sufficient for DVT prophylaxis Famotidine for PUD prophylaxis Plan for the day: Renal functions and potassium level stable off IV fluids. Continue with oral potassium 40 mg twice daily. Patient complaining of more back pain. Add tramadol 50 mg every [address] lumbar spine to rule out acute injury. Patient did have back surgery in the past. Continue with physical therapy. Out of bed to chair. Continue with Flomax and finasteride. Will most likely discharge with Fischer catheter in place with follow-up with urology as an outpatient. Plan for the day 03/18/2024 - K stable. - Stop oral Potassium - Recheck BMP, and will treat accordingly - Continue on Bumex 1 mg daily orally. Echo shows normal EF. - Continue with Flomax and finasteride. Discharge with Fischer catheter in place with follow-up with urology as an outpatient. - Refer to Dr. Phoenix at outpatient - Place on hydrocodone 5 q8 hr prn pain. -- Discharge plan: Awaiting transfer to SNF. - right am swollen, check venous dopplers: No evidence for right upper extremity deep venous thrombosis. Probable hematoma right supraclavicular fossa.Hemoglobin is stable, no evidence of fluctuance or bleeding. This should self resolve. Discussed briefly with general surgery. - check labs in am tomorrow AWAITING PLACEMENT Attestations 2 Medical Necessity Statement*: Awaiting insurance authorization Diagnoses Sepsis A41.9 Hypotension I95.9 Acute hypokalemia E87.6 Hyponatremia E87.1 AI (acute kidney injury) N17.9 Syncope, unspecified syncope type R55 Syncope type: unspecified Urinary retention R33.9 Hematuria R31.9 Atrial fibrillation, unspecified type I48.91 Atrial fibrillation type: unspecified Leukocytosis D72.829 Acute on chronic diastolic congestive heart failure I50.33 Heart failure chronicity: acute on chronic
[2024-03-18] MEDS: finasteride 5 mg Tablet PO (20:14)
[2024-03-19] VITALS: BP 136/81; PULSE 83; RESP 20; TEMP 36.6; O2SAT 95
[2024-03-19 04:00] VITALS: BP 151/78; PULSE 77; RESP 17; TEMP 36.7; O2SAT 96
[2024-03-19] MEDS: HYDROcodone-acetaminophen 5-325 mg Tablet 1 TAB PO (04:23)
[2024-03-19 06:53] LABS: Anion Gap 10.9 (5-19); Blood Urea Nitrogen 13 mg/dL (8-23); Calcium 8.7 mg/dL (8.5-10.5); Carbon Dioxide 26 mmol/L (22-29); Chloride 106 mmol/L (98-107); Creatinine Clr Calc Pharmacy 111.6826; Glomerular Filtration Rate 95.6 mL/min (90-130); Glucose 102 mg/dL (65-115); Osmolality Calculated 288 mOsm/kg (285-295); Potassium 3.9 mmol/L (3.5-5.1); Sodium 139 mmol/L (136-145)
[2024-03-19 07:03] VITALS: BP 137/91; PULSE 68; RESP 18; TEMP 36.7; O2SAT 95
[2024-03-19] MEDS: PARoxetine 20 mg Tablet 10 MG PO (08:39)
[2024-03-19] MEDS: gabapentin 300 mg Capsule PO ×3 (08:39→21:15)
[2024-03-19] MEDS: bumetanide 1 mg Tablet PO (08:39)
[2024-03-19] MEDS: famotidine 20 mg Tablet PO ×2 (08:39→16:51)
[2024-03-19] MEDS: apixaban 5 mg Tablet PO ×2 (08:39→16:51)
[2024-03-19] MEDS: tamsulosin 0.4 mg Capsule 0.800000000000000044 MG PO (08:39)
[2024-03-19 12:00] VITALS: BP 137/89; PULSE 80; RESP 18; TEMP 36.6; O2SAT 95
--- NOTE | 2024-03-19 13:32 | P.PN_ITS ---
Subjective 2 Subjective: seen this am no acute events overnight Vitals/I&O/Wt Last Vital Signs Temp 97.9 F 03/19/24 12:00 Pulse 80 03/19/24 12:00 Resp 18 03/19/24 12:00 BP 137/89 03/19/24 12:00 Pulse Ox 95 03/19/24 12:00 O2 Del Method Room Air 03/19/24 12:00 O2 Flow Rate 98 03/09/24 20:00 03/18/24 03/19/24 03/19/24 22:59 06:59 14:59 Intake Total 218 / 454 360 / 814 360 / 360 Output Total 800 / 2900 1200 / 4100 Balance -582 / -2446 -840 / -3286 360 / 360 Weight last 48 hrs Weight 120.247 kg Weight 121.109 kg Physical Exam 2 Narrative: General: No acute distress, AO x3, calm Chest: Normal vesicular breath sounds, equal good air entry bilaterally CVS: S1-S2 regular, no murmurs, Abdomen: Soft, nontender, bowel sounds present Neuro: No focal deficits able to move all 4 extremities Extremities: Trace pitting edema bilateral lower extremities improving Urinary Catheter Management: Coude: Cath Placed During This Visit: yes Reason for Continuing Indwelling Catheter: Acute Urinary Retention or Obstruction Urinary Catheter Date of Insertion: 03/07/24 Urinary Catheter Time of Insertion: 08:30 Data 03/17/24 04:21 03/19/24 05:51 A&P Assessment and plan (1) Sepsis: SIRS: Hypotension, leukocytosis, elevated lactate on admission. Source: Unknown. Possibly UTI. End organ damage: Acute infectious encephalopathy, acute kidney injury Lactic acid elevated. Patient did receive full sepsis bolus of 30 mill per KG body weight. Continue with NS at 100 cc/h. Monitor blood pressures. Keep mean artery pressure 65 mmHg. Follow-up blood culture, urine culture, MRSA swab. Appreciate procalcitonin, urine Legionella, bacterial antigen. Patient is allergic to cefazolin. For now continue with Zosyn. De-escalate antibiotics as per culture results. (2) Hypotension: Hypertension present on presentation to the ER. Improved with sepsis fluid bolus. Keep mean artery pressure 65. Hold off antihypertensive for now. Check orthostatics. (3) Acute hypokalemia: Denies any episodes of diarrhea. Patient is on excessive diuretics as an outpatient. Did not tolerate IV potassium in the ER. Persistent hypokalemia. Replaced with 100 mg once more. Repeat potassium in the evening. (4) Hyponatremia: Most likely in setting of dehydration. Slightly improving. Continue with normal saline with 20 minutes of potassium at 100 cc/h. Monitor sodium level daily for now. Appreciate urine lites. (5) AI (acute kidney injury): Baseline creatinine 1.2-1.3. Creatinine down to baseline. Associated with hypokalemia and hyponatremia. Elevated BUN. Could be in setting of dehydration. Patient does take Bumex and metolazone at home. Bladder scan did show urinary retention. Fischer catheter placed with some difficulty with help of coud?. Medical reconciliation done for nephrotoxic drugs. Hold off on diuretics for now. Repeat BMP in evening. Otherwise monitor BMP daily for now. (6) Syncope: Unknown etiology. Could be in setting of A-fib with RVR versus dehydration leading to AI and hyponatremia and hypokalemia or in setting of hypotension. Telemetry. Fluid as above. Monitor blood pressure as above. Replace electrolytes as above. Physical therapy. Orthostatic blood pressure check. Qualifiers: Syncope type: unspecified Qualified Code(s): R55 - Syncope and collapse (7) Urinary retention: Fischer catheter placed. Continue with Flomax 0.4 mg daily. Patient will need to follow-up with urology as an outpatient. (8) Hematuria: Resolved. Eliquis restarted on 03/09 evening (9) Afib: Currently rate controlled. At home patient seems to be on Cardizem 30 mg twice daily, Coreg 12.5 mg twice daily along with Eliquis 5 mg twice daily. Hold off on antihypertensive and rate admitting medications for now. Telemonitoring. Holding Eliquis given hematuria Qualifiers: Atrial fibrillation type: unspecified Qualified Code(s): I48.91 - Unspecified atrial fibrillation (10) Leukocytosis: Unknown etiology. Could be in setting of dehydration. Patient denies of having any localized symptoms for infection. Check blood culture, respiratory viral panel, urine culture. For now start on IV antibiotics for presumable possible UTI. Patient is allergic to cefazolin. (11) Diastolic CHF: Last echocardiogram from 07/19 shows an EF of 60% with RVSP of 24.8 mmHg. Continue to monitor. Qualifiers: Heart failure chronicity: acute on chronic Qualified Code(s): I50.33 - Acute on chronic diastolic (congestive) heart failure Plan Full code. Patient does not have a DPOA. Cardiac diet Eliquis will be sufficient for DVT prophylaxis Famotidine for PUD prophylaxis Plan for the day: Renal functions and potassium level stable off IV fluids. Continue with oral potassium 40 mg twice daily. Patient complaining of more back pain. Add tramadol 50 mg every [address] lumbar spine to rule out acute injury. Patient did have back surgery in the past. Continue with physical therapy. Out of bed to chair. Continue with Flomax and finasteride. Will most likely discharge with Fischer catheter in place with follow-up with urology as an outpatient. Plan for the day 03/19/2024 - Continue on Bumex 1 mg daily orally. Echo shows normal EF. - Continue with Flomax and finasteride. Discharge with Fischer catheter in place with follow-up with urology as an outpatient. - Refer to Dr. Phoenix at outpatient - Place on hydrocodone 5 q8 hr prn pain. -- Discharge plan: Awaiting transfer to SNF. - right am swollen, check venous dopplers: No evidence for right upper extremity deep venous thrombosis. Probable hematoma right supraclavicular fossa.Hemoglobin is stable, no evidence of fluctuance or bleeding. This should self resolve. Discussed briefly with general surgery. - check labs in am tomorrow AWAITING PLACEMENT Attestations 2 Medical Necessity Statement*: Awaiting insurance authorization Diagnoses Sepsis A41.9 Hypotension I95.9 Acute hypokalemia E87.6 Hyponatremia E87.1 AI (acute kidney injury) N17.9 Syncope, unspecified syncope type R55 Syncope type: unspecified Urinary retention R33.9 Hematuria R31.9 Atrial fibrillation, unspecified type I48.91 Atrial fibrillation type: unspecified Leukocytosis D72.829 Acute on chronic diastolic congestive heart failure I50.33 Heart failure chronicity: acute on chronic
[2024-03-19] MEDS: acetaminophen 325 mg Tablet 650 MG PO (14:09)
[2024-03-19 16:00] VITALS: BP 142/86; PULSE 87; RESP 19; TEMP 36.8; O2SAT 96
[2024-03-19 20:00] VITALS: BP 125/80; PULSE 83; RESP 17; TEMP 36.7; O2SAT 93
[2024-03-19] MEDS: finasteride 5 mg Tablet PO (21:15)
[2024-03-20] VITALS (9 sets, daily range): BP systolic 119–153; BP diastolic 75–89; PULSE 75–101; RESP 17–19; TEMP 36.3–37.1; O2SAT 93–97
[2024-03-20] MEDS: HYDROcodone-acetaminophen 5-325 mg Tablet 1 TAB PO (03:30)
[2024-03-20] MEDS: PARoxetine 20 mg Tablet 10 MG PO (09:05)
[2024-03-20] MEDS: ferrous gluconate 324 mg Tablet PO (09:06)
[2024-03-20] MEDS: famotidine 20 mg Tablet PO ×2 (09:06→17:22)
[2024-03-20] MEDS: apixaban 5 mg Tablet PO ×2 (09:06→17:22)
[2024-03-20] MEDS: gabapentin 300 mg Capsule PO ×3 (09:06→20:01)
[2024-03-20] MEDS: tamsulosin 0.4 mg Capsule 0.800000000000000044 MG PO (09:06)
[2024-03-20] MEDS: bumetanide 1 mg Tablet PO (09:06)
[2024-03-20] MEDS: acetaminophen 325 mg Tablet 650 MG PO ×2 (10:55→21:08)
--- NOTE | 2024-03-20 15:43 | P.PN_ITS ---
Subjective 2 Subjective: Hospital course, labs appreciated. Patient has remained hemodynamically stable and afebrile. States his breathing is appropriate. Saturating well on room air. Vitals/I&O/Wt Last Vital Signs Temp 97.4 F L 03/20/24 12:03 Pulse 95 03/20/24 14:00 Resp 18 03/20/24 12:03 BP 119/75 03/20/24 12:03 Pulse Ox 93 03/20/24 12:03 O2 Del Method Room Air 03/20/24 12:03 O2 Flow Rate 98 03/09/24 20:00 03/20/24 03/20/24 03/20/24 06:59 14:59 22:59 Intake Total 350 / 1550 360 / 360 Output Total 800 / 4000 575 / 575 Balance -450 / -2450 -215 / -215 Weight last 48 hrs Weight 116.619 kg Weight 120.247 kg Physical Exam 2 Narrative: General: No acute distress, AO x3, calm HEENT: PERRLA, pupils bilaterally equal and reactive Chest: Normal vesicular breath sounds, no added sounds, equal good air entry bilaterally CVS: S1-S2 regular, no murmurs, no tachycardia, no gallops, no rubs Abdomen: Soft, nontender, no organomegaly, bowel sounds present Neuro: No focal deficits, no facial deformity, AO x3, power 5/5 in all limbs Urinary Catheter Management: Coude: Cath Placed During This Visit: yes Reason for Continuing Indwelling Catheter: Acute Urinary Retention or Obstruction Urinary Catheter Date of Insertion: 03/07/24 Urinary Catheter Time of Insertion: 08:30 Data 03/17/24 04:21 03/19/24 05:51 A&P Assessment and plan (1) Sepsis: SIRS: Hypotension, leukocytosis, elevated lactate on admission. Source: Unknown. Possibly UTI. End organ damage: Acute infectious encephalopathy, acute kidney injury Lactic acid elevated. Patient did receive full sepsis bolus of 30 mill per KG body weight. Continue with NS at 100 cc/h. Monitor blood pressures. Keep mean artery pressure 65 mmHg. Follow-up blood culture, urine culture, MRSA swab. Appreciate procalcitonin, urine Legionella, bacterial antigen. Patient is allergic to cefazolin. For now continue with Zosyn. De-escalate antibiotics as per culture results. (2) Hypotension: Hypertension present on presentation to the ER. Improved with sepsis fluid bolus. Keep mean artery pressure 65. Hold off antihypertensive for now. Check orthostatics. (3) Acute hypokalemia: Denies any episodes of diarrhea. Patient is on excessive diuretics as an outpatient. Did not tolerate IV potassium in the ER. Persistent hypokalemia. Replaced with 100 mg once more. Repeat potassium in the evening. (4) Hyponatremia: Most likely in setting of dehydration. Slightly improving. Continue with normal saline with 20 minutes of potassium at 100 cc/h. Monitor sodium level daily for now. Appreciate urine lites. (5) AI (acute kidney injury): Baseline creatinine 1.2-1.3. Creatinine down to baseline. Associated with hypokalemia and hyponatremia. Elevated BUN. Could be in setting of dehydration. Patient does take Bumex and metolazone at home. Bladder scan did show urinary retention. Fischer catheter placed with some difficulty with help of coud?. Medical reconciliation done for nephrotoxic drugs. Hold off on diuretics for now. Repeat BMP in evening. Otherwise monitor BMP daily for now. (6) Syncope: Unknown etiology. Could be in setting of A-fib with RVR versus dehydration leading to AI and hyponatremia and hypokalemia or in setting of hypotension. Telemetry. Fluid as above. Monitor blood pressure as above. Replace electrolytes as above. Physical therapy. Orthostatic blood pressure check. Qualifiers: Syncope type: unspecified Qualified Code(s): R55 - Syncope and collapse (7) Urinary retention: Fischer catheter placed. Continue with Flomax 0.4 mg daily. Patient will need to follow-up with urology as an outpatient. (8) Hematuria: Resolved. Eliquis restarted on 03/09 evening (9) Afib: Currently rate controlled. At home patient seems to be on Cardizem 30 mg twice daily, Coreg 12.5 mg twice daily along with Eliquis 5 mg twice daily. Hold off on antihypertensive and rate admitting medications for now. Telemonitoring. Holding Eliquis given hematuria Qualifiers: Atrial fibrillation type: unspecified Qualified Code(s): I48.91 - Unspecified atrial fibrillation (10) Leukocytosis: Unknown etiology. Could be in setting of dehydration. Patient denies of having any localized symptoms for infection. Check blood culture, respiratory viral panel, urine culture. For now start on IV antibiotics for presumable possible UTI. Patient is allergic to cefazolin. (11) Diastolic CHF: Last echocardiogram from 07/19 shows an EF of 60% with RVSP of 24.8 mmHg. Continue to monitor. Qualifiers: Heart failure chronicity: acute on chronic Qualified Code(s): I50.33 - Acute on chronic diastolic (congestive) heart failure Plan Full code. Patient does not have a DPOA. Cardiac diet Eliquis will be sufficient for DVT prophylaxis Famotidine for PUD prophylaxis Plan for the day: Awaiting placement. No new complaints. Continue with current medications. Patient's heart rate has remained stable. Has not required any Cardizem. Most likely will need to be discharged on as needed Bumex versus Lasix. Fischer catheter in place. Will need to follow-up with urologist as an outpatient. Continue with Flomax and finasteride. Patient working well with physical therapy. It seems patient had walked 140 feet with physical therapy. Discharge planning: Currently awaiting placement to SNF over last 1 week requiring possible Insurance. Patient physical capabilities have been improving and walked up to 140. Will confirm with case management if patient is still able to go to SNF or will be declined. If not we will plan to discharge within next 24 hours to home with home health. Attestations 2 Medical Necessity Statement*: Requires further hospitalization while safe discharge planning is sought and the patient was originally admitted for significant severe hypokalemia, hypotension in setting of dehydration Diagnoses Sepsis A41.9 Hypotension I95.9 Acute hypokalemia E87.6 Hyponatremia E87.1 AI (acute kidney injury) N17.9 Syncope, unspecified syncope type R55 Syncope type: unspecified Urinary retention R33.9 Hematuria R31.9 Atrial fibrillation, unspecified type I48.91 Atrial fibrillation type: unspecified Leukocytosis D72.829 Acute on chronic diastolic congestive heart failure I50.33 Heart failure chronicity: acute on chronic
[2024-03-20] MEDS: finasteride 5 mg Tablet PO (20:01)
[2024-03-21] MEDS: acetaminophen 325 mg Tablet 650 MG PO (03:11)
[2024-03-21 04:00] VITALS: BP 120/85; PULSE 71; RESP 19; TEMP 37.1; O2SAT 90
[2024-03-21 05:55] VITALS: PULSE 78
[2024-03-21 07:16] VITALS: BP 130/81; PULSE 74; RESP 17; TEMP 36.6; O2SAT 93
[2024-03-21] MEDS: apixaban 5 mg Tablet PO (08:55)
[2024-03-21] MEDS: gabapentin 300 mg Capsule PO (08:55)
[2024-03-21] MEDS: bumetanide 1 mg Tablet PO (08:55)
[2024-03-21] MEDS: tamsulosin 0.4 mg Capsule 0.800000000000000044 MG PO (08:55)
[2024-03-21] MEDS: PARoxetine 20 mg Tablet 10 MG PO (08:55)
[2024-03-21] MEDS: famotidine 20 mg Tablet PO (08:55)
[2024-03-21 10:53] VITALS: BP 135/89; PULSE 77; RESP 17; TEMP 36.6; O2SAT 95
--- NOTE | 2024-03-21 11:38 | P.DS_ITS ---
Discharge Providers Date of Admission: 03/06/24 16:18 Date of Discharge: March 21, 2024 Attending Provider at Admission: Teodoro Argueta MD Attending Provider at Discharge: Teodoro Argueta MD Primary Care Provider: Jim Obrien MD Diagnoses at Discharge Discharge Diagnosis (1) Sepsis: Status: Acute (2) Hypotension: Status: Acute (3) Acute hypokalemia: Status: Acute (4) Hyponatremia: Status: Acute (5) AI (acute kidney injury): Status: Acute (6) Syncope: Status: Acute Qualifiers: Syncope type: unspecified Qualified Code(s): R55 - Syncope and collapse (7) Urinary retention: Status: Acute (8) Hematuria: Status: Acute (9) Afib: Status: Chronic Qualifiers: Atrial fibrillation type: unspecified Qualified Code(s): I48.91 - Unspecified atrial fibrillation (10) Leukocytosis: Status: Acute (11) Diastolic CHF: Status: Acute Qualifiers: Heart failure chronicity: acute on chronic Qualified Code(s): I50.33 - Acute on chronic diastolic (congestive) heart failure Reason for Visit Reason for Visit: abnormal labs Brief History: History as per HPI: Felipe Bello is a 68 year old male with PMH of A-fib with Eliquis on anticoagulation, diastolic heart failure on Bumex and metolazone as an outpatient presented to the ER from his outpatient physician office because of abnormal labs. As per the patient he had gone to his primary care's office because of episodes of dizziness patiently on standing up from sitting position and episode of passing out 3 days ago. As per the patient when he had passed out he thinks the event was for around 5 minutes as he had urinated on himself. Patient lives by himself and it was a witnessed event. Denies any similar history in the past. Does state he has a history of shortness of breath and dizziness in the past. Shortness of breath has been at his baseline. He denies any chest pain, weakness of any of his arms. Denies any changes in his med ications recently. Hospital Course Hospital Course Patient was initially admitted on 03/06 with concerns for acute weakness in setting of hypotension, dehydration leading to acute hypokalemia and hyponatremia from poor oral intake, overdiuresis leading to acute kidney injury with concerns for sepsis in setting of UTI. He was started broad-spectrum antibiotics and IV hydration. His hospitalization was complicated by him developing urinary retention for which Fischer catheterization was done. Given history of BPH Fischer catheterization was difficult and was complicated by hematuria which resolved by itself. He also had episodes of delirium for 24 hours which were thought to be in setting of withdrawal from home dose of gabapentin. Symptoms or delirium resolved once gabapentin was restarted. Patient responded well to the treatment and has been at his baseline mentation, without electrolyte abnormality. Echocardiogram was done which showed normal EF. Was continued on low-dose diuretics given concerns for diastolic heart failure. He was seen by physical therapy during hospitalization who at first recommended patient to be transition to SNF. Patient hospitalization was prolonged as he was awaiting prior authorization to be placed at SNF. While awaiting prior authorization patient continue to work with physical therapy and lately has improved in which he has walked up to 300 feet. Given significant improvement in physical condition even discharged home with home health. He has been counseled in detail regarding lifestyle modification with diastolic heart failure. He is to maintain his hydration with up to 2 L of fluid daily. His dose of diuretics has been decreased to 1 mg Bumex daily along with potassium 20 mg twice daily. He states he has primary care provider within next 1 week for repeat BMP. He will follow-up with urology within next 2 weeks given urinary retention. A Fischer catheter remains in place for more than 3 weeks it should be replaced. He will also see Dr. Phoenix as an outpatient given concerns for significant back pain Physical Exam Narrative: General: No acute distress, AO x3, calm HEENT: PERRLA, pupils bilaterally equal and reactive Chest: Normal vesicular breath sounds, no added sounds, equal good air entry bilaterally CVS: S1-S2 regular, no murmurs, no tachycardia, no gallops, no rubs Abdomen: Soft, nontender, no organomegaly, bowel sounds present Neuro: No focal deficits, no facial deformity, AO x3, power 5/5 in all limbs Urinary Catheter Management: Coude: Cath Placed During This Visit: yes Reason for Continuing Indwelling Catheter: Acute Urinary Retention or Obstruction Urinary Catheter Date of Insertion: 03/07/24 Urinary Catheter Time of Insertion: 08:30 Discharge Data Studies Completed and Pending Completed Studies During Hospitalization Category Date Time Status CT cervical spin wo con* [id number] Stat Cat Scan 03/06/24 13:[address] chest abdomen pelvis [[place] [id number] Cat Scan 03/06/24 15:18 Completed ] Stat CT head wo con* [id number] Stat Cat Scan 03/06/24 13:[address] lumbar spine wo con* [id number] Routine Cat Scan 03/12/24 10:01 Completed XR chest 1V portable [id number] Stat Exams 03/06/24 13:16 Completed US venous duplex upper extremity RT [CV venous duplex Ultrasound 03/14/24 08:15 [place] [id number]] Routine Radiology Impressions Chest X-Ray 03/06/24 13:16 IMPRESSION: No acute findings. Head CT 03/06/24 13:53 IMPRESSION: No acute intracranial abnormality. Cervical Spine CT 03/06/24 13:57 IMPRESSION: 1. No acute fracture. 2. 8 mm left upper lobe pulmonary nodule. For both low risk and high risk patients, consider CT Chest at 3 months, PET/CT, or biopsy. (Reference: Fabien) REFERENCES: Fabien Ambriz, et al. Guidelines for Management of Incidental Pulmonary Nodules Detected on CT Images: From the Fleischner Society 2017. Radiology. 2017;284(1):228-243. Chest/Abdomen/Pelvis CT 03/06/24 15:18 IMPRESSION: 1. No sign of significant traumatic injury in the thorax. 2. Noncalcified bilateral lung nodules measuring up to 6 mm. For patients at low risk (minimal or absent history of smoking and of other known risk factors), recommend CT Chest at 3-6 months, then consider CT Chest at 18-24 months. For patients at high risk (history of smoking or of other known risk factors), recommend CT Chest at 3-6 months, then CT Chest at 18-24 months. IMPRESSION: 1. No sign of significant traumatic injury in the abdomen or pelvis. 2. Incidental findings above. COMMENTS: Consistent with the [employer]'s Incidental Findings Committee white paper (J Am Thomas Radiol 2018): Any incidental renal lesion less than 1 cm or classified as too small to characterize, or any incidental cystic renal lesion characterized as simple-appearing, is likely benign. No follow-up imaging is recommended for these lesions per consensus recommendations based on imaging criteria. Lumbar Spine CT 03/12/24 10:01 IMPRESSION: 1. No major interval change in the appearance of the lumbar spine when compared to the previous study with multilevel chronic degenerative changes as above. No acute fracture identified. 2. Small partially imaged left pleural effusion. Microbiology 03/06/24 15:10 Blood Blood Culture - Final NO GROWTH AFTER 5 DAYS 03/06/24 15:14 Blood Blood Culture - Final NO GROWTH AFTER 5 DAYS 03/06/24 16:25 Urine,Clean Catch Urine Culture - Final 03/06/24 16:25 Urine Kidney Bacterial Antigens - Final 03/06/24 16:25 Unknown Source Legionella Urinary Antigen - Final Laboratory Results WBC 7.78 10^3/uL (3.29-11.43) 03/17/24 04:21 RBC 4.42 10^6/uL (3.85-5.65) 03/17/24 04:21 Hgb 11.10 g/dL (11.27-16.99) L 03/17/24 04:21 Hct 36.0 % (37-53) L 03/17/24 04:21 MCV 81.4 fl (82-101) L 03/17/24 04:21 MCH 25.1 pg (27-33) L 03/17/24 04:21 MCHC 30.8 g/dL (30-55) 03/17/24 04:21 RDW 19.6 % (12.1-15.1) H 03/17/24 04:21 Plt Count 237 10^3/cmm (157-399) 03/17/24 04:21 MPV 10.4 fL (7.4-10.4) 03/17/24 04:21 Neut % (Auto) 66.4 % 03/17/24 04:21 Lymph % (Auto) 23.4 % 03/17/24 04:21 [place] % (Auto) 6.8 % 03/17/24 04:21 Eos % (Auto) 2.6 % 03/17/24 04:21 Baso % (Auto) 0.5 % 03/17/24 04:21 Neut # (Auto) 5.17 10^3/uL (1.8-7.7) 03/17/24 04:21 Lymph # (Auto) 1.8 10^3/uL (0.8-4.8) 03/17/24 04:21 [place] # (Auto) 0.5 10^3/uL (0.2-0.9) 03/17/24 04:21 Eos # (Auto) 0.2 10^3/uL (0.0-0.8) 03/17/24 04:21 Baso # (Auto) 0.0 10^3/uL (0.0-0.1) 03/17/24 04:21 Nucleated RBC % (auto) 0 % 03/17/24 04:21 Nucleated RBCs # 0.0 /100WBC 03/17/24 04:21 Specimen Type Arterial 03/08/24 12:50 Sample Site Radial, left 03/08/24 12:50 ABG pH 7.60 (7.35-7.45) H* 03/08/24 12:50 ABG pCO2 24.4 mmHg (35-45) L 03/08/24 12:50 ABG pO2 205.0 mmHg (80.0-100.0) H 03/08/24 12:50 ABG HCO3 23.9 mmol/L (22-26) 03/08/24 12:50 ABG O2 Saturation 99.4 03/08/24 12:50 ABG Base Excess 3.5 mmol/L (-2.0-2.0) H 03/08/24 12:50 Fam Test Pos 03/08/24 12:50 A-a O2 Gradient Not Reportable 03/08/24 12:50 Hematocrit 38.6 % (42-52) L 03/08/24 12:50 Hgb O2 Saturation 98.9 % (95-100) 03/08/24 12:50 Carboxyhemoglobin 0.6 %THgb (0.4-20.1) 03/08/24 12:50 Methemoglobin < 0.0 % (0.4-1.5) L 03/08/24 12:50 Total Hemoglobin 12.6 g/dL (14-18) L 03/08/24 12:50 Sodium 135.0 mmol/L (131-143) 03/08/24 12:50 Potassium 3.8 mmol/L (3.5-5.0) 03/08/24 12:50 Glucose 104.0 mg/dL (70-115) 03/08/24 12:50 Ionized Calcium 1.2 mmol/L (1.1-1.4) 03/08/24 12:50 O2 Delivery Device Oxy mask 03/08/24 12:50 O2 Liters/Min 10.0 % 03/08/24 12:50 Parking Manager ID yorna 03/08/24 12:50 Sodium 139 mmol/L (136-145) 03/19/24 05:51 Potassium 3.9 mmol/L (3.5-5.1) 03/19/24 05:51 Chloride 106 mmol/L (98-107) 03/19/24 05:51 Carbon Dioxide 26 mmol/L (22-29) 03/19/24 05:51 Anion Gap 10.9 (5-19) 03/19/24 05:51 BUN 13 mg/dL (8-23) 03/19/24 05:51 Creatinine 0.8 mg/dL (0.7-1.2) 03/19/24 05:51 GFR Calculation 95.6 mL/min (90-130) 03/19/24 05:51 Glucose 102 mg/dL (65-115) 03/19/24 05:51 POC Glucose 196 mg/dL (70-110) H 03/06/24 20:15 Estimat Average Glucose 108 03/07/24 03:29 Hemoglobin A1c 5.4 % (4.0-6.0) 03/07/24 03:29 Calculated Osmolality 288 mOsm/kg (285-295) 03/19/24 05:51 Lactic Acid 2.3 mmol/L (0.5-2.2) H 03/06/24 13:38 Lactic Acid (Sepsis) 1.6 mmol/L (0.5-2.2) 03/06/24 16:38 Calcium 8.7 mg/dL (8.5-10.5) 03/19/24 05:51 Phosphorus 2.4 mg/dL (2.5-4.5) L 03/07/24 03:29 Magnesium 2.0 mg/dL (1.7-2.3) 03/17/24 04:21 Iron 35 ug/dL (59-158) L 03/06/24 19:17 TIBC 370 mcg/dl 03/06/24 19:17 % Saturation 9.4 % (20-50) L 03/06/24 19:17 Unsat Iron Binding 335 ug/dL (112-347) 03/06/24 19:17 Total Bilirubin 0.3 mg/dL (0.15-1.2) 03/13/24 04:31 AST 17 U/L (0-40) 03/13/24 04:31 ALT 27 U/L (0-41) 03/13/24 04:31 Alkaline Phosphatase 72 U/L (40-130) 03/13/24 04:31 Creatine Kinase 90 U/L (39-308) 03/08/24 13:15 Troponin T Baseline 34 ng/L (0-15) H 03/08/24 13:15 Troponin T 120 Minute 32.13 ng/L (0-15) H 03/08/24 14:54 Delta Troponin T -1.87 ABS# (0-10) L 03/08/24 14:54 Troponin T Hi Sens 6Hr 29.47 ng/L (0-15) H 03/08/24 19:15 Troponin T Hi Sens 6Hr Delta -4.53 ng/L (0-12) L 03/08/24 19:15 NT-Pro-B Natriuret Pep 1998 pg/mL (0-125) H 03/06/24 13:37 Total Protein 5.8 g/dL (6.6-8.7) L 03/13/24 04:31 Albumin 3.2 g/dL (3.5-5.2) L 03/13/24 04:31 Globulin 2.6 g/dL (1.3-4.6) 03/13/24 04:31 Triglycerides 107 mg/dL (0-150) 03/07/24 03:29 Cholesterol 150 mg/dL (0-200) 03/07/24 03:29 LDL Cholesterol, Calc 88 mg/dL (50-129) 03/07/24 03:29 HDL Cholesterol 41 mg/dL (60-100) L 03/07/24 03:29 LDL/HDL Ratio 2.15 RATIO (0.00-3.22) 03/07/24 03:29 Cholesterol/HDL Ratio 3.66 mg/dL (1.0-5.00) 03/07/24 03:29 Vitamin B12 > 2000 pg/mL (232-1245) H 03/06/24 19:17 Folate 8.9 ng/mL (4.5-32.2) 03/07/24 03:29 Procalcitonin 0.22 ng/mL (0-0.5) 03/06/24 15:14 TSH 0.85 uIU/mL (0.27-4.20) 03/06/24 19:17 Urine Color Yellow (Yellow) 03/06/24 16:25 Urine Appearance Cloudy (CLEAR) A 03/06/24 16:25 Urine pH 6.5 (5-7) 03/06/24 16:25 Ur Specific [place] 1.005 (1.005-1.030) 03/06/24 16:25 Urine Protein Neg (Negative) 03/06/24 16:25 Urine Glucose (UA) Trace (Normal) H 03/06/24 16:25 Urine Ketones Negative (Negative) 03/06/24 16:25 Urine Blood 3+ (Negative) H 03/06/24 16:25 Urine Nitrate Negative (Negative) 03/06/24 16: Urine Bilirubin Neg (Negative) 03/06/24 16: Urine Urobilinogen Norm mg/dL (Negative) 03/06/24 16:25 Ur Leukocyte Esterase 2+ (Negative) H 03/06/24 16:25 Urine RBC 25-40 /hpf (0-2) H 03/06/24 16:25 Urine WBC >100 /hpf (0-5) H 03/06/24 16:25 Ur Squamous Epith Cells None /hpf (0-5) 03/06/24 16:25 Amorphous Sediment Not Reportable 03/06/24 16:25 Urine Bacteria 2+ /hpf (NONE) H 03/06/24 16:25 Ur Random Sodium 95 mmol/L 03/08/24 10:40 Ur Random Potassium 35 mmol/L 03/08/24 10:40 Ur Random Chloride 128 mmol/L 03/08/24 10:40 Urine Creatinine 70 mg/dL (39-259) 03/08/24 10:40 Urine Opiates Screen Negative ng/mL (Negative) 03/08/24 10:40 Ur Barbiturates Screen Negative ng/mL (Negative) 03/08/24 10:40 Ur Phencyclidine Scrn Negative ng/mL (Negative) 03/08/24 10:40 Ur Amphetamines Screen Negative ng/mL (Negative) 03/08/24 10:40 U Benzodiazepines Scrn Negative ng/mL (Negative) 03/08/24 10:40 Urine Cocaine Screen Negative ng/mL (Negative) 03/08/24 10:40 U Marijuana (THC) Screen Negative ng/mL (Negative) 03/08/24 10:40 Adenovirus (PCR) Not detected (NOT DETECT) 03/06/24 18:36 C. pneumoniae DNA (PCR) Not detected (NOT DETECT) 03/06/24 18:36 Coronavirus 229E (PCR) Not detected (NOT DETECT) 03/06/24 18:36 Human Metapneumovir PCR Not detected (NOT DETECT) 03/06/24 18:36 Influenza A (H1) PCR Not detected (NOT DETECT) 03/06/24 18:36 Influ A (H1/09) PCR Not detected (NOT DETECT) 03/06/24 18:36 Influenza A (H3) PCR Not detected (NOT DETECT) 03/06/24 18:36 Influenza Type A (PCR) Not detected (NOT DETECT) 03/06/24 18:36 Influenza Type B (PCR) Not detected (NOT DETECT) 03/06/24 18:36 M. pneumoniae (PCR) Not detected (NOT DETECT) 03/06/24 18:36 Parainfluenza 1 (PCR) Not detected (NOT DETECT) 03/06/24 18:36 Parainfluenza 2 (PCR) Not detected (NOT DETECT) 03/06/24 18:36 Parainfluenza 3 (PCR) Not detected (NOT DETECT) 03/06/24 18:36 Parainfluenza 4 (PCR) Not detected (NOT DETECT) 03/06/24 18:36 RSV Type A (PCR) Not detected (NOT DETECT) 03/06/24 18:36 RSV Type B (PCR) Not detected (NOT DETECT) 03/06/24 18:36 Entero/Rhino (PCR) Not detected (NOT DETECT) 03/06/24 18:36 SARS-CoV-2 (PCR) Not detected (NOT DETECT) 03/06/24 18:36 MRSA (PCR) Not detected (NOT DETECTED) 03/06/24 19:20 Vitals Last Vital Signs Temp 97.9 F 03/21/24 10:53 Pulse 77 03/21/24 10:53 Resp 17 03/21/24 10:53 BP 135/89 03/21/24 10:53 Pulse Ox 95 03/21/24 10:53 O2 Del Method Room Air 03/21/24 10:53 O2 Flow Rate 98 03/09/24 20:00 Discharge Plan Discharge Patient Disposition: Home Health Service Condition: Stable Prescriptions: New paroxetine HCl 20 mg Tablet 10 mg PO DAILY Qty: 30 0RF gabapentin 300 mg Capsule 300 mg PO TID Qty: 90 0RF bumetanide 1 mg Tablet 1 mg PO DAILY Qty: 30 0RF ferrous gluconate 324 mg (37.5 mg iron) Tablet 324 mg PO EVERY OTHER DAY Qty: 60 0RF Continued tamsulosin 0.4 mg capsule 0.8 mg PO DAILY Eliquis 5 mg tablet 5 mg PO BID Hold Instructions: Resume on 05/11/22. potassium chloride 20 mEq tablet,ER particles/crystals 20 meq PO BID 30 Days Qty: 180 2RF Rx Instructions: with bumex therapy gabapentin 600 mg tablet 600 mg PO BID finasteride 5 mg tablet 5 mg PO DAILY Discontinued carvedilol 12.5 mg tablet 12.5 mg PO BID Qty: 60 5RF Rx Instructions: must administer with a meal/food diltiazem HCl 30 mg tablet 30 mg PO BID Qty: 180 2RF bumetanide 2 mg tablet 2 mg PO BID metolazone 5 mg tablet 5 mg PO DAILY nitrofurantoin monohyd/m-cryst 100 mg capsule 100 mg PO Q12H Discharge Orders: Discharge Order (Routine); Ordered 03/21/24 Ordered By: Teodoro Argueta Referrals: [facility] [Outside] Chilo Peng [Referring] - 4-7 days (urinary retention We have notified your physician's clinic of the need for a follow-up appointment to be scheduled. If you have not heard from them within the next 2 business days, please call them directly. ) Catalino Phoenix DO [Physician] - 04/04/24 2:00 pm (back pain ) Jim Obrien MD [Primary Care Provider] - 03/23/24 9:00 am Discharge Diet: Regular Discharge Activity: Resume usual activity and Increase activity as tolerated Patient Instructions: Bumetanide (By mouth) (Bumex), Gabapentin (By mouth), Paroxetine (By mouth), Heart Failure (DC), CHF Stoplight, Opioid Safety Activity Restrictions/Additional Instructions: Bumex dose has been changed to 1 mg oral daily. Metolazone has been stopped. Continue taking potassium as before. Repeat BMP in 1 week. For now do not take your carvedilol and Cardizem as before. Check your blood pressures daily and maintain a blood pressure diary. Goal blood pressure is less than 140/90 mmHg. Please see urologist within next 1 week, your primary care provider within next 10 days. If Fischer catheter remains in place for more than 3 weeks it should be replaced. Discharge Attestations Time Spent in Discharge Care*: greater than 30 min Specific Discharge Activities: educating patient, discussing with pcp/other providers, discussing with case worker/social workers/dc planners, documenting/other paperwork and evaluating patient/reviewing data Status at Discharge: Cognitive status at discharge: mildly impaired cognition , Behavioral status at discharge: cooperative , Functional status at discharge: independent ambulation , Overall status at discharge: patient is back to baseline Quality Metrics Clinical Quality Measures [ No reported AMI, CVA or VTE this stay] Coding Level of Care Code 60459 Total time (in minutes) for Discharge: 60 Diagnoses Sepsis A41.9 Hypotension I95.9 Acute hypokalemia E87.6 Hyponatremia E87.1 AI (acute kidney injury) N17.9 Syncope, unspecified syncope type R55 Syncope type: unspecified Urinary retention R33.9 Hematuria R31.9 Atrial fibrillation, unspecified type I48.91 Atrial fibrillation type: unspecified Leukocytosis D72.829 Acute on chronic diastolic congestive heart failure I50.33 Heart failure chronicity: acute on chronic
[2024-03-21 13:25] VITALS: BP 135/89; PULSE 77; RESP 17; TEMP 36.6; O2SAT 95
== END 2024-03-21 13:10 | disposition home health service (06) | DRG 640 ==
LOC: ER 15:32 → CSU 16:19 → ICU 03-08 13:19 → CSU 03-09 17:35 → MEDSURG 03-17 12:05
PROVIDERS: Internal Medicine; Admitting Provider Student in an Organized Health Care Education/Training Program; Emergency Provider Family Medicine; PCP Family Medicine; Visit Provider Student in an Organized Health Care Education/Training Program
DX: E87.6 Hypokalemia (principal); I50.33 Acute on chronic diastolic (congestive) heart failure; N17.9 Acute kidney failure, unspecified; N39.0 Urinary tract infection, site not specified; I48.20 Chronic atrial fibrillation, unspecified; G93.40 Encephalopathy, unspecified; E87.1 Hypo-osmolality and hyponatremia; E86.0 Dehydration; I95.9 Hypotension, unspecified; N40.1 Benign prostatic hyperplasia with lower urinary tract symptoms; R33.9 Retention of urine, unspecified; R31.9 Hematuria, unspecified; Z79.01 Long term (current) use of anticoagulants; Z87.891 Personal history of nicotine dependence; M79.89 Other specified soft tissue disorders
CPT/HCPCS: 36415; 36416; 36600; 70450; 71045; 71250; 72125; 72131; 74176; 80048; 80051; 80053; 80061; 80306; 81001; 82330; 82436; 82550; 82570; 82607; 82746; 82805; 82962; 83036; 83540; 83550; 83605; 83735; 83880; 84100; 84133; 84145; 84300; 84443; 84484; 85025; 86403; 87040; 87086; 87449; 87486; 87581; 87633; 87641; 93005; 93971; 94664; 96365; 96366; 96367; 96372; 96376; 97110; 97116; 97161; 97166; 97530; 99285; J1170; J1630; J1720; J1956; J2060; J2270; J2543; J3480; J7030

== ENCOUNTER → 2024-03-27 09:32 | Outpatient (BNVA) | payer MEDICARE, SELFPAY | PROVIDERS: PCP Family Medicine; Visit Provider Nurse Practitioner | DX: M25.552 Pain in left hip (principal); Z96.642 Presence of left artificial hip joint | CPT/HCPCS: 73502; 99024 ==

== ENCOUNTER → 2024-03-28 13:55 | Outpatient (BNVA) | payer MEDICARE, SELFPAY | PROVIDERS: PCP Family Medicine; Visit Provider Nurse Practitioner Family | DX: Z13.6 Encounter for screening for cardiovascular disorders (principal); E87.1 Hypo-osmolality and hyponatremia | CPT/HCPCS: 80048 ==

== ENCOUNTER → 2024-04-06 13:03 | Outpatient (BNVA) | payer MEDICARE, SELFPAY | PROVIDERS: PCP Family Medicine; Visit Provider Orthopaedic Surgery | DX: M54.9 Dorsalgia, unspecified (principal); M54.50 Low back pain, unspecified; G89.29 Other chronic pain | CPT/HCPCS: 72110; 99204 ==

== ENCOUNTER → 2024-07-20 11:51 | Outpatient (BNVA) | payer MEDICARE, SELFPAY | PROVIDERS: PCP Family Medicine; Visit Provider Family Medicine | DX: N39.0 Urinary tract infection, site not specified (principal); R30.0 Dysuria | CPT/HCPCS: 80053; 81003; 85025; 87077; 87086; 87184 ==

== ENCOUNTER → 2024-09-13 12:59 | Outpatient (BNVA) | payer MEDICARE, SELFPAY | PROVIDERS: PCP Family Medicine; Visit Provider Nurse Practitioner Family | DX: Z79.01 Long term (current) use of anticoagulants (principal); N18.1 Chronic kidney disease, stage 1 | CPT/HCPCS: 80048 ==

== ENCOUNTER → 2025-02-16 15:37 | Outpatient (BNVA) | payer MEDICARE, SELFPAY | PROVIDERS: PCP Family Medicine; Visit Provider Nurse Practitioner Family | DX: R14.0 Abdominal distension (gaseous) (principal); K59.00 Constipation, unspecified; Z98.890 Other specified postprocedural states | CPT/HCPCS: 74018 ==

== ENCOUNTER → 2025-02-21 09:43 | Outpatient (BNVA) | payer MEDICARE, SELFPAY | PROVIDERS: PCP Family Medicine; Visit Provider Nurse Practitioner Family | DX: R14.0 Abdominal distension (gaseous) (principal); R60.9 Edema, unspecified; I48.91 Unspecified atrial fibrillation; D64.9 Anemia, unspecified; N18.1 Chronic kidney disease, stage 1; E55.9 Vitamin D deficiency, unspecified; Z79.899 Other long term (current) drug therapy; I50.33 Acute on chronic diastolic (congestive) heart failure; Z13.6 Encounter for screening for cardiovascular disorders; R53.83 Other fatigue; D17.5 Benign lipomatous neoplasm of intra-abdominal organs; R31.9 Hematuria, unspecified | CPT/HCPCS: 80053; 80061; 81003; 82306; 82728; 83036; 83550; 83880; 84443; 85025; 87086; G0103 ==

== ENCOUNTER → 2025-03-06 09:25 | Outpatient (BNVA) | payer MEDICARE, SELFPAY | PROVIDERS: PCP Family Medicine; Visit Provider Nurse Practitioner Family | DX: N39.0 Urinary tract infection, site not specified (principal); R31.9 Hematuria, unspecified | CPT/HCPCS: 81003; 87086 ==

== ENCOUNTER → 2025-04-04 11:41 | Outpatient (BNVA) | payer MEDICARE, SELFPAY | PROVIDERS: PCP Family Medicine; Visit Provider Family Medicine | DX: N18.1 Chronic kidney disease, stage 1 (principal) | CPT/HCPCS: 80048 ==

== ENCOUNTER → 2025-04-16 09:06 | Outpatient (BNVA) | payer MEDICARE, SELFPAY | PROVIDERS: PCP Family Medicine; Visit Provider Family Medicine | DX: E87.6 Hypokalemia (principal) | CPT/HCPCS: 80048 ==

== ENCOUNTER → 2025-04-25 09:16 | Outpatient (BNVA) | payer MEDICARE, SELFPAY | PROVIDERS: PCP Family Medicine; Visit Provider Family Medicine | DX: E87.6 Hypokalemia (principal) | CPT/HCPCS: 80048 ==

== ENCOUNTER → 2025-08-14 09:07 | Outpatient (BNVA) | payer MEDICARE, SELFPAY | PROVIDERS: PCP Family Medicine; Visit Provider Nurse Practitioner Family | DX: N40.1 Benign prostatic hyperplasia with lower urinary tract symptoms (principal); Z13.6 Encounter for screening for cardiovascular disorders; I50.33 Acute on chronic diastolic (congestive) heart failure | CPT/HCPCS: 80053; 84153; 85025 ==

== ENCOUNTER → 2025-09-05 10:04 | Outpatient (BNVA) | payer MEDICARE, SELFPAY | PROVIDERS: PCP Family Medicine; Visit Provider Nurse Practitioner Family | DX: N40.1 Benign prostatic hyperplasia with lower urinary tract symptoms (principal); R97.20 Elevated prostate specific antigen [PSA]; N18.1 Chronic kidney disease, stage 1 | CPT/HCPCS: 84153; 85025 ==